=== PATIENT | female | born 1950 | race Caucasian/White ===

== ENCOUNTER 2019-10-20 09:10 | Day surgery (SDC) | payer OTHER, BC ==
[2019-10-17 10:01] LABS: Absolute Lymphocytes (CBC) 0.7 K/uL (0.7-4.9); Basophils % 0.2 % (0-1.3); Hematocrit 44.6 % (36.0-45.0); Lymphocytes % 17.3 % (15.3-44.8); RBC Red Blood Cell Count 4.91 M/uL (3.86-4.86)
[2019-10-17 10:09] LABS: Urine Appearance CLEAR; Urine Bilirubin NEGATIVE (NEG); Urine Blood NEGATIVE (NEG); Urine Color YELLOW; Urine Glucose NEGATIVE (NEG); Urine Protein 2+ (NEG); Urine Urobilinogen 0.2 mg/dL (0.2-1.0); Urine pH 6.5 (5.0-7.0)
[2019-10-17 10:10] LABS: Protime INR 0.96
[2019-10-17 10:12] LABS: Urine Microscopic Reflex ORDER UMIC
[2019-10-17 10:15] LABS: Potassium 3.6 mmol/L (3.5-5.1)
[2019-10-17 11:49] LABS: Urine Bacteria <20 /HPF (<20); Urine Culture Reflex Order NOT NEEDED; Urine RBC <5 /HPF (NONE SEEN)
[2019-10-20] MEDS ORDERED: Ringers Lactate 1,000 ML IV ONE ×2 (09:46→14:37)
[2019-10-20] MEDS ORDERED: SCOPOLAMINE HYDROBROMIDE PATCH TD ONE ×2 (09:46→09:55)
[2019-10-20] MEDS ORDERED: CEFAZOLIN SODIUM 1 GM/VIAL ONE (11:44)
[2019-10-20] MEDS ORDERED: NS 0.9% VIAL 10 ML ONE ×3 (11:44→13:23)
[2019-10-20] MEDS ORDERED: NA CHLORIDE 0.9% 1,000 ML ONE (11:45)
[2019-10-20] MEDS ORDERED: NA CHLORIDE 0.9% 100 ML IV ONE (11:45)
[2019-10-20] MEDS ORDERED: VASOPRESSIN 20 UNIT/ML VIAL ONE (11:45)
[2019-10-20] MEDS ORDERED: MIDAZOLAM HCL 2 MG/2 ML INJ ONE (12:22)
[2019-10-20] MEDS ORDERED: LIDOCAINE 1% MPF 5 ML VIAL ONE (12:56)
[2019-10-20] MEDS ORDERED: propofoL 200 MG/20 ML VIAL IV ONE (12:56)
[2019-10-20] MEDS ORDERED: FENTANYL CITR 250 MCG/5 ML ONE (12:56)
[2019-10-20] MEDS: CEFAZOLIN/SWI 2gm 2 GM/20 ML SYR ONE ×2 (13:00→13:34)
[2019-10-20] MEDS ORDERED: VECURONIUM 10 MG/VIAL IV ONE (13:19)
[2019-10-20] MEDS ORDERED: Phenylephrine HCl 10 MG/ML 1 ML VIAL ONE (13:22)
[2019-10-20] MEDS ORDERED: EPHEDRINE SULF 50 MG/ML VIAL ONE (14:02)
[2019-10-20] MEDS ORDERED: GLYCOPYRROLATE 0.2 MG/ML SYR ONE (14:31)
[2019-10-20] MEDS ORDERED: NEOSTIGMINE 1 MG/ML -10 ML VIAL ONE (16:31)
[2019-10-20] MEDS ORDERED: ROCURONIUM 50 MG/5 ML VIAL IV ONE (16:31)
[2019-10-20] MEDS ORDERED: KETOROLAC 30 MG/ML INJ ONE (16:39)
[2019-10-20] MEDS ORDERED: PROMETHAZINE INJ 25 MG/ML AMP IV PRN (16:41)
[2019-10-20] MEDS ORDERED: MORPHINE 2 MG/ML SYR IV PRN (16:41)
--- NOTE | 2019-10-20 16:52 | P.BOP ---
Preoperative diagnosis: stage 2 vault anterior and posterior prolapse, occult DIDI Postoperative diagnosis: same and posterior enterocele Primary procedure: anterior repair,MUS,post wall+enterocele repairs,cystoscopy Secondary procedure: biologic graft augmentation of the posterior and apical compartment Rug Dry Room Attendant: MANNY HENAO Estimated blood loss: minimal Specimen: none Findings: left apical defect with prominent post>ant defect, post enterocele Anesthesia: General Complications: None Drain(s): Urinary catheter Implants: dermapure graft, TVT-O Fluids & blood products: 1900 Transferred to: Recovery Room Condition: Good (popq: 0/+1/0/5-6/mod/6/-1/+2/n/a, post enterocele)
[2019-10-20] MEDS ORDERED: Ringers Lactate 1,000 ML IV SCH (17:00)
[2019-10-20 17:10] VITALS: O2SAT 97
[2019-10-20] MEDS: HYDROMORPHONE HCL 1 MG/ML INJ ONE ×2 (17:14→17:20)
[2019-10-20] MEDS ORDERED: ONDANSETRON 4 MG/2 ML VIAL ONE (17:15)
[2019-10-20 17:29] LABS: Potassium 3.8 mmol/L (3.5-5.1)
[2019-10-20 18:25] VITALS: BMI 29.1
[2019-10-20] MEDS: MORPHINE 4 MG/ML SYR IV PRN (19:43)
[2019-10-20] MEDS ORDERED: HOME MED 1 EA UNK (Bimatoprost [Lumigan Opthalmic Drops*] 1 DROP) OP SCH (21:00)
[2019-10-20] MEDS: ACETAMINOPHEN 500 MG TAB PO PRN (21:54)
[2019-10-21] MEDS: MORPHINE 4 MG/ML SYR IV PRN ×3 (00:14→08:34)
[2019-10-21] MEDS: ACETAMINOPHEN 500 MG TAB PO PRN ×2 (02:11→07:15)
--- NOTE | 2019-10-21 03:23 | OP ---
Date of Procedure: 10/20/2019 Surgeon: Azra Wood MD Molding Cutter: Yani Curtis. Preoperative Diagnoses: Stage II vault prolapse anterior and posterior prolapse, occult stress urina ry incontinence. Postoperative Diagnoses: Stage II vault prolapse anterior and posterior prolapse, occult stress urin harsh incontinence and posterior enterocele. Noted that posterior prolapse involved with left-sided ap ical defect being more significant were noted. Procedure Performed: Anterior repair, mid urethral sling, posterior wall defect repair with posterio r enterocele repair with biologic graft augmentation of the posterior and apical compartment, and cys toscopy. Estimated Blood Loss: Minimal. Specimens: No specimens. Complications: No complications. Drains: Vo catheter and vaginal packing. Findings: Left apical defect more prominent, posterior defect more prominent than the anterior defec t and posterior enterocele. Significant POP-Q 0, +1, 0, 5 to 6, moderate 6, -1, + 2 NA. Posterior e nterocele was noted. Implants: DermaPure biologic graft, human cadaveric graft (mid TVT-O). Condition: Stable. Fluids: In 1900, urine output 400. Indications: The patient is a 68-year-old lady with lupus, hypertension, had medical clearance and t hen options for treatment of her prolapse were discussed. The patient had rectocele and cystocele re pair 40 years ago. Later, she had a hysterectomy, bilateral salpingo-oophorectomy for fibroids about 10 years later. She had increasing bulge symptoms, difficulty to empty her bladder and had to stand to empty her bladder. Irritative bladder symptoms with urgency and urgency-related incontinence. S he also had problems with bowel movements. She tried a pessary in the office and failed to tolerate this since it was not working well in remaining in place and helping her symptoms. Alternatives of s urgery, observation with physical therapy were all reviewed with the patient. Patient wanted to proc eed with surgical repair. Options of reconstructive surgery and closure were discussed with the luis enrique ent. The patient felt strongly that she did not want to consider a closure procedure. Laparoscopic and vaginal repairs were reviewed. Laparoscopic repair with sacral colpopexy graft, mesh graft augme ntation, vaginal repair with primary defect repair versus graft augmented repairs in the compartment with leading prolapse. Since this was the recurrent problem, use of the biologic graft would be cons idered beneficial if no new [place] tissue was found to be optimal. No difference in the literature using human cadaveric graft. All studies indicate that it is equival ent to a primary repair. This was discussed with the patient, vaginal mesh graft unavailable, and so comparison of complications, recurrence of laparoscopic sacral colpopexy with vaginal graft augmente d repair biologic were reviewed with the patient. Patient wanted to proceed with the vaginal repair. Description Of Procedure: After being consented, 2 g of Ancef were given. She was taken back to the OR, placed in supine fashion on the operating table. General anesthesia was given, placed in the do rsal lithotomy position using Mundo stirrups. Vulva, vagina, and perineum were prepped and draped in a sterile fashion. Vo was placed to drain the bladder. POP-Q was as above. Plan was to repair the anterior compartment then the sling then approached posterior. So 2 Allis clamps were placed at the level of the UVJ and the mid vaginal vault. Tying suture was placed at the left end of the vagin al cuff. The right end of the vaginal cuff appeared to be holding significantly better than the left side. Dilute vasopressin was injected in the anterior compartment, then vertical incision with a knife. Al lis clamps placed on each side and dissection was performed to reduce the bladder underneath keeping the scar and the endopelvic fascia together. Once the bladder was reduced all the way from proximal-t o-distal end and from [id number], then plicating sutures were placed x4 with 2-0 Vicryl interrupted . Once these were brought together in the midline then vaginal epithelial closure was done after tri mming maybe 1/4 anterior on the left flap. Once this was done, 2-0 Vicryl in a running continuous lo cked closure was done. Mid urethral area picked up with the 2 Allis clamps, injected with dilute vasopressin 10 mL. A verti aicha incision in the mid urethral area, 1 cm made, then tracts were created on each side 45-degree ang le to the horizontal and vertical planes towards the obturator space hugging the inferior pubic ramus . Once the obturator membrane was perforated the tract was widened on both sides. The wing guide nimisha muller passed in the usual fashion exiting to the point marked according to package instructions and once the plastic dilators were pulled out through the sheaths and then the graft was held with K neha clamps, mid urethral area tensioned with the help of Metzenbaum scissors to be appropriate. The n, the plastic sheaths were removed, mesh was then placed, appropriately tensioned. Irrigation with antibiotic solution and closure with 3-0 Vicryl in a continuous running horizontal mattress fashion. Dermabond on the skin and mesh trimmed very flushed with the skin. Posterior vaginal wall was picked up at both ends of the hymenal ring and then in the center above th e level of the most prominent area of the posterior bulge. The defect appeared to be a large posteri or enterocele and also defect in the posterior rectovaginal septum. rectovaginal exam so the gloves were changed. Dilute vasopressin 20 mL was injected at the perineum and in the posterior midline and on both sides. A anam-shaped incision made with scalpel. Dissection carried to separate this, vaginal epitheli al carpet floor layer apprentice from the rectovaginal septum or the remnants in the scar. There was a scar starting at the level of the hymen and going all the way on the right side at least 4 cm and the posterior wall a bout 2 cm short of the right end of the vaginal cuff scar, possible right sacrospinous could have bee n performed just looking at the location of the scar. Dissection was performed to reduce the bulge from the vaginal epithelium, subepithelium. Posterior e nterocele was dissected as well. Once all this was laid out, dissection was carried in the pararecta l space from the apex on the left side. This was easier part enterocele was well reduced with 3-0 Monocryl in a pursestring fashion pararectal space. Ischial spine was palpated, sacrospinous ligament was cleaned up. Similar dissection was performed on the opposite side. There was no difficulty with the scar tissue here and once this was taken down and went to the pararectal s pace, then the dissection was easier. No stitch was palpable at the sacrospinous space. Once the sa crospinous ligament was clearly dissected and the rectum dissected medially, then 2 Prolene sutures w ere taken on the Capio device and placed in the mid ligament on each side, held with clamps and 3 PDS sutures were placed in the middle and on both sides, appear to find the uterosacral ligaments attach ed at the level of the vaginal cuff and so sutures in the middle on both sides of the midline were pl aced on these structures. All the 2-0 PDS sutures were held on clamps, then the graft was fashioned as a Y, trimmed 1.5 cm in the middle, kept all the width 7 cm, and then the length was left intact at 9 and then the Y-shaped graft was taken. The PDS sutures were all put through the graft, same thing with the sacrospinous sutures with erma stitch. Then, all these were tied down, 3 center stitches first then the left and then the right sacrospinous. Once all these were done, there was excellent support of the apex and the small pucker in the center where the apex seemed to be attached to the gr aft, but other than this excellent support vaginal epithelial trimming did not need to be done other than to freshen the edges at the very distal part. Since the anam-shaped incision was made, the i ncision was closed in a transverse fashion. The Y graft in the distal part was trimmed about 2 cm an d this was attached to the perineal body. The posterior defect was closed with a 2-0 PDS in a contin uous running fashion all the way to the level of the perineal body and once this was closed, then the graft was attached here with two 2-0 Vicryl one on each side interrupted and a center 2-0 PDS to sec ure the distal part. The vaginal epithelium closed with a continuous running 2-0 Vicryl. Then, damon sverse defect at the distal most part trimmed to close the edges evenly with a 2-0 Vicryl in a contin uous horizontal mattress fashion. Once this was tied down, there was excellent apical support. Post erior wall intact and then the perineal body appeared to be elevated and pulled up. There was no nee d for distal perineal repair. Once all the sutures were done and the incision closed, the rectovagin al exam was performed. No foreign body or sutures in the rectum at the level of sacrospinous and the distal sutures as well. Then, Vo removed. Cystoscopy was performed with 17-Khmer sheath with a 30-degree lens, normal saline. Both ureteric orifices were well visualized with strong jets of urin e. No foreign body in the bladder. No sling in the bladder as well. No tumors. The scope was glo jennifer. The bladder was drained. Vo was replaced. Vaginal packing was placed. The patient was rec overed from anesthesia. Instrument, needle, and sponge counts x3 were correct at the end of the case . The patient tolerated the procedure well. She will follow up with me in 1 week. She will have a voiding trial in the morning. We will send her home with antibiotics if she goes home with the [facility]. Her CellCept was asked to be held for 4 to 7 days depending on how she did and BMP to be checke d. DENNIS/TAE Voice ID: [id number] Report ID: [id number]
[2019-10-21 06:41] LABS: Absolute Lymphocytes (CBC) 0.7 K/uL (0.7-4.9); Basophils % 0.2 % (0-1.3); Hematocrit 35.3 % (36.0-45.0); Lymphocytes % 12.5 % (15.3-44.8); MPV 8.4 fL (7.6-11.3); RBC Red Blood Cell Count 3.91 M/uL (3.86-4.86)
[2019-10-21] MEDS ORDERED: METOPROLOL TAR 25 MG TAB PO SCH (08:00)
[2019-10-21 08:27] VITALS: TEMP 97
[2019-10-21] MEDS ORDERED: FOLIC ACID 1 MG TABLET PO SCH (09:00)
[2019-10-21] MEDS ORDERED: AMLODIPINE 5 MG TAB PO SCH (09:00)
[2019-10-21] MEDS ORDERED: CRANBERRY 500 MG PO SCH (09:00)
[2019-10-21] MEDS ORDERED: PANTOPRAZOLE 40MG TABLET PO SCH (09:00)
[2019-10-21] MEDS ORDERED: HOME MED 1 EA UNK (Magnesium Oxide [Magnesium] 250 MG) PO SCH (09:00)
[2019-10-21 09:18] VITALS: BP 135/63
== END 2019-10-21 10:30 | disposition home or self-care (01) ==
LOC: OR 09:10 → 2ND-WC 16:41 → OR 10-21 10:30
PROVIDERS: ATTEND Obstetrics & Gynecology
PROC: 0JQC0ZZ Repair Pelvic Region Subcutaneous Tissue and Fascia, Open Approach (ICD-10-PCS; 2019-10-20)
PROC: 0TSD4ZZ Reposition Urethra, Percutaneous Endoscopic Approach (ICD-10-PCS; 2019-10-20)
PROC: 0UQF0ZZ Repair Cul-de-sac, Open Approach (ICD-10-PCS; principal; 2019-10-20 10:30)
DX: N99.3 Prolapse of vaginal vault after hysterectomy (principal); N39.3 Stress incontinence (female) (male); M32.9 Systemic lupus erythematosus, unspecified; N81.12 Cystocele, lateral; I10 Essential (primary) hypertension
CPT/HCPCS: 85025 ×2; 80048 ×2; 36415 ×2; 86900; 86850; 85610; 86901; 85730; 57265; 57288; J2704; J2710; J2550; J2370; J2250; J3010; J2270; J1170; J0690 ×2; J7120 ×4; J7030; J2405; 81003; 81015

== ENCOUNTER 2020-07-12 08:27 | Inpatient (IN) | payer OTHER, BC ==
[2020-07-10 10:08] LABS: Urine Appearance CLEAR; Urine Bilirubin NEGATIVE (NEG); Urine Blood NEGATIVE (NEG); Urine Color YELLOW; Urine Glucose NEGATIVE (NEG); Urine Protein 2+ (NEG); Urine Specific Gravity 1.015 (1.005-1.030); Urine Urobilinogen 0.2 mg/dL (0.2-1.0)
[2020-07-10 10:10] LABS: Absolute Lymphocytes (CBC) 0.8 K/uL (0.7-4.9); Basophils % 0.2 % (0-1.3); Hematocrit 41.1 % (36.0-45.0); Lymphocytes % 18.1 % (15.3-44.8); MPV 9.4 fL (7.6-11.3); RBC Red Blood Cell Count 4.54 M/uL (3.86-4.86)
[2020-07-10 10:14] LABS: Protime INR 0.97
[2020-07-10 10:15] LABS: Urine Microscopic Reflex ORDER UMIC
[2020-07-10 10:22] LABS: Urine Bacteria <20 /HPF (<20); Urine Culture Reflex Order NOT NEEDED; Urine RBC NONE SEEN /HPF (NONE SEEN)
[2020-07-10 10:24] LABS: Potassium 3.8 mmol/L (3.5-5.1)
[2020-07-12] MEDS ORDERED: SCOPOLAMINE HYDROBROMIDE PATCH TD ONE ×2 (09:13→09:20)
[2020-07-12] MEDS ORDERED: Ringers Lactate 1,000 ML IV ONE ×2 (09:13→12:18)
[2020-07-12] MEDS ORDERED: CEFAZOLIN/SWI 2gm 2 GM/20 ML SYR ONE (09:13)
[2020-07-12] MEDS ORDERED: BUPIVACAINE 0.25% PF 30 ML VIAL ONE (10:06)
[2020-07-12] MEDS ORDERED: ROCURONIUM 50 MG/5 ML VIAL IV ONE (10:12)
[2020-07-12] MEDS ORDERED: FENTANYL CITR 100 MCG/2 ML ONE ×2 (10:12→12:10)
[2020-07-12] MEDS ORDERED: propofoL 200 MG/20 ML VIAL IV ONE (10:12)
[2020-07-12] MEDS ORDERED: LIDOCAINE 2% MPF 5 ML VIAL ONE (10:12)
[2020-07-12] MEDS ORDERED: ONDANSETRON 4 MG/2 ML VIAL ONE ×2 (10:12→14:39)
[2020-07-12] MEDS: CEFAZOLIN/SWI 1gm 1 GM/10 ML SYR IVP SCH ×2 (10:15→17:32)
[2020-07-12] MEDS ORDERED: EPHEDRINE SULF 50 MG/ML VIAL ONE (10:48)
[2020-07-12] MEDS ORDERED: NS 0.9% VIAL 10 ML ONE (12:07)
[2020-07-12] MEDS ORDERED: VECURONIUM 10 MG/VIAL IV ONE (12:07)
[2020-07-12] MEDS ORDERED: VASOPRESSIN 20 UNIT/ML VIAL ONE (13:25)
[2020-07-12] MEDS ORDERED: NA CHLORIDE 0.9% 50 ML ONE (13:27)
--- NOTE | 2020-07-12 13:35 | P.OP ---
Test Tech: Azra Wood Preoperative diagnosis: Extensive Pelvic Adhesions Postoperative diagnosis: Extensive Pelvic Adhesions Primary procedure: Laparoscopic Adhesiolysis Secondary procedure: See Dr. Wood note for full details Anesthesia: GETA + Local Estimated blood loss: <5 cc Specimen: None Findings: Extensive Pelvic Adhesions, sigmoid, rectum Complications: None Transferred to: Recovery Room Condition: Good
[2020-07-12] MEDS ORDERED: dexAMETHasone 10 MG/ML VIAL ONE (14:38)
[2020-07-12] MEDS ORDERED: GLYCOPYRROLATE 0.2 MG/ML SYR ONE ×2 (14:38)
[2020-07-12] MEDS ORDERED: KETOROLAC 30 MG/ML INJ ONE (14:39)
[2020-07-12] MEDS ORDERED: NEOSTIGMINE 1 MG/ML -5 ML ONE (14:43)
[2020-07-12] MEDS: HYDROMORPHONE HCL 1 MG/ML INJ ONE ×2 (15:22→15:27)
[2020-07-12] MEDS: MEPERIDINE HCL 25 MG/ML SYR ONE ×2 (15:29→15:34)
[2020-07-12 15:34] VITALS: O2SAT 99
[2020-07-12] MEDS ORDERED: MORPHINE 4 MG/ML SYR IV PRN (16:14)
[2020-07-12] MEDS ORDERED: ACETAMINOPHEN 325 MG TABLET PO PRN (16:16)
[2020-07-12] MEDS ORDERED: PROMETHAZINE INJ 25 MG/ML AMP IV PRN (16:16)
[2020-07-12 16:50] VITALS: BMI 29.7
[2020-07-12] MEDS: IBUPROFEN 600 MG TAB PO PRN (23:52)
[2020-07-13] MEDS: CEFAZOLIN/SWI 1gm 1 GM/10 ML SYR IVP SCH (00:59)
[2020-07-13] MEDS: IBUPROFEN 600 MG TAB PO PRN (06:10)
[2020-07-13 06:29] LABS: Absolute Lymphocytes (CBC) 0.7 K/uL (0.7-4.9); Basophils % 0.1 % (0-1.3); Hematocrit 34.2 % (36.0-45.0); Lymphocytes % 9.7 % (15.3-44.8); MPV 9.5 fL (7.6-11.3); RBC Red Blood Cell Count 3.77 M/uL (3.86-4.86)
[2020-07-13 06:45] LABS: Potassium 3.9 mmol/L (3.5-5.1)
[2020-07-13 09:52] VITALS: BP 107/54; TEMP 97.9
--- NOTE | 2020-07-14 00:30 | OP ---
Date of Procedure: 07/12/2020 Surgeon: Azra Wood MD Urinalysis Technician: Carolina Becker. Preoperative Diagnoses: Vaginal wall prolapse, anterior wall prolapse, overactive bladder. Postoperative Diagnoses: Vaginal wall prolapse, anterior wall prolapse, overactive bladder, divertic ulosis with significant descending colon and sigmoid adhesions, and adhesions of the bladder to the s igmoid colon as well and obliteration of the cul-de-sac. Procedures Performed: Diagnostic laparoscopy, extensive lysis of bladder and bowel adhesions, omenta l adhesions, sigmoid adhesions taken down, and diverticular adhesions by Dr. Jaiden Eugene, then vagina l anterior repair, then vaginal posterior approach, right sacrospinous ligament fixation, colpopexy, cystoscopy. Intraoperative Pipe Finishing Supervisor Surgeon: Jaiden Eugene M.D. Please refer to his operative note. Estimated Blood Loss: 100. Urine Output: 300. Specimens: None. Complications: None. Drains: Vo catheter and vaginal packing. Condition: Stable. Findings: POP-Q during the procedure, which has a findings, -1, +1, 0, 4, thick, 6, -2, -2, NA. Sig nificant vaginal wall prolapse noted, more than what was discerned prior to the procedure. The poste rior vaginal wall graft was intact, however, the suture from the graft to the sacrospinous on the rig ht side had at least a 3-4 cm bridge. Similar finding on the left side noted as the other side, ante rior wall midline as well as lateral defects. However, vaginal apical prolapse appeared to be the most significant. Significant diverticulosis, almost diverticula in each square inch about 2-3 starting from descending colon, but most significant in the sigmoid all the way to the rectum. There was obliteration of the cul-de-sac between the posterior vaginal wall and the rectum. There were adhesions of the diverticu la to the bladder as well. On cystoscopy, the bladder was completely unremarkable with no evidence o f any injury or foreign body. Normal bilateral jets of urine. Methylene blue injected. Description Of Procedure: After informed consent was verified, the patient was taken back to the OR. She had a posterior repair, bilateral sacrospinous fixation, and anterior repair. She had prior an terior-posterior repair many years ago after her hysterectomy. She became symptomatic with difficult y emptying and vaginal wall descent was found about 9 months postop. Anterior defect appeared to be significant as well, so plan was to perform a sacral colpopexy for apical anterior support. So, she was consented and brought to the OR. The patient declined pessary management and wanted surgical management at this time due to voiding dy sfunction. After informed consent was verified, she was taken back to OR. A 2 g of Ancef were given. SCDs were placed. After she was placed in supine fashion on the operating table, general anesthesia was given . Arms tucked by the side. Positioning checked. Abdomen, vulva, vagina, and perineum prepped and d raped in a sterile fashion. Vo was placed to drain the bladder and attached for retrograde fillin g, and the vaginal manipulator for cervical colpopexy was inserted. The POP-Q as noted above and vaginal length being short was noted. A 1 cm infraumbilical incision was made with a scalpel and using the open laparoscopy technique, fasc ia was incised and entered. There was hernia above the level of the umbilicus, but periumbilical on the right lateral aspect. This was left alone. There was omentum, which was then later taken down a fter the port was placed. A 10 mm lower port was placed and good abdominal distention with CO2. The site of entry was checked, unremarkable. Upper abdominal surfaces, liver, gallbladder appeared to b e unremarkable. OG tube was placed in the gastric distention and decreased. An 8 mm left lower quad rant and right lower quadrant ports were placed. A 10 mm suprapubic port was placed after the adhesi ons were taken down through the left lower quadrant port from the omentum to the anterior abdominal w all periumbilical incision area. Then, adhesions taken down from the lateral aspect of the anterior wall. The sigmoid adhesions were taken down as well. Lateral paracolic gutter was opened up from th e pelvic brim to the level of the vaginal apex. Here, there was significant diverticular adhesions t hat were very dense and directly from the diverticula, did not want to cause any diverticular perfora tion and therefore, Dr. Eugene was consulted, who was surgeon on-call, and he came by and please ref er to his dictation note. After the adhesions were taken down to open the cul-de-sac and evaluate th e posterior wall, there was no peritoneum available to re-peritonealize the graft even if it was plac ed. Anteriorly significant bladder adhesions. After the diverticular adhesions were taken down from the bladder, detrusor muscle was exposed on the left side, but there was no evidence of any injury t o the bladder itself. This was left alone and dissecting the bladder could be feasible. The bladder was retroperitonealized taking the peritoneal edge and resuturing it with the help of 2-0 Monocryl o n an SH needle to the anterior peritoneum, lifting up the retroperitoneal part of the bladder back up , so that the space in the anterior vaginal wall could be opened up. However, given the diverticular disease and difficulty to find the peritoneum to retroperitonealize posteriorly, after discussion wi th the surgeon and understanding the complications of adhesions to the diverticula, possible fistula formation, and graft infection, it was deemed that this could be a staged procedure if the patient burnett d recurrent prolapse that we could come back to do a sacral colpopexy after the diverticular disease was addressed. She could have had repetitive bouts of diverticulitis and this need to be addressed f irst. She will have a surgical consultation with Dr. Eugene after postop, so after this was decided , the abdomen was closed after taking the ports out under direct vision. Marcaine was injected at th e entry and exit. Fascia at the umbilicus closed with 0 Vicryl simple stitch and a [id number] P DS used on the top for closing the fascial incision. All the skin incisions were then closed and gau ze was placed to cover the skin incisions. Then after patient was placed in lithotomy position with the Mundo stirrups, vaginal exposure was obt ained. First was to open the anterior vaginal wall, separate the vaginal epithelium and subepitheliu m from the underlying scar. The scar was then sutured from side to side with the help of 2-0 PDS taryn nging together the scar tissue. No significant connective tissue was discerned other than scar. No possibility to stitch anterior to posterior. So, vaginal epithelium was very slightly trimmed, less than half a centimeter laterally to close the incision in an inverted T-shaped fashion using 2-0 Vicr yl in a continuous running horizontal mattress fashion. Once all this was done and the repair was co mpleted to reduce the bulge as best as possible using this technique, vaginal wall fixation was decid ed to be the next best means to create at least temporary relief for the patient. After discussing t he findings and the difficulty to place and dilemma to place the sacral colpopexy mesh with her daalberto velasquez on the telephone, daughter decided that her mother would like to have some relief and that I shou ld proceed with sacrospinous fixation. After gloves were changed, the posterior wall was opened up in the midline as the perineum was intact and the distal third was intact. The incision was starting at the distal third and going up about t o the apex. Once this was opened up and vaginal subepithelium and tissues were dissected, the graft was easily from the vaginal epithelial tissue. The graft appeared to be well tacked to the vaginal apex and to the lateral hooks. So, careful dissection was performed to go to the right late ral corner of the triangle of the graft and here the permanent suture was palpated, the Prolene from the graft to the sacrospinous ligament. This was carefully dissected. The sacrospinous ligament was exposed. The bowel was dissected away from the graft. Then, using the Capio device, Prolene suture was placed at the mid point of the ligament, then attaching into the lateral aspect of the graft and pulling it over. When this stitch was anchored also to the slightly midline portion of the graft an d pulled, the stitch did not go down pulling the graft to the sacrospinous ligament without a bridge, so the right lateral part of the graft alone was taken and with a good bite to the vaginal epitheliu m as well as to the graft, this was anchored to the right sacrospinous ligament. Once the suture was tied down snugly without tension as the graft gave the extra length to prevent tension repair and th is was satisfactory, then the vaginal epithelial closure was done without trimming any vaginal epithe lium. This was closed with the help of a 2-0 Vicryl in a continuous running fashion until the very e nd and once this was closed, rectal exam was performed. No evidence of any bowel injury. Then, cystoscopy was performed after removing the Vo. There was excellent streams of urine from b oth ureteric orifices. No evidence of any trauma to the bladder. No evidence of any diverticula or any tumors. The dome area above the trigone and the lateral aspects were well visualized. The scope was removed. Vo was replaced and attached to the bag. Vaginal packing was placed. The instrume nt, needle, and sponge counts were correct. The patient was recovered from anesthesia and taken to PACU in stable condition. DENNIS/TAE Voice ID: [id number] Report ID: [id number]
== END 2020-07-13 10:35 | disposition home or self-care (01) | DRG 748 ==
LOC: OR 08:27 → 2ND-WC 16:12
PROVIDERS: ADMIT Obstetrics & Gynecology; ATTEND Obstetrics & Gynecology
PROC: 0USG8ZZ Reposition Vagina, Via Natural or Artificial Opening Endoscopic (ICD-10-PCS; 2020-07-12)
PROC: 0DNM4ZZ Release Descending Colon, Percutaneous Endoscopic Approach (ICD-10-PCS; 2020-07-12)
PROC: 0DNN4ZZ Release Sigmoid Colon, Percutaneous Endoscopic Approach (ICD-10-PCS; 2020-07-12)
PROC: 0DNU4ZZ Release Omentum, Percutaneous Endoscopic Approach (ICD-10-PCS; 2020-07-12)
PROC: 0TNB4ZZ Release Bladder, Percutaneous Endoscopic Approach (ICD-10-PCS; 2020-07-12)
PROC: 0MQ Bursae and Ligaments, Repair (ICD-10-PCS; principal; 2020-07-12 11:00)
DX: N81.10 Cystocele, unspecified (principal); N32.81 Overactive bladder; K57.30 Diverticulosis of large intestine without perforation or abscess without bleeding; N32.89 Other specified disorders of bladder
CPT/HCPCS: 36415; 80048; 81003; 81015; 85025; 85610; 85730; 86850; 86900; 86901; 94010; J0690; J1100; J1170; J2175; J2405; J2550; J2704; J2710; J3010; J7120; U0002

== ENCOUNTER 2020-08-03 22:01 | Emergency (ER) | payer OTHER, BC ==
[2020-08-03] MEDS ORDERED: predniSONE 20 MG TAB ONE (22:56)
[2020-08-03] MEDS ORDERED: HYDROCODONE/APAP 5/325 MG TAB ONE (22:56)
--- NOTE | 2020-08-03 23:44 | EDPHYS ---
Physician Documentation [facility] Name: Mirtha Edouard Age: 69 yrs Sex: Female : 1950 Arrival Date: 08/03/2020 Time: 22:03 Bed 14 Private MD: JOSE Physician Ricardo Rosas HPI: 08/03 22:55 This 69 yrs old Female presents to ER via Ambulatory with complaints of Wrist mh7 Pain. 22:55 The patient or guardian reports pain. The complaints affect the left wrist diffusely. mh7 Context: The problem was sustained at home, resulted from a repetitive motion, sewing. Onset: The symptoms/episode began/occurred yesterday. Modifying factors: The symptoms are alleviated by nothing, the symptoms are aggravated by movement. Associated signs and symptoms: Pertinent negatives: cyanosis distally, decreased sensation distally, fever, nausea, numbness distally, tingling distally, vomiting. Compartment Syndrome negative for numbness, tingling. The patient has experienced similar episodes in the past, a few times. Historical: - Allergies: 22:15 No Known Allergies; jd3 - PMHx: 22:15 CKD stage 3; GERD; Hypertension; Lupus; jd3 - PSHx: 22:15 Pelvic Repair; Hysterectomy; jd3 - Immunization history:: Adult Immunizations up to date. - Social history:: Smoking status: Patient denies any tobacco usage or history of. ROS: 22:55 Constitutional: Negative for fever, chills, and weight loss, Eyes: Negative for injury, mh7 pain, redness, and discharge, ENT: Negative for injury, pain, and discharge, Neck: Negative for injury, pain, and swelling, Cardiovascular: Negative for chest pain, palpitations, and edema, Respiratory: Negative for shortness of breath, cough, wheezing, and pleuritic chest pain, Abdomen/GI: Negative for abdominal pain, nausea, vomiting, diarrhea, and constipation, Back: Negative for injury and pain, : Negative for injury, bleeding, discharge, and swelling, Skin: Negative for injury, rash, and discoloration, Neuro: Negative for headache, weakness, numbness, tingling, and seizure, Psych: Negative for depression, anxiety, suicide ideation, homicidal ideation, and hallucinations, Allergy/Immunology: Negative for hives, rash, and allergies, Endocrine: Negative for neck swelling, polydipsia, polyuria, polyphagia, and marked weight changes, Hematologic/Lymphatic: Negative for swollen nodes, abnormal bleeding, and unusual bruising. Exam: 22:55 Head/Face: Normocephalic, atraumatic. Eyes: Pupils equal round and reactive to light, mh7 extra-ocular motions intact. Lids and lashes normal. Conjunctiva and sclera are non-icteric and not injected. Cornea within normal limits. Periorbital areas with no swelling, redness, or edema. Neck: Trachea midline, no thyromegaly or masses palpated, and no cervical lymphadenopathy. Supple, full range of motion without nuchal rigidity, or vertebral point tenderness. No Meningismus. Chest/axilla: Normal chest wall appearance and motion. Nontender with no deformity. No lesions are appreciated. Cardiovascular: Regular rate and rhythm with a normal S1 and S2. No gallops, murmurs, or rubs. Normal PMI, no JVD. No pulse deficits. Respiratory: Lungs have equal breath sounds bilaterally, clear to auscultation and percussion. No rales, rhonchi or wheezes noted. No increased work of breathing, no retractions or nasal flaring. Abdomen/GI: Soft, non-tender, with normal bowel sounds. No distension or tympany. No guarding or rebound. No evidence of tenderness throughout. Back: No spinal tenderness. No costovertebral tenderness. Full range of motion. Skin: Warm, dry with normal turgor. Normal color with no rashes, no lesions, and no evidence of cellulitis. 22:55 Neuro: Awake and alert, GCS 15, oriented to person, place, time, and situation. Cranial nerves II-XII grossly intact. Motor strength 5/5 in all extremities. Sensory grossly intact. Cerebellar exam normal. Normal gait. Psych: Awake, alert, with orientation to person, place and time. Behavior, mood, and affect are within normal limits. 22:55 Constitutional: The patient appears in no acute distress, alert, awake, uncomfortable. 22:55 Musculoskeletal/extremity: Extremities: noted in the volar left wrist: pain, swelling, tenderness, ROM: limited active range of motion, in the left wrist, limited passive range of motion, in the left wrist, limited active range of motion due to pain, in the left wrist, limited passive range of motion due to pain, in the left wrist, Circulation is intact in all extremities. Pulses: are normal with no appreciated deficits, Perfusion: the patient is normally perfused throughout, Perfusion: the extremity is normally perfused throughout, Sensation intact. Compartment Syndrome exam of affected extremity: is normal. no numbness, no tingling, no sensation deficit, no palor, no weak pulses, Joints: the left wrist displays pain at rest, painful range of motion, swelling, tenderness, Weight bearing: able to fully bear weight, without difficulty, Tendon exam: specific tendon testing normal through active and passive range of motion Vital Signs: 22:15 BP 178 / 89; Pulse 69; Resp 18 S; Temp 98.5(O); Pulse Ox 100% on R/A; Weight 77.11 kg jd3 (R); Height 5 ft. 4 in. (162.56 cm) (R); Pain 10/10; 23:10 Pain 8/10; ca1 23:39 BP 164 / 86; Pulse 71; Resp 16 S; Pulse Ox 100% ; ca1 22:15 Body Mass Index 29.18 (77.11 kg, 162.56 cm) jd3 MDM: 22:18 Patient medically screened. [facility] 23:42 Differential diagnosis: dislocation, closed fracture, contusion, abrasion, tendonitis, 7 Carpal tunnel syndrome, nonspecific pain. Data reviewed: vital signs, nurses notes, old medical records, radiologic studies, plain films. Data interpreted: Pulse oximetry: on room air is 100 %. Interpretation: normal. Counseling: I had a detailed discussion with the patient and/or guardian regarding: the historical points, exam findings, and any diagnostic results supporting the discharge/admit diagnosis, the presence of at least one elevated blood pressure reading (>120/80) during this emergency department visit, radiology results, the need for outpatient follow up, to return to the emergency department if symptoms worsen or persist or if there are any questions or concerns that arise at home. Response to treatment: the patient's symptoms have markedly improved after treatment. 08/03 22:19 Order name: Hand Left 3 View XRAY [facility] 08/03 23:40 Order name: Wrist Splint; Complete Time: 23:40 ca1 Administered Medications: 22:35 Drug: predniSONE 20 mg Route: PO; ca1 23:23 Follow up: Response: No adverse reaction ca1 22:37 Drug: [place] 5 mg-325 mg 1 tabs {Note: rass 0.} Route: PO; ca1 23:23 Follow up: Response: No adverse reaction; Pain is decreased; RASS: Alert and Calm (0) ca1 Disposition: 08/03/20 23:44 Discharged to Home. Impression: Left Wrist Pain. - Condition is Stable. - Discharge Instructions: Wrist Pain, [id number]. - Prescriptions for Tylenol- Codeine #3 300-30 mg Oral Tablet - take 1 tablet by ORAL route every 6 hours As needed; 15 tablet. Medrol (Rao) 4 mg Oral Tablets, Dose Pack - take 1 tablet by ORAL route as directed - follow package instructions; 1 packet. - Medication Reconciliation Form, Thank You Letter, Antibiotic Education, Prescription Opioid Use form. - Follow up: Private Physician; When: 1 - 2 days; Reason: Worsening of condition, Recheck today's complaints, Continuance of care, Re-evaluation by your physician. Follow up: Justus Lutz MD; When: 1 - 2 days; Reason: Worsening of condition, Recheck today's complaints. - Problem is an acute exacerbation. - Symptoms have improved. Signatures: Dispatcher [employer] [facility] Clarence Hall RN RN jd3 Lanie Krause RN RN ca1 Ricardo Rosas MD MD mh7 Corrections: (The following items were deleted from the chart) 22:55 22:20 Wrist Left 3 View+RAD.RAD.BRZ ordered. [facility] 23:53 23:44 08/03/2020 23:44 Discharged to Home. Impression: Left Wrist Pain. Condition is ca1 Stable. Forms are Medication Reconciliation Form, Thank You Letter, Antibiotic Education, Prescription Opioid Use. Follow up: Private Physician; When: 1 - 2 days; Reason: Worsening of condition, Recheck today's complaints, Continuance of care, Re-evaluation by your physician. Follow up: Justus Lutz; When: 1 - 2 days; Reason: Worsening of condition, Recheck today's complaints. Problem is an acute exacerbation. Symptoms have improved. mh7
--- NOTE | 2020-08-03 23:44 | ER ---
Nurse's Notes [facility] Name: Mirtha Edouard Age: 69 yrs Sex: Female : 1950 Arrival Date: 08/03/2020 Time: 22:03 Bed 14 Private MD: Diagnosis: Left Wrist Pain Presentation: 08/03 22:12 Chief complaint: Patient states: "I didn't hurt it, but now all of a sudden it hurts jd3 and is swollen. this happened once before and they gave me steroids which helped.". Coronavirus screen: At this time, the client does not indicate any symptoms associated with coronavirus-19. Ebola Screen: Patient negative for fever greater than or equal to 101.5 degrees Fahrenheit, and additional compatible Ebola Virus Disease symptoms. Initial Sepsis Screen: Does the patient meet any 2 criteria? No. Patient's initial sepsis screen is negative. Does the patient have a suspected source of infection? No. Patient's initial sepsis screen is negative. Risk Assessment: Do you want to hurt yourself or someone else? Patient reports no desire to harm self or others. Onset of symptoms was August 03, 2020. 22:12 Method Of Arrival: Ambulatory jd3 22:12 Acuity: ADELAIDA 4 jd3 Historical: - Allergies: 22:15 No Known Allergies; jd3 - PMHx: 22:15 CKD stage 3; GERD; Hypertension; Lupus; jd3 - PSHx: 22:15 Pelvic Repair; Hysterectomy; jd3 - Immunization history:: Adult Immunizations up to date. - Social history:: Smoking status: Patient denies any tobacco usage or history of. Screenin:10 Abuse screen: Denies threats or abuse. Denies injuries from another. Nutritional ca1 screening: No deficits noted. Tuberculosis screening: No symptoms or risk factors identified. Fall Risk None identified. Assessment: 22:10 General: Appears in no apparent distress. comfortable, Behavior is calm, cooperative, ca1 appropriate for age. Pain: Complains of pain in dorsal aspect of left wrist and palmar aspect of left wrist Pain currently is 10 out of 10 on a pain scale. Pain began 1 day ago. Is continuous. Neuro: Level of Consciousness is awake, alert, obeys commands, Oriented to person, place, time, situation. Derm: Skin is intact, is healthy with good turgor, Skin is pink, warm \\T\\ dry. Musculoskeletal: Circulation, motion, and sensation intact. Capillary refill < 3 seconds, Range of motion: limited in left wrist Swelling present in left wrist. 23:10 Reassessment: Patient appears in no apparent distress at this time. Patient and/or ca1 family updated on plan of care and expected duration. Pain level reassessed. Patient is alert, oriented x 3, equal unlabored respirations, skin warm/dry/pink. Patient states feeling better. Vital Signs: 22:15 BP 178 / 89; Pulse 69; Resp 18 S; Temp 98.5(O); Pulse Ox 100% on R/A; Weight 77.11 kg jd3 (R); Height 5 ft. 4 in. (162.56 cm) (R); Pain 10/10; 23:10 Pain 8/10; ca1 23:39 BP 164 / 86; Pulse 71; Resp 16 S; Pulse Ox 100% ; ca1 22:15 Body Mass Index 29.18 (77.11 kg, 162.56 cm) jd3 ED Course: 22:03 Patient arrived in ED. ag3 22:10 Ricardo Rosas MD is Attending Physician. mh7 22:10 Patient has correct armband on for positive identification. Bed in low position. Call ca1 light in reach. Side rails up X 1. Pulse ox on. NIBP on. 22:14 Triage completed. jd3 22:16 Arm band placed on. jd3 22:19 Lanie Krause, RN is Primary Nurse. ca1 22:49 No provider procedures requiring assistance completed. Patient did not have IV access ca1 during this emergency room visit. 22:54 Hand Left 3 View XRAY In Process Unspecified. EDMS 23:39 Velcro wrist splint applied to left wrist. ca1 23:43 Justus Lutz MD is Referral Physician. mh7 Administered Medications: 22:35 Drug: predniSONE 20 mg Route: PO; ca1 23:23 Follow up: Response: No adverse reaction ca1 22:37 Drug: [place] 5 mg-325 mg 1 tabs {Note: rass 0.} Route: PO; ca1 23:23 Follow up: Response: No adverse reaction; Pain is decreased; RASS: Alert and Calm (0) ca1 Outcome: 23:44 Discharge ordered by . 7 23:53 Discharged to home ambulatory, with family. ca1 23:53 Condition: stable 23:53 Discharge instructions given to patient, Instructed on discharge instructions, follow up and referral plans. no drinking with medication, no driving heavy equipment, medication usage, Demonstrated understanding of instructions, follow-up care, medications, Prescriptions given X 2. 23:53 Patient left the ED. ca1 Signatures: Dispatcher [employer] EDClarence Patterson RN RN jd3 Francesca Garcia3 Lanie Krause RN RN ca1 Ricardo Rosas MD MD mh7
[2020-08-04 00:25] VITALS: TEMP 98.5; O2SAT 100
[2020-08-04 00:28] VITALS: BP 164/86
--- NOTE | 2020-08-06 10:24 | RAD REPORT ---
EXAM DESCRIPTION: RAD - Hand Left 3 View - 08/03/2020 10:54 pm CLINICAL HISTORY: PAIN TECHNIQUE: Three views of the left hand are submitted. COMPARISON: None available for comparison FINDINGS: Bones: Osseous structures are osteopenic. No acute or remote fracture deformity. No osseou s destruction or erosion. Joints: No dislocation. Mild multifocal degenerative changes. Soft tissues: Unremarkable IMPRESSION: No acute abnormality. Electronically signed by: Tova Matson MD 08/03/2020 11:08 PM CDT Due to temporary technical issues with the PACS/Fluency reporting system, reports are being signed by the in house radiologist without review as a courtesy to ensure prompt reporting. The interpreting r adiologist is fully responsible for the content of the report.
== END 2020-08-03 23:53 | disposition home or self-care (01) ==
LOC: ER 22:01
DX: M25.532 Pain in left wrist (principal); I12.9 Hypertensive chronic kidney disease with stage 1 through stage 4 chronic kidney disease, or unspecified chronic kidney disease; N18.30 Chronic kidney disease, stage 3 unspecified
CPT/HCPCS: 99284; J7512

== ENCOUNTER 2020-08-24 08:49 | Emergency (ER) | payer OTHER, BC ==
[2020-08-24 09:47] LABS: Absolute Lymphocytes (CBC) 0.7 K/uL (0.7-4.9); Basophils % 0.2 % (0-1.3); Hematocrit 38.4 % (36.0-45.0); Lymphocytes % 11.2 % (15.3-44.8); MPV 8.6 fL (7.6-11.3); RBC Red Blood Cell Count 4.27 M/uL (3.86-4.86)
[2020-08-24 09:51] LABS: Protime INR 1.1
[2020-08-24 10:01] LABS: Urine Blood NEGATIVE (NEG); Urine Glucose NEGATIVE (NEG); Urine Protein 2+ (NEG); Urine Specific Gravity 1.015 (1.005-1.030); Urine pH 5.5 (5.0-7.0)
[2020-08-24] MEDS ORDERED: FENTANYL CITR 100 MCG/2 ML ONE (10:01)
[2020-08-24 10:08] LABS: ALT/SGPT 30 U/L (12-78); AST/SGOT 23 U/L (15-37); Albumin 3.3 g/dL (3.4-5.0); Alkaline Phosphatase 94 U/L (45-117); BUN Blood Urea Nitrogen 20 mg/dL (7-18); Bicarbonate 25 mmol/L (21-32); Bilirubin Direct 0.2 mg/dL (0-0.2); Bilirubin Total 0.4 mg/dL (0.2-1.0); Creatine Phosphokinase 24 U/L (26-192); Glucose Level 104 mg/dL (74-106); Magnesium 2.1 mg/dL (1.8-2.4); Potassium 4.2 mmol/L (3.5-5.1); Protein, Total 7.3 g/dL (6.4-8.2); Sodium Level 137 mmol/L (136-145); Troponin (Emerg Dept Use Only) < 0.02 ng/mL (0.0-0.045)
[2020-08-24 10:13] LABS: Urine Bacteria 20-50 /HPF (<20); Urine RBC <5 /HPF (NONE SEEN)
[2020-08-24 10:14] LABS: Urine Culture Reflex Order NOT NEEDED; Urine Yeast FEW (NONE SEEN); Urine Yeast with Hyphae FEW
[2020-08-24] MEDS ORDERED: METHYLPREDNISOLONE 125 MG INJ ONE (11:01)
--- NOTE | 2020-08-24 11:25 | ER ---
Nurse's Notes [id number] Name: Mirtha Edouard Age: 69 yrs Sex: Female : 1950 Arrival Date: 08/24/2020 Time: 08:50 Bed 5 Private MD: Olu Cotton Diagnosis: Acute pain, not elsewhere classified Presentation: 08/24 09:09 Chief complaint: Patient states: pain all over from lupus flare up, was here a couple iw weeks ago for hand pain and was referred to [facility] to r/o carpal tunnel, states her labs show she is having a lupus flare up. Coronavirus screen: At this time, the client does not indicate any symptoms associated with coronavirus-19. Ebola Screen: Patient negative for fever greater than or equal to 101.5 degrees Fahrenheit, and additional compatible Ebola Virus Disease symptoms Patient denies exposure to infectious person. Patient denies travel to an Ebola-affected area in the 21 days before illness onset. No symptoms or risks identified at this time. Initial Sepsis Screen: Does the patient meet any 2 criteria? No. Patient's initial sepsis screen is negative. Does the patient have a suspected source of infection? No. Patient's initial sepsis screen is negative. Risk Assessment: Do you want to hurt yourself or someone else? Patient reports no desire to harm self or others. Onset of symptoms was August 09, 2020. 09:09 Method Of Arrival: Wheelchair iw 09:09 Acuity: ADELAIDA 3 iw Historical: - Allergies: 09:11 No Known Allergies; iw - Home Meds: 10:05 amlodipine 5 mg tab 1 tab once daily [Active]; metoprolol tartrate 25 mg Oral tab 1 tab jl7 2 times per day [Active]; niacinamide 500 mg Oral tab [Active]; omeprazole 20 mg Oral cpDR 1 cap once daily [Active]; spironolactone 25 mg Oral tab [Active]; Vitamin C 500 mg Oral tab twice a day [Active]; saw palmetto 500 mg Oral cap [Active]; losartan 50 mg oral tab [Active]; acyclovir 400 mg Oral tab 1 tab [Active]; CellCept 500 mg Oral tab 3 tabs [Active]; "calcium, mag, zinc, BID" [Active]; Vitamin B-12 1,000 mcg Oral tab [Active]; Vitamin D3 50 mcg Oral daily [Active]; - PMHx: 09:11 CKD stage 3; GERD; Hypertension; Lupus; iw - PSHx: 09:11 Pelvic Repair; Hysterectomy; iw - Immunization history:: Adult Immunizations up to date. - Social history:: Smoking status: Patient denies any tobacco usage or history of. Screenin:43 Abuse screen: Denies threats or abuse. Denies injuries from another. Nutritional jl7 screening: No deficits noted. Tuberculosis screening: No symptoms or risk factors identified. Fall Risk IV access (20 points). Ambulatory Aid- Crutches/Cane/Walker (15 pts). Gait- Weak (10 pts.). Total Ar[place]o Fall Scale indicates High Risk Score (45 or more points). Fall prevention measures have been instituted. Side Rails Up X 2 Placed Close to Nursing Station Frequent Obs/Assessments Occuring Family Present and informed to notify staff if the need to leave the bedside As available patient and family educated on Fall Prevention Program and Strategies. Assessment: :43 General: Appears in no apparent distress. uncomfortable, Behavior is calm, cooperative, jl7 appropriate for age. Pain: Complains of pain in all over Pain currently is 10 out of 10 on a pain scale. Neuro: Level of Consciousness is awake, alert, obeys commands. Cardiovascular: Denies chest pain, Patient's skin is warm and dry. Respiratory: Airway is patent Respiratory effort is even, unlabored, Respiratory pattern is regular, symmetrical, Denies shortness of breath. Derm: Skin is pink, warm \\T\\ dry. 10:30 Reassessment: Patient appears in no apparent distress at this time. Patient and/or jl7 family updated on plan of care and expected duration. Pain level reassessed. Patient is alert, oriented x 3, equal unlabored respirations, skin warm/dry/pink. Patient states feeling better. Patient states symptoms have improved. Vital Signs: 09:09 BP 154 / 87; Pulse 71; Resp 16; Temp 97.7; Pulse Ox 100% on R/A; Weight 53.07 kg; iw Height 5 ft. 4 in. (162.56 cm); Pain 10/10; 10:28 BP 126 / 70; Pulse 69; Resp 17; Pulse Ox 100% ; jl7 09:09 Body Mass Index 20.08 (53.07 kg, 162.56 cm) ED Course: 08:50 Patient arrived in ED. as 08:50 Olu Cotton MD is Private Physician. as 09:11 Triage completed. iw 09:15 Esther Weller RN is Primary Nurse. jl7 09:16 Martin Rosales PA is PHCP. cp 09:17 Riccardo Gill MD is Attending Physician. cp 09:43 Patient has correct armband on for positive identification. Placed in gown. Bed in low jl7 position. Call light in reach. Side rails up X 1. quality assurance monitor body on. Pulse ox on. NIBP on. Warm blanket given. 09:43 Initial lab(s) drawn, by me, sent to lab. Inserted saline lock: 20 gauge in right jl7 wrist, using aseptic technique. Blood collected. 09:45 Arm band placed on right wrist. jl7 11:40 No provider procedures requiring assistance completed. IV discontinued, intact, jl7 bleeding controlled, No redness/swelling at site. Pressure dressing applied. Administered Medications: 10:00 Drug: fentaNYL (PF) 25 mcg Route: IVP; Site: right wrist; jl7 10:25 Follow up: Response: No adverse reaction; Pain is decreased jl7 10:50 Drug: SOLU-Medrol 60 mg Route: IVP; Site: right wrist; jl7 11:01 Follow up: Response: No adverse reaction jl7 Outcome: 11:24 Discharge ordered by MD. cp 11:40 Discharged to home ambulatory. jl7 11:40 Condition: stable 11:40 Discharge instructions given to patient, family, Instructed on discharge instructions, follow up and referral plans. medication usage, Demonstrated understanding of instructions, follow-up care, medications, Prescriptions given X 2. 11:41 Patient left the ED. jl7 Signatures: Teodora Flynn Irene, RN RN iw Martin Rosales PA PA cp Esther Weller, RN RN jl7
--- NOTE | 2020-08-24 11:25 | EDPHYS ---
Physician Documentation [facility] Name: Mirtha Edouard Age: 69 yrs Sex: Female : 1950 Arrival Date: 08/24/2020 Time: 08:50 Bed 5 Private MD: Olu Cotton ED Physician Riccardo Gill HPI: 08/24 09:30 This 69 yrs old Female presents to ER via Wheelchair with complaints of lupus cp flare up. 09:30 generalized pain and exacerbation of lupus. cp 09:30 Onset: The symptoms/episode began/occurred gradually. Severity of symptoms: in the cp emergency department the symptoms are unchanged despite home interventions. Historical: - Allergies: 09:11 No Known Allergies; iw - Home Meds: 10:05 amlodipine 5 mg tab 1 tab once daily [Active]; metoprolol tartrate 25 mg Oral tab 1 tab jl7 2 times per day [Active]; niacinamide 500 mg Oral tab [Active]; omeprazole 20 mg Oral cpDR 1 cap once daily [Active]; spironolactone 25 mg Oral tab [Active]; Vitamin C 500 mg Oral tab twice a day [Active]; saw palmetto 500 mg Oral cap [Active]; losartan 50 mg oral tab [Active]; acyclovir 400 mg Oral tab 1 tab [Active]; CellCept 500 mg Oral tab 3 tabs [Active]; "calcium, mag, zinc, BID" [Active]; Vitamin B-12 1,000 mcg Oral tab [Active]; Vitamin D3 50 mcg Oral daily [Active]; - PMHx: 09:11 CKD stage 3; GERD; Hypertension; Lupus; iw - PSHx: 09:11 Pelvic Repair; Hysterectomy; iw - Immunization history:: Adult Immunizations up to date. - Social history:: Smoking status: Patient denies any tobacco usage or history of. ROS: 09:35 Constitutional: Negative for body aches, chills, fever, poor PO intake. cp 09:35 Eyes: Negative for injury, pain, redness, and discharge. cp 09:35 ENT: Negative for ear pain, sore throat, difficulty swallowing, difficulty handling cp secretions. 09:35 Cardiovascular: Negative for chest pain, edema, palpitations. 09:35 Respiratory: Negative for cough, shortness of breath, wheezing. 09:35 Abdomen/GI: Negative for abdominal pain, nausea, vomiting, and diarrhea. 09:35 : Negative for urinary symptoms. 09:35 Skin: Negative for rash. 09:35 Neuro: Negative for altered mental status, dizziness, headache, weakness. 09:35 All other systems are negative. Exam: 09:45 Constitutional: The patient appears in no acute distress, alert, awake, cp non-diaphoretic, non-toxic, well developed, well nourished. 09:45 Head/Face: Normocephalic, atraumatic. cp 09:45 Eyes: Periorbital structures: appear normal, Conjunctiva: normal, no exudate, no injection, Sclera: no appreciated abnormality, Lids and lashes: appear normal, bilaterally. 09:45 ENT: External ear(s): are unremarkable, Ear canal(s): are normal, clear, TM's: dullness, bilaterally, Nose: is normal, Mouth: Lips: moist, Oral mucosa: pink and intact, moist, Posterior pharynx: Airway: no evidence of obstruction, patent, Tonsils: are normal in appearance, erythema, is not appreciated, exudate, is not appreciated. 09:45 Neck: ROM/movement: is normal, is supple, no meningismus, no nuchal rigidity. 09:45 Chest/axilla: Inspection: normal, Palpation: is normal, no crepitus, no tenderness. 09:45 Cardiovascular: Rate: normal, Rhythm: regular, Edema: is not appreciated, JVD: is not appreciated. 09:45 Respiratory: the patient does not display signs of respiratory distress, Respirations: normal, no use of accessory muscles, no retractions, labored breathing, is not present, Breath sounds: are clear throughout, no decreased breath sounds, no stridor, no wheezing. 09:45 Abdomen/GI: Inspection: abdomen appears normal, Palpation: abdomen is soft and non-tender, in all quadrants. 09:45 Back: CVA tenderness, is absent. 09:45 Musculoskeletal/extremity: Extremities: grossly normal except: noted in the left upper leg and right upper leg: pain, Pulses: noted to be 2+ in the right radial artery, right dorsalis pedis artery, left radial artery and left dorsalis pedis artery, DVT Exam: No signs of deep vein thrombosis. 09:45 Skin: cellulitis, is not appreciated, no rash present. 09:45 Neuro: Orientation: to person, place \\T\\ time. Mentation: is normal, Motor: moves all fours, strength is normal, Sensation: is normal. 10:10 ECG was reviewed by the Attending Physician. cp Vital Signs: 09:09 BP 154 / 87; Pulse 71; Resp 16; Temp 97.7; Pulse Ox 100% on R/A; Weight 53.07 kg; iw Height 5 ft. 4 in. (162.56 cm); Pain 1010; 10:28 BP 126 / 70; Pulse 69; Resp 17; Pulse Ox 100% ; jl7 09:09 Body Mass Index 20.08 (53.07 kg, 162.56 cm) iw MDM: 09:24 Patient medically screened. cp 09:30 Differential Diagnosis UTI, sepsis, chronic pain, acute on chronic renal failure. cp 10:37 ED course: Spoke with office of patient's primary aniline press worker who reports patient's cp aniline press worker is not in office on Fridays. 11:23 Data reviewed: vital signs, nurses notes, lab test result(s), EKG. cp 11:23 Counseling: I had a detailed discussion with the patient and/or guardian regarding: the cp historical points, exam findings, and any diagnostic results supporting the discharge/admit diagnosis, lab results, the need for outpatient follow up, for definitive care, a sign painter, a aniline press worker, to return to the emergency department if symptoms worsen or persist or if there are any questions or concerns that arise at home. Response to treatment: the patient's symptoms have markedly improved after treatment, VSS. Pain improved, and as a result, I will discharge patient. 08/24 09: Order name: Basic Metabolic Panel; Complete Time: 10:30 cp 08/24 10:30 Interpretation: Normal except: BUN 20; CRE 1.34; GFR 39. cp 08/24 09: Order name: CBC with Diff; Complete Time: :30 cp 08/24 10:31 Interpretation: Normal except: AUNG% 80.3; LYM% 11.2. cp 08/24 09: Order name: LFT's; Complete Time: 10:30 cp 08/24 09: Order name: Magnesium; Complete Time: 10:30 cp 08/24 09: Order name: PT-INR; Complete Time: 10:30 cp 08/24 09:26 Order name: Troponin (emerg Dept Use Only); Complete Time: 10:30 cp 08/24 09:26 Order name: EKG; Complete Time: 09:26 cp 08/24 09:26 Order name: Cardiac monitoring; Complete Time: 10:05 cp 08/24 09:26 Order name: EKG - Nurse/Tech; Complete Time: 10:05 cp 08/24 09:26 Order name: CPK; Complete Time: 10:30 cp 08/24 09:26 Order name: Urine Microscopic Only; Complete Time: 10:30 cp 08/24 10:31 Interpretation: Normal except: UBACT 20-50; SQEPI 20-50. cp 08/24 09:54 Order name: Urine Dipstick--Ancillary (enter results); Complete Time: 10:30 em1 08/24 09:26 Order name: IV Saline Lock; Complete Time: 10:06 cp 08/24 09:26 Order name: Labs collected and sent; Complete Time: 10:06 cp 08/24 09:26 Order name: O2 Per Protocol; Complete Time: 10:06 cp 08/24 09:26 Order name: O2 Sat Monitoring; Complete Time: 10:06 cp 08/24 09:26 Order name: Urine Dipstick-Ancillary (obtain specimen); Complete Time: 09:54 cp EC:10 Rate is 68 beats/min. Rhythm is regular. IL interval is normal. QRS interval is normal. cp QT interval is normal. T waves are Inverted in lead aVR. Interpreted by me. Reviewed by me. Administered Medications: 10:00 Drug: fentaNYL (PF) 25 mcg Route: IVP; Site: right wrist; jl7 10:25 Follow up: Response: No adverse reaction; Pain is decreased jl7 10:50 Drug: SOLU-Medrol 60 mg Route: IVP; Site: right wrist; jl7 11:01 Follow up: Response: No adverse reaction jl7 Disposition: 08/24/20 11:24 Discharged to Home. Impression: Acute pain, not elsewhere classified. - Condition is Stable. - Discharge Instructions: Musculoskeletal Pain. - Prescriptions for Tylenol- Codeine #3 300-30 mg Oral Tablet - take 2 tablets by ORAL route every 8 hours As needed; 20 tablet. Prednisone 20 mg Oral Tablet - take 2 tablet by ORAL route once daily for 5 days; 10 tablet. - Medication Reconciliation Form, Thank You Letter, Antibiotic Education, Prescription Opioid Use form. - Follow up: Private Physician; When: 2 - 3 days; Reason: Recheck today's complaints. - Problem is an acute exacerbation. - Symptoms have improved. Addendum: 08/26/2020 14:36 Co-signature as Attending Physician, Riccardo Gill MD I agree with the assessment and k dr plan of care. Signatures: Dispatcher [employer] EDNJ Riccardo Gill MD MD kdr Alexa Morales RN RN iw Martin Rosales PA PA cp Esther Weller RN RN jl7 Corrections: (The following items were deleted from the chart) 08/24 11:29 11:24 08/24/2020 11:24 Discharged to Home. Impression: Other chronic pain. Condition is cp Stable. Forms are Medication Reconciliation Form, Thank You Letter, Antibiotic Education, Prescription Opioid Use. Follow up: Private Physician; When: 2 - 3 days; Reason: Recheck today's complaints. Problem is an acute exacerbation. Symptoms have improved. cp 11:41 11:29 08/24/2020 11:24 Discharged to Home. Impression: Acute pain, not elsewhere jl7 classified. Condition is Stable. Discharge Instructions: Musculoskeletal Pain. Prescriptions for Tylenol-Codeine #3 300-30 mg Oral Tablet - take 2 tablets by ORAL route every 8 hours As needed; 20 tablet, Prednisone 20 mg Oral Tablet - take 2 tablet by ORAL route once daily for 5 days; 10 tablet. and Forms are Medication Reconciliation Form, Thank You Letter, Antibiotic Education, Prescription Opioid Use. Follow up: Private Physician; When: 2 - 3 days; Reason: Recheck today's complaints. Problem is an acute exacerbation. Symptoms have improved. cp
[2020-08-24 11:47] VITALS: TEMP 97.7; O2SAT 100
[2020-08-24 11:49] VITALS: BP 126/70
--- NOTE | 2020-08-24 17:51 | EKG ---
Test Date: 2020-08-24 Test Time: 10:03:10 Residential Housekeeper: ERICA MEASUREMENT RESULTS: Intervals: Rate: 68 MA: 146 QRSD: 82 QT: 402 QTc: 427 Sargent: P: 55 MA: 146 QRS: 64 T: 46 INTERPRETIVE STATEMENTS: Normal sinus rhythm Normal ECG Compared to ECG 11/30/2019 18:31:43 ST (T wave) deviation no longer present Electronically Signed On 08-24-20 17:49:56 CDT by Reinaldo Dewey
== END 2020-08-24 11:41 | disposition home or self-care (01) ==
LOC: ER 08:49
DX: R52 Pain, unspecified (principal); I12.9 Hypertensive chronic kidney disease with stage 1 through stage 4 chronic kidney disease, or unspecified chronic kidney disease; N18.30 Chronic kidney disease, stage 3 unspecified
CPT/HCPCS: 93005; 85025; 80048; 36415; 83735; 82550; 85610; 80076; 84484; 96375; 96374; 99284; J3010; J2930; 81003; 81015

== ENCOUNTER 2020-09-11 22:02 | Inpatient (IN) | payer OTHER, BC ==
[2020-09-11 22:45] LABS: Absolute Lymphocytes (CBC) 0.9 K/uL (0.7-4.9); Basophils % 0.3 % (0-1.3); Hematocrit 38.2 % (36.0-45.0); Lymphocytes % 17.9 % (15.3-44.8); MPV 8.6 fL (7.6-11.3); Protime INR 0.93; RBC Red Blood Cell Count 4.26 M/uL (3.86-4.86)
[2020-09-11 23:09] LABS: ALT/SGPT 18 U/L (12-78); AST/SGOT 20 U/L (15-37); Albumin 3.8 g/dL (3.4-5.0); Alkaline Phosphatase 126 U/L (45-117); BUN Blood Urea Nitrogen 25 mg/dL (7-18); Bicarbonate 27 mmol/L (21-32); Bilirubin Direct < 0.1 mg/dL (0-0.2); Bilirubin Total 0.1 mg/dL (0.2-1.0); Glucose Level 98 mg/dL (74-106); Magnesium 2.3 mg/dL (1.8-2.4); NT PRO-BNP 1184 pg/mL (<125); Potassium 3.6 mmol/L (3.5-5.1); Protein, Total 7.4 g/dL (6.4-8.2); Sodium Level 144 mmol/L (136-145)
[2020-09-11 23:12] LABS: Troponin (Emerg Dept Use Only) 0.89 ng/mL (0.0-0.045)
--- NOTE | 2020-09-11 23:15 | ER ---
Nurse's Notes [facility] Name: Mirtha Edouard Age: 69 yrs Sex: Female : 1950 Arrival Date: 09/11/2020 Time: 22:04 Bed 18 Private MD: Diagnosis: Non-ST elevation (NSTEMI) myocardial infarction Presentation: 09/11 22:13 Chief complaint: Patient states: CP that radiates into back, L arm, and L neck for 3 ll1 days. + SOB. No cough or fever. Coronavirus screen: Client denies travel out of the [place] in the last 14 days. difficulty breathing, fatigue, Client presents with at least one sign or symptom that may indicate coronavirus-19. Standard/surgical mask placed on the client. Ebola Screen: Patient denies travel to an Ebola-affected area in the 21 days before illness onset. Initial Sepsis Screen: Does the patient meet any 2 criteria? No. Patient's initial sepsis screen is negative. Does the patient have a suspected source of infection? No. Patient's initial sepsis screen is negative. Risk Assessment: Do you want to hurt yourself or someone else? Patient reports no desire to harm self or others. Onset of symptoms was September 09, 2020. 22:13 Method Of Arrival: Ambulatory ll1 22:13 Acuity: ADELAIDA 3 ll1 Historical: - Allergies: 22:14 No Known Allergies; ll1 - PMHx: 22:14 CKD stage 3; Lupus; Hypertension; GERD; ll1 - PSHx: 22:14 Pelvic Repair; Hysterectomy; ll1 - Immunization history:: Flu vaccine is up to date. - Social history:: Smoking status: Patient denies any tobacco usage or history of. Screenin:25 Abuse screen: Denies threats or abuse. Denies injuries from another. Nutritional rr5 screening: No deficits noted. Tuberculosis screening: No symptoms or risk factors identified. Fall Risk IV access (20 points). Total Arroyo Fall Scale indicates No Risk (0-24 pts). Assessment: 22:25 General: Appears in no apparent distress. comfortable, Behavior is calm, cooperative, rr5 anxious. Pain: Complains of pain in chest Pain radiates to back, left arm and neck Pain Quality of pain is described as aching, Pain began 2-3 days ago. Is intermittent. Neuro: Level of Consciousness is awake, alert, obeys commands, Oriented to person, place, time, situation. Cardiovascular: Reports chest pain, Capillary refill < 3 seconds Patient's skin is warm and dry. Respiratory: Airway is patent Respiratory effort is even, unlabored, Respiratory pattern is regular, symmetrical. GI: No signs and/or symptoms were reported involving the gastrointestinal system. : No signs and/or symptoms were reported regarding the genitourinary system. EENT: No signs and/or symptoms were reported regarding the EENT system. Derm: Skin is intact, is healthy with good turgor, Skin temperature is warm. Musculoskeletal: Circulation, motion, and sensation intact. Capillary refill < 3 seconds. 22:58 Reassessment: Patient appears in no apparent distress at this time. Patient is alert, rr5 oriented x 3, equal unlabored respirations, skin warm/dry/pink. chatting with her wood finisher no complaints made. 23:12 Reassessment: daron from laboratory called troponin of 0.89 ED provider aware. rr5 23:30 Reassessment: Patient appears in no apparent distress at this time. Patient is alert, rr5 oriented x 3, equal unlabored respirations, skin warm/dry/pink. hospitalist at bedside examining the patient advised for admission. Vital Signs: 22:13 BP 168 / 88; Pulse 70; Resp 17; Temp 97.9; Pulse Ox 100% ; Pain 7/10; ll1 22:59 BP 157 / 79; Pulse 68; Resp 19; Pulse Ox 99% ; rr5 23:20 BP 179 / 85; Pulse 62; Resp 18; Pulse Ox 100% ; rr5 23:21 Weight 76.2 kg; rr5 09/12 00:20 BP 170 / 95; Pulse 63; Resp 17; Pulse Ox 98% ; rr5 ED Course: 09/11 22:04 Patient arrived in ED. cl3 22:08 Fidencio Alfredo PA is PHCP. jmm 22:08 Martin Lindsay MD is Attending Physician. jmm 22:09 Edvin Nascimento RN is Primary Nurse. rr5 22:14 Triage completed. ll1 22:15 Arm band placed on Patient placed in an exam room, on a stretcher. ll1 22:15 Patient has correct armband on for positive identification. Placed in gown. Bed in low rr5 position. Call light in reach. athletic monitor on. Pulse ox on. NIBP on. 22:25 No provider procedures requiring assistance completed. EKG done, by ED staff, reviewed rr5 by Fidencio ORDOÑEZ. Patient maintains SpO2 saturation greater than 95% on room air. 22:25 Initial lab(s) drawn, by me, sent to lab. Inserted saline lock: 20 gauge in left jb4 antecubital area, using aseptic technique. Blood collected. 22:42 XRAY Chest (1 view) In Process Unspecified. EDMS 23:14 Juan David Espinoza is Hospitalizing Provider. [facility] 09/12 00:01 covid. rr5 00:02 Patient admitted, IV remains in place. intact, No redness/swelling at site. rr5 Administered Medications: 09/11 23:43 Drug: Lovenox 1 mg/kg Route: Sub-Q; Site: right lower abdomen; rr5 09/12 00:21 Follow up: Response: No adverse reaction rr5 09/11 23:44 Drug: Aspirin Chewable Tablet 324 mg Route: PO; rr5 09/12 00:21 Follow up: Response: No adverse reaction rr5 09/11 23:44 Drug: morphine 2 mg {Note: rass 0.} Route: IVP; Site: left antecubital; rr5 09/12 00:21 Follow up: Response: No adverse reaction; Pain is decreased; RASS: Alert and Calm (0) rr5 09/11 23:45 Drug: PlaVIX 300 mg Route: PO; rr5 09/12 00:22 Follow up: Response: No adverse reaction rr5 Outcome: 09/11 23:14 Decision to Hospitalize by Provider. [facility] 09/12 00:21 Admitted to Med/surg accompanied by nurse, via stretcher, room 218, with chart, Report rr5 called to vamsi Condition: stable Instructed on the need for admit. 00:33 Patient left the ED. rr5 Signatures: Dispatcher [employer] EDOR Fidencio Alfredo PA PA Arnaldo Solis, RN RN jb4 Edvin Nascimento RN RN rr5 Helena Yip cl3 Darian Yip RN RN ll1
--- NOTE | 2020-09-11 23:15 | EDPHYS ---
Physician Documentation [facility] Name: Mirtha Edouard Age: 69 yrs Sex: Female : 1950 Arrival Date: 09/11/2020 Time: 22:04 Bed 18 Private MD: ED Physician Martin Lindsay HPI: 09/11 22:12 This 69 yrs old Female presents to ER via Ambulatory with complaints of Chest jmm Pain, Back Pain. 22:12 The patient or guardian reports chest pain that is located primarily in the substernal jmm area. Onset: gradually, 3 day(s) ago. The pain radiates to the left arm. Associated signs and symptoms: Pertinent negatives: vomiting. The chest pain is described as sharp. Modifying factors: The symptoms are alleviated by nothing. the symptoms are aggravated by nothing. This is a 69 year old female with a history of lupus, htn, GERD that presents to the ED with complaints of 3 days of chest pain worsening today with radiation to her back. Denies history of CAD. . Historical: - Allergies: 22:14 No Known Allergies; ll1 - PMHx: 22:14 CKD stage 3; Lupus; Hypertension; GERD; ll1 - PSHx: 22:14 Pelvic Repair; Hysterectomy; ll1 - Immunization history:: Flu vaccine is up to date. - Social history:: Smoking status: Patient denies any tobacco usage or history of. ROS: 22:12 Constitutional: Negative for fever, chills, and weight loss. jmm 22:12 Cardiovascular: Positive for chest pain. 22:12 Respiratory: Positive for shortness of breath. 22:12 All other systems are negative. Exam: 22:12 Constitutional: This is a well developed, well nourished patient who is awake, alert, jmm and in no acute distress. Head/Face: atraumatic. Eyes: EOMI, no conjunctival erythema appreciated ENT: Moist Mucus Membranes Neck: Trachea midline, Supple Chest/axilla: Normal chest wall appearance and motion. 22:12 Respiratory: Normal respirations, no respiratory distress appreciated Abdomen/GI: Non distended, soft Back: Normal ROM Skin: General appearance color normal MS/ Extremity: Moves all extremities, no obvious deformities appreciated, no edema noted to the lower extremities Neuro: Awake and alert, normal gait Psych: Behavior is normal, Mood is normal, Patient is cooperative and pleasant 22:12 Cardiovascular: Rate: normal, Rhythm: regular, Pulses: no pulse deficits are appreciated. Vital Signs: 22:13 BP 168 / 88; Pulse 70; Resp 17; Temp 97.9; Pulse Ox 100% ; Pain 7/10; ll1 22:59 BP 157 / 79; Pulse 68; Resp 19; Pulse Ox 99% ; rr5 23:20 BP 179 / 85; Pulse 62; Resp 18; Pulse Ox 100% ; rr5 23:21 Weight 76.2 kg; rr5 09/12 00:20 BP 170 / 95; Pulse 63; Resp 17; Pulse Ox 98% ; rr5 MDM: 09/11 22:12 Patient medically screened. jaylene 22:12 Patient medically screened. jaylene 23:11 Data reviewed: vital signs, nurses notes. Counseling: I had a detailed discussion with jenn the patient and/or guardian regarding: the historical points, exam findings, and any diagnostic results supporting the discharge/admit diagnosis, lab results, radiology results, the need for outpatient follow up, the need for further work-up and treatment in the hospital. ED course: I discussed the patient with Aydin DELONG whom accepted the patient to Dr. Espinoza's service. 09/11 22:15 Order name: Basic Metabolic Panel; Complete Time: 23:15 [facility] 09/11 22:15 Order name: CBC with Diff; Complete Time: 22:57 [facility] 09/11 22:15 Order name: LFT's; Complete Time: 23:15 [facility] 09/11 22:15 Order name: Magnesium; Complete Time: 23:15 [facility] 09/11 22:15 Order name: NT PRO-BNP; Complete Time: 23:15 [facility] 09/11 22:15 Order name: PT-INR; Complete Time: 22:57 [facility] 09/11 22:15 Order name: Troponin (emerg Dept Use Only); Complete Time: 23:15 [facility] 09/11 22:15 Order name: XRAY Chest (1 view) [facility] 09/11 23:51 Order name: COVID-19 la1 09/11 23:51 Order name: [facility] 09/11 22:15 Order name: EKG; Complete Time: 22:16 [facility] 09/11 22:15 Order name: Cardiac monitoring; Complete Time: 22:25 [facility] 09/11 22:15 Order name: EKG - Nurse/Tech; Complete Time: 22:25 [facility] 09/11 22:15 Order name: IV Saline Lock; Complete Time: :25 [facility] 09/11 22:15 Order name: Labs collected and sent; Complete Time: 22:25 [facility] 09/11 22:15 Order name: O2 Per Protocol; Complete Time: :25 [facility] 09/11 22:15 Order name: O2 Sat Monitoring; Complete Time: :25 [facility] Administered Medications: 23:43 Drug: Lovenox 1 mg/kg Route: Sub-Q; Site: right lower abdomen; rr5 09/12 00:21 Follow up: Response: No adverse reaction rr5 09/11 23:44 Drug: Aspirin Chewable Tablet 324 mg Route: PO; rr5 09/12 00:21 Follow up: Response: No adverse reaction rr5 09/11 23:44 Drug: morphine 2 mg {Note: rass 0.} Route: IVP; Site: left antecubital; rr5 09/12 00:21 Follow up: Response: No adverse reaction; Pain is decreased; RASS: Alert and Calm (0) rr5 09/11 23:45 Drug: PlaVIX 300 mg Route: PO; rr5 09/12 00:22 Follow up: Response: No adverse reaction rr5 Disposition: 08:44 Co-signature as Attending Physician, Martin Lindsay MD I agree with the assessment and jaylene plan of care. Disposition: 09/11/20 23:14 Hospitalization ordered by Juan David Espinoza for Inpatient Admission. Preliminary diagnosis is Non-ST elevation (NSTEMI) myocardial infarction. - Bed requested for Telemetry/MedSurg (Inpatient). - Status is Inpatient Admission. rr5 - Condition is Stable. - Problem is new. - Symptoms are unchanged. Signatures: Dispatcher [employer] EDMartin Burns MD MD cha Mickail, Joel, PA PA [facility] Aydin Xavier FNP-C FNP-Cla1 Jennifer Rodarte, RN RN tl1 Edvin Nascimento RN RN rr5 Darian Yip RN RN ll1 Corrections: (The following items were deleted from the chart) 09/11 23:56 23:14 Hospitalization Ordered by Juan David Espinoza for Inpatient Admission. Preliminary tl1 diagnosis is Non-ST elevation (NSTEMI) myocardial infarction. Bed requested for Telemetry/MedSurg (Inpatient). Status is Inpatient Admission. Condition is Stable. Problem is new. Symptoms are unchanged. jenn 09/12 00:33 09/11 23:56 09/11/2020 23:14 Hospitalization Ordered by Juan David Espinoza for Inpatient rr5 Admission. Preliminary diagnosis is Non-ST elevation (NSTEMI) myocardial infarction. Bed requested for Telemetry/MedSurg (Inpatient). Status is Inpatient Admission. Condition is Stable. Problem is new. Symptoms are unchanged. tl1
[2020-09-11] MEDS ORDERED: CLOPIDOGREL 75 MG TABLET ONE (23:37)
[2020-09-11] MEDS ORDERED: ASPIRIN 81 MG CHEWABLE TABLET ONE (23:37)
[2020-09-11] MEDS ORDERED: ENOXAPARIN 80 MG/0.8 ML SQ ONE (23:38)
[2020-09-11] MEDS ORDERED: NITROGLYCERIN 0.4 MG/TAB SL ONE (23:50)
[2020-09-11] MEDS ORDERED: MORPHINE 2 MG/ML SYR ONE (23:52)
--- NOTE | 2020-09-12 00:08 | P.HP ---
Certification for Inpatient Patient admitted to: Inpatient With expected LOS: >2 Midnights Patient will require the following post-hospital care: None Practitioner: I am a practitioner with admitting privileges, knowledge of patient current condition, hospital course, and medical plan of care. Services: Services provided to patient in accordance with Admission requirements found in Title 42 Section 412.3 of the Code of Federal Regulations <Aydin Xavier - Last Filed: 09/12/20 00:04> Patient History Date of Service: 09/12/20 Reason for admission: NSTEMI History of Present Illness: 69-year-old female with history of lupus, CK 83, hypertension presents emergency department for chest pain. Patient reports she has had pain for last 3 days described as pressure-like or somebody sitting on her chest that radiates to her back. Patient reports pain was worse today and she called her product lister who recommended evaluation in the emergency department. Patient presented to the emergency department for evaluation, EKG without acute findings. Initial troponin 0.89, patient still experiencing some pressure-like pain in her back. Patient does report some associated shortness of breath, this is worse with exertion. Labs also remarkable for creatinine 1.72, GFR 29, BUN 25. Patient's baseline GFR is in the low 30s. Patient reports that she had an outpatient stress test and echocardiogram less than a year ago that was reported to be normal. ED provider wishes to admit patient for further evaluation and management. When I saw the patient in the emergency department she is awake, alert, oriented x3. Patient with some chest/back discomfort, vital signs stable. Will be admitted for further evaluation and management. 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 stomach issues - Social History Smoking Status: Never smoker Alcohol use: No CD- Drugs: No Caffeine use: Yes Place of Residence: Home <TomshashankAydin - Last Filed: 09/12/20 00:04> Date of Service: 09/12/20 <marichuy ramirez - Last Filed: 09/12/20 18:29> Allergies No Known Allergies Allergy (Verified 07/10/20 10:27) Home Medications: Acyclovir 400 mg PO M,W,F 06/21/14 Amlodipine Besylate 10 mg PO DAILY 06/21/14 Metoprolol Tartrate [Lopressor*] 25 mg PO BIDWM 06/21/14 Mycophenolate Mofetil [Cellcept] 500 mg PO BEDTIME 06/21/14 Omeprazole [Prilosec] 20 mg PO DAILY 06/21/14 Cranberry 4,200 mg PO DAILY 10/17/19 Folic Acid 0.8 mg PO DAILY 10/17/19 Ascorbic Acid [Vitamin C] 500 mg PO BID 07/10/20 Losartan Potassium [Cozaar] 100 mg PO DAILY 07/10/20 Cholecalciferol (Vitamin D3) [Vitamin D3] 50 mcg PO DAILY 09/12/20 Cyanocobalamin (Vitamin B-12) [Vitamin B-12] 1,000 mcg PO DAILY 09/12/20 L.acidoph,Paracasei, B.lactis [Probiotic] 1 cap PO DAILY 09/12/20 predniSONE [Prednisone] 5 mg PO SEECOM 09/12/20 Review of Systems 10-point ROS is otherwise unremarkable Respiratory: Shortness of Breath, SOB with Excertion Cardiovascular: Chest Pain <Aydin Xavier - Last Filed: 09/12/20 00:04> Physical Examination - Physical Exam General: Alert, In no apparent distress HEENT: Atraumatic, PERRLA, Mucous membr. moist/pink Neck: Supple, 2+ carotid pulse no bruit, No LAD Respiratory: Clear to auscultation bilaterally, Normal air movement Cardiovascular: Regular rate/rhythm, Normal S1 S2 Gastrointestinal: Normal bowel sounds, No tenderness Musculoskeletal: No tenderness Integumentary: No rashes Neurological: Normal speech, Normal strength at 5/5 x4 extr, Normal tone, Normal affect - Studies Laboratory Data (last 24 hrs) 09/11/20 22:25: PT 11.0, INR 0.93 09/11/20 22:25: WBC 5.1, Hgb 12.6, Hct 38.2, Plt Count 257 09/11/20 22:25: Sodium 144, Potassium 3.6, BUN 25 H, Creatinine 1.72 H, Glucose 98, Magnesium 2.3, Total Bilirubin 0.1 L, AST 20, ALT 18, Alkaline Phosphatase 126 H <Aydin Xavier - Last Filed: 09/12/20 00:04> - Studies Laboratory Data (last 24 hrs) 09/11/20 22:25: PT 11.0, INR 0.93 09/11/20 22:25: WBC 5.1, Hgb 12.6, Hct 38.2, Plt Count 257 09/11/20 22:25: Sodium 144, Potassium 3.6, BUN 25 H, Creatinine 1.72 H, Glucose 98, Magnesium 2.3, Total Bilirubin 0.1 L, AST 20, ALT 18, Alkaline Phosphatase 126 H <marichuy ramirez - Last Filed: 09/12/20 18:29> Assessment and Plan - Plan Assessment NSTEMI CKD 3 Hypertension Lupus Plan NSTEMI-continue with aspirin, Plavix, Lovenox, telemetry, statin, beta sandy. Cardiology consult in place, anticipate heart catheterization tomorrow. P.r.n. morphine, nitroglycerin for pain. Repeat EKG as necessary. Full-dose Lovenox DVT prophylaxis. CKD 3- continue gentle hydration overnight, GFR very close to baseline. Anticipate slight worsening in renal function if patient does receive heart catheterization, may need to consult nephrology. Hypertension- continue with metoprolol, restart home medications as appropriate. Lupus- appears stable this time, restart meds as appropriate. Discharge Plan: Home Plan to discharge in: 48 Hours - Advance Directives Does patient have a Living Will: Yes Does patient have a Durable POA for Healthcare: Yes - Code Status/Comfort Care Code Status Assessed: Yes (Full code) Critical Care: No Time Spent Managing Pts Care (In Minutes): 55 <Aydin Xavier - Last Filed: 09/12/20 00:04> - Problems (Diagnosis) (1) NSTEMI (non-ST elevated myocardial infarction) Current Visit: Yes Status: Acute (2) CAD (coronary artery disease) Current Visit: Yes Status: Acute (3) Lupus Current Visit: Yes Status: Acute (4) CKD (chronic kidney disease) stage 3, GFR 30-59 ml/min Current Visit: Yes Status: Acute Physician Review: Patient Assessed, Agree with Above Assessment and Plan Physician Review Additional Text: NSTEMI Lupus CKD stage 3 Plan: Full-dose Lovenox. Cardiology consult. IV hydration. Kept NPO for possible cardiac catheterization. <marichuy ramirez - Last Filed: 09/12/20 18:29>
[2020-09-12] MEDS ORDERED: NITROGLYCERIN 0.4 MG/TAB SL PRN (00:52)
[2020-09-12] MEDS ORDERED: ONDANSETRON 4 MG/2 ML VIAL IV PRN (00:52)
[2020-09-12] MEDS: NA CHLORIDE 0.9% 1,000 ML IV SCH ×2 (01:55→14:50)
[2020-09-12 02:44] VITALS: BMI 29.3
[2020-09-12 03:30] LABS: Absolute Lymphocytes (CBC) 1.1 K/uL (0.7-4.9); Basophils % 0.3 % (0-1.3); Hematocrit 39.3 % (36.0-45.0); MPV 8.4 fL (7.6-11.3); RBC Red Blood Cell Count 4.39 M/uL (3.86-4.86)
[2020-09-12 03:46] LABS: Magnesium 2.3 mg/dL (1.8-2.4); Potassium 3.8 mmol/L (3.5-5.1); Thyroid Stimulating Hormone 3.45 uIU/mL (0.360-3.740)
[2020-09-12] MEDS: METOPROLOL TAR 25 MG TAB PO SCH ×2 (05:32→18:50)
--- NOTE | 2020-09-12 07:00 | RAD REPORT ---
EXAM DESCRIPTION: RAD - Chest Single View - 09/11/2020 10:42 pm CLINICAL HISTORY: CHEST PAIN, primarily left-sided COMPARISON: Portable November 30 ; two view chest January 2019 TECHNIQUE: AP portable chest image was obtained 09/11/2020 10:42 pm . FINDINGS: No peripheral mass or consolidation. Lung volumes are low. Interstitial pattern is similar or slightly less prominent than most recent comparison. Heart and vasculature are normal. No measura ble pleural effusion and no pneumothorax. No acute bony abnormality seen. No acute aortic findings mares spected. IMPRESSION: No acute cardiopulmonary process. No suspicious change from comparison studies.
[2020-09-12] MEDS: CLOPIDOGREL 75 MG TABLET PO SCH (08:29)
[2020-09-12] MEDS: ASPIRIN EC 81 MG TAB PO SCH (08:29)
[2020-09-12] MEDS ORDERED: ENOXAPARIN 80 MG/0.8 ML SQ SCH (09:00)
[2020-09-12] MEDS ORDERED: ACETYLCYST 20% 800 MG/4 ML VIAL PO ONE ×2 (10:07→21:00)
[2020-09-12] MEDS ORDERED: LIDOCAINE 1% 20 ML MDV ONE (10:29)
[2020-09-12] MEDS ORDERED: HEPA 1000U/500MLS 1,000 UNIT/500 ML BAG IV ONE (10:29)
[2020-09-12] MEDS ORDERED: NA CHLORIDE 0.9% 50 ML ONE (10:30)
[2020-09-12] MEDS ORDERED: ATROPINE SULF 1 MG/10 ML SYR IV ONE (10:30)
[2020-09-12] MEDS ORDERED: MIDAZOLAM HCL 2 MG/2 ML INJ ONE ×3 (10:58→11:21)
[2020-09-12] MEDS ORDERED: ACETYLCYST 20% 4 ML VIAL IH ONE (10:59)
[2020-09-12] MEDS ORDERED: FENTANYL CITR 100 MCG/2 ML ONE (10:59)
[2020-09-12] MEDS ORDERED: NITROGLYCERIN/D5W 25 MG/250 ML BTL IV ONE (11:33)
[2020-09-12] MEDS ORDERED: NITROGLYCERIN 100 MCG/ML SYR (for cath lab use only) IV ONE (11:33)
[2020-09-12] MEDS ORDERED: PRASUGREL (EFFIENT) 10 MG TAB ONE (11:47)
[2020-09-12] MEDS ORDERED: ASPIRIN 325 MG TAB ONE (11:47)
--- NOTE | 2020-09-12 12:19 | OP ---
Date of Procedure: 09/12/2020 Surgeon: Reinaldo Dewey MD Avionics Supervisor: Kateryna Mathias. Procedures: Left heart catheterization, selective coronary arteriogram, angioplasty and stent of the LAD. Indication: Non-ST elevation myocardial infarction. History Of Present Illness: Ms. Edouard is a 69-year-old [place] woman with multiple cardiac risk factors including hypertension, diabetes, dyslipidemia, chronic renal disease. Came in with ch est pain, positive troponin. Procedure In Detail: Brought to the optical laboratory technician today for investigation of her coronaries. She was pre pped and draped in the routine sterile fashion. She was given Versed and fentanyl for sedation. Usi ng the Seldinger technique, we put a 6-Gambian sheath in the right common femoral artery after 10 cc o f Xylocaine. Mari catheter left and right were used to do the diagnostic catheterization. She burnett d a normal RCA, was small. She had a very left dominant system with a large circumflex that was norm al. She had a 90% stenosis after the first diagonal in the LAD. An XB guide 3.5 with side hole was used along with a 0.014 [place] wires were used to cross the lesion successfully. A primary stent was initially placed revealing some mild residual stenosis in the ostium of the circ and in the ostium o f the stent. The stent was a Synergy 3.0 x 16. I decided to post dilate with a 3.5 x 12, especially in the ostium of the stent. There was 0% residual. The diagonal was not jeopardized. The patient was pain free and normal rhythm. She received Angiomax, aspirin, and Effient during the procedure. Total conscious sedation was 45 minutes. There were no complications. Blood loss was 5 mL. Final Diagnosis: Coronary artery disease, status post non-ST elevation myocardial infarction, status post successful angioplasty and stent of the mid LAD. The patient will remain in the hospital overnight. She will go home tomorrow on her home medications , which will include statin, beta-blockers, and Plavix as well as aspirin. MONICA/TAE Voice ID: [id number] Report ID: [id number]
--- NOTE | 2020-09-12 14:07 | P.PN ---
Date of Service: 09/12/20 Patient seen and examined. She denied any chest pain this morning. Cardiac catheterization completed. Patient noted to have 90% lad stenosis which was stented. Diagnosis: NSTEMI CAD CKD stage 3 Lupus. She has risk for contrast induced neuropathy neuropathy. Patient will be hydrated with IV normal saline over the next 24 hrs. Status post acetylcysteine. Monitor renal function for improvement. Aspirin and Plavix as per cardiology. Metoprolol and Lipitor.
[2020-09-12] MEDS: ACETAMINOPHEN 500 MG TAB PO PRN (16:11)
--- NOTE | 2020-09-12 18:02 | P.PN ---
Subjective Date of Service: 09/12/20 Chief Complaint: NSTEMI Status post cardiac catheterization. Patient noted to have 90% occlusion of the LAD. She has no chest pain. Physical Examination - Vital Signs Temperature: 97 F Blood Pressure: 147/82 Pulse: 75 Respirations: 18 Pulse Ox (%): 99 - Physical Exam General: Alert, In no apparent distress HEENT: Mucous membr. moist/pink Neck: Supple, JVD not distended Respiratory: Clear to auscultation bilaterally, Normal air movement Cardiovascular: No edema, Regular rate/rhythm, Normal S1 S2 Gastrointestinal: Normal bowel sounds, Soft and benign, No tenderness Musculoskeletal: No swelling, No tenderness Integumentary: No rashes Neurological: Other (Nonfocal) - Studies Laboratory Data (last 24 hrs) 09/11/20 22:25: PT 11.0, INR 0.93 09/11/20 22:25: WBC 5.1, Hgb 12.6, Hct 38.2, Plt Count 257 09/11/20 22:25: Sodium 144, Potassium 3.6, BUN 25 H, Creatinine 1.72 H, Glucose 98, Magnesium 2.3, Total Bilirubin 0.1 L, AST 20, ALT 18, Alkaline Phosphatase 126 H Assessment And Plan - Current Problems (Diagnosis) (1) NSTEMI (non-ST elevated myocardial infarction) Current Visit: Yes Status: Acute (2) CAD (coronary artery disease) Current Visit: Yes Status: Acute (3) Lupus Current Visit: Yes Status: Acute (4) CKD (chronic kidney disease) stage 3, GFR 30-59 ml/min Current Visit: Yes Status: Acute - Plan Discontinue Lovenox. Continue aspirin and Plavix. Status post Mucomyst given high risk for contrast induced nephropathy. Will also hydrate with normal saline for the next 24 hrs. Check renal function in a.m.. Metoprolol Lipid profile reviewed. Continue Lipitor. Resume home medications for lupus.
[2020-09-12] MEDS ORDERED: ACYCLOVIR 400 MG TABLET PO SCH (18:30)
[2020-09-12] MEDS ORDERED: ATORVASTATIN 40 MG TAB PO SCH (21:00)
[2020-09-12] MEDS ORDERED: HOME MED 1 EA UNK (Mycophenolate Mofetil [Cellcept] 500 MG) PO SCH (21:00)
[2020-09-12] MEDS: ASCORBIC ACID 500 MG TABLET PO SCH (21:04)
[2020-09-12] MEDS: MORPHINE 2 MG/ML SYR IV PRN (21:05)
[2020-09-13] MEDS: MORPHINE 2 MG/ML SYR IV PRN (02:24)
[2020-09-13] MEDS: NA CHLORIDE 0.9% 1,000 ML IV SCH (02:31)
[2020-09-13 04:59] LABS: Absolute Lymphocytes (CBC) 0.7 K/uL (0.7-4.9); Basophils % 0.2 % (0-1.3); Hematocrit 33.4 % (36.0-45.0); MPV 8.8 fL (7.6-11.3); RBC Red Blood Cell Count 3.75 M/uL (3.86-4.86)
[2020-09-13 05:15] LABS: Potassium 3.7 mmol/L (3.5-5.1)
--- NOTE | 2020-09-13 06:07 | EKG ---
Test Date: 2020-09-11 Test Time: 22:13:52 Subway Train Operator: RR MEASUREMENT RESULTS: Intervals: Rate: 63 DE: 140 QRSD: 86 QT: 432 QTc: 442 [place]: P: 51 DE: 140 QRS: 46 T: 78 INTERPRETIVE STATEMENTS: Normal sinus rhythm Nonspecific ST and T wave abnormality Abnormal ECG Compared to ECG 08/24/2020 10:03:10 ST (T wave) deviation now present Electronically Signed On 09-13-20 06:03:23 BEAD FLIPPER by Reinaldo Dewey
[2020-09-13] MEDS ORDERED: PANTOPRAZOLE 40MG TABLET PO SCH (06:30)
[2020-09-13] MEDS: METOPROLOL TAR 25 MG TAB PO SCH (06:39)
[2020-09-13] MEDS: ACETAMINOPHEN 500 MG TAB PO PRN (06:41)
--- NOTE | 2020-09-13 07:08 | CON ---
Date of Consultation: 09/12/2020 Reason For Consultation: Txn-BM-adzbofwqi myocardial infarction. History Of Present Illness: The patient is a 69-year-old woman who has a history of hypertension, vin pus, gastroesophageal reflux disease and chronic renal disease. She normally sees Dr. Cristobal and has had negative cardiac workup in the past. She recently had surgery by Dr. Wood and did well with that. She came in, however, with substernal chest pressure radiating to the arm without any nausea o r vomiting, but she had diaphoresis with shortness of breath, and her troponin was elevated consisten t with myocardial infarction. Her troponin was 1.49. Her EKG showed nonspecific changes. Her creat inine is 1.46. Her chest x-ray was normal, but at the time of exam, she was pain free. Past Medical History: As stated above she. Allergies: SHE IS ALLERGIC TO NO MEDICATION. Social History: Negative. Family History: Noncontributory. Medications: At home include Norvasc, acyclovir, losartan, metoprolol, Prilosec, prednisone, and Jaqueline lCept. Physical Examination: General: She is very pleasant, much younger looking than her age. She had no complaint at the time I saw her. Vital Signs: Stable. She was afebrile. HEENT: Negative. Neck: Supple without any bruit, lymphadenopathy, JVD, or thyromegaly. Chest: Clear to auscultation and percussion. Cardiac: Revealed a regular rhythm and rate. No murmurs, gallops, or rubs. Abdomen: Benign. EXTREMITIES: Revealed no clubbing, cyanosis, or edema. Diagnostic Data: As stated earlier. Impression And Plan: 1.Non-ST elevation myocardial infarction. 2.Hypertension. 3.Lupus. 4.Gastroesophageal reflux disease. 5.Chronic kidney disease. Ms. Edouard needs a heart catheterization to be done today. We will give her Mucomyst before and af ter the procedure. She understands the risks and the benefits of the procedure. She agreed to proce ed. She is on Lovenox at this point and metoprolol and aspirin. We will hold the Lovenox and plan a catheterization today. Further plans will depend on findings on the catheterization. Her other pro blems including hypertension, lupus, gastroesophageal reflux disease, are stable. We will follow up on her creatinine and GFR after the catheterization. JUVENAL Voice ID: [id number] Report ID: [id number]
--- NOTE | 2020-09-13 07:20 | ECHO ---
HEIGHT: 5 ft 4 in WEIGHT: 171 lb 1.6 oz DATE OF STUDY: 09/12/[address]: Reinaldo Dewey MD 2-DIMENSIONAL: YES M.MODE: YES DOPPLER: YES COLOR FLOW: YES TDS: PORTABLE: DEFINITY: BUBBLE STUDY: DIAGNOSIS: CHEST PAIN, MYOCARDIAL INFARCTION CARDIAC HISTORY: CATHERIZATION: NO SURGERY: NO PROSTHETIC VALVE: NO PACEMAKER: NO MEASUREMENTS (cm) DIASTOLIC (NORMALS) SYSTOLIC (NORMALS) IVSd 1.1 (0.6-1.2) LA Diam 2.7 (1.9-4.0) LVEF 45% LVIDd 3.5 (3.5-5.7) LVIDs 3.1 (2.0-3.5) %FS 12% LVPWd 1.3 (0.6-1.2) Ao Diam 2.5 (2.0-3.7) 2 DIMENSIONAL ASSESSMENT: RIGHT ATRIUM: NORMAL LEFT ATRIUM: NORMAL RIGHT VENTRICLE: NORMAL LEFT VENTRICLE: NORMAL TRICUSPID VALVE: NORMAL MITRAL VALVE: NORMAL PULMONIC VALVE: NORMAL AORTIC VALVE: NORMAL PERICARDIAL EFFUSION: NONE AORTIC ROOT: NORMAL LEFT VENTRICULAR WALL MOTION: SYLVIA APICAL HYPOKINESIS DOPPLER/COLOR FLOW: NORMAL COMMENTS: ANTEROAPICAL HYPOKINESIS. EJECTION FRACTION 40-45%. NO EFFUSION. TECHNOLOGIST: KEMAL SALINAS
[2020-09-13] MEDS: ASCORBIC ACID 500 MG TABLET PO SCH (08:06)
[2020-09-13] MEDS: CLOPIDOGREL 75 MG TABLET PO SCH (08:06)
[2020-09-13] MEDS: ASPIRIN EC 81 MG TAB PO SCH (08:06)
--- NOTE | 2020-09-13 08:38 | PN ---
Date of Progress Note: 09/13/2020 Subjective: Ms. Edouard is 69-year-old. She was admitted with a non-ST elevation myocardial infarc tion on 09/11/2020. On 09/12/2020, she underwent a heart catheterization with angioplasty and stent of the mid LAD with excellent result. Overnight, she had no complaints. Objective: Vital Signs: Stable. Telemetry showed sinus rhythm. Chest: Showed normal chest exam. Heart: Showed normal heart exam. : Her right groin was intact without any hematoma. EXTREMITIES: She had good distal pulses. Diagnostic Data: All within normal limits. Her creatinine was unchanged from about 1.46. Impression And Plan: This is a patient with history of hypertension, dyslipidemia, coronary artery d isease, now status post stent of the mid LAD. She can go home today on aspirin, beta-blockers, Plavi x, and a statin. The case was discussed with Dr. Espinoza. I will see her in the office in 2 weeks. MONICA/TAE Voice ID: [id number] Report ID: [id number]
[2020-09-13] MEDS ORDERED: LACTOBACILLUS/ACIDOPHILUS TAB PO SCH (09:00)
[2020-09-13] MEDS ORDERED: VITAMIN D 1000 UNIT TAB PO SCH (09:00)
[2020-09-13] MEDS ORDERED: ENOXAPARIN 80 MG/0.8 ML SQ SCH (09:00)
[2020-09-13] MEDS ORDERED: LOSARTAN POTASSIUM 50 MG TABLET PO SCH (09:00)
[2020-09-13] MEDS ORDERED: AMLODIPINE 10 MG TAB PO SCH (09:00)
[2020-09-13] MEDS ORDERED: CRANBERRY 4200 MG PO SCH (09:00)
[2020-09-13] MEDS ORDERED: CYANOCOBALAMIN 1,000 MCG TAB PO SCH (09:00)
[2020-09-13] MEDS ORDERED: POTASSIUM CL SA 10 MEQ TAB PO ONE (09:00)
[2020-09-13] MEDS ORDERED: FOLIC ACID 1 MG TABLET PO SCH (09:00)
--- NOTE | 2020-09-13 09:13 | P.DS ---
Admission Date: 09/11/20 Discharge Date: 09/13/20 Disposition: ROUTINE DISCHARGE Discharge Condition: FAIR Reason for Admission: NSTEMI Consultations: Cardiology-Dr. Dewey - Problems (1) NSTEMI (non-ST elevated myocardial infarction) Status: Acute (2) CAD (coronary artery disease) Status: Acute (3) Lupus Status: Acute (4) CKD (chronic kidney disease) stage 3, GFR 30-59 ml/min Status: Acute Brief History of Present Illness: 69-year-old woman with a history of lupus and chronic kidney disease presented to the emergency department with a complaint of chest pain of 3 days duration. Patient described a pressure-like sensation in the chest radiating to her left neck. Her initial troponin in the ED was mildly elevated to 0.89. EKG was unremarkable. Patient was hospitalized for NSTEMI. Hospital Course: Troponin trended down. The patient was treated with full-dose Lovenox, aspirin, and metoprolol. She was evaluated by cardiology-Dr. Dewey will perform cardiac catheterization. The patient was noted for a 90% occlusion of the LAD which was stented. She was hydrated with IV fluids and given Mucomyst given her high risk for contrast induced nephropathy. Her serum creatinine trended down with IV hydration after cardiac catheterization. She currently has no symptoms, vitals are stable and deemed clinically stable for discharge. Vital Signs/Physical Exam: Temp Pulse Resp BP Pulse Ox 97.8 F 65 16 155/75 H 97 09/13/20 04:00 09/13/20 06:39 09/13/20 04:00 09/13/20 06:39 09/13/20 04:00 General: Alert, In no apparent distress HEENT: Mucous membr. moist/pink Neck: Supple, JVD not distended Respiratory: Clear to auscultation bilaterally, Normal air movement Cardiovascular: No edema, Regular rate/rhythm, Normal S1 S2 Gastrointestinal: Normal bowel sounds, Soft and benign, No tenderness Musculoskeletal: No swelling Integumentary: No rashes, No erythema Neurological: Normal speech, Normal strength at 5/5 x4 extr Laboratory Data at Discharge: WBC 6.9 K/uL (4.3-10.9) D 09/13/20 04:39 Hgb 10.9 g/dL (12.0-15.0) L 09/13/20 04:39 Hct 33.4 % (36.0-45.0) L D 09/13/20 04:39 Plt Count 212 K/uL (152-406) D 09/13/20 04:39 PT 11.0 SECONDS (9.5-12.5) 09/11/20 22:25 INR 0.93 09/11/20 22:25 Sodium 139 mmol/L (136-145) 09/13/20 04:39 Potassium 3.7 mmol/L (3.5-5.1) 09/13/20 04:39 BUN 16 mg/dL (7-18) 09/13/20 04:39 Creatinine 1.06 mg/dL (0.55-1.3) 09/13/20 04:39 Glucose 107 mg/dL (74-106) H 09/13/20 04:39 Magnesium 2.3 mg/dL (1.8-2.4) 09/12/20 03:13 Total Bilirubin 0.1 mg/dL (0.2-1.0) L 09/11/20 22:25 AST 20 U/L (15-37) 09/11/20 22:25 ALT 18 U/L (12-78) 09/11/20 22:25 Alkaline Phosphatase 126 U/L (45-117) H 09/11/20 22:25 Troponin I 1.85 ng/mL (0.0-0.045) H* 09/12/20 08:58 Triglycerides 144 mg/dL (<150) 09/12/20 03:13 Cholesterol 191 mg/dL (<200) 09/12/20 03:13 HDL Cholesterol 64 mg/dL (40-60) H 09/12/20 03:13 Cholesterol/HDL Ratio 2.98 09/12/20 03:13 Home Medications: Acyclovir 400 mg PO M,W,F 06/21/14 Amlodipine Besylate 10 mg PO DAILY 06/21/14 Mycophenolate Mofetil [Cellcept] 500 mg PO BEDTIME 06/21/14 Omeprazole [Prilosec] 20 mg PO DAILY 06/21/14 Cranberry 4,200 mg PO DAILY 10/17/19 Folic Acid 0.8 mg PO DAILY 10/17/19 Ascorbic Acid [Vitamin C] 500 mg PO BID 07/10/20 Losartan Potassium [Cozaar] 100 mg PO DAILY 07/10/20 Cholecalciferol (Vitamin D3) [Vitamin D3] 50 mcg PO DAILY 09/12/20 Cyanocobalamin (Vitamin B-12) [Vitamin B-12] 1,000 mcg PO DAILY 09/12/20 LEmmanuelacidoph,Crystali, B.lactis [Probiotic] 1 cap PO DAILY 09/12/20 predniSONE [Prednisone] 5 mg PO SEECOM 09/12/20 Aspirin [Aspirin EC 81 MG] 81 mg PO DAILY #30 tablet. 09/13/20 Atorvastatin Calcium [Lipitor] 40 mg PO BEDTIME #30 tab 09/13/20 Clopidogrel Bisulfate [Plavix*] 75 mg PO DAILY #30 tablet 09/13/20 Metoprolol Tartrate [Lopressor*] 25 mg PO BID 6AM 6PM #60 tab 09/13/20 Nitroglycerin [Nitrostat*] 0.4 mg SL UD PRN #25 tab 09/13/20 New Medications: Aspirin [Aspirin EC 81 MG] 81 mg PO DAILY #30 tablet. Atorvastatin Calcium [Lipitor] 40 mg PO BEDTIME #30 tab Metoprolol Tartrate [Lopressor*] 25 mg PO BID 6AM 6PM #60 tab Nitroglycerin [Nitrostat*] 0.4 mg SL UD PRN #25 tab PRN Reason: Pain Scale 2-4 (Mild) Clopidogrel Bisulfate [Plavix*] 75 mg PO DAILY #30 tablet Diet: AHA Activity: Ad gabriel Followup: Olu Cotton MD [Primary Care Provider] - 1-2 Weeks Reinaldo Dewey MD [ACTIVE - CAN ADMIT] - 1-2 Weeks Time spent managing pt's care (in minutes): 37
[2020-09-13 09:26] VITALS: BP 117/57
[2020-09-13 10:04] VITALS: TEMP 97.7
[2020-09-13 10:44] VITALS: O2SAT 98
[2020-09-14] MEDS ORDERED: ACYCLOVIR 400 MG TABLET PO SCH (17:00)
== END 2020-09-13 10:32 | disposition home or self-care (01) | DRG 247 ==
LOC: ER 22:02 → ERHOLD 23:55 → 2ND 09-12 00:20
PROVIDERS: ADMIT Internal Medicine; ATTEND Internal Medicine
PROC: 027034Z Dilation of Coronary Artery, One Artery with Drug-eluting Intraluminal Device, Percutaneous Approach (ICD-10-PCS; principal; 2020-09-12)
PROC: 4A023N7 Measurement of Cardiac Sampling and Pressure, Left Heart, Percutaneous Approach (ICD-10-PCS; 2020-09-12)
PROC: B2111ZZ Fluoroscopy of Multiple Coronary Arteries using Low Osmolar Contrast (ICD-10-PCS; 2020-09-12)
DX: I21.4 Non-ST elevation (NSTEMI) myocardial infarction (principal); I12.9 Hypertensive chronic kidney disease with stage 1 through stage 4 chronic kidney disease, or unspecified chronic kidney disease; N18.30 Chronic kidney disease, stage 3 unspecified; I25.10 Atherosclerotic heart disease of native coronary artery without angina pectoris; K21.9 Gastro-esophageal reflux disease without esophagitis; E78.5 Hyperlipidemia, unspecified; M32.9 Systemic lupus erythematosus, unspecified; Z90.710 Acquired absence of both cervix and uterus; Z79.52 Long term (current) use of systemic steroids; Z79.02 Long term (current) use of antithrombotics/antiplatelets; Z79.82 Long term (current) use of aspirin; Z79.899 Other long term (current) drug therapy; Z20.828 Contact with and (suspected) exposure to other viral communicable diseases
CPT/HCPCS: 36415; 71045; 80048; 80061; 80076; 81003; 81015; 82040; 82043; 83735; 83880; 84100; 84156; 84439; 84443; 84484; 84550; 85025; 85347; 85610; 86160; 86225; 86430; 87077; 87086; 87088; 87186; 93005; 93306; 93454; 96372; 96374; 99285; C1725; C1760; C1877; C1893; C9600; J0583; J1644; J2250; J2270; J3010; J7030; U0002

== ENCOUNTER 2021-01-04 03:10 | Emergency (ER) | payer BC, OTHER ==
--- NOTE | 2021-01-04 03:58 | ER ---
Nurse's Notes [facility] Name: Mirtha Edouard Age: 70 yrs Sex: Female : 1950 Arrival Date: 01/04/2021 Time: 03:12 Bed 5 Private MD: Diagnosis: Lupus erythematosus-arthritis flare Presentation: 01/04 03:25 Chief complaint: Patient states: vinh. hand pain since 7 P last night, has hx of lupus, em denies fever or trauma. Coronavirus screen: Client denies travel out of the [place] in the last 14 days. Ebola Screen: Patient negative for fever greater than or equal to 101.5 degrees Fahrenheit, and additional compatible Ebola Virus Disease symptoms Patient denies exposure to infectious person. Patient denies travel to an Ebola-affected area in the 21 days before illness onset. No symptoms or risks identified at this time. Initial Sepsis Screen: Does the patient meet any 2 criteria? No. Patient's initial sepsis screen is negative. Does the patient have a suspected source of infection? No. Patient's initial sepsis screen is negative. Risk Assessment: Do you want to hurt yourself or someone else? Patient reports no desire to harm self or others. Onset of symptoms was January 03, 2021. 03:25 Method Of Arrival: Ambulatory em 03:25 Acuity: ADELAIDA 3 em Historical: - Allergies: 03:28 No Known Allergies; em - PMHx: 03:28 CKD stage 3; GERD; Hypertension; Lupus; CAD; Myocardial infarction; em - PSHx: 03:28 Hysterectomy; Heart stents; em - Immunization history:: Adult Immunizations up to date. - Social history:: Smoking status: Patient denies any tobacco usage or history of. - Family history:: not pertinent. Screenin:06 Abuse screen: Denies threats or abuse. Nutritional screening: No deficits noted. em Tuberculosis screening: No symptoms or risk factors identified. Fall Risk None identified. Assessment: 03:40 General: Appears in no apparent distress. Behavior is calm, cooperative, appropriate em for age. Neuro: Level of Consciousness is awake, alert, obeys commands, Oriented to person, place, time. Respiratory: Airway is patent Respiratory effort is even, unlabored, Respiratory pattern is regular, symmetrical. 04:07 Reassessment: Patient and/or family updated on plan of care and expected duration. Pain em level reassessed. Patient is alert, oriented x 3, equal unlabored respirations, skin warm/dry/pink. Discharge instruction given to patient verbalized the understanding of instruction. Pt left ED ambulatory tolerating well. Vital Signs: 03:25 BP 165 / 83; Pulse 69; Resp 18; Temp 97.8(O); Pulse Ox 100% on R/A; Weight 74.84 kg; em Height 5 ft. 4 in. (162.56 cm); Pain 9/10; 03:25 Body Mass Index 28.32 (74.84 kg, 162.56 cm) em ED Course: 03:12 Patient arrived in ED. ag3 03:18 Eliel Sanchez, RN is Primary Nurse. em 03:20 Patient has correct armband on for positive identification. Bed in low position. Call em light in reach. Side rails up X 1. 03:27 Triage completed. em 03:28 Arm band placed on. em 03:46 Mo Wasserman MD is Attending Physician. ma2 04:09 No provider procedures requiring assistance completed. Patient did not have IV access em during this emergency room visit. Administered Medications: 03:56 Not Given (pt reports she talks to much): morphine 4 mg IM once; RASS on ADMIN: em Combtv4, Very Agttd3, Agttd2, Rstlss1, AlertClm0, Drwsy-1, Lt Sdtn-2, Mod Sdtn-3, Dp Sdtn-4, UnArsble-5 04:01 Not Given (Patient Refused): Ondansetron (Zofran) 4 mg PO once em 04:02 Drug: TORadol 60 mg Route: IM; Site: left deltoid; em 04:09 Follow up: Response: Medication administered at discharge. em Outcome: 03:57 Discharge ordered by . ma2 04:06 Discharged to home ambulatory. em 04:06 Condition: stable 04:06 Discharge instructions given to patient, Instructed on discharge instructions, follow up and referral plans. Demonstrated understanding of instructions, follow-up care. 04:10 Patient left the ED. em Signatures: Eliel Sanchez RN RN em Mo Wasserman MD MD ks2 Francesca Garcia 3
--- NOTE | 2021-01-04 03:58 | EDPHYS ---
Physician Documentation [facility] Name: Mirtha Edouard Age: 70 yrs Sex: Female : 1950 Arrival Date: 01/04/2021 Time: 03:12 Bed 5 Private MD: ED Physician Mo Wasserman HPI: 01/04 03:55 This 70 yrs old Female presents to ER via Ambulatory with complaints of Hand ma2 Swelling, Hand Pain. 03:55 The patient or guardian reports decreased range of motion. Onset: The symptoms/episode ma2 began/occurred gradually, 1 week(s) ago. Severity of symptoms: At their worst the symptoms were mild, in the emergency department the symptoms are unchanged. The patient has experienced similar episodes in the past. Historical: - Allergies: 03:28 No Known Allergies; em - PMHx: 03:28 CKD stage 3; GERD; Hypertension; Lupus; CAD; Myocardial infarction; em - PSHx: 03:28 Hysterectomy; Heart stents; em - Immunization history:: Adult Immunizations up to date. - Social history:: Smoking status: Patient denies any tobacco usage or history of. - Family history:: not pertinent. ROS: 03:55 Constitutional: Negative for fever, chills, and weight loss. ma2 03:55 All other systems are negative. Exam: 03:55 Constitutional: This is a well developed, well nourished patient who is awake, alert, ma2 and in no acute distress. Head/Face: Normocephalic, atraumatic. Eyes: Pupils equal round and reactive to light, extra-ocular motions intact. Lids and lashes normal. Conjunctiva and sclera are non-icteric and not injected. Cornea within normal limits. Periorbital areas with no swelling, redness, or edema. ENT: Nares patent. No nasal discharge, no septal abnormalities noted. Tympanic membranes are normal and external auditory canals are clear. Oropharynx with no redness, swelling, or masses, exudates, or evidence of obstruction, uvula midline. Mucous membranes moist. Neck: Trachea midline, no thyromegaly or masses palpated, and no cervical lymphadenopathy. Supple, full range of motion without nuchal rigidity, or vertebral point tenderness. No Meningismus. Chest/axilla: Normal chest wall appearance and motion. Nontender with no deformity. No lesions are appreciated. Cardiovascular: Regular rate and rhythm with a normal S1 and S2. No gallops, murmurs, or rubs. Normal PMI, no JVD. No pulse deficits. Respiratory: Lungs have equal breath sounds bilaterally, clear to auscultation and percussion. No rales, rhonchi or wheezes noted. No increased work of breathing, no retractions or nasal flaring. Abdomen/GI: Soft, non-tender, with normal bowel sounds. No distension or tympany. No guarding or rebound. No evidence of tenderness throughout. Vital Signs: 03:25 BP 165 / 83; Pulse 69; Resp 18; Temp 97.8(O); Pulse Ox 100% on R/A; Weight 74.84 kg; em Height 5 ft. 4 in. (162.56 cm); Pain 9/10; 03:25 Body Mass Index 28.32 (74.84 kg, 162.56 cm) em MDM: 03:46 Patient medically screened. ma2 03:55 Differential diagnosis: contusion, abrasion, tendonitis, lupus flare ups. Data ma2 reviewed: vital signs, nurses notes. Counseling: I had a detailed discussion with the patient and/or guardian regarding: the historical points, exam findings, and any diagnostic results supporting the discharge/admit diagnosis, the presence of at least one elevated blood pressure reading (>120/80) during this emergency department visit, the need for outpatient follow up. Response to treatment: the patient's symptoms have markedly improved after treatment. Administered Medications: 03:56 Not Given (pt reports she talks to much): morphine 4 mg IM once; RASS on ADMIN: em Combtv4, Very Agttd3, Agttd2, Rstlss1, AlertClm0, Drwsy-1, Lt Sdtn-2, Mod Sdtn-3, Dp Sdtn-4, UnArsble-5 04:01 Not Given (Patient Refused): Ondansetron (Zofran) 4 mg PO once em 04:02 Drug: TORadol 60 mg Route: IM; Site: left deltoid; em 04:09 Follow up: Response: Medication administered at discharge. em Disposition: 01/04/21 03:57 Discharged to Home. Impression: Lupus erythematosus - arthritis flare . - Condition is Stable. - Discharge Instructions: Systemic Lupus Erythematosus, Adult. - Prescriptions for Diclofenac Sodium 75 mg Oral Tablet Sustained Release - take 1 tablet by ORAL route 2 times per day; 30 tablet. Medrol (Rao) 4 mg Oral Tablets, Dose Pack - take 1 tablet by ORAL route as directed - follow package instructions; 1 packet. - Medication Reconciliation Form, Thank You Letter, Antibiotic Education, Prescription Opioid Use form. - Follow up: Private Physician; When: Tomorrow; Reason: Continuance of care. Signatures: Eliel Sanchez RN RN em Alzahri, Mohammad, MD MD ma2 Corrections: (The following items were deleted from the chart) 04:10 03:57 01/04/2021 03:57 Discharged to Home. Impression: Lupus erythematosus - arthritis em flare . Condition is Stable. Prescriptions for Diclofenac Sodium 75 mg Oral Tablet Sustained Release - take 1 tablet by ORAL route 2 times per day; 30 tablet, Medrol (Roa) 4 mg Oral Tablets, Dose Pack - take 1 tablet by ORAL route as directed - follow package instructions; 1 packet. and Forms are Medication Reconciliation Form, Thank You Letter, Antibiotic Education, Prescription Opioid Use. Follow up: Private Physician; When: Tomorrow; Reason: Continuance of care. ma2
[2021-01-04] MEDS ORDERED: ONDANSETRON 4 MG (ODT) TAB ONE (04:09)
[2021-01-04] MEDS ORDERED: MORPHINE 4 MG/ML SYR ONE (04:09)
[2021-01-04 04:14] VITALS: BP 165/83; TEMP 97.8; O2SAT 100
[2021-01-04] MEDS ORDERED: KETOROLAC 30 MG/ML INJ ONE (04:14)
== END 2021-01-04 04:10 | disposition home or self-care (01) ==
LOC: ER 03:10
DX: M32.9 Systemic lupus erythematosus, unspecified (principal); I12.9 Hypertensive chronic kidney disease with stage 1 through stage 4 chronic kidney disease, or unspecified chronic kidney disease; N18.30 Chronic kidney disease, stage 3 unspecified; K21.9 Gastro-esophageal reflux disease without esophagitis; I25.10 Atherosclerotic heart disease of native coronary artery without angina pectoris; I25.2 Old myocardial infarction; Z95.5 Presence of coronary angioplasty implant and graft
CPT/HCPCS: 96372; 99283

== ENCOUNTER 2021-03-10 20:38 | Observation (INO) | payer OTHER ==
[2021-03-10] MEDS ORDERED: NITROGLYCERIN 1 GM PKT TD ONE (22:23)
[2021-03-10 22:26] LABS: Protime INR 1.03
[2021-03-10 22:29] LABS: ALT/SGPT 19 U/L (12-78); AST/SGOT 18 U/L (15-37); Albumin 3.6 g/dL (3.4-5.0); Alkaline Phosphatase 83 U/L (45-117); BUN Blood Urea Nitrogen 45 mg/dL (7-18); Bicarbonate 23 mmol/L (21-32); Bilirubin Direct < 0.1 mg/dL (0-0.2); Bilirubin Total 0.3 mg/dL (0.2-1.0); Glucose Level 101 mg/dL (74-106); Magnesium 2.3 mg/dL (1.8-2.4); NT PRO-BNP 557 pg/mL (<125); Potassium 3.6 mmol/L (3.5-5.1); Protein, Total 7.4 g/dL (6.4-8.2); Sodium Level 140 mmol/L (136-145); Troponin (Emerg Dept Use Only) < 0.02 ng/mL (0.0-0.045)
[2021-03-10 22:32] LABS: Absolute Lymphocytes (CBC) 0.8 K/uL (0.7-4.9); Basophils % 0.2 % (0-1.3); Hematocrit 33.6 % (36.0-45.0); MPV 8.7 fL (7.6-11.3); RBC Red Blood Cell Count 3.79 M/uL (3.86-4.86)
--- NOTE | 2021-03-10 23:09 | ER ---
Nurse's Notes [facility] Name: Mirtha Edouard Age: 70 yrs Sex: Female : 1950 Arrival Date: 03/10/2021 Time: 20:41 Bed 30 Private MD: Diagnosis: Chest pain, unspecified Presentation: 03/10 20:48 Chief complaint: Patient states: Chest pain started around 1500 today, radiating to the ca1 back, described as tight. HX of heart attack with stent placement on 09/12/2020. Took Nitro SL x 2 at 1930, 1944, with brief relief. Took Plavix 1999. Coronavirus screen: Client denies travel out of the [place] in the last 14 days. At this time, the client does not indicate any symptoms associated with coronavirus-19. Ebola Screen: Patient negative for fever greater than or equal to 101.5 degrees Fahrenheit, and additional compatible Ebola Virus Disease symptoms Patient denies exposure to infectious person. Patient denies travel to an Ebola-affected area in the 21 days before illness onset. No symptoms or risks identified at this time. Initial Sepsis Screen: Does the patient meet any 2 criteria? No. Patient's initial sepsis screen is negative. Does the patient have a suspected source of infection? No. Patient's initial sepsis screen is negative. Risk Assessment: Do you want to hurt yourself or someone else? Patient reports no desire to harm self or others. Onset of symptoms was March 10, 2021 at 15:00. 20:48 Method Of Arrival: Wheelchair ca1 20:48 Acuity: ADELAIDA 3 ca1 Historical: - Allergies: 20:51 Levaquin; ca1 20:51 Morphine; ca1 - PMHx: 20:51 CAD; CKD stage 3; GERD; Hypertension; Lupus; Myocardial infarction; ca1 - PSHx: 20:51 Hysterectomy; Heart stents; ca1 - Immunization history:: Client reports receiving the 2nd dose of the Covid vaccine, Client reports receiving the 1st dose of the Covid vaccine, Pneumococcal vaccine is up to date, Flu vaccine is up to date. - Social history:: Smoking status: Patient denies any tobacco usage or history of. Screenin:00 Abuse screen: Denies threats or abuse. Denies injuries from another. Nutritional rr5 screening: No deficits noted. Tuberculosis screening: No symptoms or risk factors identified. Fall Risk IV access (20 points). Total Arroyo Fall Scale indicates No Risk (0-24 pts). Assessment: 22:00 General: Appears in no apparent distress. uncomfortable, Behavior is calm, cooperative, rr5 appropriate for age. 22:00 Pain: Complains of pain in chest Pain radiates to back Pain currently is 8 out of 10 on rr5 a pain scale. Quality of pain is described as aching, Pain began gradually, Is intermittent. Neuro: Level of Consciousness is awake, alert, obeys commands, Oriented to person, place, time, situation. Cardiovascular: Reports chest pain, Capillary refill < 3 seconds Patient's skin is warm and dry. Respiratory: Airway is patent Respiratory effort is even, unlabored, Respiratory pattern is regular, symmetrical. GI: No signs and/or symptoms were reported involving the gastrointestinal system. : No signs and/or symptoms were reported regarding the genitourinary system. EENT: No signs and/or symptoms were reported regarding the EENT system. Derm: Skin is intact, Skin temperature is warm. Musculoskeletal: Capillary refill < 3 seconds. 22:50 Reassessment: Patient appears in no apparent distress at this time. Patient is alert, rr5 oriented x 3, equal unlabored respirations, skin warm/dry/pink. still in pain ED provider aware with order made and carried out. 23:27 Reassessment: Patient appears in no apparent distress at this time. Patient is alert, rr5 oriented x 3, equal unlabored respirations, skin warm/dry/pink. hospitalist at bedside examining the patient, advised for admission Patient states symptoms have improved. 03/11 00:30 Reassessment: Patient appears in no apparent distress at this time. Patient and/or rr5 family updated on plan of care and expected duration. Pain level reassessed. Patient is alert, oriented x 3, equal unlabored respirations, skin warm/dry/pink. 01:30 Reassessment: Patient appears in no apparent distress at this time. Patient is alert, rr5 oriented x 3, equal unlabored respirations, skin warm/dry/pink. vital signs taken and recorded. 02:30 Reassessment: Patient appears in no apparent distress at this time. Patient and/or rr5 family updated on plan of care and expected duration. Pain level reassessed. Patient is alert, oriented x 3, equal unlabored respirations, skin warm/dry/pink. 03:30 Pain: Complains of pain in chest Pain radiates to back Pain currently is 9 out of 10 on rr5 a pain scale. Quality of pain is described as aching, Pain began gradually, Is intermittent. Cardiovascular: Reports chest pain, repeat EKG done, hospitalist informed with order made and carriedout. 04:00 Reassessment: Patient appears in no apparent distress at this time. Patient is alert, rr5 oriented x 3, equal unlabored respirations, skin warm/dry/pink. Patient states feeling better. Patient states symptoms have improved. 04:00 Pain: Pain currently is 3 out of 10 on a pain scale. rr5 Vital Signs: 03/10 20:48 BP 160 / 87; Pulse 80; Resp 16 S; Temp 97.3(TE); Pulse Ox 100% on R/A; Weight 77.11 kg ca1 (R); Height 5 ft. 4 in. (162.56 cm) (R); Pain 7/10; 22:00 BP 165 / 95; Pulse 89; Resp 16; Pulse Ox 98% ; Pain 8/10; rr5 23:15 BP 177 / 95; Pulse 85; Resp 19; Pulse Ox 98% ; rr5 05 00:26 BP 140 / 80; Pulse 80; Resp 16; Pulse Ox 98% ; rr5 01:30 BP 126 / 89; Pulse 76; Resp 19; Pulse Ox 98% ; rr5 02:30 BP 135 / 75; Pulse 65; Resp 15; Pulse Ox 99% ; rr5 03:30 BP 136 / 85; Pulse 75; Resp 19; Pulse Ox 98% ; Pain 9/10; rr5 03/10 20:48 Body Mass Index 29.18 (77.11 kg, 162.56 cm) ca1 ED Course: 03/10 20:41 Patient arrived in ED. es 20:51 Triage completed. ca1 20:51 Arm band placed on right wrist. EKG completed in triage. Results shown to MD. ca1 21:39 Nehemias Vallecillo NP is PHCP. pm1 21:39 Scott Carrion MD is Attending Physician. pm1 21:55 Edvin Nascimento, DELILAH is Primary Nurse. rr5 22:00 Patient has correct armband on for positive identification. Placed in gown. Bed in low rr5 position. Call light in reach. 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 Pulse ox on. NIBP on. 22:05 XRAY Chest (1 view) In Process Unspecified. EDMS 22:08 Inserted saline lock: 20 gauge in right wrist, using aseptic technique. Blood collected.rr5 23:08 Edvin Gregory MD is Referral Physician. pm1 23:10 Edvin Gregory MD is Hospitalizing Provider. pm1 23:28 No provider procedures requiring assistance completed. Patient admitted, IV remains in rr5 place. intact, No redness/swelling at site. Patient maintains SpO2 saturation greater than 95% on room air. 03/11 09:49 Primary Nurse role handed off by Edvin Nascimento RN sv Administered Medications: 03/10 22:08 Drug: Nitroglycerin Ointment 2 % 1 inches Route: Transdermal; Site: anterior chest wall;rr5 23:20 Follow up: Response: No adverse reaction; Pain is unchanged, physician notified rr5 23:24 Drug: fentaNYL (PF) 25 mcg {Note: rass 0.} Route: IVP; Site: right wrist; rr5 03/11 00:26 Follow up: Response: No adverse reaction; Pain is decreased; RASS: Alert and Calm (0) rr5 03/10 23:25 Drug: Pepcid (famotidine) 20 mg Route: IVP; Site: right wrist; rr5 03/11 00:26 Follow up: Response: No adverse reaction rr5 01:14 Drug: Tylenol 500 mg Route: PO; rr5 02:32 Follow up: Response: No adverse reaction; Pain is decreased rr5 03:39 Drug: fentaNYL (PF) 25 mcg {Note: rass 0.} Route: IVP; Site: right wrist; rr5 04:10 Follow up: Response: No adverse reaction rr5 Outcome: 03/10 23:09 Discharge ordered by . pm1 23:10 Decision to Hospitalize by Provider. pm1 03/11 04:00 Admitted to ER Hold. Please see [facility] for further documentation. rr5 Condition: stable Instructed on the need for admit. 14:39 Patient left the ED. sv Signatures: Dispatcher [employer] Princess Santiago RN RN sv Salyer, Edna es Marinas, Patrick, POCKETBOOK MAKER POCKETBOOK MAKER pm1 Edvin Nascimento RN RN rr5 Lanie Krause, RN RN ca1
--- NOTE | 2021-03-10 23:09 | EDPHYS ---
Physician Documentation [facility] Name: Mirtha Edouard Age: 70 yrs Sex: Female : 1950 Arrival Date: 03/10/2021 Time: 20:41 Bed 30 Private MD: ED Physician Scott Carrion HPI: 03/10 22:39 This 70 yrs old Female presents to ER via Wheelchair with complaints of Chest pm1 Pain. 22:39 The patient or guardian reports chest pain that is located primarily in the mid-sternal pm1 area. Onset: today, at 15:00. The pain radiates to back. Associated signs and symptoms: Pertinent negatives: abdominal pain, cough, diaphoresis, dizziness, headache, nausea, palpitations, vomiting. The chest pain is described as aching. Duration: The patient or guardian reports a single episode, that is still ongoing. Modifying factors: The symptoms are alleviated by NTG, X2. the symptoms are aggravated by nothing. Severity of pain: in the emergency department the pain has improved mildly, from nitro. The patient has experienced a previous episode, feels like her NV 6 months ago. Patient took her Plavix today after the onset of chest pain. Her last dose of plavix was supposed to be yesterday. Historical: - Allergies: 20:51 Levaquin; ca1 20:51 Morphine; ca1 - PMHx: 20:51 CAD; CKD stage 3; GERD; Hypertension; Lupus; Myocardial infarction; ca1 - PSHx: 20:51 Hysterectomy; Heart stents; ca1 - Immunization history:: Client reports receiving the 2nd dose of the Covid vaccine, Client reports receiving the 1st dose of the Covid vaccine, Pneumococcal vaccine is up to date, Flu vaccine is up to date. - Social history:: Smoking status: Patient denies any tobacco usage or history of. ROS: 22:39 Constitutional: Negative for fever, chills, and weight loss, Eyes: Negative for injury, pm1 pain, redness, and discharge, ENT: Negative for injury, pain, and discharge, Neck: Negative for injury, pain, and swelling. 22:39 Respiratory: Negative for shortness of breath, cough, wheezing, and pleuritic chest pain, Abdomen/GI: Negative for abdominal pain, nausea, vomiting, diarrhea, and constipation, Back: Negative for injury and pain, MS/Extremity: Negative for injury and deformity, Skin: Negative for injury, rash, and discoloration, Neuro: Negative for headache, weakness, numbness, tingling, and seizure. 22:39 Cardiovascular: Positive for chest pain, Negative for edema, palpitations. Exam: 22:39 Constitutional: This is a well developed, well nourished patient who is awake, alert, pm1 and in no acute distress. Head/Face: Normocephalic, atraumatic. Eyes: Pupils equal round and reactive to light, extra-ocular motions intact. Lids and lashes normal. Conjunctiva and sclera are non-icteric and not injected. Cornea within normal limits. Periorbital areas with no swelling, redness, or edema. ENT: Nares patent. No nasal discharge, no septal abnormalities noted. Tympanic membranes are normal and external auditory canals are clear. Oropharynx with no redness, swelling, or masses, exudates, or evidence of obstruction, uvula midline. Mucous membranes moist. 22:39 Back: No spinal tenderness. No costovertebral tenderness. Full range of motion. Skin: Warm, dry with normal turgor. Normal color with no rashes, no lesions, and no evidence of cellulitis. MS/ Extremity: Pulses equal, no cyanosis. Neurovascular intact. Full, normal range of motion. 22:39 Chest/axilla: Inspection: normal, Palpation: tenderness, is not appreciated. 22:39 Cardiovascular: Rate: normal, Rhythm: regular, Pulses: no pulse deficits are appreciated, Heart sounds: normal. 22:39 Respiratory: Exam negative for acute changes, respiratory distress, shortness of breath, Breath sounds: are clear throughout. 22:39 Abdomen/GI: Inspection: abdomen appears normal, Palpation: abdomen is soft and non-tender, in all quadrants. 22:39 Neuro: Orientation: is normal, Mentation: is normal, Motor: is normal, moves all fours. Vital Signs: 20:48 BP 160 / 87; Pulse 80; Resp 16 S; Temp 97.3(TE); Pulse Ox 100% on R/A; Weight 77.11 kg ca1 (R); Height 5 ft. 4 in. (162.56 cm) (R); Pain 7/10; 22:00 BP 165 / 95; Pulse 89; Resp 16; Pulse Ox 98% ; Pain 8/10; rr5 23:15 BP 177 / 95; Pulse 85; Resp 19; Pulse Ox 98% ; rr5 03/11 00:26 BP 140 / 80; Pulse 80; Resp 16; Pulse Ox 98% ; rr5 01:30 BP 126 / 89; Pulse 76; Resp 19; Pulse Ox 98% ; rr5 02:30 BP 135 / 75; Pulse 65; Resp 15; Pulse Ox 99% ; rr5 03:30 BP 136 / 85; Pulse 75; Resp 19; Pulse Ox 98% ; Pain 9/10; rr5 03/10 20:48 Body Mass Index 29.18 (77.11 kg, 162.56 cm) ca1 MDM: 03/10 21:39 Patient medically screened. pm1 23:07 Data reviewed: vital signs. Data interpreted: Pulse oximetry: on room air is 100 %. pm1 Interpretation: normal. 23:07 Counseling: I had a detailed discussion with the patient and/or guardian regarding: the pm1 historical points, exam findings, and any diagnostic results supporting the discharge/admit diagnosis, lab results, radiology results, the need for further work-up and treatment in the hospital. 03/10 21:48 Order name: Basic Metabolic Panel pm1 03/10 21:48 Order name: CBC with Diff; Complete Time: 22:59 pm1 03/10 21:48 Order name: LFT's; Complete Time: 22:59 pm1 03/10 21:48 Order name: Magnesium; Complete Time: 22:59 pm1 03/10 21:48 Order name: NT PRO-BNP; Complete Time: 22:59 pm1 03/10 21:48 Order name: PT-INR; Complete Time: 22:59 pm1 03/10 21:48 Order name: Troponin (emerg Dept Use Only); Complete Time: 22:59 pm1 03/10 21:48 Order name: Basic Metabolic Panel; Complete Time: 22:59 EDMS 03/11 01:34 Order name: SARS-COV-2 RT PCR; Complete Time: 04:42 EDMS 03/11 04:52 Order name: Urine Dipstick-Ancillary; Complete Time: 00:22 EDMS 03/11 05:26 Order name: CBC with Automated Diff; Complete Time: 00:22 EDMS 03/11 05:43 Order name: Comprehensive Metabolic Panel; Complete Time: 00:22 EDMS 03/11 05:43 Order name: Troponin I; Complete Time: 00: EDRI 03/10 21:48 Order name: XRAY Chest (1 view); Complete Time: 00:22 pm03/11 05:43 Order name: Lipid Profile; Complete Time: 00:22 EDRI 03/11 05:43 Order name: T4 Free; Complete Time: 00:22 EDRI 03/11 05:43 Order name: Magnesium; Complete Time: 00: [facility] 03/11 05:43 Order name: Lipase; Complete Time: 00: EDRI 03/11 05:43 Order name: Thyroid Stimulating Hormone; Complete Time: 00: EDRI 03/11 05:50 Order name: Urinalysis; Complete Time: 00: [facility] 03/11 06:07 Order name: Urine Microscopic Only; Complete Time: 00: [facility] 03/11 08:56 Order name: CBC Smear Scan; Complete Time: 00: [facility] 03/11 09:40 Order name: US; Complete Time: 00: [facility] 03/11 12:27 Order name: Troponin I; Complete Time: 00:RI 03/10 20:52 Order name: EKG; Complete Time: 20:52 03/10 20:52 Order name: EKG - Nurse/Tech; Complete Time: 20:[facility] 03/10 21:48 Order name: Cardiac monitoring; Complete Time: 22:08 pm03/10 21:48 Order name: IV Saline Lock; Complete Time: 22:08 pm03/10 21:48 Order name: Labs collected and sent; Complete Time: 22:44 pm03/10 21:48 Order name: O2 Per Protocol; Complete Time: 22:44 pm03/10 21:48 Order name: O2 Sat Monitoring; Complete Time: 22:44 pm1 Administered Medications: 22:08 Drug: Nitroglycerin Ointment 2 % 1 inches Route: Transdermal; Site: anterior chest wall;rr5 23:20 Follow up: Response: No adverse reaction; Pain is unchanged, physician notified rr5 23:24 Drug: fentaNYL (PF) 25 mcg {Note: rass 0.} Route: IVP; Site: right wrist; rr5 03/11 00:26 Follow up: Response: No adverse reaction; Pain is decreased; RASS: Alert and Calm (0) rr5 03/10 23:25 Drug: Pepcid (famotidine) 20 mg Route: IVP; Site: right wrist; rr5 03/11 00:26 Follow up: Response: No adverse reaction rr5 01:14 Drug: Tylenol 500 mg Route: PO; rr5 02:32 Follow up: Response: No adverse reaction; Pain is decreased rr5 03:39 Drug: fentaNYL (PF) 25 mcg {Note: rass 0.} Route: IVP; Site: right wrist; rr5 04:10 Follow up: Response: No adverse reaction rr5 Disposition: 19:09 Co-signature as Attending Physician, Scott Carrion MD. pkl Disposition: 03/10/21 23:10 Hospitalization ordered by Edvin Gregory for Observation. Preliminary diagnosis is Chest pain, unspecified. - [facility]. - Status is Observation. sv - Condition is Stable. - Problem is new. - Symptoms have improved. Signatures: Dispatcher [employer] EDRI Princess Gan RN RN sv Lam, Pin, MD MD pkl Aydin Xavier, DIRECTOR INDEPENDENT-C DIRECTOR INDEPENDENT-Cla1 Nehemias Vallecillo, MORTGAGE FUNDER MORTGAGE FUNDER pm1 Darius Bhat mw2 Edvin Nascimento, RN RN rr5 Lanie Krause RN RN ca1 Corrections: (The following items were deleted from the chart) 03/10 23:10 23:09 03/10/2021 23:09 Discharged to Home. Impression: Chest pain, unspecified. pm1 Condition is Stable. Forms are Medication Reconciliation Form, Thank You Letter, Antibiotic Education, Prescription Opioid Use. Follow up: Edvin Gregory; When: 2 - 3 days; Reason: Recheck today's complaints, Continuance of care, Re-evaluation by your physician. Problem is new. Symptoms have improved. pm1 03/11 00:09 03/10 23:10 Hospitalization Ordered by Edvin Gregory MD for Observation. Preliminary mw2 diagnosis is Chest pain, unspecified. Bed requested for Telemetry/MedSurg (observation). Status is Observation. Condition is Stable. Problem is new. Symptoms have improved. pm1 03/11 00:30 03/10 23:07 CORONAVIRUS+MR.LAB.BRZ ordered. EDRI EDRI 03/11 14:39 00:09 03/10/2021 23:10 Hospitalization Ordered by Edvin Gregory MD for Observation. sv Preliminary diagnosis is Chest pain, unspecified. Bed [facility]. Status is Observation. Condition is Stable. Problem is new. Symptoms have improved. mw2
[2021-03-10] MEDS ORDERED: FENTANYL CITR 100 MCG/2 ML ONE (23:27)
[2021-03-10] MEDS ORDERED: FAMOTIDINE 20 MG/2 ML VIAL IV ONE (23:27)
--- NOTE | 2021-03-11 00:21 | P.HP ---
Certification for Inpatient Patient admitted to: Observation With expected LOS: <2 Midnights Patient will require the following post-hospital care: None Practitioner: I am a practitioner with admitting privileges, knowledge of patient current condition, hospital course, and medical plan of care. Services: Services provided to patient in accordance with Admission requirements found in Title 42 Section 412.3 of the Code of Federal Regulations Patient History Date of Service: 03/11/21 Reason for admission: Chest pain History of Present Illness: 70-year-old female with history of CKD 3, hypertension, CAD, GERD, lupus presents emergency department for chest pain. Patient reports that her pain started about an hr after consuminga kolton melt from [employer]. Pain is described as tightness, radiates to the back without associated shortness of breath, dizziness, diaphoresis, syncope. Pain persisted, patient took 2 sublingual nitroglycerin with questionable relief, patient evaluated in the emergency department labs significant for hemoglobin 11.1 hematocrit 33.6 creatinine 1.54 GFR 33 BUN 45 this is similar to patient's baseline renal function BNP 557. Chest x-ray unremarkable EKG without acute changes. Patient was given Pepcid in the emergency department which she reports has significantly helped with her symptoms. Patient with recent stenting of the LAD in August of 2021, due to significant risk factors and patient's description of pain ED provider wishes to admit under observation for chest pain rule out. Allergies No Known Allergies Allergy (Verified 07/10/20 10:27) Home Medications: Acyclovir 400 mg PO M,W,F 06/21/14 Amlodipine Besylate 10 mg PO DAILY 06/21/14 Mycophenolate Mofetil [Cellcept] 500 mg PO BEDTIME 06/21/14 Omeprazole [Prilosec] 20 mg PO DAILY 06/21/14 Cranberry 4,200 mg PO DAILY 10/17/19 Folic Acid 0.8 mg PO DAILY 10/17/19 Ascorbic Acid [Vitamin C] 500 mg PO BID 07/10/20 Losartan Potassium [Cozaar] 100 mg PO DAILY 07/10/20 Cholecalciferol (Vitamin D3) [Vitamin D3] 50 mcg PO DAILY 09/12/20 Cyanocobalamin (Vitamin B-12) [Vitamin B-12] 1,000 mcg PO DAILY 09/12/20 L.acidoph,Paracasei, B.lactis [Probiotic] 1 cap PO DAILY 09/12/20 predniSONE [Prednisone] 5 mg PO SEECOM 09/12/20 Aspirin [Aspirin EC 81 MG] 81 mg PO DAILY #30 tablet. 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 stomach issues - Social History Smoking Status: Never smoker Alcohol use: No CD- Drugs: No Caffeine use: Yes Place of Residence: Home Review of Systems 10-point ROS is otherwise unremarkable Cardiovascular: Chest Pain Gastrointestinal: Nausea Physical Examination - Physical Exam General: Alert, In no apparent distress, Oriented x3 HEENT: Atraumatic, PERRLA, Mucous membr. moist/pink Neck: Supple, 2+ carotid pulse no bruit, No LAD Respiratory: Clear to auscultation bilaterally, Normal air movement Cardiovascular: Regular rate/rhythm, Normal S1 S2 Gastrointestinal: Normal bowel sounds, No tenderness Musculoskeletal: No tenderness Integumentary: No rashes Neurological: Normal speech, Normal strength at 5/5 x4 extr, Normal tone, Normal affect - Studies Laboratory Data (last 24 hrs) 03/10/21 22:03: PT 11.8, INR 1.03 03/10/21 22:03: WBC 8.60, Hgb 11.1 L, Hct 33.6 L, Plt Count 257 03/10/21 22:03: Sodium 140, Potassium 3.6, BUN 45 H, Creatinine 1.54 H, Glucose 101, Magnesium 2.3, Total Bilirubin 0.3, AST 18, ALT 19, Alkaline Phosphatase 83 Assessment and Plan - Plan Assessment Chest pain rule out ACS CKD 3 Hypertension, hyperlipidemia, GERD, lupus Plan Chest pain rule out ACS: Trend troponins, monitor on telemetry, cardiology consult in place. Continue home medications, daily aspirin, beta-sandy. Patient's story sounds more like GERD given the circumstances although she is at significant risk for ACS. DVT prophylaxis Lovenox 40 mg subcutaneous once daily. Appreciate further input from cardiology. Patient was due to stopped her Plavix yesterday, her Protonix had been discontinued by cardiology due to the interaction with Protonix and Plavix. CKD 3: Stable, continue to monitor with daily labs. Hypertension, hyperlipidemia, GERD, lupus: Stable this time continue home medications. Patient is supposed to have outpatient follow up with gastroenterology later this month. Would likely benefit from EGD due to significant GERD. Discharge Plan: Home Plan to discharge in: 24 Hours - Advance Directives Does patient have a Living Will: Yes Does patient have a Durable POA for Healthcare: Yes - Code Status/Comfort Care Code Status Assessed: Yes (Full code) Critical Care: No Time Spent Managing Pts Care (In Minutes): 55
[2021-03-11] MEDS ORDERED: ACETAMINOPHEN 500 MG TAB ONE ×2 (01:31→09:34)
[2021-03-11] MEDS ORDERED: FENTANYL CITR 100 MCG/2 ML ONE (03:48)
[2021-03-11 04:18] VITALS: BMI 29.2
[2021-03-11] MEDS ORDERED: ONDANSETRON 4 MG/2 ML VIAL IV PRN (04:19)
[2021-03-11] MEDS ORDERED: ACETAMINOPHEN 500 MG TAB PO PRN (04:19)
[2021-03-11 04:52] LABS: Urine Blood Negative (Negative); Urine Glucose Negative (Negative); Urine Protein 2+ (Negative); Urine Specific Gravity 1.025 (1.005-1.030); Urine pH 5.5 (5.0-7.0)
[2021-03-11 05:16] LABS: Urine Appearance CLEAR (Clear); Urine Bilirubin NEGATIVE (Negataive); Urine Blood NEGATIVE (Negative); Urine Color YELLOW (Yellow); Urine Glucose NEGATIVE (Negative); Urine Protein 1+ (Negative); Urine Specific Gravity 1.015 (1.005-1.030); Urine Urobilinogen 0.2 mg/dL (0.2-1.0)
[2021-03-11 05:19] LABS: Absolute Lymphocytes (CBC) 0.4 K/uL (0.7-4.9); Hematocrit 29.9 % (36.0-45.0); Lymphocytes % 3.3 % (15.3-44.8); MPV 8.5 fL (7.6-11.3); RBC Red Blood Cell Count 3.36 M/uL (3.86-4.86)
[2021-03-11 05:42] LABS: ALT/SGPT 16 U/L (12-78); AST/SGOT 16 U/L (15-37); Albumin 3.2 g/dL (3.4-5.0); Alkaline Phosphatase 67 U/L (45-117); BUN Blood Urea Nitrogen 41 mg/dL (7-18); Bicarbonate 21 mmol/L (21-32); Bilirubin Total 0.4 mg/dL (0.2-1.0); Glucose Level 141 mg/dL (74-106); HDL Cholesterol 56 mg/dL (40-60); LDL Cholesterol, Calculated 42 (<130); Lipase 257 U/L (73-393); Magnesium 2.3 mg/dL (1.8-2.4); Potassium 3.7 mmol/L (3.5-5.1); Protein, Total 6.7 g/dL (6.4-8.2); Sodium Level 139 mmol/L (136-145); Troponin I < 0.02 ng/mL (0.0-0.045)
[2021-03-11 05:49] LABS: Urine Microscopic Reflex ORDER UMIC
[2021-03-11] MEDS ORDERED: METOPROLOL TAR 25 MG TAB PO SCH (06:00)
[2021-03-11 06:06] LABS: Urine Bacteria >50 /HPF (<20); Urine RBC NONE SEEN /HPF (NONE SEEN)
[2021-03-11] MEDS ORDERED: POTASSIUM CL SA 10 MEQ TAB PO ONE ×2 (06:21→06:44)
[2021-03-11] MEDS ORDERED: METOPROLOL TAR 25 MG TAB ONE (06:44)
[2021-03-11] MEDS ORDERED: CEFTRIAXONE/SWI 1gm 1 GM/10 ML SYR ONE (06:45)
--- NOTE | 2021-03-11 07:33 | RAD REPORT ---
EXAM DESCRIPTION: Ed Single View03/10/2021 10:05 pm CLINICAL HISTORY: Chest pain COMPARISON: 2019 FINDINGS: The lungs appear clear of acute infiltrate. The heart is borderline enlarged
[2021-03-11] MEDS ORDERED: SODIUM CHLORIDE 0.9% 10ML INJ IV PRN (08:08)
[2021-03-11 08:56] LABS: Blood Morphology Comment NOT SEEN (NOT SEEN); Platelet Estimate ADEQ; White Blood Cell Scan OK (OK)
[2021-03-11] MEDS ORDERED: ENOXAPARIN 40 MG/0.4 ML SQ SCH (09:00)
[2021-03-11] MEDS ORDERED: LOSARTAN POTASSIUM 50 MG TABLET PO SCH (09:00)
[2021-03-11] MEDS ORDERED: CEFTRIAXONE 1 GM/NS 50 ML 1 GM/50 ML BAG IV SCH (09:00)
[2021-03-11] MEDS ORDERED: PANTOPRAZOLE 40 MG INJ IVP SCH (09:00)
[2021-03-11] MEDS ORDERED: ENOXAPARIN 30 MG/0.3 ML SQ SCH (09:00)
[2021-03-11] MEDS ORDERED: AMLODIPINE 10 MG TAB PO SCH (09:00)
[2021-03-11] MEDS ORDERED: FAMOTIDINE 20 MG TAB PO SCH ×2 (09:00)
[2021-03-11] MEDS ORDERED: ASPIRIN EC 81 MG TAB PO SCH (09:00)
[2021-03-11] MEDS ORDERED: ASPIRIN EC 81 MG TAB PO ONE (09:34)
[2021-03-11] MEDS ORDERED: ENOXAPARIN 30 MG/0.3 ML SQ ONE (09:34)
[2021-03-11] MEDS ORDERED: AMLODIPINE 10 MG TAB ONE (09:34)
[2021-03-11] MEDS ORDERED: PANTOPRAZOLE 40 MG INJ ONE (09:34)
--- NOTE | 2021-03-11 09:40 | RAD REPORT ---
EXAM DESCRIPTION: US - Abdomen Exam Limited - 03/11/2021 9:08 am CLINICAL HISTORY: Abdominal pain. COMPARISON: None. FINDINGS: Mild to moderate gallbladder distention. The gallbladder wall is not thickened. A gallstone is not seen. The biliary tree is normal caliber. IMPRESSION: Mild to moderate gallbladder distention
[2021-03-11] MEDS: SUCRALFATE 1GM/10ML UCUP PO SCH ×2 (09:56→11:30)
[2021-03-11 10:50] VITALS: O2SAT 98
[2021-03-11] MEDS ORDERED: SUCRALFATE 1GM/10ML UCUP PO SCH (11:30)
[2021-03-11] MEDS ORDERED: SUCRALFATE 1 GM TABLET PO SCH (11:30)
[2021-03-11 12:19] VITALS: BP 123/72; TEMP 98.4
[2021-03-11] MEDS ORDERED: ATORVASTATIN 40 MG TAB PO SCH (21:00)
--- NOTE | 2021-03-11 23:41 | P.DS ---
Admission Date: 03/11/21 Discharge Date: 03/11/21 Disposition: ROUTINE DISCHARGE Discharge Condition: GOOD Reason for Admission: Chest pain Consultations: Cardiology - Dr. Dewey Procedures: CXR (03/10): : The lungs appear clear of acute infiltrate. The heart is borderline enlarged U/S Abd (03/11): Mild to moderate gallbladder distention. The gallbladder wall is not thickened. A gallstone is not seen. The biliary tree is normal caliber Problem List: Chest pain likely secondary to gastritis/esophagitis GERD CKD 3 Hypertension HLD lupus Brief History of Present Illness: 70-year-old female with history of CKD 3, hypertension, CAD, GERD, lupus presents emergency department for chest pain. Patient reports that her pain started about an hr after consuminga kolton melt from [employer]. Pain is described as tightness, radiates to the back without associated shortness of breath, dizziness, diaphoresis, syncope. Pain persisted, patient took 2 sublingual nitroglycerin with questionable relief, patient evaluated in the emergency department labs significant for hemoglobin 11.1 hematocrit 33.6 creatinine 1.54 GFR 33 BUN 45 this is similar to patient's baseline renal function BNP 557. Chest x-ray unremarkable EKG without acute changes. Patient was given Pepcid in the emergency department which she reports has significantly helped with her symptoms. Patient with recent stenting of the LAD in August of 2021, due to significant risk factors and patient's description of pain ED provider wishes to admit under observation for chest pain rule out. Hospital Course: Patient's troponins were negative. Cardiology was consulted and recommended no further inpatient evaluation. Her pain seemed to be related in time to when she would eat, especially foods that would "set off" her acid reflux. She was treated with IV protonix and carafate, and she had resolution of her symptoms. She was discharged with protonix BID and carafate. Follow up with Dr. Mendez as scheduled this month, would benefit from EGD for further evaluation. Vital Signs/Physical Exam: Physical Exam General: Alert, In no apparent distress, Oriented x3 HEENT: Atraumatic, PERRLA, Mucous membr. moist/pink Neck: Supple, 2+ carotid pulse no bruit, No LAD Respiratory: Clear to auscultation bilaterally, Normal air movement Cardiovascular: Regular rate/rhythm, Normal S1 S2 Gastrointestinal: Normal bowel sounds, No tenderness Musculoskeletal: mild TTP in L anterior chest Integumentary: No rashes Neurological: Normal speech, Normal strength at 5/5 x4 extr, Normal tone, Normal affect Temp Pulse Resp BP Pulse Ox 98.4 F 72 18 123/72 99 03/11/21 12:00 03/11/21 12:00 03/11/21 12:00 03/11/21 12:00 03/11/21 12:00 Laboratory Data at Discharge: WBC 11.20 K/uL (4.3-10.9) H D 03/11/21 04:48 Hgb 9.8 g/dL (12.0-15.0) L 03/11/21 04:48 Hct 29.9 % (36.0-45.0) L 03/11/21 04:48 Plt Count 229 K/uL (152-406) 03/11/21 04:48 PT 11.8 SECONDS (9.5-12.5) 03/10/21 22:03 INR 1.03 03/10/21 22:03 Sodium 139 mmol/L (136-145) 03/11/21 04:48 Potassium 3.7 mmol/L (3.5-5.1) 03/11/21 04:48 BUN 41 mg/dL (7-18) H 03/11/21 04:48 Creatinine 1.25 mg/dL (0.55-1.3) 03/11/21 04:48 Glucose 141 mg/dL (74-106) H 03/11/21 04:48 Magnesium 2.3 mg/dL (1.8-2.4) 03/11/21 04:48 Total Bilirubin 0.4 mg/dL (0.2-1.0) 03/11/21 04:48 AST 16 U/L (15-37) 03/11/21 04:48 ALT 16 U/L (12-78) 03/11/21 04:48 Alkaline Phosphatase 67 U/L (45-117) 03/11/21 04:48 Troponin I < 0.02 ng/mL (0.0-0.045) 03/11/21 11:57 Triglycerides 62 mg/dL (<150) 03/11/21 04:48 Cholesterol 110 mg/dL (<200) 03/11/21 04:48 HDL Cholesterol 56 mg/dL (40-60) 03/11/21 04:48 Cholesterol/HDL Ratio 1.96 03/11/21 04:48 Lipase Cancelled 03/11/21 Unknown Home Medications: Amlodipine Besylate 10 mg PO DAILY 06/21/14 Mycophenolate Mofetil [Cellcept] 500 mg PO BID 06/21/14 Cranberry 4,200 mg PO DAILY 10/17/19 Folic Acid 0.8 mg PO DAILY 10/17/19 Ascorbic Acid [Vitamin C] 500 mg PO BID 07/10/20 Losartan Potassium [Cozaar] 100 mg PO DAILY 07/10/20 Cholecalciferol (Vitamin D3) [Vitamin D3] 50 mcg PO SEECOM 09/12/20 L.acidoph,Paracasei, B.lactis [Probiotic] 1 cap PO BEDTIME 09/12/20 Atorvastatin Calcium [Lipitor] 40 mg PO BEDTIME #30 tab 09/13/20 Metoprolol Tartrate [Lopressor*] 25 mg PO BID 6AM 6PM #60 tab 09/13/20 Nitroglycerin [Nitrostat*] 0.4 mg SL UD PRN #25 tab 09/13/20 Amox/Clavulanate [Augmentin 875-125 Tab] 1 each PO BID 7 Days #14 tab 03/11/21 Aspirin [Aspirin EC 81 MG] 81 mg PO BEDTIME 03/11/21 Pantoprazole Sodium [Protonix] 40 mg PO BID 30 Days #60 tablet. 03/11/21 Sucralfate [Carafate] 1 gm PO AC 30 Days #90 tablet 03/11/21 New Medications: Amox/Clavulanate [Augmentin 875-125 Tab] 1 each PO BID 7 Days #14 tab Sucralfate [Carafate] 1 gm PO AC 30 Days #90 tablet Pantoprazole Sodium [Protonix] 40 mg PO BID 30 Days #60 tablet. Physician Discharge Instructions: PROBLEM: (GERD) GOAL: Clear understanding of disease process INSTRUCTIONS: Your chest pain is likely due to inflammation/irritation from your acid reflux, possibly causing an ulcer. You are discharged with protonix (pantoprazole) twice a day and carafate before each meal. Follow up with Dr. Mendez as scheduled. Your EKG and cardiac enzyme (troponin) were all normal, making the pain due to your heart unlikely. Continue your medications as prescribed (you have completed plavix and no longer have to take this). Follow up with Dr. Dewey as scheduled. You were also treated for a UTI and discharged with Augmentin for 7 days. Follow up with your PCP if your symptoms don't improve within 48hours. Diet: AHA Activity: Ad gabriel DME DME: Date Ordered: Name of Company: [employer] Services Needed: Name of Company: Date or Referral: IMMUNIZATION Influenza Vaccine Indicated: Influenza Vaccine Given: Date Given: Pneumonia Vaccine Indicated: No Pneumonia Vaccine Given: Date Given: Diet: AHA (bland) Activity: Ad gabriel Followup: Reinaldo Dewey MD [ACTIVE - CAN ADMIT] - 1-2 Weeks James Root MD [Primary Care Provider] - 1 Week James Mendez MD [ASSOCIATE-ACTIVE - CAN ADMIT] - 1-2 Weeks
[2021-03-12] MEDS ORDERED: CEFTRIAXONE/SWI 1gm 1 GM/10 ML SYR IVP SCH (08:00)
--- NOTE | 2021-03-14 11:00 | CON ---
Date of Consultation: 03/11/2021 Reason For Consultation: Chest pain. History Of Present Illness: Ms. Edouard is a 70-year-old woman with history of coronary artery dise ase status post stents. Has had hypertension, lupus, gastroesophageal reflux disease and chronic kid jerry disease stage 3, status post hysterectomy in the past. Came in with sternal pain that has been g oing on for few hours without any nausea, vomiting, diaphoresis, PND, orthopnea, pedal edema, palpita tions, or syncope. Tried nitroglycerine and did not work. Pain is described as aching, nonradiating and nonexertional. By the time I saw her, she was already ruled out for an SD. She was rather hype rtensive when she came in at 177/95. Past Medical History: As stated above. Allergies: SHE IS ALLERGIC TO LEVAQUIN AND MORPHINE. Review of Systems: Negative. Social History: Negative. Family History: Noncontributory. Medications: At home included Norvasc, aspirin, Lipitor, losartan, metoprolol, nitroglycerin as need ed, Carafate, and Protonix. Physical Examination: Vital Signs: Stable. She was afebrile, sinus rhythm. HEENT: Negative. Neck: Supple with no bruit, lymphadenopathy, JVD, or thyromegaly. Chest: Clear to auscultation and percussion. Cardiac: Revealed regular rhythm and rate. No murmurs, gallops, or rubs. Abdomen: Benign. Extremities: Revealed no clubbing, cyanosis, or edema. Diagnostic Data: Her creatinine is 1.25. Her hemoglobin was 9.8. Glucose level was 141. Her BNP w as 557 with a negative troponin. Abdominal ultrasound showed [id number] gallbladder tension. Her chest x-ray showed borderline cardiomegaly. Impression And Plan: Atypical chest pain, I think it is more likely related to gastroesophageal refl ux disease and certainly could be related to her gallbladder. Catheterization that was done in 2019 showed LAD stenosis that I stented . There are no EKG changes. Troponin is negat shayne and her symptoms are definitely not consistent with acute coronary syndrome. Her blood pressure is much better tolerated now definitely needs to be on Plavix for at least this month. Sh e had an echocardiogram that showed an ejection fraction of 45% in August 2020 after SD. I am comf ortable with her going home without repeating much studies as far as heart is concerned and I will se e her in the office in 2 to 3 weeks. MONICA/TAE Voice ID: [id number] Report ID: [id number]
== END 2021-03-11 15:01 | disposition home or self-care (01) ==
LOC: ER 20:38 → ERHOLD 03-11 00:21
PROVIDERS: ADMIT Hospitalist; ATTEND Hospitalist
DX: R07.9 Chest pain, unspecified (principal); K21.9 Gastro-esophageal reflux disease without esophagitis; I12.9 Hypertensive chronic kidney disease with stage 1 through stage 4 chronic kidney disease, or unspecified chronic kidney disease; N18.30 Chronic kidney disease, stage 3 unspecified; E78.5 Hyperlipidemia, unspecified; Z20.822 Contact with and (suspected) exposure to COVID-19; M32.9 Systemic lupus erythematosus, unspecified; I25.10 Atherosclerotic heart disease of native coronary artery without angina pectoris; Z95.5 Presence of coronary angioplasty implant and graft
CPT/HCPCS: 36415; 71045; 76705; 80048; 80053; 80061; 80076; 81003; 81015; 83690; 83735; 83880; 84439; 84443; 84484; 85025; 85610; 87077; 87086; 87088; 87186; 93005; 96374; 96375; 99285; C9113; G0378; J0696; J1650; J3010; U0003

== ENCOUNTER 2021-04-11 06:17 | Day surgery (SDC) | payer OTHER ==
[2021-04-10 16:13] LABS: Urine Appearance CLEAR (Clear); Urine Bilirubin NEGATIVE (Negative); Urine Blood NEGATIVE (Negative); Urine Color YELLOW (Yellow); Urine Glucose NEGATIVE (Negative); Urine Protein 1+ (Negative); Urine Urobilinogen 0.2 mg/dL (0.2-1.0); Urine pH 5.5 (5.0-7.0)
[2021-04-10 16:24] LABS: Absolute Lymphocytes (CBC) 0.8 K/uL (0.7-4.9); Basophils % 0.3 % (0-1.3); Hematocrit 31.4 % (36.0-45.0); Lymphocytes % 17.6 % (15.3-44.8); MPV 9.8 fL (7.6-11.3); RBC Red Blood Cell Count 3.53 M/uL (3.86-4.86)
[2021-04-10 16:28] LABS: Protime INR 0.97
[2021-04-10 16:36] LABS: Potassium 3.7 mmol/L (3.5-5.1)
[2021-04-10 16:40] LABS: Urine Microscopic Reflex ORDER UMIC
[2021-04-10 16:48] LABS: Urine Bacteria <20 /HPF (<20); Urine RBC <5 /HPF (NONE SEEN)
[2021-04-11] MEDS ORDERED: Ringers Lactate 1,000 ML IV ONE (06:43)
[2021-04-11] MEDS ORDERED: CEFAZOLIN/SWI 2gm 2 GM/20 ML SYR ONE (06:43)
[2021-04-11] MEDS ORDERED: ACETAMINOPHEN 500 MG TAB PO ONE (07:15)
[2021-04-11] MEDS ORDERED: NA CHLORIDE 0.9% 100 ML IV ONE (07:16)
[2021-04-11] MEDS ORDERED: VASOPRESSIN 20 UNIT/ML VIAL ONE (07:16)
[2021-04-11] MEDS ORDERED: ACETAMINOPHEN 500 MG TAB ONE (07:36)
[2021-04-11] MEDS ORDERED: propofoL 200 MG/20 ML VIAL IV ONE (07:39)
[2021-04-11] MEDS ORDERED: ONDANSETRON 4 MG/2 ML VIAL ONE (07:40)
[2021-04-11] MEDS ORDERED: FENTANYL CITR 250 MCG/5 ML ONE (07:40)
[2021-04-11] MEDS ORDERED: BUPIVACAINE 0.25% PF 30 ML VIAL ONE (07:40)
[2021-04-11] MEDS ORDERED: ROCURONIUM 50 MG/5 ML VIAL IV ONE (07:40)
[2021-04-11] MEDS ORDERED: LIDOCAINE 2% MPF 5 ML VIAL ONE (07:40)
[2021-04-11] MEDS ORDERED: dexAMETHasone 4 MG/ML VIAL ONE (07:40)
[2021-04-11] MEDS: Ringers Lactate 1,000 ML IV ONE ×3 (08:33→08:55)
[2021-04-11] MEDS ORDERED: HYDROCODONE/APAP 5/325 MG TAB PO PRN (10:02)
[2021-04-11] MEDS ORDERED: PROMETHAZINE INJ 25 MG/ML AMP IV PRN (10:02)
[2021-04-11] MEDS ORDERED: MEPERIDINE HCL 25 MG/ML SYR IM PRN (10:02)
[2021-04-11] MEDS ORDERED: GLYCOPYRROLATE 0.2 MG/ML SYR ONE (10:04)
[2021-04-11] MEDS ORDERED: NEOSTIGMINE 1 MG/ML -5 ML ONE (10:05)
--- NOTE | 2021-04-11 10:13 | P.BOP ---
Preoperative diagnosis: recurrent ant wall and apical post wall prolapse Postoperative diagnosis: same and perineal body defect Primary procedure: Colpocleisis perineal body repair and cystoscopy Forensic Structural Engineer: Carolina Becker Estimated blood loss: 50 Specimen: none Findings: -1/+1/-2/6/mod/5/0/0/na, gaping perineal body Anesthesia: General Complications: None Drain(s): Urinary catheter Implants: none Transferred to: Recovery Room Condition: Good
[2021-04-11] MEDS: HYDROMORPHONE HCL 1 MG/ML INJ ONE ×2 (10:22→10:36)
[2021-04-11] MEDS ORDERED: SUCRALFATE 1 GM TABLET PO SCH (11:30)
[2021-04-11] MEDS ORDERED: HYDROCODONE/APAP 5/325 MG TAB ONE (11:32)
[2021-04-11 12:00] VITALS: BP 110/68
[2021-04-11 12:02] VITALS: TEMP 97.6; O2SAT 96
[2021-04-11] MEDS ORDERED: METOPROLOL TAR 25 MG TAB PO SCH (18:00)
[2021-04-11] MEDS ORDERED: HOME MED 1 EA UNK (Ascorbic Acid [Vitamin C] 500 MG Capsule) PO SCH (21:00)
[2021-04-11] MEDS ORDERED: MYCOPHENOLATE MOFETIL 250 MG PO SCH (21:00)
[2021-04-11] MEDS ORDERED: PANTOPRAZOLE 40MG TABLET PO SCH (21:00)
[2021-04-11] MEDS ORDERED: ATORVASTATIN 40 MG TAB PO SCH (21:00)
[2021-04-12] MEDS ORDERED: HOME MED 1 EA UNK (Ferrous Fumarate/Vit Bcomp&C [Super B-Complex Caplet] 1 EACH Tablet) PO SCH (09:00)
[2021-04-12] MEDS ORDERED: HOME MED 1 EA UNK (Cholecalciferol (Vitamin D3) [Vitamin D3] 50 MCG Capsule) PO SCH (09:00)
[2021-04-12] MEDS ORDERED: HOME MED 1 EA UNK (Cranberry [Cranberry] 500 MG Capsule) PO SCH (09:00)
[2021-04-12] MEDS ORDERED: HOME MED 1 EA UNK (Magnesium [Magnesium Gluconate] 200 MG Tablet) PO SCH (09:00)
[2021-04-12] MEDS ORDERED: HOME MED 1 EA UNK (Turmeric [Turmeric] 400 MG Capsule) PO SCH (09:00)
[2021-04-12] MEDS ORDERED: HOME MED 1 EA UNK (Losartan Potassium [Cozaar] 100 MG Tablet) PO SCH (09:00)
[2021-04-12] MEDS ORDERED: AMOXICILLIN 500 MG PO SCH (09:00)
[2021-04-12] MEDS ORDERED: HOME MED 1 EA UNK (Folic Acid [Folic Acid] 0.8 MG Capsule) PO SCH (09:00)
[2021-04-12] MEDS ORDERED: AMLODIPINE 5 MG TAB PO SCH (09:00)
[2021-04-12] MEDS ORDERED: HOME MED 1 EA UNK (Zinc [Zinc] 50 MG Tablet) PO SCH (09:00)
--- NOTE | 2021-04-13 09:48 | EKG ---
Test Date: 2021-04-11 Test Time: 06:12:23 Water Conservation Specialist: JOHN MEASUREMENT RESULTS: Intervals: Rate: 65 MI: 158 QRSD: 84 QT: 402 QTc: 418 [place]: P: 14 MI: 158 QRS: 8 T: 3 INTERPRETIVE STATEMENTS: Normal sinus rhythm Nonspecific T wave abnormality Abnormal ECG Compared to ECG 03/11/2021 03:33:29 T-wave abnormality now present Electronically Signed On 04-13-21 09:44:10 CDT by Reinaldo Dewey
--- NOTE | 2021-04-15 07:33 | OP ---
Date of Procedure: 04/11/2021 Surgeon: Azra Wood MD Physician Asst: Carolina Gilmore. Preoperative Diagnosis: Recurrent vaginal wall prolapse and cystocele. Postoperative Diagnosis: Recurrent vaginal wall prolapse and cystocele and significant perineal body defect, distal rectocele. Procedures Performed: 1.Vaginal complete colpocleisis. 2.Perineal body defect repair. 3.Cystoscopy. 4.Posterior colporrhaphy with the perineal body defect. Anesthesia: General with LMA. Specimens: No specimens. Condition: Stable. Estimated Blood Loss: Minimal. Complications: No complications. Drains: Vo catheter. Findings: The patient's pop Q -1, +1, -2, 6, moderate 5, 0, 0, and nonapplicable. There was a large genital hiatus and there was significant perineal body descend as well as a gapping perineal body de fect. Distal posterior wall defect was noted, a significant anterior wall defect compared to the pos terior wall. The vault on the right side appeared to be slightly more retracted and superior consist ent with the most recent right sacrospinous ligament fixation; however, this seemed to have given out due to the short vaginal length most likely excessive tension from the short vaginal length has caus ed recurrent prolapse for this patient. The patient's condition stable. The patient with history of [place] in August 2020, cleared by Dr. Dhiraj mendez for the procedure. Had no EKG changes or symptoms in the perioperative period. The patient was discharged to home after the procedure with a Vo catheter. Indications: The patient is a 70-year-old female, who presented with recurrent prolapse. She has burnett d vaginal biologic graft repair initially that was followed by a recurrence of the prolapse. Then, a ttempted laparoscopic sacral colpopexy, but extensive diverticular disease and adhesions and presence of diverticula all the way down to the rectum prevented the placement of mesh and ablation. About 8 months ago, she had vaginal sacrospinous fixation on the right and . This, however, did n ot hold and she has recurrent prolapse, managed with pessary which was extremely difficult to hold in place due to the large genital hiatus as well as to the prolapse both anterior and posterior. So, w indy discussed about the different options and the patient was ready to proceed with the surgical repair which was colpocleisis, which was in the past not acceptable to have the option of vaginal closure, but at this time given all renal problems and also the fact that she has been having recurrent urinar y tract infections which damaged to all the dysfunctional kidneys from lupus and stage 3 renal, we de cided to proceed with this procedure electively in urgent fashion. Her cardiac clearance was given b mary jo Dewey. She has been off her blood thinners. A stent was placed in August 2020. All the p reoperative cardiac testing was negative. Description Of Procedure: The patient was consented and taken to the OR. Ancef was given. SCDs wer e started. The patient was put under general anesthesia with a laryngeal mask and placed in a dorsal lithotomy position, optimally in position. SCDs started. Time-out done. Lower abdomen, vulva, vag marcelo, and perineum were prepped and draped in a sterile fashion. Vo was placed to drain the bladde r and pop Q as above. The anterior wall had to be taken down much further and then the posterior wall; however, there was a good amount of prolapse in the posterior compartment in order for me to match it and do a good colpo cleisis and at the distal part of the distal vaginal wall still was able to have good support and so was the case with the anterior vaginal wall on the distal anterior vaginal wall. There was a still c onnective tissue that could be sutured to the posterior wall connective tissue and then the genital h iatus had to be decreased, so a more aggressive perineal body repair was to be undertaken. After going out the area to be denuded and the squamous epithelium at the vaginal lining, a trapezoid was drawn for me to guide it. Vaginal apex was identified and a very small strip of vaginal epithel ium was left in place in this area. No evidence of any squamous cell change seen grossly. In the po sterior compartment as well, there was a small trapezoid area marked out in order for me to match it and vaginal epithelium was then injected with dilute vasopressin 20 units in 40 mL of normal saline. Carefully injected about 20 units of vasopressin in the whole procedure being aware about her cardia c risk and this was being monitored along with the C-arm. The 15 blade was used to make the incision, denuded the vaginal epithelium using Allis clamps on the scalpel. Similar dissection performed with a knife and scalpel in the posterior compartment to denud e the area. Then, the closure was done starting at the apex, bringing together the connective tissue or scar in the posterior compartment. In a transverse fashion, the area was closed with 2-0 Vicryl and then the lateral canal aspect on the right side was closed in a continuous running fashion invagi nating the tissue until bringing it all the way to the distal end and from the vaginal apex on the le ft side all the way to the distal aspect of the left lateral wall closure was performed attaching the anterior and posterior connective tissues together. Once this was complete, the anterior and direct marketing specialist ior hooks were closed together with the help of interrupted 2-0 Vicryl sutures x3 to bring together a ll the connective tissues and to reduce the anterior compartment and posterior compartment vaginal epithelium and connective tissues both together were closed in a transverse fashion __ both anteriorly and posteriorly and [id number] closure was done. About 5 sutures were used t o close. There was excellent closure and support at the distal aspect both anteriorly and posteriorl y without any excessive tension, and the posterior wall and the posterior compartment have to be rele ased in order for me to take the tension off the perineal body so vasopressin was injected on the per itoneum. Rectal exam was performed to know the thickness here and then the scar from 2 prior repairs was present, so this was also carefully taken down after a anam-shaped incision was made with the scalpel on the skin and the skin was taken out. Subcutaneous tissues were incised with scalpel as w ell as the scar was thick and going into the perineal body area to get the scar or the deep transvers e perinie and then the distal posterior wall, dissection was performed to the levators abl e to open up that area and 2-0 Vicryl to go from [id number]. Two sutures were placed to bring the levators together. Then, the perineal body reconstruction was done after gloves were vaca ged as well as sutures for the perineal body . Her external sphincter also had to be sligh tly repaired, so 2-0 Vicryl suture was placed on the external sphincter to bring it to the end-to-end closure. Then, perineal body was reconstructed with three 2-0 Vicryl sutures from [id number] in a horizontal mattress fashion and then all the sutures were tied . There was excellent supp ort and the genital hiatus was only 4 cm at the end and has an excellent lift. No trauma to the rect um or foreign body. Vaginal epithelial closure in the distal part was connected with 0 Vicryl in sub cutaneous and subcuticular fashion. Cystoscopy was performed after removing the Vo. No evidence of any trauma to the bladder. Both ureteric orifices were well visualized , but on the lef t it was slightly sluggish. I was not able to visualize the pain. There were empty fires; however, on placing a Glidewire . Once this was taken down, there was a small amount of urine that from her renal dysfunction, I did not suspect any obstruction of the ureter given the diss ection. No bladder epithelial trauma or any foreign body. Bladder was drained. Ov was replaced. Instrument, needle, and sponge counts were correct at the end of the case. The patient was recover ed from anesthesia without any complications and taken to PACU in stable condition. I explained to her daughter the operative findings and her operative procedure and she has all the in structions to Vo care and a voiding trial and the patient was discharged home. DENNIS/TAE Voice ID: [id number] Report ID: [id number]
== END 2021-04-11 11:55 | disposition home health service (06) ==
LOC: OR 06:17
PROVIDERS: ATTEND Obstetrics & Gynecology
PROC: 0JQC0ZZ Repair Pelvic Region Subcutaneous Tissue and Fascia, Open Approach (ICD-10-PCS; 2021-04-11)
PROC: 0JQC0ZZ Repair Pelvic Region Subcutaneous Tissue and Fascia, Open Approach (ICD-10-PCS; 2021-04-11)
PROC: 0HQ9XZZ Repair Perineum Skin, External Approach (ICD-10-PCS; 2021-04-11)
PROC: 0ULG7ZZ Occlusion of Vagina, Via Natural or Artificial Opening (ICD-10-PCS; principal; 2021-04-11 07:30)
DX: N99.3 Prolapse of vaginal vault after hysterectomy (principal); N81.12 Cystocele, lateral; N95.2 Postmenopausal atrophic vaginitis; I25.2 Old myocardial infarction; M32.10 Systemic lupus erythematosus, organ or system involvement unspecified; N18.30 Chronic kidney disease, stage 3 unspecified; Z87.440 Personal history of urinary (tract) infections
CPT/HCPCS: 93005; 85025; 80048; 36415; 86900; 86850; 85610; 86901; 85730; 57120; 57260; J2704; J1100; J3010; J1170; J2710; J0690; J7120 ×2; J2405; 81003; 81015

== ENCOUNTER → 2021-08-20 | Day surgery (SDC) | payer OTHER ==
[~2021-08-20] MED LIST: FENTANYL CITR 100 MCG/2 ML ONE; MIDAZOLAM HCL 2 MG/2 ML INJ ONE; NA CHLORIDE 0.9% 1,000 ML ONE
[2021-08-20 10:20] VITALS: BMI 29.2
--- NOTE | 2021-08-20 13:03 | RAD REPORT ---
EXAM DESCRIPTION: CT - Renal Biopsy CT - 08/20/2021 11:27 am CLINICAL HISTORY: Renal disease. Lupus nephritis TECHNIQUE: The risks, benefits alternatives to the procedure were explained to the patient and infor med consent obtained Conscious sedation was performed for approximately 45 minutes. A nurse monitored vital signs througho ut the examination 2.5 milligrams Versed and 75 micrograms fentanyl administered intravenously All CT scans are performed using dose optimization technique as appropriate and may include automated exposure control or mA/KV adjustment according to patient size. The skin, subcutaneous tissue and musculature were anesthetized Lidocaine. Under CT guidance a 17 gauge needle was placed into the posterior aspect of the lower pole of the lef t kidney. An 18 gauge needle was then placed through this and 3 two centimeter core specimens obtaine d and given to pathology The post biopsy images do not demonstrate a significant hematoma. Patient experienced no immediate complication IMPRESSION: Core biopsies of the left kidney
[2021-08-20 18:06] VITALS: TEMP 97.1
[2021-08-20 18:11] VITALS: BP 127/87; O2SAT 98
== END ==
LOC: DS 08:30
PROVIDERS: ATTEND Internal Medicine
PROC: 0TB13ZX Excision of Left Kidney, Percutaneous Approach, Diagnostic (ICD-10-PCS; principal; 2021-08-20)
PROC: BT22ZZZ Computerized Tomography (CT Scan) of Left Kidney (ICD-10-PCS; 2021-08-20)
DX: M32.14 Glomerular disease in systemic lupus erythematosus (principal); N17.9 Acute kidney failure, unspecified
CPT/HCPCS: 77012; 88300; 50200; J2250; J3010; J7030

== ENCOUNTER 2022-09-14 15:52 | Inpatient (IN) | payer MEDICARE ==
--- OUTSIDE RECORDS SUMMARY | 2022-09-14 15:55 | XMS REPORT | Continuity of Care Document ---
:1950 Author Organization [facility] t Address [address] [place] [address] Dr. Schroeder [address] [place] [id number] Care Team Providers Name Role Phone Charanjit_eleanor Attending Clinician Unavailable Charanjit_eleanor Admitting Clinician Unavailable Payers Payer Name Policy Type Policy Number Effective Date Expiration Date radha [facility] [id number] 2021 (MEDICARE 00:00:00 REPLACEMENT HMO) Problems This patient has no known problems. Allergies, Adverse Reactions, Alerts This patient has no known allergies or adverse reactions. Medications This patient has no known medications. Procedures This patient has no known procedures. Encounters Start End Encounter Admission Attending Care Care Encounter Source Date/Time Date/Time Type Type Clinicians Facility Department ID 2022-08-13 2022-08-13 [id number] 2022-05-09 2022-05-09 Outpatient [facility] [id number] [facility] 03:56:00 03:56:00 [facility] 2021-08-19 2021-08-19 [facility] [id number] [facility] 08[facility]01:00 08:01:00 [facility] Results This patient has no known results.
[2022-09-14] MEDS ORDERED: NA CHLORIDE 0.9% 100 ML IV ONE (17:25)
[2022-09-14] MEDS ORDERED: Meropenem 1000 MG/VIAL IV ONE (17:25)
[2022-09-14 17:59] LABS: Urine Blood Trace-intact (Negative); Urine Glucose Negative (Negative); Urine Protein Negative (Negative); Urine Specific Gravity <=1.005 (1.005-1.030); Urine pH 5.5 (5.0-7.0)
[2022-09-14 18:22] LABS: Absolute Lymphocytes (CBC) 0.5 K/uL (0.7-4.9); Hematocrit 26.7 % (36.0-45.0); Lymphocytes % 11.7 % (15.3-44.8); MCV 94.7 fL (80-100); MPV 8.4 fL (7.6-11.3); RBC Red Blood Cell Count 2.82 M/uL (3.86-4.86)
[2022-09-14 18:31] LABS: SARS-CoV-2 Antigen Rapid Res Negative (Negative)
[2022-09-14 18:34] LABS: Albumin 3.9 g/dL (3.4-5.0); Bilirubin Total 0.2 mg/dL (0.2-1.0); Protein, Total 6.9 g/dL (6.4-8.2)
--- NOTE | 2022-09-14 19:27 | EDPHYS ---
Physician Documentation [facility] Name: Mirtha Edouard Age: 71 yrs Sex: Female : 1950 Arrival Date: 09/14/2022 Time: 15:54 Bed 13 Private MD: James Root E ED Physician Martin Lindsay HPI: 09/14 16:46 This 71 yrs old Female presents to ER via Ambulatory with complaints of Urinary Problem.[facility] 16:46 This is a 71 year old female with a history of CAD, CKD, HTN, lupus, that presents to [facility] the ED with complaints of dysuria. Denies vomiting but states having some nausea. Symptoms initially began at the beginning of this month. Culture showed ESBL, prescribed Macrobid which initially helped symptoms have returned over the past 2 days. . Historical: - Allergies: 16:43 Levaquin; ph 16:43 Morphine; ph - PMHx: 16:43 CAD; CKD stage 3; GERD; Hypertension; Lupus; Myocardial infarction; ph - Immunization history:: Adult Immunizations unknown. - Social history:: Smoking status: Patient denies any tobacco usage or history of. ROS: 16:46 Constitutional: Negative for fever, chills, and weight loss, Cardiovascular: Negative [facility] for chest pain, palpitations, and edema, Respiratory: Negative for shortness of breath, cough, wheezing, and pleuritic chest pain. 16:46 Back: Positive for radiated pain. 16:46 : Positive for urinary symptoms. 16:46 All other systems are negative. Exam: 16:46 Constitutional: This is a well developed, well nourished patient who is awake, alert, jmm and in no acute distress. Head/Face: atraumatic. Eyes: EOMI, no conjunctival erythema appreciated ENT: Moist Mucus Membranes Neck: Trachea midline, Supple Chest/axilla: Normal chest wall appearance and motion. Cardiovascular: Regular rate and rhythm. No edema appreciated Respiratory: Normal respirations, no respiratory distress appreciated Abdomen/GI: Non distended Back: Normal ROM Skin: General appearance color normal MS/ Extremity: Moves all extremities, no obvious deformities appreciated, no edema noted to the lower extremities Neuro: Awake and alert Psych: Behavior is normal, Mood is normal, Patient is cooperative and pleasant Vital Signs: 16:46 BP 149 / 79; Pulse 77; Resp 18; Temp 98.0; Pulse Ox 100% on R/A; Weight 73.48 kg; ph Height 5 ft. 4 in. (162.56 cm); 18:00 BP 137 / 67; Pulse 71; Resp 19; Pulse Ox 100% on R/A; em6 19:00 BP 148 / 76; Pulse 69; Resp 18; Pulse Ox 100% ; em6 20:00 BP 150 / 78; Pulse 66; Resp 18; Pulse Ox 100% on R/A; em6 21:00 BP 148 / 76; Pulse 68; Resp 18; Pulse Ox 100% on R/A; em6 16:46 Body Mass Index 27.81 (73.48 kg, 162.56 cm) ph [facility]: 17:16 Patient medically screened. [facility] 17:17 Patient medically screened. [facility] 19:24 Data reviewed: vital signs, nurses notes. Counseling: I had a detailed discussion with jenn the patient and/or guardian regarding: the historical points, exam findings, and any diagnostic results supporting the discharge/admit diagnosis, lab results, the need for further work-up and treatment in the hospital. ED course: I discussed the patient with Aydin Xavier NP whom accepted the patient to Dr. Meehan's service. . 09/14 16:46 Order name: CBC with Diff; Complete Time: 18:45 [facility] 09/14 16:46 Order name: CMP; Complete Time: 18:45 [facility] 09/14 16:46 Order name: Blood Culture Adult (2) [facility] 09/14 16:46 Order name: Urine Culture [facility] 09/14 16:46 Order name: Lactate w/ 2H reflex if indic.; Complete Time: 18:45 [facility] 09/14 16:55 Order name: SARS RAPID; Complete Time: 18:45 [facility] 09/14 16:46 Order name: Saline Lock; Complete Time: 18:00 [facility] 09/14 18:00 Order name: Urine Dipstick-Ancillary; Complete Time: 18:14 [facility] 09/15 02:46 Order name: CBC with Automated Diff; Complete Time: 12:32 EDMS 09/15 03:03 Order name: Basic Metabolic Panel; Complete Time: 12:32 EDMS Administered Medications: 17:50 Drug: Meropenem 1 grams Route: IV; Rate: calculated rate; Site: right wrist; em6 18:40 Follow up: Response: No adverse reaction; IV Status: Completed infusion; IV Intake: em6 100ml Disposition Summary: 09/14/22 19:27 Hospitalization Ordered Hospitalization Status: Inpatient Admission marquita Provider: Luis Meehan Condition: Stable jmm Problem: new jmm Symptoms: have worsened jmm Bed/Room Type: Standard [facility] Location: Telemetry/MedSurg (Inpatient)(09/15/22 06:19) mw Room Assignment: 224(09/15/22 06:19) mw Diagnosis - Failed Outpatient Therapy jmm - ESBL jmm Forms: - Medication Reconciliation Form jmm - SBAR form jmm Signatures: Dispatcher [employer] EDMS Gill Miles RN RN Fidencio Alfredo PA PA jmm Hall, Patricia RN RN Pattie Flynn RN RN em6 Corrections: (The following items were deleted from the chart) 19:40 19:27 Telemetry/MedSurg (Inpatient) [facility] mw 19:40 19:27 jmm mw 09/15 06:19 09/14 19:40 [facility] ER HOLD mw mw 09/15 06:19 09/14 19:40 ERHOLD- mw mw
--- NOTE | 2022-09-14 19:27 | ER ---
Nurse's Notes [facility] Name: Mirtha Edouard Age: 71 yrs Sex: Female : 1950 Arrival Date: 09/14/2022 Time: 15:54 Bed 13 Private MD: James Root E Diagnosis: Failed Outpatient Therapy;ESBL Presentation: 09/14 16:46 Chief complaint: Patient states: Dx w/ UTI on 08/26, urine culture showed sensitivity ph to Nitrofurantoin which she did take, then Dr said she needed meropenem, she got medicine from pharmacy but it came in powder form w/ no way to reconstitute. States that symptoms had initially improved but have returned, burning w/ urination, frequency, lower back, denies fever. Coronavirus screen: Vaccine status: Patient reports receiving the 2nd dose of the covid vaccine. Ebola Screen: No symptoms or risks identified at this time. Initial Sepsis Screen: Does the patient meet any 2 criteria? No. Patient's initial sepsis screen is negative. Does the patient have a suspected source of infection? Yes: Dysuria/Frequency/Urgency/UTI. Risk Assessment: Do you want to hurt yourself or someone else? Patient reports no desire to harm self or others. Onset of symptoms was September 14, 2022. 16:46 Method Of Arrival: Ambulatory ph 16:46 Acuity: ADELAIDA 3 ph Triage Assessment: 16:54 General: Appears in no apparent distress. Behavior is calm, cooperative, appropriate ph for age. Pain: Complains of pain in low back area. Historical: - Allergies: 16:43 Levaquin; ph 16:43 Morphine; ph - PMHx: 16:43 CAD; CKD stage 3; GERD; Hypertension; Lupus; Myocardial infarction; ph - Immunization history:: Adult Immunizations unknown. - Social history:: Smoking status: Patient denies any tobacco usage or history of. Screenin:15 Abuse screen: Denies threats or abuse. Nutritional screening: No deficits noted. em6 Tuberculosis screening: No symptoms or risk factors identified. Fall Risk IV access (20 points). Total Arroyo Fall Scale indicates No Risk (0-24 pts). Assessment: 17:15 General: Appears in no apparent distress. comfortable, Behavior is cooperative. Pain: em6 Denies pain. Neuro: Sherwood Agitation-Sedation Scale (RASS): 0 - Alert and Calm. Cardiovascular: Patient's skin is warm and dry. Rhythm is sinus rhythm. Respiratory: Airway is patent Respiratory effort is even, unlabored, Respiratory pattern is regular, symmetrical, Breath sounds are clear bilaterally. GI: Abdomen is non-distended, Bowel sounds present X 4 quads. Abd is soft and non tender X 4 quads. : Reports burning with urination, urgency. EENT: No signs and/or symptoms were reported regarding the EENT system. Derm: No signs and/or symptoms reported regarding the dermatologic system. Musculoskeletal: Circulation, motion, and sensation intact. Range of motion: intact in all extremities. 18:15 Reassessment: No changes from previously documented assessment. Patient and/or family em6 updated on plan of care and expected duration. Pain level reassessed. Patient is alert, oriented x 3, equal unlabored respirations, skin warm/dry/pink. 18:15 Reassessment: Patient appears in no apparent distress at this time. No changes from em6 previously documented assessment. Patient and/or family updated on plan of care and expected duration. Pain level reassessed. Patient is alert, oriented x 3, equal unlabored respirations, skin warm/dry/pink. 19:15 Reassessment: No changes from previously documented assessment. Patient and/or family em6 updated on plan of care and expected duration. Pain level reassessed. Patient is alert, oriented x 3, equal unlabored respirations, skin warm/dry/pink. 20:15 Reassessment: Patient appears in no apparent distress at this time. No changes from em6 previously documented assessment. Patient and/or family updated on plan of care and expected duration. Pain level reassessed. Patient is alert, oriented x 3, equal unlabored respirations, skin warm/dry/pink. 21:15 Reassessment: Patient appears in no apparent distress at this time. No changes from em6 previously documented assessment. Patient and/or family updated on plan of care and expected duration. Pain level reassessed. Patient is alert, oriented x 3, equal unlabored respirations, skin warm/dry/pink. 21:56 Reassessment: gave report to kenji teague moved to ED room 13. em6 Vital Signs: 16:46 BP 149 / 79; Pulse 77; Resp 18; Temp 98.0; Pulse Ox 100% on R/A; Weight 73.48 kg; ph Height 5 ft. 4 in. (162.56 cm); 18:00 BP 137 / 67; Pulse 71; Resp 19; Pulse Ox 100% on R/A; em6 19:00 BP 148 / 76; Pulse 69; Resp 18; Pulse Ox 100% ; em6 20:00 BP 150 / 78; Pulse 66; Resp 18; Pulse Ox 100% on R/A; em6 21:00 BP 148 / 76; Pulse 68; Resp 18; Pulse Ox 100% on R/A; em6 16:46 Body Mass Index 27.81 (73.48 kg, 162.56 cm) ph ED Course: 15:54 Patient arrived in ED. as 15:54 James Root MD is Private Physician. as 16:27 Fidencio Alfredo PA is PHCP. [facility] 16:27 Martin Lindsay MD is Attending Physician. m 16:45 Arm band placed on. ph 16:54 Triage completed. ph 17:15 Call light in reach. Side rails up X2. classroom monitor on. Pulse ox on. NIBP on. Warm em6 blanket given. 17:18 Pattie Flynn, RN is Primary Nurse. em6 17:30 Inserted saline lock: 20 gauge in right wrist, using aseptic technique. Blood collected.em6 18:00 SARS RAPID Sent. em6 18:00 Lactate w/ 2H reflex if indic. Sent. em6 18:00 Urine Culture Sent. em6 18:00 Blood Culture Adult (2) Sent. em6 18:00 CMP Sent. em6 18:00 CBC with Diff Sent. em6 19:26 Luis Meehan MD is Hospitalizing Provider. [facility] Administered Medications: 17:50 Drug: Meropenem 1 grams Route: IV; Rate: calculated rate; Site: right wrist; em6 18:40 Follow up: Response: No adverse reaction; IV Status: Completed infusion; IV Intake: em6 100ml Intake: 18:40 IV: 100ml; Total: 100ml. em6 Outcome: 19:27 Decision to Hospitalize by Provider. marquita 09/15 08:09 Patient left the ED. tw2 Signatures: Fidencio Alfredo PA PA jmm Martinez, Amelia as Yuli Menezes RN RN ph Nathaly Hirsch RN RN tw2 Pattie Flynn, RN RN em6
--- NOTE | 2022-09-14 21:20 | P.HP ---
Certification for Inpatient Patient admitted to: Inpatient With expected LOS: >2 Midnights Patient will require the following post-hospital care: None Practitioner: I am a practitioner with admitting privileges, knowledge of patient current condition, hospital course, and medical plan of care. Services: Services provided to patient in accordance with Admission requirements found in Title 42 Section 412.3 of the Code of Federal Regulations <Aydin Xavier - Last Filed: 09/14/22 21:16> Patient History Date of Service: 09/14/22 Reason for admission: MDR UTI History of Present Illness: 71-year-old female with history of CAD, CKD 4, lupus, GERD and hypertension presents to the emergency department for UTIfailed outpatient management. She was sent in by her freezer laboratory technician who had been attempting to arrange for outpatient treatment with meropenem although patient was unable to successfully obtain supplies necessary. She reports that she was previously on nitrofurantoin for UTI but was told by her kidney doctor that the only antibiotic that would work for her infection would be meropenem, she was referred to the emergency department for admission for inpatient antibiotics. She does report urinary frequency, low back pain. She was evaluated in the emergency department her labs were significant for demonstration of her CKD 4, normocytic anemia with a hemoglobin of 8.5, hematocrit of 26.7 urine with 2+ leuk esterase, urine and blood cultures were obtained and patient was given a dose of meropenem in the emergency department. ED read wishes to admit for further valuation management of UTIfailed outpatient therapy. 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 stomach issues - Social History Alcohol use: No CD- Drugs: No Caffeine use: Yes Place of Residence: Home <Aydin Xavier - Last Filed: 09/14/22 21:16> Date of Service: 09/15/22 <Luis Meehan - Last Filed: 09/15/22 13:28> Allergies levofloxacin [From Levaquin] Allergy (Verified 04/10/21 15:12) hands swell morphine Adverse Reaction (Verified 04/10/21 15:12) emotional Home Medications: Amlodipine Besylate 10 mg PO DAILY 06/21/14 Mycophenolate Mofetil [Cellcept] 500 mg PO BID 06/21/14 Losartan Potassium [Cozaar] 50 mg PO DAILY 07/10/20 Atorvastatin Calcium [Lipitor] 40 mg PO BEDTIME #30 tab 09/13/20 Aspirin [Aspirin EC 81 MG] 81 mg PO BEDTIME 03/11/21 Pantoprazole Sodium [Protonix] 40 mg PO DAILY 08/20/21 Ascorbic Acid [Vitamin C] 500 mg PO BID 09/15/22 Cholecalciferol (Vitamin D3) [Vitamin D3] 25 mcg PO DAILY 09/15/22 Docusate [Colace Cap] 100 mg PO DAILY 09/15/22 Finerenone [Kerendia] 10 mg PO DAILY 09/15/22 Metoprolol Tartrate [Lopressor*] 50 mg PO DAILY 09/15/22 Sucralfate [Carafate] 1 gm PO QID 09/15/22 Review of Systems 10-point ROS is otherwise unremarkable Genitourinary: Frequency <Aydin Xavier - Last Filed: 09/14/22 21:16> Physical Examination - Physical Exam General: Alert, In no apparent distress, Oriented x3 HEENT: Atraumatic, PERRLA, Mucous membr. moist/pink, EOMI, Sclerae nonicteric Neck: Supple, 2+ carotid pulse no bruit, No LAD, Without JVD or thyroid abnormality Respiratory: Clear to auscultation bilaterally, Normal air movement Cardiovascular: Regular rate/rhythm, Normal S1 S2 Gastrointestinal: Normal bowel sounds, No tenderness Musculoskeletal: No tenderness Integumentary: No rashes Neurological: Normal speech, Normal strength at 5/5 x4 extr, Normal tone, Normal affect - Studies Laboratory Data (last 24 hrs) 09/14/22 17:35: Sodium 139, Potassium 4.0, BUN 27 H, Creatinine 1.88 H, Glucose 110 H, Total Bilirubin 0.2, AST 14 L, ALT 17, Alkaline Phosphatase 85 09/14/22 17:35: WBC 4.20 L, Hgb 8.5 L, Hct 26.7 L, Plt Count 227 <Aydin Xavier - Last Filed: 09/14/22 21:16> - Studies Laboratory Data (last 24 hrs) 09/14/22 17:35: Sodium 139, Potassium 4.0, BUN 27 H, Creatinine 1.88 H, Glucose 110 H, Total Bilirubin 0.2, AST 14 L, ALT 17, Alkaline Phosphatase 85 09/14/22 17:35: WBC 4.20 L, Hgb 8.5 L, Hct 26.7 L, Plt Count 227 <Luis Meehan - Last Filed: 09/15/22 13:28> Assessment and Plan - Plan Assessment: MDR UTI-failed outpatient management CKD 4 Lupus Hypertension GERD CAD Plan: MDR UTI-failed outpatient management: Continue antibioticsMerrem blood and urine culture obtained in ED. We will arrange for PICC placement, drug abuse social worker consult in place to assist with outpatient antibiotics. CKD 4: Stable, monitor renal function daily. Renally dose medications. Lupus: Continue home meds Hypertension: Continue home meds GERD: Continue home meds CAD: Continue home meds DVT PPX: Heparin Code status: Full Discharge Plan: Home Plan to discharge in: 48 Hours - Advance Directives Does patient have a Living Will: Yes Does patient have a Durable POA for Healthcare: No - Code Status/Comfort Care Code Status Assessed: Yes (Full code) Critical Care: No Time Spent Managing Pts Care (In Minutes): 55 <Aydin Xavier - Last Filed: 09/14/22 21:16> Physician Review: Patient Assessed, Agree with Above Assessment and Plan <Luis Meehan - Last Filed: 09/15/22 13:28>
[2022-09-14] MEDS ORDERED: ONDANSETRON 4 MG/2 ML VIAL IV PRN (22:41)
[2022-09-14] MEDS ORDERED: ACETAMINOPHEN 500 MG TAB PO PRN (22:41)
[2022-09-14] MEDS: HEPARIN 5000 UNIT/ML 1 ML VIAL SQ SCH (22:41)
[2022-09-14] MEDS ORDERED: HEPARIN 5000 UNIT/ML 1 ML VIAL ONE (22:47)
[2022-09-15 02:44] LABS: Absolute Lymphocytes (CBC) 0.6 K/uL (0.7-4.9); Hematocrit 24.9 % (36.0-45.0); MCV 94.2 fL (80-100); MPV 7.7 fL (7.6-11.3); RBC Red Blood Cell Count 2.64 M/uL (3.86-4.86)
[2022-09-15 03:03] LABS: Potassium 3.5 mmol/L (3.5-5.1)
[2022-09-15 08:47] VITALS: BMI 27.6
[2022-09-15] MEDS ORDERED: Meropenem 1,000 MG in NA CHLORIDE 0.9% 100 ML IV SCH (09:00)
[2022-09-15] MEDS ORDERED: ERTAPENEM SODIUM 1 GM VIAL IVPB SCH (10:00)
[2022-09-15] MEDS: HEPARIN 5000 UNIT/ML 1 ML VIAL SQ SCH ×2 (11:28→20:09)
[2022-09-15] MEDS: ERTAPENEM NA 1 GM in NA CHLORIDE 0.9% 100 ML IVPB SCH (12:02)
--- NOTE | 2022-09-15 17:15 | P.PN ---
Subjective Date of Service: 09/15/22 Chief Complaint: MDR UTI No acute events overnight. She denies any particular concerns this morning. She states that she would like assistance with arranging Home Health. She will need to have a PICC line placed, but we do not have staff available until this evening. Review of Systems 10-point ROS is otherwise unremarkable Physical Examination - Vital Signs Temperature: 96.8 F Blood Pressure: 129/69 Pulse: 69 Respirations: 16 Pulse Ox (%): 98 - Physical Exam General: Alert, In no apparent distress, Oriented x3 HEENT: Atraumatic, PERRLA, Mucous membr. moist/pink, EOMI, Sclerae nonicteric Neck: JVD not distended Respiratory: Clear to auscultation bilaterally, Normal air movement Cardiovascular: No edema, Regular rate/rhythm, Normal S1 S2, No gallops, No rubs, No murmurs Gastrointestinal: Normal bowel sounds, Soft and benign, Non-distended, No tenderness, No rebound, No guarding Musculoskeletal: No clubbing Integumentary: No rashes Neurological: Normal speech, Cranial nerves 3-12 intact, Normal affect - Studies Laboratory Data (last 24 hrs) 09/14/22 17:35: Sodium 139, Potassium 4.0, BUN 27 H, Creatinine 1.88 H, Glucose 110 H, Total Bilirubin 0.2, AST 14 L, ALT 17, Alkaline Phosphatase 85 09/14/22 17:35: WBC 4.20 L, Hgb 8.5 L, Hct 26.7 L, Plt Count 227 Assessment And Plan - Plan # ESBL Urinary Tract Infection She states that she was diagnosed with an ESBL urinary tract infection by her feeder switchboard operator, Dr. Tuttle. He tried to prescribe her outpatient ertapenem to inject intramuscularly; however, she was unable to obtain the reconstitution solution to mix the medication, so she presented to the hospital for assistance. - Spoke with Dr. Tuttle - he verified her baseline creatinine is ~1.9 - Recommends 14 days of Ertapenem 1 g IV q24h - Urinalysis = trace blood, 1+ leukocyte esterase - PICC line staff unavailable until the evening - Case management consulted for assistance with Home Health # Systemic Lupus Erythematosus # Coronary Artery Disease # Hypertension # Gastroesophageal Reflux Disease - Resume home medications once verified Luis Meehan M.D.
--- NOTE | 2022-09-15 20:34 | RAD REPORT ---
EXAM DESCRIPTION: RAD - Chest Single View - 09/15/2022 7:50 pm CLINICAL HISTORY: PICC line placement COMPARISON: Chest Single View dated 03/10/2021; Chest Single View dated 09/11/2020; Chest Single View dated 11/30/2019; Chest Pa And Lat (2 Views) dated 02/22/2019 FINDINGS: Portable chest was obtained following placement of a right upper extremity PICC line. The catheter tip projects over the SVC.
[2022-09-16 01:19] VITALS: O2SAT 97
[2022-09-16 04:47] LABS: Absolute Lymphocytes (CBC) 0.5 K/uL (0.7-4.9); Hematocrit 24.3 % (36.0-45.0); MCV 94.6 fL (80-100); MPV 8.4 fL (7.6-11.3); RBC Red Blood Cell Count 2.57 M/uL (3.86-4.86)
[2022-09-16 05:01] LABS: Potassium 3.6 mmol/L (3.5-5.1)
[2022-09-16 08:01] VITALS: BP 139/72; TEMP 97
--- NOTE | 2022-09-16 08:40 | P.DS ---
Admission Date: 09/14/22 Discharge Date: 09/16/22 Disposition: ID HOME/HOME HEALTH CARE Discharge Condition: GOOD Reason for Admission: MDR UTI Hospital Course: DIAGNOSES: # Klebsiella Pneumoniae Urinary Tract Infection with recently diagnosed ESBL Urinary Tract Infection # Systemic Lupus Erythematosus # Coronary Artery Disease # Hypertension # Gastroesophageal Reflux Disease # Microscopic Hematuria HOSPITAL COURSE: Ms. Mirtha Edouard is a pleasant 71 year old female with a past medical history significant for recurrent multidrug-resistant urinary tract infections, systemic lupus erythematosus, coronary artery disease, hypertension, gastroesophageal reflux disease who was admitted to the [facility] on 09/14/2022 for management of an ESBL urinary tract infection. She was admitted to the Medicine service. She states that she was diagnosed with an ESBL urinary tract infection by her physical fitness teacher, Dr. Tuttle. He tried to prescribe her outpatient ertapenem to inject intramuscularly; however, she was unable to obtain the reconstitution solution to mix the medication, so she presented to the hospital for assistance. An attempt was made to utilize intramuscular ertapenem since this was her preference; however, we were unable to. She agreed to proceed with intravenous ertapenem for the antibiotic course. A PICC line was placed on 09/15/2022 in the evening, without any apparent complications. Case management was consulted and home IV antibiotics were arranged to complete the 14-day course of ertapenem. She was advised to follow- up with her Manuscripts Archivist for the microscopic hematuria on her urinalysis. Interestingly, her urine culture here grew Klebsiella Pneumoniae, which was sensitive to several antibiotics. However, given her known recent diagnosis of ESBL, we have elected to proceed with treatment as previously planned. On 09/16/2022, she was seen on morning rounds and deemed medically stable for discharge. She was discharged with instructions to schedule follow-up appointments with her PCP (Dr. Root) and with her Manuscripts Archivist (Dr. Tuttle). She was advised to schedule weekly BMPs with Dr. Tuttle while on ertapenem and agreed to make this appointment. I spoke with Dr. Tuttle who will also assist in arranging outpatient lab checks. She and her family members were given the opportunity to ask questions and reported no further questions. Furthermore, all questions were answered to the best of my ability. A copy of this discharge summary will be sent to the above providers to facilitate continuity of care. Today, I personally spent 20 minutes on her case, of which greater than 50% of the time was spent in patient education, counseling, and coordination of care as described above. - Physical Exam General: Alert, In no apparent distress, Oriented x3 HEENT: Atraumatic, PERRLA, Mucous membr. moist/pink, EOMI, Sclerae nonicteric Neck: JVD not distended Respiratory: Clear to auscultation bilaterally, Normal air movement Cardiovascular: No edema, Regular rate/rhythm, Normal S1 S2, No gallops, No rubs, No murmurs Gastrointestinal: Normal bowel sounds, Soft and benign, Non-distended, No tenderness, No rebound, No guarding Musculoskeletal: No clubbing Integumentary: No rashes Neurological: Normal speech, Cranial nerves 3-12 intact, Normal affect Vital Signs/Physical Exam: Temp Pulse Resp BP Pulse Ox 97 F 67 14 139/72 98 09/16/22 08:00 09/16/22 08:00 09/16/22 08:00 09/16/22 08:00 09/16/22 08:00 Laboratory Data at Discharge: WBC 3.70 K/uL (4.3-10.9) L 09/16/22 04:11 Hgb 7.8 g/dL (12.0-15.0) L 09/16/22 04:11 Hct 24.3 % (36.0-45.0) L 09/16/22 04:11 Plt Count 210 K/uL (152-406) 09/16/22 04:11 Sodium 143 mmol/L (136-145) 09/16/22 04:11 Potassium 3.6 mmol/L (3.5-5.1) 09/16/22 04:11 BUN 24 mg/dL (7-18) H 09/16/22 04:11 Creatinine 1.69 mg/dL (0.55-1.3) H 09/16/22 04:11 Glucose 101 mg/dL (74-106) 09/16/22 04:11 Total Bilirubin 0.2 mg/dL (0.2-1.0) 09/14/22 17:35 AST 14 U/L (15-37) L 09/14/22 17:35 ALT 17 U/L (12-78) 09/14/22 17:35 Alkaline Phosphatase 85 U/L (45-117) 09/14/22 17:35 Home Medications: Amlodipine Besylate 10 mg PO DAILY 06/21/14 Mycophenolate Mofetil [Cellcept] 500 mg PO BID 06/21/14 Losartan Potassium [Cozaar] 50 mg PO DAILY 07/10/20 Atorvastatin Calcium [Lipitor] 40 mg PO BEDTIME #30 tab 09/13/20 Aspirin [Aspirin EC 81 MG] 81 mg PO BEDTIME 03/11/21 Pantoprazole Sodium [Protonix] 40 mg PO DAILY 08/20/21 Ascorbic Acid [Vitamin C] 500 mg PO BID 09/15/22 Cholecalciferol (Vitamin D3) [Vitamin D3] 25 mcg PO DAILY 09/15/22 Docusate [Colace Cap*] 100 mg PO DAILY 09/15/22 Finerenone [Kerendia] 10 mg PO DAILY 09/15/22 Metoprolol Tartrate [Lopressor*] 50 mg PO DAILY 09/15/22 Sucralfate [Carafate] 1 gm PO QID 09/15/22 Ertapenem Na [Invanz] 1 gm IV Q24H 12 Days #1 09/16/22 New Medications: Ertapenem Na [Invanz] 1 gm IV Q24H 12 Days #1 Physician Discharge Instructions: 1. Please call and schedule a follow-up appointment with your PCP (Dr. Root) in 3-5 days 2. Please call and schedule a follow-up appointment with your Manuscripts Archivist (Dr. Tuttle) in 2 weeks - Please have your lab tests done every 1 week while you are on the IV antibiotics - You have a small amount of blood in your urine, possibly from the urine infection - Please repeat your urine test with Dr. Tuttle after you complete your antibiotics Diet: Renal Activity: Ad gabriel Followup: Dorita Tuttle MD [ACTIVE - CAN ADMIT] - 1-2 Weeks James Root MD [Primary Care Provider] - 1 Week Time spent managing pt's care (in minutes): 20
[2022-09-16] MEDS: ERTAPENEM NA 1 GM in NA CHLORIDE 0.9% 100 ML IVPB SCH (09:03)
[2022-09-16] MEDS: HEPARIN 5000 UNIT/ML 1 ML VIAL SQ SCH (09:11)
== END 2022-09-16 10:09 | disposition home health service (06) | DRG 690 ==
LOC: ER 15:52 → ERHOLD 20:38 → 2ND 09-15 07:17
PROVIDERS: ADMIT Internal Medicine; ATTEND Internal Medicine
PROC: 02HV33Z Insertion of Infusion Device into Superior Vena Cava, Percutaneous Approach (ICD-10-PCS; principal; 2022-09-14)
DX: N39.0 Urinary tract infection, site not specified (principal); Z16.12 Extended spectrum beta lactamase (ESBL) resistance; N18.4 Chronic kidney disease, stage 4 (severe); I12.9 Hypertensive chronic kidney disease with stage 1 through stage 4 chronic kidney disease, or unspecified chronic kidney disease; K21.9 Gastro-esophageal reflux disease without esophagitis; M54.50 Low back pain, unspecified; D64.9 Anemia, unspecified; M32.9 Systemic lupus erythematosus, unspecified; I25.10 Atherosclerotic heart disease of native coronary artery without angina pectoris; I25.2 Old myocardial infarction; B96.1 Klebsiella pneumoniae [K. pneumoniae] as the cause of diseases classified elsewhere; R31.29 Other microscopic hematuria; Z88.1 Allergy status to other antibiotic agents; Z88.5 Allergy status to narcotic agent; Z79.82 Long term (current) use of aspirin; Z90.710 Acquired absence of both cervix and uterus; Z79.899 Other long term (current) drug therapy; Z20.822 Contact with and (suspected) exposure to COVID-19
CPT/HCPCS: 36415; 36569; 71045; 80048; 80053; 81003; 83605; 85025; 87040; 87077; 87086; 87088; 87186; 87811; 96365; 99284; J1335; J1644; J2185

== ENCOUNTER 2022-10-23 09:20 | Emergency (ER) | payer MEDICARE ==
--- OUTSIDE RECORDS SUMMARY | 2022-10-23 09:23 | XMS REPORT | Continuity of Care Document ---
:1950 Author Organization [facility] t Address [address] [place] [address] Dr. Schro[address] [place] [address] Care Team Providers Name Role Phone Charanjit -Pauline Yoder Attending Clinician Rojas Attending Clinician Unavailable Brunilda Rucker Attending Clinician Rojas Admitting Clinician Unavailable Payers Payer Name Policy Type Policy Number Effective Date Expiration Date [id number] 2021 (MEDICARE 00:00:[address] [facility] HMO) Problems This patient has no known problems. Allergies, Adverse Reactions, Alerts This patient has no known allergies or adverse reactions. Medications This patient has no known medications. Procedures This patient has no known procedures. Encounters Start End Encounter Admission Attending Care Care Encounter Source Date/Time Date/Time Type Type Clinicians Facility Department ID 2022-08-21 2022-08-21 MARCY Carpenter [id number] CLA [id number] [facility] 14:30:00 15:30:00 Charanjit [id number] [place] [id number] 2022-08-13 2022-08-13 Outpatient Danimurray_b DMG DMG [id number] [facility] 00:00:00 00:00:00 [facility] 2022-05-09 2022-05-09 Outpatient DMG DMG [id number] [facility] 03:56:00 03:56:00 0715 [facility] 2022-03-21 2022-03-21 MARCY Worley [id number]. [id number]. CLAC XRHECG [facility] 20:00:00 21:00:00 Alka [id number]. [id number] [facility] [id number] 2021-08-19 2021-08-19 Outpatient DM[facility] [id number] [facility] 08:01:00 08:01:00 [facility]5 Med[facility] l [facility] Results This patient has no known results.
[2022-10-23 09:58] LABS: Urine Blood 2+ (Negative); Urine Glucose Negative (Negative); Urine Protein 3+ (Negative); Urine pH 5.5 (5.0-7.0)
--- NOTE | 2022-10-23 09:59 | EDPHYS ---
Physician Documentation [facility] Name: Mirtha Edouard Age: 71 yrs Sex: Female : 1950 Arrival Date: 10/23/2022 Time: 09:22 Bed DIS1 Private MD: James Root E ED Physician Princess Phillips HPI: 10/23 10:14 This 71 yrs old Female presents to ER via Ambulatory with complaints of UTI. kb 10:14 The patient presents with urinary symptoms, dysuria, frequency, urgency. Onset: The kb symptoms/episode began/occurred last night. Modifying factors: The symptoms are alleviated by nothing, the symptoms are aggravated by urinating. Associated signs and symptoms: Pertinent positives: dysuria, urinary frequency. Severity of symptoms: At their worst the symptoms were mild, in the emergency department the symptoms are unchanged. The patient is not sexually active. The patient has experienced similar episodes in the past. The patient has been recently seen by a physician:. Pt reports she completed Augmentin for a UTI 3 days ago. Reports dysuria, frequency, urgency started again last night. Reports history of frequent UTIs and has appt with Dr Wood on 11/05. Called her dr to get another antibiotic called in, but she wouldn't do it.. Historical: - Allergies: 09:57 Levaquin; ss 09:57 Morphine; ss - PMHx: 09:57 CAD; CKD stage 3; GERD; Hypertension; Lupus; Myocardial infarction; ss - Immunization history:: Client reports receiving the 2nd dose of the Covid vaccine. - Social history:: Smoking status: Patient denies any tobacco usage or history of. ROS: 10:14 Constitutional: Negative for fever, chills, and weight loss. kb 10:14 : Positive for urinary symptoms, urinary frequency, small amounts, burning with urination. 10:14 All other systems are negative. Exam: 10:14 Constitutional: This is a well developed, well nourished patient who is awake, alert, kb and in no acute distress. Head/Face: Normocephalic, atraumatic. ENT: Moist Mucous membranes Cardiovascular: Regular rate and rhythm with a normal S1 and S2. No gallops, murmurs, or rubs. No pulse deficits. Respiratory: Respirations even and unlabored. No increased work of breathing. Talking in full sentences Abdomen/GI: Soft, non-tender. No distention Skin: Warm, dry with normal turgor. Normal color. MS/ Extremity: Pulses equal, no cyanosis. Neurovascular intact. Full, normal range of motion. Neuro: Awake and alert, GCS 15, oriented to person, place, time, and situation. Moves all extremities. Normal gait. Vital Signs: 09:55 Weight 73.48 kg; Height 5 ft. 4 in. (162.56 cm); ss 09:55 Body Mass Index 27.81 (73.48 kg, 162.56 cm) ss MDM: 09:53 Patient medically screened. kb 10:13 Data reviewed: vital signs, nurses notes. Data interpreted: Pulse oximetry: on room air kb is 100 %. Interpretation: normal. Counseling: I had a detailed discussion with the patient and/or guardian regarding: the historical points, exam findings, and any diagnostic results supporting the discharge/admit diagnosis, lab results, the need for outpatient follow up, a family practitioner, to return to the emergency department if symptoms worsen or persist or if there are any questions or concerns that arise at home. ED course: Pt has appt with Dr Wood for frequent UTI evaluation on 11/05/22. 10/23 09:58 Order name: Urine Culture 10/23 09:58 Order name: Urine Microscopic Only 10/23 09:58 Order name: Urine Dipstick-Ancillary (obtain specimen); Complete Time: 10:09 10/23 09:58 Order name: Urine Dipstick-Ancillary; Complete Time: 10:00 EDMS Administered Medications: No medications were administered Disposition Summary: 10/23/22 09:58 Discharge Ordered Location: Home kb Condition: Stable kb Diagnosis - UTI/ Urinary tract infection, site not specified kb Followup: kb - With: Emergency Department - When: As needed - Reason: Worsening of condition Followup: kb - With: Private Physician - When: 2 - 3 days - Reason: Recheck today's complaints, Continuance of care, Re-evaluation by your physician Discharge Instructions: - Discharge Summary Sheet kb - Urinary Tract Infection, Adult, [id number] kb Forms: - Medication Reconciliation Form kb - Thank You Letter kb - Antibiotic Education kb - Prescription Opioid Use kb Prescriptions: - cefpodoxime 100 mg Oral Tablet - take 1 tablet by ORAL route every 12 hours for 10 days take with food; 20 kb tablet; Refills: 0, Product Selection Permitted Addendum: 10/27/2022 12:37 STAFF ATTESTATION STATEMENT: I was immediately available onsite in the emergency s d2 department for consultation in the care of this patient. I did not see or examine this patient. Princess Phillips MD. Signatures: Dispatcher [employer] Tammie Asher FNP-C FNP-Ckb Smirch, Shelby, DELILAH RN Princess Thomas MD MD sd2
--- NOTE | 2022-10-23 09:59 | ER ---
Nurse's Notes [facility] Name: Mirtha Edouard Age: 71 yrs Sex: Female : 1950 Arrival Date: 10/23/2022 Time: 09:22 Bed DIS1 Private MD: James Root E Diagnosis: UTI/ Urinary tract infection, site not specified Presentation: 10/23 09:55 Chief complaint: Patient states: Pt finished course of Augmentin for UTI 3 days ago. Pt ss began experiencing frequency and dysuria again last night. Coronavirus screen: Client denies travel out of the [place] in the last 14 days. Ebola Screen: Patient denies exposure to infectious person. Patient denies travel to an Ebola-affected area in the 21 days before illness onset. Initial Sepsis Screen: Does the patient meet any 2 criteria? No. Patient's initial sepsis screen is negative. Does the patient have a suspected source of infection? No. Patient's initial sepsis screen is negative. Risk Assessment: Do you want to hurt yourself or someone else? Patient reports no desire to harm self or others. Onset of symptoms was October 23, 2022. 09:55 Method Of Arrival: Ambulatory ss 09:55 Acuity: ADELAIDA 4 ss Historical: - Allergies: 09:57 Levaquin; ss 09:57 Morphine; ss - PMHx: 09:57 CAD; CKD stage 3; GERD; Hypertension; Lupus; Myocardial infarction; ss - Immunization history:: Client reports receiving the 2nd dose of the Covid vaccine. - Social history:: Smoking status: Patient denies any tobacco usage or history of. Screenin:10 [facility] ED Fall Risk Assessment (Adult) History of falling in the last 3 months, ss including since admission No falls in past 3 months (0 pts). Abuse screen: Denies threats or abuse. Denies injuries from another. Nutritional screening: No deficits noted. Tuberculosis screening: Never had TB. Assessment: 10:10 General: Appears in no apparent distress. comfortable, Behavior is calm, cooperative. ss Neuro: Level of Consciousness is awake, alert, obeys commands. Cardiovascular: Capillary refill < 3 seconds is brisk in bilateral fingers. Respiratory: Airway is patent Respiratory effort is even, unlabored, Respiratory pattern is regular, symmetrical. Derm: Skin is pink, warm \T\ dry. normal. Vital Signs: 09:55 Weight 73.48 kg; Height 5 ft. 4 in. (162.56 cm); ss 09:55 Body Mass Index 27.81 (73.48 kg, 162.56 cm) ED Course: 09:22 Patient arrived in ED. am2 09:22 James Root MD is Private Physician. am2 09:46 Tammie Crespo FNP-C is [facility]. kb 09:46 Princess Phillips MD is Attending Physician. kb 09:57 Triage completed. ss 09:57 Arm band placed on right wrist. ss 10:09 Ameena Hodge, DELILAH is Primary Nurse. ss 10:10 Patient has correct armband on for positive identification. ss 10:10 No provider procedures requiring assistance completed. Patient did not have IV access ss during this emergency room visit. Administered Medications: No medications were administered Medication: 10:10 VIS not applicable for this client. ss Outcome: 09:58 Discharge ordered by . kb 10:10 Discharged to home ambulatory. ss 10:10 Condition: good 10:10 Discharge instructions given to patient, Instructed on discharge instructions, follow up and referral plans. medication usage, Demonstrated understanding of instructions, follow-up care, medications, Prescriptions given X 1. 10:11 Patient left the ED. ss Addendum: 10/26/2022 14:00 Addendum: Culture Results: Positive urine culture. Bacteria is resistant to, has s s intermediate sensitivity, or is not tested against prescribed antibiotics. Report given to BEAR for further evaluation and then to event planning intern for follow up with patient. Phone call Attempt #1 Called in Augmentin as prescribed by ERIN Pablo to patient's pharmacy of choice, [facility] in [place]. PT reports she is still having symptoms of UTI and has a follow up appointment with Dr. Wood on 11/05. Signatures: Tammie Crespo FNP-C FNP-Jordanb Ameena Hodge, DELILAH RN Elizabeth Salas am2
[2022-10-23 10:20] LABS: Urine Bacteria <20 /HPF (<20); Urine RBC 21-50 /HPF (None Seen); Urine WBC Clump Few /HPF (None Seen)
== END 2022-10-23 10:11 | disposition home or self-care (01) ==
LOC: ER 09:20
DX: N39.0 Urinary tract infection, site not specified (principal); I12.9 Hypertensive chronic kidney disease with stage 1 through stage 4 chronic kidney disease, or unspecified chronic kidney disease; N18.30 Chronic kidney disease, stage 3 unspecified; Z88.1 Allergy status to other antibiotic agents; Z88.5 Allergy status to narcotic agent
CPT/HCPCS: 81003; 81015; 87077; 87086; 87088; 87186; 99281

== ENCOUNTER 2023-04-08 14:16 | Emergency (ER) | payer MEDICARE ==
--- OUTSIDE RECORDS SUMMARY | 2023-04-08 14:42 | XMS REPORT | Continuity of Care Document ---
:1950 Author Organization [facility] t Address [address] [place] [address] [place] [address] Care Team Providers Name Role Phone Charanjit -Pauline Yoder Attending Clinician Charanjit_eleanor Attending Clinician Unavailable Brunilda Rucker Attending Clinician Rojas Admitting Clinician Unavailable Payers Payer Name Policy Type Policy Number Effective Date Expiration Date S radha [facility] [id number] 2021 (MEDICARE 00:00:00 [facility] Problems This patient has no known problems. Allergies, Adverse Reactions, Alerts This patient has no known allergies or adverse reactions. Medications This patient has no known medications. Procedures This patient has no known procedures. Encounters Start End Encounter Admission Attending Care Care Encounter Source Date/Time Date/Time Type Type Clinicians Facility Department ID 2023-02-12 2023-02-12 MARCY Carpenter [id number]. 2.16.840.1. LYNNE [id number] [facility] 16:00:00 17:00:00 Charanjit [id number] [facility] [id number] 2023-01-22 2023-01-22 Outpatient Daniels_b [facility] [id number] [facility] 00:00:00 00:00:00 0330 Med[facility] l Group 2023-01-22 2023-01-22 Outpatient Daniels_b [facility] [id number] [facility] 00:00:00 00:00:00 0506 Medica l Group 2022-08-21 2022-08-21 MARCY Carpenter 2.16.840. 2.16.840.1. LYNNE [id number] [facility] 14:30:00 15:30:00 Charanjit [id number] Medical [id number] 2022-08-13 2022-08-13 Outpatient Charanjit_b [facility] [id number] -2021 [facility] 00:00:00 00:00:00 1019 Medica l Group 2022-05-09 2022-05-09 Outpatient [facility] [id number] [facility] 03:56:00 03:56:00 0715 Medica l Group 2022-03-21 2022-03-21 CAV Brunilda 2.16.840. 2.16.840.1. CLAC XRHECG [facility] 20:00:00 21:00:00 Rucker [id number] Medical [id number] 2021-08-19 2021-08-19 Outpatient [facility] [id number] [id number] [facility] 08:01:00 08:01:00 1025 Medica l Group Results This patient has no known results.
[2023-04-08] MEDS ORDERED: NA CHLORIDE 0.9% 500 ML ONE (15:13)
[2023-04-08 15:14] LABS: Absolute Lymphocytes (CBC) 0.3 K/uL (0.7-4.9); Hematocrit 22.9 % (36.0-45.0); Lymphocytes % 5.4 % (15.3-44.8); MCV 93.6 fL (80-100); MPV 8.7 fL (7.6-11.3); RBC Red Blood Cell Count 2.45 M/uL (3.86-4.86)
[2023-04-08 15:29] LABS: Albumin 3.9 g/dL (3.4-5.0); Bilirubin Total 0.2 mg/dL (0.2-1.0); Potassium 4.2 mEq/L (3.5-5.1); Protein, Total 7.1 g/dL (6.4-8.2)
[2023-04-08 15:54] LABS: Specific Gravity 1.005 (1.005-1.030); Urine Bacteria 20-50 /HPF (<20); Urine Bilirubin NEGATIVE (Negative); Urine Blood 2+ (Negative); Urine Clarity Extremely Turbid (Clear); Urine Color Light-Yellow (Yellow); Urine Glucose NEGATIVE (Negative); Urine Mucus Slight /HPF (None Seen); Urine Protein 1+ (Negative); Urine RBC <5 /HPF (None Seen); Urine Urobilinogen Normal (Normal); Urine WBC Clump Many /HPF (None Seen); Urine pH 5.5 (5.0-7.0)
[2023-04-08] MEDS ORDERED: CEFTRIAXONE 1000 MG/VIAL ONE (16:59)
[2023-04-08] MEDS ORDERED: NA CHLORIDE 0.9% 250 ML ONE (17:12)
--- NOTE | 2023-04-08 20:47 | EDPHYS ---
Physician Documentation [facility] Name: Mirtha Edouard Age: 72 yrs Sex: Female : 1950 Arrival Date: 04/08/2023 Time: 14:16 Bed 7 Private MD: ED Physician Brett Montejo HPI: 04/08 14:37 This 72 yrs old Female presents to ER via Unassigned with complaints of bs3 UTI/DIARRHEA/ LOW HEMOGLOBIN. 14:37 pt has a hx of lupus, ckd stage 3/4 hx of anemia on iron presenting with a variety of bs3 complaints. She notes a uti for several days with burning with urination, she has new lesions which she states are shingles on her right leg, it started on Thursday. She also notes anemia which she is referred to hematology for pending a workup, and she has chronic diarrhea for which GI just started her on cholesytramine recently. No chest pain, sob, but does feel fatigue. Historical: - Allergies: 14:40 Levaquin; mb9 14:40 Morphine; mb9 - Home Meds: 14:40 atorvastatin 40 mg oral tablet [Active]; amlodipine 10 mg tablet [Active]; losartan 50 mb9 mg oral tablet 2 times per day [Active]; Protonix 40 mg Oral tablet, delayed release (enteric coated) [Active]; metoprolol tartrate 100 mg Oral tablet [Active]; - PMHx: 14:40 CAD; CKD stage 3; GERD; Hypertension; Lupus; Myocardial infarction; mb9 - PSHx: 14:40 Pelvic floor x3; Total abdominal hysterectomy; mb9 - Immunization history:: Adult Immunizations up to date. - Social history:: Smoking status: Patient denies any tobacco usage or history of. ROS: 14:37 Constitutional: Negative for fever, chills bs3 14:37 All other systems are negative. Exam: 14:37 Constitutional: This is a well developed, well nourished patient who is awake, alert, bs3 and in no acute distress. Head/Face: Normocephalic, atraumatic. Eyes: Pupils equal round and reactive to light, extra-ocular motions intact. Lids and lashes normal. ENT: mmm, no posterior phyarngeal erythema Neck: Trachea midline, no thyromegaly, no neck stiffness Chest/axilla: Normal chest wall appearance and motion. Nontender with no deformity. No lesions are appreciated. Cardiovascular: Regular rate and rhythm with a normal S1 and S2. symmetric pulses in upper extremities Skin: right lower extremity with vesicle rash in a single dermatome. MS/ Extremity: Pulses equal, no cyanosis. Neurovascular intact. Full, normal range of motion. Neuro: Awake and alert, GCS 15, oriented to person, place, time, and situation. Cranial nerves II-XII grossly intact. Motor strength 5/5 in all extremities. Sensory grossly intact. Psych: Awake, alert, with orientation to person, place and time. Behavior, mood, and affect are within normal limits. Vital Signs: 14:36 BP 122 / 75; Pulse 88; Resp 18; Temp 97.8; Pulse Ox 100% ; Weight 71.67 kg; Height 5 mb9 ft. 4 in. ; 15:13 BP 124 / 79; Pulse 75; Resp 12; Temp 97.5; Pulse Ox 98% on R/A; Pain 0/10; sc3 17:45 BP 132 / 81; Pulse 94; Resp 12; Temp 97.1; Pulse Ox 99% on R/A; Pain 0/10; sc3 18:07 BP 140 / 75; Pulse 99; Resp 19; Temp 96.8; Pulse Ox 100% on R/A; Pain 0/10; sc3 18:30 BP 140 / 79; Pulse 98; Resp 20; Temp 96.9; Pulse Ox 100% on R/A; Pain 0/10; sc3 19:55 BP 133 / 72; Pulse 101; Resp 19; Temp 98.3(O); Pulse Ox 100% on R/A; aa9 20:54 BP 142 / 70; Pulse 97; Resp 16; Temp 98.2; Pulse Ox 99% on R/A; Pain 0/10; aa9 14:36 Body Mass Index 27.12 (71.67 kg, 162.56 cm) mb9 15:13 Pain Scale: Adult sc3 17:45 Pain Scale: Adult sc3 18:07 Pain Scale: Adult sc3 18:30 Pain Scale: Adult sc3 20:54 Pain Scale: Adult aa9 MDM: 14:26 Patient medically screened. bs3 15:00 Differential diagnosis: UTI, sepsis, GI bleed, chronic anemia, iron deficiency anemia, cp ESRD. 15:54 ED course: pt with downtredning hgb, previously 8.6, she was seen by pcp, who rec bs3 repeat GI workup which she refused, she has heme f/u being scheduled, she would benefit from repeat endoscopy/colonoscopy, but does not currently want this, she denies brbpr or melena, will transfuse for symptomatic anemia. advised repeat f/u. . 20:45 Data reviewed: vital signs, nurses notes, lab test result(s). cp 20:45 Consideration of Admission/Observation Escalation of care including cp admission/observation considered. I considered the following discharge prescriptions or medication management in the emergency department Medications were administered in the Emergency Department. See MAR. Care significantly affected by the following chronic conditions: Hypertension, Chronic Kidney Disease. 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 Response to treatment: the patient's symptoms have mildly improved after treatment, and as a result, I will discharge patient. 04/08 14:33 Order name: CBC with Diff; Complete Time: 15:36 [facility] 04/08 17:44 Interpretation: Normal except: RBC 2.45; HGB 7.2; HCT 22.9; MCHC 31.7; PLT 139; RDW cp 15.3; AUNG% 87.2; LYM% 5.4; LYMA 0.3. 04/08 14:33 Order name: Comprehensive Metabolic Panel; Complete Time: 15:36 3 04/08 14:33 Order name: Urinalysis w/ reflexes; Complete Time: 16:33 [facility] 04/08 14:33 Order name: Type And Screen [facility] 04/08 15:59 Order name: Urine Culture [facility] 04/08 16:41 Order name: Packed RBC Leukored [facility] 04/08 15:11 Order name: Labs - recollect needed: recollect green top; Complete Time: 15:53 04/08 15:54 Order name: Consent for Blood Transfusion; Complete Time: 16:31 [facility] 04/08 15:54 Order name: IV Saline Lock; Complete Time: 15:58 bs3 Administered Medications: 15:10 Drug: NS 0.9% IV 500 ml Route: IV; Rate: bolus; Site: right wrist; sc3 16:43 Follow up: IV Status: Completed infusion; IV Intake: 1000ml sc3 16:52 Drug: Rocephin IV 1 grams Route: IV; Rate: 1 bolus; Site: right wrist; sc3 Disposition Summary: 04/08/23 20:46 Discharge Ordered Location: Home cp Problem: an acute exacerbation cp Symptoms: have improved cp Condition: Stable cp Diagnosis - Anemia, unspecified cp - Zoster without complications cp - UTI/ Urinary tract infection, site not specified cp Followup: bs3 - With: Private Physician - When: 5 - 6 days - Reason: Re-evaluation by your physician Followup: bs3 - With: - When: 2 - 3 days - Reason: Recheck today's complaints Discharge Instructions: - Discharge Summary Sheet bs3 - Urinary Tract Infection, Adult bs3 - Shingles, [id number] bs3 Forms: - Medication Reconciliation Form cp - Thank You Letter cp - Antibiotic Education cp - Prescription Opioid Use cp Prescriptions: - cefdinir 300 mg Oral capsule - take 1 capsule by ORAL route 2 times per day for 7 days; 14 capsule; Refills: bs3 0, Product Selection Permitted - valacyclovir 1 gram Oral tablet - take 1 tablet by ORAL route daily for 7 days; 7 tablet; Refills: 0, Product bs3 Selection Permitted Signatures: Dispatcher [employer] Lula Martin Corey, PA PA cp Brett Montejo MD MD bs3 Rosetta Red, RN RN mb9 Edd Stallings RN RN al3
--- NOTE | 2023-04-08 20:47 | ER ---
Nurse's Notes [facility] Name: Mirtha Edouard Age: 72 yrs Sex: Female : 1950 Arrival Date: 04/08/2023 Time: 14:16 Bed 7 Private MD: Diagnosis: Anemia, unspecified;Zoster without complications;UTI/ Urinary tract infection, site not specified Presentation: 04/08 14:36 Chief complaint: Patient states: "I'm just real weak for a while now. It's just getting mb9 worse and worse. I tested myself for a UTI and it showed positive. I've been having diarrhea since and now my shingles are flaring up. My results from Dr. Root on shows that my hemoglobin is 8.1". Coronavirus screen: Vaccine status: Patient reports receiving the 2nd dose of the covid vaccine. Ebola Screen: No symptoms or risks identified at this time. Initial Sepsis Screen: Does the patient meet any 2 criteria? No. Patient's initial sepsis screen is negative. Does the patient have a suspected source of infection? No. Patient's initial sepsis screen is negative. Risk Assessment: Do you want to hurt yourself or someone else? Patient reports no desire to harm self or others. Onset of symptoms. 14:36 Method Of Arrival: Ambulatory 9 14:36 Acuity: ADELAIDA 3 mb9 Triage Assessment: 14:42 General: Appears uncomfortable, Behavior is cooperative, appropriate for age. Neuro: mb9 Sherwood Agitation-Sedation Scale (RASS): 0 - Alert and Calm Level of Consciousness is awake, alert, obeys commands, Oriented to person, place, time, situation, Appropriate for age. Cardiovascular: Patient's skin is warm and dry. Respiratory: Airway is patent Respiratory effort is even, unlabored, Respiratory pattern is regular, symmetrical. GI: Reports diarrhea. : Reports burning with urination. Derm: Skin is pale. Historical: - Allergies: 14:40 Levaquin; mb9 14:40 Morphine; mb9 - Home Meds: 14:40 atorvastatin 40 mg oral tablet [Active]; amlodipine 10 mg tablet [Active]; losartan 50 mb9 mg oral tablet 2 times per day [Active]; Protonix 40 mg Oral tablet, delayed release (enteric coated) [Active]; metoprolol tartrate 100 mg Oral tablet [Active]; - PMHx: 14:40 CAD; CKD stage 3; GERD; Hypertension; Lupus; Myocardial infarction; mb9 - PSHx: 14:40 Pelvic floor x3; Total abdominal hysterectomy; mb9 - Immunization history:: Adult Immunizations up to date. - Social history:: Smoking status: Patient denies any tobacco usage or history of. Screenin:14 [facility] ED Fall Risk Assessment (Adult) History of falling in the last 3 months, sc3 including since admission No falls in past 3 months (0 pts) Confusion or Disorientation No (0 pts) Intoxicated or Sedated No (0 pts) Impaired Gait No (0 pts) Mobility Assist Device Used No (0 pt) Altered Elimination No (0 pt) Score/Fall Risk Level 0 - 2 = Low Risk Maintained a safe environment, Educated pt \\T\\ family on fall prevention, incl call for assistance when getting out of bed, Assessed \\T\\ reinforced patient's understanding of fall precautions, Hourly rounding (assess needs \\T\\ fall precautionary measures) done, Used ambulatory aids as needed (educated on \\T\\ assisted with). Abuse screen: Denies injuries from another. Nutritional screening: No deficits noted. Tuberculosis screening: No symptoms or risk factors identified. Assessment: 15:12 General: Appears in no apparent distress. Behavior is calm, cooperative, Denies fever, sc3 fatigue, chills. Pain: Denies pain. Neuro: No deficits noted. Cardiovascular: No deficits noted. Respiratory: No deficits noted. GI: Reports diarrhea. : No deficits noted. EENT: Oral mucosa is moist. Throat is clear. Derm: Skin is pink, warm \\T\\ dry. Musculoskeletal: Range of motion: intact in all extremities. 19:17 General: Appears in no apparent distress. comfortable, Behavior is calm, cooperative. aa9 Pain: Denies pain. Neuro: No deficits noted. Respiratory: Airway is patent Respiratory effort is even, unlabored. 19:55 Reassessment: Patient appears in no apparent distress at this time. Patient and/or aa9 family updated on plan of care and expected duration. Pain level reassessed. Patient is alert, oriented x 3, equal unlabored respirations, skin warm/dry/pink. blood transfusion complete, see paper charting. 20:55 Reassessment: Patient appears in no apparent distress at this time. Patient and/or aa9 family updated on plan of care and expected duration. Pain level reassessed. Patient is alert, oriented x 3, equal unlabored respirations, skin warm/dry/pink. Patient states feeling better. Vital Signs: 14:36 BP 122 / 75; Pulse 88; Resp 18; Temp 97.8; Pulse Ox 100% ; Weight 71.67 kg; Height 5 mb9 ft. 4 in. ; 15:13 BP 124 / 79; Pulse 75; Resp 12; Temp 97.5; Pulse Ox 98% on R/A; Pain 0/10; sc3 17:45 BP 132 / 81; Pulse 94; Resp 12; Temp 97.1; Pulse Ox 99% on R/A; Pain 0/10; sc3 18:07 BP 140 / 75; Pulse 99; Resp 19; Temp 96.8; Pulse Ox 100% on R/A; Pain 0/10; sc3 18:30 BP 140 / 79; Pulse 98; Resp 20; Temp 96.9; Pulse Ox 100% on R/A; Pain 0/10; sc3 19:55 BP 133 / 72; Pulse 101; Resp 19; Temp 98.3(O); Pulse Ox 100% on R/A; aa9 20:54 BP 142 / 70; Pulse 97; Resp 16; Temp 98.2; Pulse Ox 99% on R/A; Pain 0/10; aa9 14:36 Body Mass Index 27.12 (71.67 kg, 162.56 cm) mb9 15:13 Pain Scale: Adult sc3 17:45 Pain Scale: Adult sc3 18:07 Pain Scale: Adult sc3 18:30 Pain Scale: Adult sc3 20:54 Pain Scale: Adult aa9 ED Course: 14:21 Patient arrived in ED. kj1 14:26 Brett Montejo MD is Attending Physician. bs3 14:36 Arm band placed on. mb9 14:40 Triage completed. mb9 14:43 Olu Haro, DELILAH is Primary Nurse. bp 15:11 Inserted saline lock: 22 gauge in right wrist, using aseptic technique. sc3 17:09 Martin Rosales PA is PHCP. cp 19:47 Door closed. Lights dimmed. Warm blanket given. aa9 20:00 Patient has correct armband on for positive identification. Bed in low position. Call aa9 light in reach. Side rails up X2. 20:00 Client placed on continuous cardiac and pulse oximetry monitoring. NIBP monitoring aa9 applied. 20:46 James Mendez MD is Referral Physician. cp 20:54 No provider procedures requiring assistance completed. IV discontinued, intact, aa9 bleeding controlled, No redness/swelling at site. Pressure dressing applied. Administered Medications: 15:10 Drug: NS 0.9% IV 500 ml Route: IV; Rate: bolus; Site: right wrist; sc3 16:43 Follow up: IV Status: Completed infusion; IV Intake: 1000ml sc3 16:52 Drug: Rocephin IV 1 grams Route: IV; Rate: 1 bolus; Site: right wrist; sc3 Medication: 14:44 VIS not applicable for this client. mb9 Intake: 16:43 IV: 1000ml; Total: 1000ml. sc3 Outcome: 20:46 Discharge ordered by MD. cp 20:54 Discharged to home ambulatory, with family. aa9 20:54 Condition: stable 20:54 Discharge instructions given to patient, Instructed on discharge instructions, follow up and referral plans. medication usage, Demonstrated understanding of instructions, follow-up care, medications, Prescriptions given X 2. 20:55 Patient left the ED. aa9 Signatures: Martin Rosales PA PA cp Olu Haro, DELILAH RN Rhoda Ramon kj1 Deepika Martinez RN RN aa9 Brett Montejo MD MD bs3 Rosetta Red RN RN mb9 Edd Stallings, DELILAH RN sc3 Corrections: (The following items were deleted from the chart) 14:44 14:36 Chief complaint: Patient states: "I'm just real weak for a while now. It's just mb9 getting worse and worse. I tested myself for a UTI and it showed positive. I've been having diarrhea since . My results from Dr. Root on shows that my hemoglobin is 8.1" mb9 15:56 15:12 Derm: No deficits noted. sc3 mb9 :56 15:12 EENT: No deficits noted. sc3 mb9 15:56 15:12 Musculoskeletal: No deficits noted. wy3 mb9
[2023-04-08 21:27] VITALS: BP 142/70; TEMP 98.2; O2SAT 99
== END 2023-04-08 20:55 | disposition home or self-care (01) ==
LOC: SUPCPDRO 14:16 → ER 14:16
DX: D64.9 Anemia, unspecified (principal); B02.9 Zoster without complications; N39.0 Urinary tract infection, site not specified; I12.9 Hypertensive chronic kidney disease with stage 1 through stage 4 chronic kidney disease, or unspecified chronic kidney disease; N18.30 Chronic kidney disease, stage 3 unspecified; Z88.1 Allergy status to other antibiotic agents; Z88.5 Allergy status to narcotic agent
CPT/HCPCS: 87088; 85025; 81001; 87086; 36415; 86900; 86850; 86901; 86920; 80053; P9016; J7050 ×2; J0696; 96361; 96374; 99284

== ENCOUNTER 2023-05-12 18:46 | Emergency (ER) | payer MEDICARE ==
--- OUTSIDE RECORDS SUMMARY | 2023-05-12 18:48 | XMS REPORT | Continuity of Care Document ---
:1950 Author Organization [facility] t Address [address] [facility] [address] [place] [address] Care Team Providers Name Role Phone [email or web address]_S Attending Clinician Unavailable Charanjit -Pauline Yoder Attending Clinician Rojas Attending Clinician Unavailable Brunilda Rucker Attending Clinician [email or web address]_S Admitting Clinician Unavailable Charanjit_eleanor Admitting Clinician Unavailable Payers Payer Name Policy Type Policy Number Effective Date Expiration Date S [facility] [id number] 2022 (MEDICARE 00:00:00 REPLACEMENT HMO) Problems This patient has no known problems. Allergies, Adverse Reactions, Alerts This patient has no known allergies or adverse reactions. Medications This patient has no known medications. Procedures This patient has no known procedures. Encounters Start End Encounter Admission Attending Care Care Encounter Source Date/Time Date/Time Type Type Clinicians Facility Department ID 2023-05-04 2023-05-04 Outpatient GC_GCBZW_Ka PRIV PRIV [id number] [facility] 00:00:00 00:00:00 diyala_S [id number] Medic al 2023-02-12 2023-02-12 CAV Pauline 2.16.840. 2.16.840.1. CLA [id number] [facility] 16:00:00 17:00:00 Charanjit [id number] [facility] Medical [id number] 2023-01-22 2023-01-22 Outpatient Rojas [facility]DOÑEZ [facility] [id number] -2022 [facility] 00:00:00 00:00:00 0330 Med[facility] l Group 2023-01-22 2023-01-22 Outpatient Daniels_b [facility] [id number] -2022 [facility] 00:00:00 00:00:00 0506 Medica l Group 2022-08-21 2022-08-21 CAV Pauline 2.16.840. 2.16.840.1. CLA [id number] [facility] 14:30:00 15:30:00 Charanjit [id number] Medical [id number] 2022-08-13 2022-08-13 Outpatient Daniels_b [facility] [id number] -2021 [facility] 00:00:00 00:00:00 1019 Medica l Group 2022-05-09 2022-05-09 Outpatient [facility] [id number] [facility] 03:56:00 03:56:00 0715 Medica l Group 2022-03-21 2022-03-21 CAV Brunilda 2.16.840. 2.16.840.1. CLAC XRHECG [facility] 20:00:00 21:00:00 Rucker [id number]. [id number] Medical [id number] 2021-08-19 2021-08-19 [facility] [id number] [facility] 08:01:00 08:01:00 1025 Medica l Group Results This patient has no known results.
[2023-05-12] MEDS ORDERED: HYDROCODONE/APAP 5/325 MG TAB ONE (20:33)
--- NOTE | 2023-05-12 20:53 | RAD REPORT ---
EXAM DESCRIPTION: US - Extremity Venous Uni Ltd - 05/12/2023 8:45 pm CLINICAL HISTORY: PAIN Leg swelling and edema. COMPARISON: <Comparisons> FINDINGS: Right lower extremity venous system was interrogated with Doppler technique. Normal flow, compressibility and augmentation was noted. There is no DVT present. IMPRESSION: No evidence of right lower extremity deep venous thrombosis.
--- NOTE | 2023-05-12 20:54 | RAD REPORT ---
EXAM DESCRIPTION: US - Lower Extremity Artery Uni Ltd - 05/12/2023 8:45 pm CLINICAL HISTORY: PAIN COMPARISON: <Comparisons> FINDINGS: Doppler interrogation of the right lower extremity arterial system was performed. Triphasi c and biphasic waveforms are seen throughout the right lower extremity arterial system. Normal veloci ty measurements noted. No high-grade stenosis or occlusion. IMPRESSION: No significant flow abnormality.
[2023-05-12] MEDS ORDERED: HYDROMORPHONE HCL 0.5 MG/0.5 ML INJ ONE (22:10)
--- NOTE | 2023-05-12 22:10 | EDPHYS ---
Physician Documentation [facility] Name: Mirtha Edouard Age: 72 yrs Sex: Female : 1950 Arrival Date: 05/12/2023 Time: 18:46 Bed 10 Private MD: Jaems Root E ED Physician Raimundo Gregory HPI: 05/12 20:30 This 72 yrs old Female presents to ER via Ambulatory with complaints of Leg Pain. cp 20:30 The patient presents with pain. The complaints affect the medial aspect of right thigh, cp medial aspect of right knee and medial aspect of right calf. Context: resulted from an unknown cause. Onset: The symptoms/episode began/occurred gradually, and became worse 5 day(s) ago. Associated signs and symptoms: Pertinent positives: calf tenderness, Pertinent negatives fever, numbness, swelling, warmth, weakness. Treatment prior to arrival includes: no previous treatment. Patient concerned about possible blood clot to right leg as cause of pain. Reports having shingles to right leg and currently taking Neurontin 100 mg twice daily for pain. Increased pain to right leg since yesterday. Historical: - Allergies: 19:07 Levaquin; as6 19:07 Morphine; as6 - PMHx: 19:07 CAD; CKD stage 3; GERD; Hypertension; Lupus; Myocardial infarction; as6 - PSHx: 19:07 Pelvic floor x3; Total abdominal hysterectomy; as6 - Immunization history:: Client reports receiving the 2nd dose of the Covid vaccine, moderna. - Social history:: Smoking status: Patient denies any tobacco usage or history of. ROS: 20:35 MS/extremity: Positive for pain, tenderness, Negative for injury or acute deformity, cp decreased range of motion. 20:35 Constitutional: Negative for body aches, chills, fever, poor PO intake. cp 20:35 Cardiovascular: Negative for chest pain, edema, palpitations. 20:35 Respiratory: Negative for cough, shortness of breath, wheezing. 20:35 All other systems are negative. Exam: 20:40 Constitutional: The patient appears in no acute distress, alert, awake, cp non-diaphoretic, non-toxic, well developed, well nourished. 20:40 Head/Face: Normocephalic, atraumatic. cp 20:40 Chest/axilla: Inspection: normal. 20:40 Cardiovascular: Rate: normal, Rhythm: regular. 20:40 Respiratory: the patient does not display signs of respiratory distress, Respirations: normal, no use of accessory muscles, no retractions, labored breathing, is not present, Breath sounds: are clear throughout, no decreased breath sounds. 20:40 Abdomen/GI: Inspection: abdomen appears normal. 20:40 Back: pain, is absent, ROM is normal. 20:40 Musculoskeletal/extremity: Extremities: noted in the right leg: well healed scar noted medial aspect right upper leg, tenderness to palpation noted medial side right knee and lower leg, no swelling and no erythema noted. Vital Signs: 19:03 BP 142 / 76; Pulse 68; Resp 18 S; Temp 97.1(TE); Pulse Ox 100% on R/A; Weight 73.48 kg as6 (R); Height 5 ft. 4 in. (R); Pain 10/10; 19:58 BP 129 / 79; Pulse 69; Resp 18; Pulse Ox 99% on R/A; eh3 21:00 BP 134 / 81; Pulse 66; Resp 15 S; Pulse Ox 100% on R/A; ha1 21:56 BP 133 / 80; Pulse 65; Resp 15 S; Pulse Ox 100% on R/A; ha1 19:03 Body Mass Index 27.81 (73.48 kg, 162.56 cm) as6 19:03 Pain Scale: Adult as6 MDM: 19:12 Patient medically screened. cp 21:00 Differential diagnosis: cellulitis, abscess, DVT. 22:10 Data reviewed: vital signs, nurses notes, radiologic studies, plain films, ultrasound. 22:10 I considered the following discharge prescriptions or medication management in the emergency department Medications were administered in the Emergency Department. See MAR. Counseling: I had a detailed discussion with the patient and/or guardian regarding: the historical points, exam findings, and any diagnostic results supporting the discharge/admit diagnosis, radiology results, to return to the emergency department if symptoms worsen or persist or if there are any questions or concerns that arise at home. Response to treatment: the patient's symptoms have markedly improved after treatment, and as a result, I will discharge patient. 05/12 20:20 Order name: Extremity Venous Unilateral Ltd; Complete Time: 21:25 05/12 21:25 Interpretation: Report reviewed. cp 05/12 20:20 Order name: Lower Extremity Artery Uni Ltd US; Complete Time: 21:25 cp 05/12 21:26 Interpretation: Report reviewed. cp Administered Medications: 20:26 Drug: HYDROcodone-acetaminophen PO 5 mg-325 mg 1 tabs Route: PO; eh3 21:00 Follow up: Response: No adverse reaction; Pain is unchanged, physician notified; RASS: ha1 Alert and Calm (0) 22:07 Drug: HYDROmorphone IM 0.5 mg Route: IM; Site: right deltoid; ha1 22:18 Follow up: Response: No adverse reaction; Pain is decreased; RASS: Alert and Calm (0) ha1 Disposition Summary: 05/12/23 22:10 Discharge Ordered Location: Home cp Problem: an ongoing problem cp Symptoms: have improved cp Condition: Stable cp Diagnosis - Pain in right leg cp Followup: cp - With: Private Physician - When: 1 - 2 days - Reason: Recheck today's complaints Discharge Instructions: - Discharge Summary Sheet cp - Neuropathic Pain cp Forms: - Medication Reconciliation Form cp - Thank You Letter cp - Antibiotic Education cp - Prescription Opioid Use cp - Patient Portal Instructions cp Signatures: Dispatcher [employer] EDMS Martin Rosales PA PA cp Justin Vegas RN RN as6 Juliana Menezes RN RN 3 Paula Baptiste, RN RN 1 Corrections: (The following items were deleted from the chart) 05/13 22:00 05/12 20:30 Onset: The symptoms/episode began/occurred gradually, and became worse cp yesterday, cp
--- NOTE | 2023-05-12 22:10 | ER ---
Nurse's Notes [facility] Name: Mirtha Edouard Age: 72 yrs Sex: Female : 1950 Arrival Date: 05/12/2023 Time: 18:46 Bed 10 Private MD: James Root E Diagnosis: Pain in right leg Presentation: 05/12 19:03 Chief complaint: Patient states: "I think I have a blood clot in my right leg". as6 Coronavirus screen: At this time, the client does not indicate any symptoms associated with coronavirus-19. Ebola Screen: No symptoms or risks identified at this time. Initial Sepsis Screen: Does the patient meet any 2 criteria? No. Patient's initial sepsis screen is negative. Does the patient have a suspected source of infection? No. Patient's initial sepsis screen is negative. Risk Assessment: Do you want to hurt yourself or someone else? Patient reports no desire to harm self or others. Onset of symptoms was May 07, 2023. 19:03 Method Of Arrival: Ambulatory as6 19:03 Acuity: ADELAIDA 4 as6 Triage Assessment: 19:07 General: Appears in no apparent distress. Behavior is calm, cooperative. Pain: as6 Complains of pain in right leg. Historical: - Allergies: 19:07 Levaquin; as6 19:07 Morphine; as6 - PMHx: 19:07 CAD; CKD stage 3; GERD; Hypertension; Lupus; Myocardial infarction; as6 - PSHx: 19:07 Pelvic floor x3; Total abdominal hysterectomy; as6 - Immunization history:: Client reports receiving the 2nd dose of the Covid vaccine, moderna. - Social history:: Smoking status: Patient denies any tobacco usage or history of. Screenin:59 [facility] ED Fall Risk Assessment (Adult) Score/Fall Risk Level 0 - 2 = Low Risk. Abuse eh3 screen: Denies threats or abuse. Denies injuries from another. Nutritional screening: No deficits noted. Tuberculosis screening: No symptoms or risk factors identified. Assessment: 19:59 General: Appears in no apparent distress. uncomfortable, Behavior is calm, cooperative, eh3 appropriate for age. Pain: Complains of pain in right calf Pain currently is 8 out of 10 on a pain scale. Neuro: Level of Consciousness is awake, alert, obeys commands, Oriented to person, place, time, situation. Cardiovascular: Capillary refill < 3 seconds Patient's skin is warm and dry. Cardiovascular: Edema is 1+ to left foot is 2+ to right foot. Respiratory: Airway is patent Respiratory effort is even, unlabored, Respiratory pattern is regular, symmetrical. GI: Abdomen is round non-distended. Derm: Skin is healthy with good turgor, Wound noted generalized Wound is scabbed areas, pt states she recently had shingles. Musculoskeletal: Circulation, motion, and sensation intact. 21:00 Reassessment: Patient and/or family updated on plan of care and expected duration. Pain ha1 level reassessed. Patient is alert, oriented x 3, equal unlabored respirations, skin warm/dry/pink. awaiting on results. 21:56 Reassessment: Patient and/or family updated on plan of care and expected duration. Pain ha1 level reassessed. Patient is alert, oriented x 3, equal unlabored respirations, skin warm/dry/pink. Vital Signs: 19:03 BP 142 / 76; Pulse 68; Resp 18 S; Temp 97.1(TE); Pulse Ox 100% on R/A; Weight 73.48 kg as6 (R); Height 5 ft. 4 in. (R); Pain 10/10; 19:58 BP 129 / 79; Pulse 69; Resp 18; Pulse Ox 99% on R/A; eh3 21:00 BP 134 / 81; Pulse 66; Resp 15 S; Pulse Ox 100% on R/A; ha1 21:56 BP 133 / 80; Pulse 65; Resp 15 S; Pulse Ox 100% on R/A; ha1 19:03 Body Mass Index 27.81 (73.48 kg, 162.56 cm) as6 19:03 Pain Scale: Adult as6 ED Course: 18:48 Patient arrived in ED. mr 18:48 James Root MD is Private Physician. mr 19:07 Triage completed. as6 19:07 Arm band placed on. as6 19:08 Martin Rosales PA is PHCP. cp 19:08 Raimundo Gregory MD is Attending Physician. cp 19:59 Patient has correct armband on for positive identification. Bed in low position. Call eh3 light in reach. Side rails up X2. Adult w/ patient. Pulse ox on. NIBP on. Door closed. Noise minimized. Warm blanket given. 20:47 US Extremity Venous Unilateral Ltd In Process Unspecified. EDMS 20:47 Lower Extremity Artery Uni Ltd US In Process Unspecified. EDMS 21:57 Paula Baptiste, RN is Primary Nurse. ha1 22:19 No provider procedures requiring assistance completed. Patient did not have IV access ha1 during this emergency room visit. 22:20 Provided Education on: follow ups . ha1 Administered Medications: 20:26 Drug: HYDROcodone-acetaminophen PO 5 mg-325 mg 1 tabs Route: PO; eh3 21:00 Follow up: Response: No adverse reaction; Pain is unchanged, physician notified; RASS: ha1 Alert and Calm (0) 22:07 Drug: HYDROmorphone IM 0.5 mg Route: IM; Site: right deltoid; ha1 22:18 Follow up: Response: No adverse reaction; Pain is decreased; RASS: Alert and Calm (0) ha1 Medication: 22:19 VIS not applicable for this client. ha1 Outcome: 22:10 Discharge ordered by . cp 22:19 Discharged to home ambulatory, with family. ha1 22:19 Condition: stable 22:19 Discharge instructions given to patient, family, Instructed on discharge instructions, follow up and referral plans. Demonstrated understanding of instructions, follow-up care. 22:20 Patient left the ED. ha1 Signatures: Dispatcher [employer] [facility] Rosetta PageMartin PA PA cp Bryson, James RN RN Justin Jones RN RN as6 Juliana Menezes RN RN 3 Paula Baptiste, RN RN ha1 Corrections: (The following items were deleted from the chart) 19:59 19:58 BP 129 / 79; Pulse 69bpm; Resp 18bpm; Pulse Ox 99% RA; lynette eh3
[2023-05-12 23:07] VITALS: TEMP 97.1
[2023-05-12 23:10] VITALS: O2SAT 100
[2023-05-12 23:11] VITALS: BP 133/80
== END 2023-05-12 22:20 | disposition home or self-care (01) ==
LOC: ER 18:46
DX: M79.604 Pain in right leg (principal); Z88.1 Allergy status to other antibiotic agents; Z88.5 Allergy status to narcotic agent
CPT/HCPCS: 93926; 93971; J1170

== ENCOUNTER 2024-02-18 12:19 | Day surgery (SDC) | payer MEDICARE ==
[2024-02-16 11:37] LABS: Absolute Eosinophils 0.1 K/uL (0-0.5); Absolute Lymphocytes (CBC) 0.4 K/uL (0.7-4.9); Absolute Monocytes 0.4 K/uL (0.1-1.3); Absolute Neutrophil 2.8 K/uL (1.8-8.0); Basophils % 0.3 % (0-1.3); Eosinophils % 3.8 % (0-4.4); Hematocrit 31.7 % (36.0-45.0); Lymphocytes % 10.2 % (15.3-44.8); MCH 30.8 pg (27.0-35.0); MCHC 31.5 g/dL (32.0-36.0); MCV 97.7 fL (80-100); MPV 8.9 fL (7.6-11.3); Monocytes % 10.1 % (3.3-12.3); Neutrophils % 75.6 % (41.7-73.7); Platelets 240 thou/uL (152-406); RBC Red Blood Cell Count 3.25 M/uL (3.86-4.86); Red Cell Distribution Width 15.7 % (12.1-15.2)
[2024-02-16 11:41] LABS: Anion Gap 11.2 mEq/L (5.0-15.0); Potassium 4.2 mEq/L (3.5-5.1)
[2024-02-18] MEDS: Ringers Lactate 1,000 ML IV ONE (12:50)
[2024-02-18] MEDS: SCOPOLAMINE HYDROBROMIDE PATCH TD ONE (12:55)
[2024-02-18] MEDS ORDERED: ROCURONIUM 50 MG/5 ML VIAL IV ONE (13:36)
[2024-02-18] MEDS ORDERED: LIDOCAINE 1% MPF 5 ML VIAL ONE (13:36)
[2024-02-18] MEDS ORDERED: ONDANSETRON 4 MG/2 ML VIAL ONE (13:36)
[2024-02-18] MEDS ORDERED: propofoL 200 MG/20 ML VIAL IV ONE (13:37)
[2024-02-18] MEDS ORDERED: MIDAZOLAM HCL 2 MG/2 ML INJ ONE (13:37)
[2024-02-18] MEDS: CEFAZOLIN SODIUM 2 GM/VIAL ONE (13:37)
[2024-02-18] MEDS ORDERED: FENTANYL CITR 100 MCG/2 ML ONE (13:37)
[2024-02-18] MEDS ORDERED: HYDROCODONE/APAP 5/325 MG TAB PO PRN (14:41)
[2024-02-18] MEDS ORDERED: PROMETHAZINE INJ 25 MG/ML AMP IV PRN (14:41)
--- NOTE | 2024-02-18 14:43 | P.BOP ---
Preoperative diagnosis: refractory UUI, freq, FI Postoperative diagnosis: same Primary procedure: Stage 1 and 2 interstim Estimated blood loss: min Specimen: none Findings: same side buttock and lead Anesthesia: General Complications: None Implants: Interstim neuromodulator Transferred to: Recovery Room Condition: Good
[2024-02-18] MEDS ORDERED: EPHEDRINE SULF 50 MG/ML VIAL ONE (14:51)
[2024-02-18] MEDS: LIDOCAINE HCL/EPINEPHRINE 20 ML MDV ONE (14:57)
[2024-02-18] MEDS ORDERED: EPOETIN ALFA 4,000 UNIT/ML VIAL IV SCH (15:00)
[2024-02-18] MEDS ORDERED: LIDOCAINE HCL/EPINEPHRINE 20 ML MDV ONE (15:12)
--- NOTE | 2024-02-18 16:46 | RAD REPORT ---
EXAM DESCRIPTION: RAD - Fluoroscopy <1 Hour - 02/18/2024 4:21 pm CLINICAL HISTORY: SACRAL NEURO MODULATION COMPARISON: None available. FINDINGS: 7 images were sent to PACS, documenting fluoroscopy use during sacral neuro modulator plac ement procedure. No radiologist was available for the procedure, nor will any image interpretation he provided. Please refer to the procedural report for additional details. Fluoroscopy time: 0.7 Minutes. IMPRESSION: Documentation of fluoroscopy utilization as above.
--- NOTE | 2024-02-18 16:50 | EKG ---
Test Date: 2024-02-16 Test Time: 11:15:57 Marketing Research Coordinator: EDISON MEASUREMENT RESULTS: Intervals: Rate: 64 MO: 156 QRSD: 82 QT: 410 QTc: 422 Graham: P: 42 MO: 156 QRS: 38 T: 60 INTERPRETIVE STATEMENTS: Normal sinus rhythm Normal ECG Compared to ECG 04/11/2021 06:12:23 T-wave abnormality no longer present Electronically Signed On 02-18-24 16:43:59 CDT by Rafa Hunt
[2024-02-18 18:07] VITALS: BP 148/62; TEMP 96.6; O2SAT 100
[2024-02-18] MEDS ORDERED: HOME MED 1 EA UNK (Ascorbic Acid [Vitamin C] 500 MG Capsule) PO SCH (21:00)
[2024-02-18] MEDS ORDERED: GABAPENTIN 100 MG CAP PO SCH (21:00)
[2024-02-18] MEDS ORDERED: ATORVASTATIN 40 MG TAB PO SCH (21:00)
[2024-02-19] MEDS ORDERED: METOPROLOL XL 100 MG TAB PO SCH (09:00)
[2024-02-19] MEDS ORDERED: FERROUS SULFATE 325 MG TAB PO SCH (09:00)
[2024-02-19] MEDS ORDERED: DOCUSATE NA 100 MG CAP PO SCH (09:00)
[2024-02-19] MEDS ORDERED: HOME MED 1 EA UNK (Losartan Potassium [Cozaar] 100 MG Tablet) PO SCH (09:00)
[2024-02-19] MEDS ORDERED: AMLODIPINE 10 MG TAB PO SCH (09:00)
[2024-02-19] MEDS ORDERED: PANTOPRAZOLE 40MG TABLET PO SCH (09:00)
[2024-02-19] MEDS ORDERED: CHOLESTYRAMINE 5 GM PO SCH (09:00)
[2024-02-19] MEDS ORDERED: HOME MED 1 EA UNK (Cholecalciferol (Vitamin D3) [Vitamin D3] 25 MCG Capsule) PO SCH (09:00)
[2024-02-19] MEDS ORDERED: HOME MED 1 EA UNK (Estradiol [Estradiol] 42.5 GM Cream.Appl) VAG SCH (17:00)
[2024-02-20] MEDS ORDERED: ASPIRIN EC 81 MG TAB PO SCH (21:00)
== END 2024-02-18 17:20 | disposition home or self-care (01) ==
LOC: OR 12:19
PROVIDERS: ADMIT Obstetrics & Gynecology; ATTEND Obstetrics & Gynecology
PROC: 0JH73BZ Insertion of Single Array Stimulator Generator into Back Subcutaneous Tissue and Fascia, Percutaneous Approach (ICD-10-PCS; 2024-02-18)
PROC: 01HY3MZ Insertion of Neurostimulator Lead into Peripheral Nerve, Percutaneous Approach (ICD-10-PCS; principal; 2024-02-18 14:30)
DX: R15.9 Full incontinence of feces (principal); N39.41 Urge incontinence; R39.14 Feeling of incomplete bladder emptying; N18.30 Chronic kidney disease, stage 3 unspecified; I10 Essential (primary) hypertension; E78.00 Pure hypercholesterolemia, unspecified; K21.9 Gastro-esophageal reflux disease without esophagitis; K57.90 Diverticulosis of intestine, part unspecified, without perforation or abscess without bleeding
CPT/HCPCS: 36415; 76000; 80048; 85025; 93005; C1767; C1778; J2001; J2250; J2405; J2704; J3010; J7120

== ENCOUNTER 2024-07-15 08:07 | Day surgery (SDC) | payer MEDICARE ==
[2024-07-15] MEDS ORDERED: NA CHLORIDE 0.9% 500 ML ONE (08:45)
[2024-07-15 09:20] LABS: PT Prothrombin Time 11.5 SECONDS (9.4-12.5); PTT, Activated Partial Thromb 36.5 SECONDS (24.3-36.9); Protime INR 1.03
[2024-07-15] MEDS ORDERED: FENTANYL CITR 100 MCG/2 ML ONE (09:37)
[2024-07-15] MEDS ORDERED: MIDAZOLAM HCL 2 MG/2 ML INJ ONE (09:38)
[2024-07-15] MEDS ORDERED: NALOXONE HCL 2 MG/2 ML VIAL ONE (09:54)
[2024-07-15] MEDS: HYDROCODONE/APAP 7.5/325 MG TAB PO ONE (11:38)
--- NOTE | 2024-07-15 12:47 | RAD REPORT ---
EXAMINATION: ONE VIEW CHEST XR CLINICAL INDICATION: Female, 73 years old. post lung bx. [facility] post lung bx SDS RM 8 TECHNIQUE: Frontal chest projection is submitted. Examination is limited by patient positioning and t echnique. COMPARISON: 09/15/2022 FINDINGS: The lungs appear grossly clear. No postprocedural pneumothorax. The heart is upper limit of normal in size. IMPRESSION: No measurable postprocedure pneumothorax.
--- NOTE | 2024-07-15 12:56 | RAD REPORT ---
PROCEDURE: CT-GUIDED BIOPSY Pre-procedure diagnosis: Indeterminant left upper lobe nodule Post-procedure diagnosis: Same as above. COMPLICATIONS: No immediate complications. IMPRESSION: CT-guided biopsy of indeterminate left upper lobe nodule in the lingula PROCEDURE DETAILS: Consent: Informed consent for the procedure including risks, benefits and alternatives was obtained a nd time-out was performed prior to the procedure. Sedation: Moderate sedation (conscious sedation) Administered by: Nurse, or other independent traine d observer, with level of consciousness and vital signs continuously monitored. Total sedation administered: 2 mL Versed and 50 mcg Fentanyl. Total intra-service sedation time: 30 minutes. Biopsy: Local anesthesia was administered. Under CT guidance, the biopsy needle was advanced to the t arget and biopsy was performed. [id number]. Number of specimens: 3 Additional sampling description: None. Preliminary assessment of sample adequacy: Not applicable. The biopsy needle was removed and a sterile dressing was applied. Post-biopsy imaging findings: No immediate complications seen. Additional Details: Additional description of procedure: Surgifoam administered to the biopsy tract. Equipment details: 18-gauge core biopsy needle Estimated blood loss: Less than 10 mL.
--- NOTE | 2024-07-15 13:43 | RAD REPORT ---
EXAMINATION: ONE VIEW CHEST XR CLINICAL INDICATION: Female, 73 years old. post lung bx. [facility] post lung bx SDS Rm 8 TECHNIQUE: Frontal chest projection is submitted. Examination is limited by patient positioning and t echnique. COMPARISON: Multiple prior studies reviewed FINDINGS: No evidence of measurable pneumothorax. The lungs demonstrate vascular crowding related to expiratory view. The heart is upper limit of normal. IMPRESSION: No measurable postprocedure pneumothorax seen.
[2024-07-15 14:46] VITALS: O2SAT 99; BMI 28.3
[2024-07-15 16:58] VITALS: BP 130/80; TEMP 97
== END 2024-07-15 14:00 | disposition home or self-care (01) ==
LOC: DS 08:07
PROVIDERS: ATTEND Internal Medicine Sleep Medicine
PROC: 0BBG3ZX Excision of Left Upper Lung Lobe, Percutaneous Approach, Diagnostic (ICD-10-PCS; principal; 2024-07-15)
DX: J98.4 Other disorders of lung (principal)
CPT/HCPCS: 36415; 71045; 77012; 85610; 85730; 88304; 88305; J2250; J2310; J3010; J7040

== ENCOUNTER 2024-12-02 15:54 | Emergency (ER) | payer OTHER ==
--- OUTSIDE RECORDS SUMMARY | 2024-12-02 15:58 | XMS REPORT | Continuity of Care Document ---
Author Name Unknown Address [address] [place] [address] [facility] thconnect Address [address] [place] [address] Care Team Providers Care Embroidery Cutter Name Role Phone Dk Jacobo MD, [facility], [place] [facility] Stephanie Guardado Attending Clinician Malcolm NIETO, Lavern Attending Clinician [phone] LAVERN FOWLER Attending Clinician Unavailable GC_GCBZW_Kadiyala_S Attending Clinician UnavailJanna Mata Attending Clinician [phone] Pauline Morrison Attending Clinician Charanjit_eleanor Attending Clinician Unavailable Brunilda Rucker Attending Clinician [phone] GC_GCBZW_Kadiyala_S Admitting Clinician Unavailshashank Xie Admitting Clinician Unavailable Payers Payer Name Policy Type Policy Number Effective Date Expirati on Date Source [employer] Medicare [id number] 2023 00:00:00 mLED (MEDICARE REPLACEMENT HMO) [id number] 2022 00:00:00 Problems Condition Name Condition Details Condition Category Status Onset Date Resolution Date Last Treatment Date Treating Clinician Comments Source Systemic lupus erythemato shelly (CMS/HCC) Systemic lupus erythemato shelly (CMS/HCC) Disease Active 07-18 00:00: 00 Selwyn Hearn 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 07-18 00:00: 00 Selwyn Hearn High risk medication use High risk medication use Disease Active 9-23 00:00: 00 Selwyn Henao Epic Herpes zoster Herpes Zoster Problem Active 8-27 00:00: 00 [facility] Blood in urine Blood in Urine Problem Active 6-03 00:00: 00 [facility] Recurrent urinary tract infection Recurrent Urinary Tract Infection Problem Active 4-01 00:00: 00 [facility] Acute urinary tract infection Acute Urinary Tract Infection Problem Active 2-26 00:00: 00 [facility] Urge incontinen ce of urine Urge Incontinen ce of Urine Problem Active 2-06 00:00: 00 [facility] Dysuria Dysuria Problem Active 1-22 00:00: 00 [facility] Incomplete emptying of urinary bladder Incomplete Emptying of Urinary Bladder Problem Active 1-22 00:00: 00 [facility] Iron deficiency anemia Iron Deficiency Anemia Problem Active 1-15 00:00: 00 [facility] Inconclusi ve mammograph y finding Inconclusi ve Mammograph y Finding Problem Active 2021-10 0-13 00:00: 00 [facility] Abnormal findings on diagnostic imaging of breast Abnormal Findings on Diagnostic Imaging of Breast Problem Active 2021-10 0-13 00:00: 00 [facility] Screening mammograph y Screening Mammograph y Problem Active 3-14 00:00: 00 [facility] Screening for malignant neoplasm of colon Screening for Malignant Neoplasm of Colon Problem Active 3-14 00:00: 00 [facility] Herpesviru s infection Herpesviru s Infection Problem Active 2020-10 2-15 00:00: 00 [facility] Incontinen ce of feces Incontinen ce of Feces Problem Active 2020-10 2-15 00:00: 00 [facility] Chronic kidney disease stage 3 Chronic Kidney Disease Stage 3 Problem Active 2020-10 00:00: 00 [facility] Increased frequency of urination Increased Frequency of Urination Problem Active 2020-1030 00:00: 00 [facility] Muscle atrophy Muscle Atrophy Problem Active 9-13 00:00: 00 [facility] Menopause present Menopause Present Problem Active 9-13 00:00: 00 [facility] Systemic lupus erythemato shelly Systemic Lupus Erythemato shelly Problem Active 6-11 00:00: 00 [facility] Old myocardial infarction Old Myocardial Infarction Problem Active 6 00:00: 00 [facility] Acute cystitis Acute Cystitis Problem Active 6 00:00: 00 [facility] Urinary tract infectious disease Urinary Tract Infectious Disease Problem Active 6 00:00: 00 [facility] Lateral cystocele Lateral Cystocele Problem Active 04-03 00:00: 00 [facility] 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 my Problem Active 04-03 00:00: 00 [facility] History of urinary tract infection History of Urinary Tract Infection Problem Active 04-03 00:00: 00 [facility] Constipati on Constipati on Problem Active 2019-10 2-16 00:00: 00 [facility] Diverticul osis of large intestine Diverticul osis of Large Intestine Problem Active 9 00:00: 00 [facility] Gynecologi aicha examinatio n abnormal Gynecologi aicha Examinatio n Abnormal Problem Active 06 00:00: 00 [facility] Sensation as if urinary bladder still full Sensation as If Urinary Bladder Still Full Problem Active 6 00:00: 00 [facility] Overactive urinary bladder Overactive Urinary Bladder Problem Active 6 00:00: 00 [facility] Genuine stress incontinen ce Genuine Stress Incontinen ce Problem Active 2018-10 2-26 00:00: 00 [facility] Essential hypertensi on Essential Hypertensi on Problem Active 2018-10 2-18 00:00: 00 [facility] Atrophic vaginitis Atrophic Vaginitis Problem Active 717 00:00: 00 [facility] 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 Problem Active 715 00:00: 00 [facility] Hypertroph y of uterus Hypertroph y of Uterus Problem Active 05-09 00:00: 00 [facility] Allergies, Adverse Reactions, Alerts Allergy Name Allergy Type Status Severity Reaction(s) Onset Date Inactive Date Treating Clinician Comments Source Hydroxyc hloroqui ne Allergy to substanc e Active 9 00:00: 00 Other Reaction( s): worsening eyes Memoria l [place] [facility] Levoflox acin Allergy to substanc e Active 07-15 00:00: 00 Other Reaction( s): Unknown Selwyn Hearn Morphine Propensi ty to adverse reaction s Active 07-15 00:00: 00 Other Reaction( s): Unknown Selwyn Henao [facility] Morphine Drug Allergy Active [facility] Social History Social Habit Start Date Stop Date Quantity Comments Source Gender identity 2024-01-17 13:45:56 Identifies as female gender (finding) [facility] Sexual orientation [facility] ASSERTION Possible [facility] Alcoholic beverage intake 2024-07-15 00:00:00 2024-07-15 00:00:00 Lifetime non-drinker (finding) [facility] History of Social function 2024-07-15 00:00:00 2024-07-15 00:00:00 [facility] Smoking Status Start Date Stop Date Source [facility] Medications Ordered Medication Name Filled Medication Name Start Date Stop Date Current Medication? Ordering Clinician Indication Dosage Frequency Signature (SIG) Comments Components Source losartan (Cozaar) 100 MG tablet losartan (Cozaar) 100 MG tablet 07-18 10:41: 30 Yes 100mg QD Take 100 mg by mouth 1 time each day. Selwyn Henao [facility] spironolact one (Aldactone) 25 MG tablet spironolact one (Aldactone) 25 MG tablet 06-15 00:00: 00 Yes 1{tbl} QD Take 1 tablet by mouth 1 time each day. Selwyn Henao [facility] gentamicin 80 mg/100 mL in sodium chloride(is o) intravenous piggyback Inject 80 mg by intravenous route. gentamicin 80 mg/100 mL in sodium chloride(is o) intravenous piggyback Inject 80 mg by intravenous route. 03-28 12:04: 56 No 80mg gentamicin 80 mg/100 mL in sodium chloride(i so) intravenou s piggyback Inject 80 mg by intravenou s route. [facility] aspirin EC 81 MG EC tablet aspirin EC 81 MG EC tablet 02-22 00:00: 00 Yes 1{tbl} Take 1 tablet by mouth 1 time each day at the same time. Selwyn Henao Epic gentamicin 40 mg/mL injection solution Take 80 mg by injection route. gentamicin 40 mg/mL injection solution Take 80 mg by injection route. 01-26 08:52: 40 No 80mg gentamicin 40 mg/mL injection solution Take 80 mg by injection route. [facility] metoprolol succinate XL (Toprol-XL) 50 MG 24 hr tablet metoprolol succinate XL (Toprol-XL) 50 MG 24 hr tablet 2022-10 0 00:00: 00 Yes 1{tbl} QD Take 1 tablet by mouth 1 time each day. Selwyn Henao [facility] atorvastati n (Lipitor) 40 MG tablet atorvastati n (Lipitor) 40 MG tablet 2019-10 00:00: 00 Yes 40mg QD Take 40 mg by mouth 1 time each day. Selwyn Henao [facility] mycophenola te (Cellcept) 250 MG capsule mycophenola te (Cellcept) 250 MG capsule 06-21 00:00: 00 Yes 1000mg Q.5D Take 1,000 mg by mouth in the morning and 1,000 mg in the evening. Selwyn Henao [facility] sucralfate 1 gm tablet sucralfate 1 gm tablet Yes [facility] mycophenola te mofetil 500 mg tablet mycophenola te mofetil 500 mg tablet Yes [facility] estradiol 0.1 mg/gm cream estradiol 0.1 mg/gm cream Yes [facility] pantoprazol e sodium [address] pantoprazol e sodium [address] Yes [facility] amlodipine besylate 10 mg tablet amlodipine besylate 10 mg tablet Yes [facility] atorvastati n calcium 20 mg tablet atorvastati n calcium 20 mg tablet Yes [facility] citalopram hydrobromid e 10 mg tablet citalopram hydrobromid e 10 mg tablet Yes [facility] losartan potassium 25 mg tablet losartan potassium 25 mg tablet Yes [facility] LUMIGAN 0.01 % SOLUTION LUMIGAN 0.01 % SOLUTION Yes [facility] gabapentin 300 mg capsule gabapentin 300 mg capsule Yes [facility] cholestyram ine 4 gm packet cholestyram ine 4 gm packet Yes [facility] amlodipine 10 mg tablet Take 1 tablet every day by oral route. amlodipine 10 mg tablet Take 1 tablet every day by oral route. No 1 Q1D amlodipine 10 mg tablet Take 1 tablet every day by oral route. [facility] aspirin 81 mg capsule Take 1 capsule every day by oral route. aspirin 81 mg capsule Take 1 capsule every day by oral route. No 1capsul e(s) Q1D aspirin 81 mg capsule Take 1 capsule every day by oral route. [facility] atorvastati n 40 mg tablet Take 1 tablet every day by oral route. atorvastati n 40 mg tablet Take 1 tablet every day by oral route. No 1 Q1D atorvastat in 40 mg tablet Take 1 tablet every day by oral route. [facility] cholestyram ine (bulk) cholestyram ine (bulk) No cholestyra mine (bulk) [facility] Colace Colace No Colace [facility] cranberry cranberry No cranberry [facility] estradiol 0.01% (0.1 mg/gram) vaginal cream USE VAGINALLY 3 TIMES A WEEK AT BEDTIME DIRECTED estradiol 0.01% (0.1 mg/gram) vaginal cream USE VAGINALLY 3 TIMES A WEEK AT BEDTIME DIRECTED No estradiol 0.01% (0.1 mg/gram) vaginal cream USE VAGINALLY 3 TIMES A WEEK AT BEDTIME DIRECTED [facility] gabapentin gabapentin No gabapentin [facility] iron iron No iron [facility] losartan losartan No losartan [facility] metoprolol succinate metoprolol succinate No metoprolol succinate [facility] pantoprazol e pantoprazol e No pantoprazo le [facility] Vitamin C Vitamin C No Vitamin C [facility] Vitamin D2 Vitamin D2 No Vitamin D2 [facility] Vitamin D3 Vitamin D3 No Vitamin D3 [facility] Procrit Procrit No Procrit P [facility] fosfomycin tromethamin e 3 gram oral packet as directed; one dose now; 1 day fosfomycin tromethamin e 3 gram oral packet as directed; one dose now; 1 day No fosfomycin tromethami ne 3 gram oral packet as directed; one dose now; 1 day [facility] ciprofloxac in 500 mg tablet Take 1 tablet every day by oral route for 14 days. ciprofloxac in 500 mg tablet Take 1 tablet every day by oral route for 14 days. No 1 Q1D ciprofloxa rowdy 500 mg tablet Take 1 tablet every day by oral route for 14 days. [facility] CellCept CellCept No CellCept [facility] metoprolol succinate er 100 mg tablet er 24 hr metoprolol succinate er 100 mg tablet er 24 hr Yes [facility] Vital Signs Vital Name Observation Time Observation Value Comments S ource BP Diastolic 2024-06-21 00:00:00 76 mm[Hg] [facility] Height 2024-06-21 00:00:00 65 [in_i] [facility] Body Weight 2024-06-21 00:00:00 170.2 [lb_av] [facility] BMI (Body Mass Index) 2024-06-21 00:00:00 28.3 kg/m2 [facility] BP Systolic 2024-06-21 00:00:00 140 mm[Hg] [facility] BMI (Body Mass Index) 2024-02-10 00:00:00 28.4 kg/m2 [facility] Body Weight 2024-02-10 00:00:00 170.4 [lb_av] [facility] Height 2024-02-10 00:00:00 65 [in_i] [facility] BP Systolic 2024-02-10 00:00:00 136 mm[Hg] [facility] BP Diastolic 2024-02-10 00:00:00 72 mm[Hg] [facility] Body Weight 2024-01-25 00:00:00 170.4 [lb_av] [facility] BP Diastolic 2024-01-25 00:00:00 83 mm[Hg] [facility] BP Systolic 2024-01-25 00:00:00 139 mm[Hg] [facility] BMI (Body Mass Index) 2024-01-25 00:00:00 28[facility]4 [facility] 2024-01-25 00:00:00 65 [in_i] [facility] BP Systolic 2024-01-08 00:00:00 130 mm[Hg] [facility] BP Diastolic 2024-01-08 00:00:00 67 mm[Hg] [facility] Height 2024-01-08 00:00:00 65 [in_i] [facility] Procedures Procedure Date / Time Performed Performing Clinicia n Source MAMMO, screening, digital, bilateral 2024-06-21 00:00:00 [facility] Implantation of Sacral Nerve Stimulator 2024-02-18 00:00:00 [facility] Percutaneous Sacral Nerve Evaluation 2024-01-08 00:00:00 [facility] Medical Colpocleisis 2021-04-11 00:00:00 [facility] Procedure on Heart 2020-09-12 00:00:00 [facility] Fixation of Vagina 2020-07-12 00:00:00 [facility] Perineorrhaphy 2019-09-25 00:00:00 [facility] Hysterectomy 1996-10-26 00:00:00 Des[facility] edical Repair of Rectocele 1973-10-26 00:00:00 [facility] Encounters Start Date/Time End Date/Time Encounter Type Admission Type Attending Clinicians Care Facility Care Department Encounter ID Source 2024-08-26 17:00:00 2024-08-26 17:40:00 CMR Stephanie Collie DEV DEV [id number] [address] [place] [address] 2024-07-18 10:30:00 2024-07-18 10:45:48 Office Visit Lavern Fowler Rheumatol [facility] [id number] [facility] 2024-07-18 10:10:32 2024-07-18 10:45:48 Outpatient Elective LAVERN FOWLER MHEOUT MHEOUT [id number] MHEOUT 2024-06-21 00:00:00 2024-06-21 00:00:00 Azra Wood MD: [address], [place] [id number] , Ph. [facility]ly [facility] GC_GCBZW_[facility]* [id number] [facility] 2024-04-06 00:00:00 2024-04-06 00:00:00 Azra Wood MD: [address], [place] [address] , Ph. [facility] - GC_GCBZW_[facility]* [id number] [facility] 2024-04-05 00:00:00 2024-04-05 00:00:00 Azra Wood MD: [address], [place] [id number] , Ph. [facility] - GC_GCBZW_[facility]* [id number] [facility] 2024-04-04 00:00:00 2024-04-04 00:00:00 Azra Wood MD: [address], [place] [id number] , Ph. [facility] - GC_GCBZW_[facility]* [id number] [facility] 2024-04-02 00:00:00 2024-04-02 00:00:00 Azra Wood MD: [address], [place] [id number] , Ph. [facility] - GC_GCBZW_[facility]* [id number] [facility] 2024-04-01 00:00:00 2024-04-01 00:00:00 Azra Wood MD: [address], [place] [id number] , Ph. [facility] - GC_GCBZW_Or fili Osakis* [id number] [facility] 2024-03-31 00:00:00 2024-03-31 00:00:00 Azra Wood MD: [address], [place] [id number] , Ph. [facility] - GC_GCBZW_Or fili Osakis* [id number] [facility] 2024-03-30 00:00:00 2024-03-30 00:00:00 Azra Wood MD: [address], [place] [address] , Ph. [facility] - GC_GCBZW_Or fili Zak* [id number] [facility] 2024-03-29 00:00:00 2024-03-29 00:00:00 Azra Wood MD: [address], [place] [address] , Ph. [facility] - GC_GCBZW_[facility]* [id number] [facility] 2024-03-28 00:00:00 2024-03-28 00:00:00 Azra Wood MD: [address], [place] [id number] , Ph. [facility] - GC_GCBZ[facility]* [id number] [facility] 2024-03-26 00:00:00 2024-03-26 00:00:00 Azra Wood MD: [address], [place] [address] , Ph. [facility] - GC[facility]GCBZ[facility]* [id number] [facility] 2024-03-25 00:00:00 2024-03-25 00:00:00 Azra oWod MD: [address], [place] [id number] , Ph. [facility] - GC_GCBZW_[facility]* [id number] [facility] 2024-03-24 00:00:00 2024-03-24 00:00:00 Azra Wood MD: [address], [place] [id number] , Ph. [facility] - GC_GCBZW_[facility]* [id number] [facility] 2024-03-23 00:00:00 2024-03-23 00:00:00 Azra Wood MD: [address], [place] [id number] , Ph. [facility] - GC_GCBZW_Ermelinda fili Zak* [id number] [facility] 2024-03-22 00:00:00 2024-03-22 00:00:00 Azra Wood MD: [address], [place] [id number] , Ph. [facility] - GC_GCBZW_Or fili Zak* [id number] [facility] 2024-03-18 00:00:00 2024-03-18 00:00:00 Azra Wood MD: [address], [place] [id number] , Ph. [facility] - GC_GCBZW_Ermelinda fili Zak* [id number] [facility] 2024-03-14 00:00:00 2024-03-14 00:00:00 SINDI Benoit: [address], [place] [id number] , Ph. [facility] - GC_GCBZW_Or fili Zak* [id number] [facility] 2024-03-11 00:00:00 2024-03-11 00:00:00 SMITA Rodríguez: [address], [place] [id number] , Ph. [facility] - GC_GCBZW_Ermelinda fili Zak* [id number] [facility] 2024-02-10 00:00:00 2024-02-10 00:00:00 SMITA Rodríguez: [address], [place] [address] , Ph. [facility] - GC_GCBZW_Ermelinda fili Zak* [id number] [facility] 2024-01-29 00:00:00 2024-01-29 00:00:00 Azra Wood MD: [address], [place] [address] , Ph. GC_GCBZW_Sera guerra_M[place] [facility] - GC_GCBZW_[facility]* [id number] [facility] 2024-01-28 00:00:00 2024-01-28 00:00:00 Azra Wood MD: [address], [place] [id number] , Ph. [facility] - GC_GCBZW_[facility]* [id number] [facility] 2024-01-27 00:00:00 2024-01-27 00:00:00 Azra Wood MD: [address], [place] [id number] , Ph. [facility] - GC[facility]GCBZW_[facility]* [id number] [facility] 2024-01-26 00:00:00 2024-01-26 00:00:00 Azra Wood MD: [address], [place] [id number] , Ph. [facility] - GC_GCBZW_[facility]* [id number] [facility] 2024-01-25 00:00:00 2024-01-25 00:00:00 SINDI Bose: [address], [place] [address] , Ph. [facility] - GC_GCBZW_[facility]* [id number] [facility] 2024-01-23 00:00:00 2024-01-23 00:00:00 Elina Eubanks PA: [address], [place] [id number] , Ph. [facility] - GC_GCBZW_Ermelinda Crespo* [id number] [facility] 2024-01-22 00:00:00 2024-01-22 00:00:00 SMITA Rodríguez: [address], [address] , Ph. GC_GCBZW_Ka diyala_S [facility] - GC_GCBZW_Ermelinda Crespo* [id number] [facility] 2024-01-21 00:00:00 2024-01-21 00:00:00 SMITA Rodríguez: [address], [place] [id number] , Ph. GC_GCBZW_Sera diyala_S [facility] - GC_GCBZW_Ermelinda Crespo* [id number] [facility] 2024-01-20 00:00:00 2024-01-20 00:00:00 SMITA Rodríguez: [address], [place] [address] , Ph. [facility] - GC_GCBZW_Ermelinda Crespo* [id number] [facility] 2024-01-19 00:00:00 2024-01-19 00:00:00 SMITA Rodríguez: [address], [place] [id number] , Ph. [facility] - GC_GCBZW_Ermelinda Crespo* [id number] [facility] 2024-01-18 00:00:00 2024-01-18 00:00:00 SMITA Rodríguez: [address], [place] [address] , Ph. [facility] - GC_GCBZW_Ermelinda Crespo* [id number] [facility] 2024-01-17 00:00:00 2024-01-17 00:00:00 Outpatient GC_GCBZW_Ka diyala_S [facility] PRIV [id number] [facility] 2024-01-15 00:00:00 2024-01-15 00:00:00 SMITA Rodríguez: [address], [place] [id number] , Ph. GC_GCBZW_Ka diyala_S [facility] - GC_GCBZW_Ermelinda Crespo* [id number] [facility] 2024-01-08 00:00:00 2024-01-08 00:00:00 Azra Wood MD: [address], [place] [address] , Ph. GC_GCBZW_Ka diyala_S [facility] - GC_GCBZW_Ermelinda Crespo* [id number] [facility] 2024-01-08 00:00:00 2024-01-08 00:00:00 Azra Wood MD: [address], [place] [phone] , Ph. [facility] - GC_GCBZW_Ermelinda Crespo* [id number] [facility] 2023-12-24 00:00:00 2023-12-24 00:00:00 Outpatient GC_GCBZW_Ka diyala_S [facility] PRIV [id number] [facility] 2023-12-14 00:00:00 2023-12-14 00:00:00 Outpatient GC_GCBZW_Ka diyala_S [facility] PRIV [id number] [facility] 2023-12-14 00:00:00 2023-12-14 00:00:00 SINDI Benoit: [address], [place] [id number] , Ph. [facility] - GC_GCBZW_Ermelinda fili Crespo* [id number] [facility] 2023-12-09 00:00:00 2023-12-09 00:00:00 Outpatient GC_GCBZW_Ka diyala_S PRIV PRIV [id number] [facility] 2023-12-02 15:30:00 2023-12-02 16:30:00 Annual Pat Morales [id number] CJE [facility] 2023-12-01 00:00:00 2023-12-01 00:00:00 Outpatient GC_GCBZW_Ka diyala_S PRIV PRIV [id number] [facility] 2023-12-01 00:00:00 2023-12-01 00:00:00 Azra Wood MD: [address], [place] [address] , Ph. [facility] - GC_GCBZW_Ermelinda penn Osakis* [id number] [facility] 2023-11-30 00:00:00 2023-11-30 00:00:00 Outpatient GC_GCBZW_Ka diyala_S PRIV PRIV [id number] [facility] 2023-11-16 00:00:00 2023-11-16 00:00:00 Outpatient GC_GCBZW_Ka diyala_S PRIV PRIV [id number] [facility] 2023-11-16 00:00:00 2023-11-16 00:00:00 SINDI Benoit: [address], [place] [address] , Ph. [facility] - GC_GCBZW_Ermelinda penn Osakis* [id number] [facility] 2023-05-04 00:00:00 2023-05-04 00:00:00 Outpatient GC_GCBZW_Ka diyala_S PRIV PRIV [id number] [facility] 2023-02-12 16:00:00 2023-02-12 17:00:00 CAV Pauline Donohue [id number] [facility] 2023-01-22 00:00:00 2023-01-22 00:00:00 Outpatient Daniels_b [facility] [id number] [facility] 2023-01-22 00:00:00 2023-01-22 00:00:00 Outpatient Daniels_b [facility] [id number] [facility] 2022-08-21 14:30:00 2022-08-21 15:30:00 CAV Pauline Donohue [id number] [facility] [facility] 2022-08-13 00:00:00 2022-08-13 00:00:00 Outpatient Daniels_b [facility] [id number] [facility] 2022-05-09 03:56:00 2022-05-09 03:56:00 Outpatient [facility] [id number] [facility] 2022-03-21 20:00:00 2022-03-21 21:00:00 CAV Brunilda Rucker [id number] CLACXRHECG JE2 [facility] 2021-08-19 08:01:00 2021-08-19 08:01:00 Outpatient [facility] [id number] [facility] Results Test Description Test Time Test Comments Results Resul t Comments Source infectious disease panel 2024-03-28 10:03:00 Abnormal Status [facility] Medical[facility]inal[facility] macro (dipstick) panel - [id number] 14:34:00* Test Item Value Reference Range Interpretation Comme nts Leukocytes (test code = Leukocytes) 3+ Nitrite (test code = Nitrite) negative Urobilinogen (test code = Urobilinogen) Normal Protein (test code = Protein) 2+ pH (test code = pH) 6.0 Blood (test code = Blood) 2+ Specific [place] (test code = Specific [place]) 1.020 Ketone (test code = Ketone) Negative Bilirubin (test code = Bilirubin) Negative Glucose (test code = Glucose) Negative Appearance (test code = Appearance) Turbid Color (test code = Color) Yellow [facility]/or bladder capacity (PROC)2024-03-11 11:36:00* Test Item Value Reference Range Interpretation Comme nts (PVR) (test code = (PVR)) 32 [facility] macro (dipstick) panel - [id number] 08:38:00* Test Item Value Reference Range Interpretation Comme nts Leukocytes (test code = Leukocytes) Negative Nitrite (test code = Nitrite) negative Urobilinogen (test code = Urobilinogen) 0.2 Protein (test code = Protein) 2+ pH (test code = pH) 6.0 Blood (test code = Blood) Negative Specific [place] (test code = Specific [place]) 1.015 Ketone (test code = Ketone) Negative Bilirubin (test code = Bilirubin) Negative Glucose (test code = Glucose) Negative Appearance (test code = Appearance) Clear Color (test code = Color) Pale Yellow [facility] (dipstick) panel - [id number] 11:43:00* Test Item Value Reference Range Interpretation Comme nts Leukocytes (test code = Leukocytes) Negative Nitrite (test code = Nitrite) negative Urobilinogen (test code = Urobilinogen) Normal Protein (test code = Protein) 2+ pH (test code = pH) 6.0 Blood (test code = Blood) Negative Specific [place] (test code = Specific [place]) 1.015 Ketone (test code = Ketone) Negative Bilirubin (test code = Bilirubin) Negative Glucose (test code = Glucose) Negative Appearance (test code = Appearance) Clear Color (test code = Color) Yellow [facility]acteria identified in Urine by [id number] 00:00:00* Test Item Value Reference Range Interpretation Comme nts culture, urine (test code = culture, urine) see below no growth A [facility] complete [facility] Culture panel - [id number] 00:00:00* Test Item Value Reference Range Interpretation Comme nts bacteria, urine (test code = bacteria, urine) many none-few A blood, urine (test code = bl ood, urine) small negative A bilirubin, urine (test code = bilirubin, urine) negative negative cast, granular, ur (test cod e = cast, granular, ur) not present not present cast, hyaline, urine (test c ode = cast, hyaline, urine) not present not present cast, RBC, urine (test code = cast, RBC, urine) not present not present character (test code = character) turbid clear A color (test code = color) yellow yellow crystals urine (test code = crystals urine) none none epithelial cells, ur (test c ode = epithelial cells, ur) few none-few glucose, urine (test code = glucose, urine) negative negative ketone, urine (test code = ketone, urine) negative negative leukocyte esterase (test cod e = leukocyte esterase) large negative A nitrites urine (test code = nitrites urine) negative negative pH urine (test code = pH urine) 6.0 5.0-8.0 protein, urine (test code = protein, urine) 2+,100 mg/dL negative A RBC, urine (test code = RBC, urine) 0-2 0-2 specific gravity ur (test co de = specific gravity ur) 1.007 1.003-1.030 urobilinogen urine (test cod e = urobilinogen urine) 0.2 mg/dL 0.2-1.0 WBC, urine (test code = WBC, urine) >100 0-5 H [facility] MedicalUrinalysis macro (dipstick) panel - [id number] 14:35:13* Test Item Value Reference Range Interpretation Comme nts Leukocytes (test code = Leukocytes) 3+ Nitrite (test code = Nitrite) negative Urobilinogen (test code = Urobilinogen) Normal Protein (test code = Protein) 2+ pH (test code = pH) 6.0 Blood (test code = Blood) Non-Hemolyzed: Moderate Specific [place] (test code = Specific [place]) 1.005 Ketone (test code = Ketone) Negative Bilirubin (test code = Bilirubin) Negative Glucose (test code = Glucose) Negative Appearance (test code = Appearance) Cloudy Color (test code = Color) Yellow [facility] (dipstick) panel - [id number] 11:56:56* Test Item Value Reference Range Interpretation Comme nts Leukocytes (test code = Leukocytes) Negative Nitrite (test code = Nitrite) negative Urobilinogen (test code = Urobilinogen) Normal Protein (test code = Protein) 3+ pH (test code = pH) 6.0 Blood (test code = Blood) Negative Specific [place] (test code = Specific [place]) 1.020 Ketone (test code = Ketone) Negative Bilirubin (test code = Bilirubin) Negative Glucose (test code = Glucose) Negative Appearance (test code = Appearance) Clear Color (test code = Color) Yellow [facility] identified in Urine by [id number] 00:00:00* Test Item Value Reference Range Interpretation Comme nts culture, urine (test code = culture, urine) see below no growth A [facility] complete W Reflex Culture panel - [id number] 00:00:00* Test Item Value Reference Range Interpretation Comme nts bacteria, urine (test code = bacteria, urine) many none-few A blood, urine (test code = bl ood, urine) trace negative A bilirubin, urine (test code = bilirubin, urine) negative negative cast, granular, ur (test cod e = cast, granular, ur) not present not present cast, hyaline, urine (test c ode = cast, hyaline, urine) not present not present cast, RBC, urine (test code = cast, RBC, urine) not present not present character (test code = character) turbid clear A color (test code = color) yellow yellow crystals urine (test code = crystals urine) none none epithelial cells, ur (test c ode = epithelial cells, ur) none none-few glucose, urine (test code = glucose, urine) negative negative ketone, urine (test code = ketone, urine) negative negative leukocyte esterase (test cod e = leukocyte esterase) moderate negative A nitrites urine (test code = nitrites urine) negative negative pH urine (test code = pH urine) 5.5 5.0-8.0 protein, urine (test code = protein, urine) 3+,300 mg/dL negative A RBC, urine (test code = RBC, urine) 0-2 0-2 specific gravity ur (test co de = specific gravity ur) 1.016 1.003-1.030 urobilinogen urine (test cod e = urobilinogen urine) 0.2 mg/dL 0.2-1.0 WBC, urine (test code = WBC, urine) >100 0-5 [facility] - [id number] 14:58:26* Test Item Value Reference Range Interpretation Comme nts Leukocytes (test code = Leukocytes) 1+ Nitrite (test code = Nitrite) negative Urobilinogen (test code = Urobilinogen) Normal Protein (test code = Protein) 3+ pH (test code = pH) 6.0 Blood (test code = Blood) Non-Hemolyzed: Trace Specific [place] (test code = Specific [place]) 1.025 Ketone (test code = Ketone) Negative Bilirubin (test code = Bilirubin) Negative Glucose (test code = Glucose) Negative Appearance (test code = Appearance) Cloudy Color (test code = Color) Yellow [facility]
[2024-12-02 17:09] LABS: Absolute Eosinophils 0.1 K/uL (0-0.5); Absolute Lymphocytes (CBC) 0.4 K/uL (0.7-4.9); Absolute Monocytes 0.7 K/uL (0.1-1.3); Absolute Neutrophil 3.9 K/uL (1.8-8.0); Basophils % 0.2 % (0-1.3); Eosinophils % 2.3 % (0-4.4); Hematocrit 30.6 % (36.0-45.0); Hemoglobin 10.2 g/dL (12.0-15.0); Lymphocytes % 7.7 % (15.3-44.8); MCH 31.8 pg (27.0-35.0); MCHC 33.5 g/dL (32.0-36.0); MCV 95.1 fL (80-100); Monocytes % 13.7 % (3.3-12.3); Neutrophils % 76.1 % (41.7-73.7); Nucleated Red Blood Cells % 0.1 % (0-0); Platelets 215 thou/uL (152-406); RBC Red Blood Cell Count 3.21 M/uL (3.86-4.86); Red Cell Distribution Width 15.3 % (12.1-15.2)
[2024-12-02 17:15] LABS: PT Prothrombin Time 12.1 SECONDS (9.4-12.5); Protime INR 1.15
[2024-12-02 17:27] LABS: Anion Gap 9.2 mEq/L (5.0-15.0); Potassium 5.2 mEq/L (3.5-5.1); Troponin High Sensitivity 8.1 pg/mL (<58.9)
--- NOTE | 2024-12-02 17:31 | ER ---
Nurse's Notes [facility] Name: Mirtha Edouard Age: 74 yrs Sex: Female : 1950 Arrival Date: 12/02/2024 Time: 15:54 Bed 17 Private MD: Diagnosis: Pain in left shoulder Presentation: 12/02 16:10 Chief complaint: Patient states: Left shoulder pain that radiates to neck onset cm10 yesterday. Pt states that the pain is worse with movement. Coronavirus screen: Client denies travel out of the [place] in the last 14 days. Ebola Screen: Patient denies travel to an Ebola-affected area in the 21 days before illness onset. Initial Sepsis Screen: Does the patient meet any 2 criteria? No. Patient's initial sepsis screen is negative. Does the patient have a suspected source of infection? No. Patient's initial sepsis screen is negative. Risk Assessment: Do you want to hurt yourself or someone else? Patient reports no desire to harm self or others. Onset of symptoms was December 01, 2024. 16:10 Method Of Arrival: Ambulatory cm10 16:10 Acuity: ADELAIDA 3 cm10 Triage Assessment: 16:13 General: Appears in no apparent distress. comfortable, Behavior is calm, cooperative. cm10 Neuro: No deficits noted. Level of Consciousness is awake, alert, obeys commands, Oriented to person, place, time, situation, Appropriate for age. Respiratory: No deficits noted. Airway is patent Respiratory effort is even, unlabored, Respiratory pattern is regular, symmetrical. Historical: - Allergies: 16:11 No Known Allergies; cm10 - Home Meds: 16:11 amlodipine 10 mg tablet [Active]; atorvastatin 20 mg oral tablet [Active]; Protonix 40 cm10 mg Oral tablet [Active]; metoprolol succinate 50 mg oral Tablet, Extended Release 24 hr 1 tab daily [Active]; losartan 25 mg oral tablet [Active]; Kerendia 10 mg oral tablet [Active]; aspirin 81 mg Oral capsule [Active]; - PMHx: 16:11 CAD; CKD stage 3; GERD; Hypertension; Lupus; Myocardial infarction; cm10 - PSHx: 16:11 Pelvic floor x3; Total abdominal hysterectomy; cm10 - Immunization history:: Adult Immunizations up to date. - Infectious Disease History:: Denies. - Social history:: Smoking status: Patient denies any tobacco usage or history of. Screenin:15 [facility] ED Fall Risk Assessment (Adult) History of falling in the last 3 months, me1 including since admission No falls in past 3 months (0 pts) Confusion or Disorientation No (0 pts) Intoxicated or Sedated No (0 pts) Impaired Gait No (0 pts) Mobility Assist Device Used No (0 pt) Altered Elimination No (0 pt) Score/Fall Risk Level 0 - 2 = Low Risk Maintained a safe environment, Provided non-skid footwear, Hourly rounding (assess needs \T\ fall precautionary measures) done. Abuse screen: Denies threats or abuse. Nutritional screening: No deficits noted. Tuberculosis screening: No symptoms or risk factors identified. Assessment: 16:15 General: Appears uncomfortable, well groomed, well developed, well nourished, Behavior me1 is calm, cooperative, appropriate for age, Reports Left shoulder pain that radiates to neck onset yesterday. Pt states that the pain is worse with movement. Pain: Complains of pain in anterior aspect of left shoulder Pain radiates to left sternocleidomastoid Pain currently is 3 out of 10 on a pain scale. Quality of pain is described as tender, Pain began 1 day ago. Is continuous. Neuro: Level of Consciousness is awake, alert, obeys commands, Oriented to person, place, time, situation, Appropriate for age. Cardiovascular: Patient's skin is warm and dry. Cardiovascular: Reports chest pain. Respiratory: Airway is patent Respiratory effort is even, unlabored, Respiratory pattern is regular, symmetrical. GI: No signs and/or symptoms were reported involving the gastrointestinal system. : No signs and/or symptoms were reported regarding the genitourinary system. EENT: No signs and/or symptoms were reported regarding the EENT system. Derm: Skin is intact, is healthy with good turgor, Skin is pink, warm \T\ dry. Musculoskeletal: No signs and/or symptoms reported regarding the musculoskeletal system. Vital Signs: 16:10 BP 154 / 85; Pulse 73; Resp 15; Temp 97.9(O); Pulse Ox 100% on R/A; Weight 75.75 kg; cm10 Height 5 ft. 4 in. ; Pain 3/10; 17:00 BP 125 / 71; Pulse 68; Resp 20; Pulse Ox 96% ; me1 17:30 BP 143 / 72; Pulse 66; Resp 19; Temp 98.2; Pulse Ox 98% ; me1 16:10 Body Mass Index 28.67 (75.75 kg, 162.56 cm) cm10 16:10 Pain Scale: Adult cm10 ED Course: 15:56 Patient arrived in ED. mr 16:01 Lasha Vazquez MD is Attending Physician. ec2 16:11 Triage completed. cm10 16:13 Arm band placed on right wrist. Patient placed in an exam room, on a stretcher. cm10 16:15 Patient has correct armband on for positive identification. Bed in low position. Call me1 light in reach. Side rails up X2. Provided Education on: POC. Verbalized understanding.. Client placed on continuous cardiac and pulse oximetry monitoring. NIBP monitoring applied. photographer model on. Pulse ox on. NIBP on. 16:15 No provider procedures requiring assistance completed. me1 16:27 Renetta Balderas, RN is Primary Nurse. me1 16:54 EKG done, by ED staff, reviewed by Lasha Vazquez MD. me1 17:03 Basic Metabolic Panel Sent. me1 17:03 CBC with Diff Sent. me1 17:03 NT PRO-BNP Sent. me1 17:03 PT-INR Sent. me1 17:03 Troponin HS Sent. me1 17:03 Initial lab(s) drawn, by md, sent to lab. Inserted saline lock: 22 gauge in right me1 antecubital area, using aseptic technique. 17:21 XRAY Chest (1 view) In Process Unspecified. EDMS 18:04 IV discontinued, intact, bleeding controlled, No redness/swelling at site. Pressure kc6 dressing applied. Administered Medications: No medications were administered Medication: 16:15 VIS not applicable for this client. me1 Outcome: 17:31 Discharge ordered by . ec2 18:04 Discharged to home ambulatory, kc6 18:04 Condition: good 18:04 Discharge instructions given to patient, Instructed on discharge instructions, follow up and referral plans. no drinking with medication, no driving heavy equipment, medication usage, Demonstrated understanding of instructions, follow-up care, medications, Prescriptions given X 1, 18:05 Patient left the ED. kc6 Signatures: Dispatcher [employer] EDRosetta Mckenzie, Reg Reg mr Harg[place] DELILAH Keyes RN kc6 Alice Flynn RN RN cm10 Renetta Balderas RN RN me1 Lasha Vazquez MD MD ec2 Corrections: (The following items were deleted from the chart) 16:13 16:11 Allergies: Levaquin; cm10 cm10 16:13 16:11 Allergies: Morphine; cm10 cm10 16: 16:11 Home Meds: metoprolol tartrate 100 mg Oral tablet; cm10 cm10 17:19 16:10 Chief complaint: Patient states: Left shoulder pain that radiates to neck onset me1 yesterday. Pt states that the pain is worse with movement. cm10
--- NOTE | 2024-12-02 17:32 | EDPHYS ---
Physician Documentation [facility] Name: Mirtha Edouard Age: 74 yrs Sex: Female : 1950 Arrival Date: 12/02/2024 Time: 15:54 Bed 17 Private MD: ED Physician Lasha Vazquez HPI: 12/02 17:08 This 74 yrs old Female presents to ER via Ambulatory with complaints of left ec2 shoulder, neck pain. 17:08 Patient arrives today for left neck and shoulder pain. Patient reports that she is ec2 having pain is reproducible with movement. Patient denies any falls or trauma or injury. Patient reports history of cardiac disease and was concerned about a cardiac event.. Historical: - Allergies: 16:11 No Known Allergies; cm10 - Home Meds: 16:11 amlodipine 10 mg tablet [Active]; atorvastatin 20 mg oral tablet [Active]; Protonix 40 cm10 mg Oral tablet [Active]; metoprolol succinate 50 mg oral Tablet, Extended Release 24 hr 1 tab daily [Active]; losartan 25 mg oral tablet [Active]; Kerendia 10 mg oral tablet [Active]; aspirin 81 mg Oral capsule [Active]; - PMHx: 16:11 CAD; CKD stage 3; GERD; Hypertension; Lupus; Myocardial infarction; cm10 - PSHx: 16:11 Pelvic floor x3; Total abdominal hysterectomy; cm10 - Immunization history:: Adult Immunizations up to date. - Infectious Disease History:: Denies. - Social history:: Smoking status: Patient denies any tobacco usage or history of. ROS: 17:09 Constitutional: as per hpi ec2 Exam: 17:09 Constitutional: GEN: NAD Head: atraumatic Eyes: EOMI Ears: External ears are ec2 normal. CV: regular rate LUNGS: no respiratory distress ABD: non-distended SKIN: no evidence of rashes MSK: no evidence of trauma. Left trapezius with TTP, good range of motion of the LUE Vital Signs: 16:10 BP 154 / 85; Pulse 73; Resp 15; Temp 97.9(O); Pulse Ox 100% on R/A; Weight 75.75 kg; cm10 Height 5 ft. 4 in. ; Pain 3/10; 17:00 BP 125 / 71; Pulse 68; Resp 20; Pulse Ox 96% ; me1 17:30 BP 143 / 72; Pulse 66; Resp 19; Temp 98.2; Pulse Ox 98% ; me1 16:10 Body Mass Index 28.67 (75.75 kg, 162.56 cm) cm10 16:10 Pain Scale: Adult cm10 MDM: 16:17 Medical Screening Exam initiated ec2 17:11 Data reviewed: vital signs, nurses notes. ED course: Patient with left neck and ec2 shoulder pain. Examination is revealing for reproducible MSK pain. Will obtain cardiac workup, suspect MSK pain additionally considered ACS, doubt PE or dissection. EKG obtained, independently reviewed and interpreted by me, shows normal sinus rhythm, rate of 66, no acute ST segment elevations, intervals are nonactionable.. 17:31 ED course: Chest x-ray independently reviewed and interpreted by me, shows cardiomegaly ec2 as well as some vascular congestion, no pleural effusion noted. Will discharge home have patient follow-up PCP. Suspect MSK pain causing her initial presenting complaint. Return precautions given.. 12/02 16:11 Order name: Basic Metabolic Panel; Complete Time: 17:30 ec2 12/02 16:11 Order name: CBC with Diff; Complete Time: 17:30 ec2 12/02 16:11 Order name: NT PRO-BNP; Complete Time: 17:30 ec2 12/02 16:11 Order name: PT-INR; Complete Time: 17:30 ec2 12/02 16:11 Order name: Troponin HS; Complete Time: 17:30 ec2 12/02 16:11 Order name: XRAY Chest (1 view) ec2 12/02 16:11 Order name: EKG; Complete Time: 16:12 ec2 12/02 16:11 Order name: Cardiac monitoring; Complete Time: 16:54 ec2 12/02 16:11 Order name: EKG - Nurse/Tech; Complete Time: 16:54 ec2 12/02 16:11 Order name: IV Saline Lock; Complete Time: 17:03 ec2 12/02 16:11 Order name: Labs collected and sent; Complete Time: 17:03 ec2 12/02 16:11 Order name: O2 Per Protocol; Complete Time: 16:54 ec2 12/02 16:11 Order name: O2 Sat Monitoring; Complete Time: 16:54 ec2 Administered Medications: No medications were administered Disposition Summary: 12/02/24 17:31 Discharge Ordered Notes: Location: Home ec2 Condition: Stable ec2 Diagnosis - Pain in left shoulder ec2 Followup: ec2 - With: Private Physician - When: - Reason: Re-evaluation by your physician Discharge Instructions: - Discharge Summary Sheet ec2 - Shoulder Pain ec2 Forms: - Medication Reconciliation Form ec2 - Antibiotic Education ec2 - Prescription Opioid Use ec2 - Patient Portal Instructions ec2 - Leadership Thank You Letter ec2 Prescriptions: - methocarbamol 500 mg Oral tablet - take 1 tablet ORAL route 4 times per day; 15 tablet; Refills: 0, Product ec2 Selection Permitted Signatures: Dispatcher [employer] Alice Brooks RN RN 10 Lasha Vazquez MD MD ec2 Corrections: (The following items were deleted from the chart) 16:13 16:11 Allergies: Levaquin; cm10 cm10 16:13 16:11 Allergies: Morphine; cm10 cm10 16:13 16:11 Home Meds: metoprolol tartrate 100 mg Oral tablet; cm10 cm10 17:32 17:31 Viral infection, unspecified ec2 ec2
--- NOTE | 2024-12-02 17:50 | RAD REPORT ---
Procedure: Chest Single View HISTORY: Chest pain COMPARISON: 2023 FINDINGS: The lungs appear clear of acute infiltrate. No significant pleural effusion noted. The heart is mildly enlarged. IMPRESSION: No acute abnormality is displayed.
[2024-12-02 18:26] VITALS: BP 154/85; TEMP 97.9; O2SAT 100
== END 2024-12-02 18:05 | disposition home or self-care (01) ==
LOC: ER 15:54
DX: M25.512 Pain in left shoulder (principal); M54.2 Cervicalgia
CPT/HCPCS: 36415; 71045; 80048; 83880; 84484; 85025; 85610; 93005; 99284

== ENCOUNTER 2025-03-07 02:34 | Inpatient (IN) | payer OTHER ==
--- OUTSIDE RECORDS SUMMARY | 2025-03-07 02:37 | XMS REPORT | Continuity of Care Document ---
Author Name Unknown Address [address] [facility] [address] [place] [address] [facility] Address [address] [facility] [place] [address] Care Team Providers Care Echo Technologist Name Role Phone Rossi NIETO, Eugene Hooper Primary Care Physician Stephanie Guardado Attending Clinician [phone] Lavern Fowler MD Attending Clinician [phone] LAVERN FOWLER Attending Clinician Unavailable GC_GCBZW_Kadiyala_S Attending Clinician UnavailJanna Mata Attending Clinician [phone] Pauline Morrison Attending Clinician Rojas Attending Clinician Unavailable Brunilda Rucker Attending Clinician GC_GCBZW_Kadiyala_S Admitting Clinician Unavailshashank Xie Admitting Clinician Unavailable Payers Payer Name Policy Type Policy Number Effective Date Expirati on Date Source [employer] Medicare [id number] 2023 00:00:00 [facility] (MEDICARE REPLACEMENT HMO) [id number] 2022 00:00:00 Problems Condition Name Condition Details Condition Category Status Onset Date Resolution Date Last Treatment Date Treating Clinician Comments Source Systemic lupus erythemato shelly (CMS/HCC) Systemic lupus erythemato shelly (CMS/HCC) Disease Active 07-18 00:00: 00 Selwyn Hearn 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 07-18 00:00: 00 Selwyn Hearn High risk medication use High risk medication use Disease Active 2024-0 9-23 00:00: 00 Selwyn Henao [facility] Herpes zoster Herpes Zoster Problem Active 8-27 [...] Chronic Kidney Disease Stage 3 Problem Active 2020-10- 00:00: 00 [facility] Increased frequency of urination Increased Frequency of Urination Problem Active 2020-10 00:00: 00 [facility] Muscle atrophy Muscle Atrophy Problem Active 9-13 00:00: 00 [facility] Menopause present Menopause Present Problem Active 9-13 00:00: 00 [facility] Systemic lupus erythemato shelly Systemic Lupus Erythemato shelly Problem Active 2021-0 6-11 00:00: 00 [facility] Old myocardial infarction Old Myocardial Infarction Problem Active 6-09 00:00: 00 [facility] Acute cystitis Acute Cystitis Problem Active 6 00:00: 00 [facility] Urinary tract infectious disease Urinary Tract Infectious Disease Problem Active 6 00:00: 00 [facility] Lateral cystocele Lateral Cystocele Problem Active 6 00:00: 00 [facility] 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 my Problem Active 04-03 00:00: 00 [facility] History of urinary tract infection History of Urinary Tract Infection Problem Active 6 00:00: 00 [facility] Constipati on Constipati [...] Herniation of Rectum into Vagina Problem Active 15 00:00: 00 [facility] Hypertroph y of uterus Hypertroph y of Uterus Problem Active 05-09 00:00: 00 [facility] Allergies, Adverse Reactions, Alerts Allergy Name Allergy Type Status Severity Reaction(s) Onset Date Inactive Date Treating Clinician Comments Source Hydroxyc hloroqui ne Allergy to substanc e Active 9 00:00: 00 Other Reaction( s): worsening eyes Memoria l [facility] Levoflox acin Allergy to substanc e Active 07-15 00:00: 00 Other Reaction( s): Unknown [facility] Morphine Propensi ty to adverse reaction s Active 07-15 00:00: 00 Other Reaction( s): Unknown [facility] Morphine Drug Allergy Active [facility] Social History Social Habit Start Date Stop Date Quantity Comments Source Gender identity 2024-01-17 13:45:56 Identifies as female gender (finding) [facility] Sexual orientation [facility] ASSERTION Possible [facility] Alcoholic beverage intake 2024-07-15 00:00:00 2024-07-15 00:00:00 Lifetime non-drinker (finding) [facility] History of Social function 2024-07-15 00:00:00 2024-07-15 00:00:00 [facility] Smoking Status Start Date Stop Date Source Never smoked tobacco [facility] Medications Ordered Medication Name Filled Medication Name Start Date Stop Date Current Medication? Ordering Clinician Indication Dosage Frequency Signature (SIG) Comments Components Source losartan losartan 01-24 00:00: 00 No losartan [facility] losartan 25 mg tablet 3- 00:00: 00 Yes 5mg Gus May pantoprazol e 40 mg tablet,jennifer yed release - 00:00: 00 Yes 1mg Gus May hydralazine 25 mg tablet 2-11 00:00: 00 Yes mg Gus May amlodipine 10 mg tablet 1- 00:00: 00 Yes mg Gus May losartan 25 mg tablet 1-18 00:00: 00 Yes mg Gus May atorvastati n 20 mg tablet 2023-10- 00:00: 00 Yes mg Gus May losartan (Cozaar) 100 MG tablet losartan (Cozaar) 100 MG tablet 07-18 10:41: 30 Yes 100mg QD Take 100 mg by mouth 1 time each day. Selwyn [facility] ergocalcife rol (vitamin D2) 1,250 mcg (50,000 unit) capsule 07-18 00:00: 00 Yes (50,000 unit) Gus May mycophenola te mofetil 500 mg tablet 9-14 00:00: 00 Yes mg Gus May spironolact one (Aldactone) 25 MG tablet spironolact one (Aldactone) 25 MG tablet 8-21 00:00: 00 Yes 1{tbl} QD Take 1 tablet by mouth 1 time each day. Selwyn Hearn metoprolol succinate ER 100 mg tablet,exte nded release 24 hr 7- 00:00: 00 Yes mg Gus May gentamicin 40 mg/mL injection solutionTak e 80 mg by injection route. gentamicin 40 mg/mL injection solutionTak e 80 mg by injection route. 6 08:58: 31 No gentamicin 40 mg/mL injection solutionTa ke 80 mg by injection route. [facility] aspirin EC 81 MG EC tablet aspirin EC 81 MG EC tablet 430 00:00: 00 Yes 1{tbl} Take 1 tablet by mouth 1 time each day at the same time. Selwyn Hearn metoprolol succinate XL (Toprol-XL) 50 MG 24 hr tablet metoprolol succinate XL (Toprol-XL) 50 MG 24 hr tablet 2022-10 017 00:00: 00 Yes 1{tbl} QD Take 1 tablet by mouth 1 time each day. Selwyn Hearn atorvastati n (Lipitor) 40 MG tablet atorvastati n (Lipitor) 40 MG tablet 2019-10 1- 00:00: 00 Yes 40mg QD Take 40 mg by mouth 1 time each day. Selwyn Hearn mycophenola te (Cellcept) 250 MG capsule mycophenola te (Cellcept) 250 MG capsule 06-21 00:00: 00 Yes 1000mg Q.5D Take 1,000 mg by mouth in the morning and 1,000 mg in the evening. Selwyn Hearn amlodipine 10 mg tablet Take 1 tablet every day by oral route. amlodipine 10 mg tablet Take 1 tablet every day by oral route. No 1 Q1D amlodipine 10 mg tablet Take 1 tablet every day by oral route. [facility] aspirin 81 mg capsule Take 1 capsule every day by oral route. aspirin 81 mg capsule Take 1 capsule every day by oral route. No 1capsul e(s) Q1D aspirin 81 mg capsule Take 1 capsule every day by oral route. [facility] Colace Colace No Colace [facility] cranberry cranberry No cranberry [facility] estradiol 0.01% (0.1 mg/gram) vaginal cream USE VAGINALLY 3 TIMES A WEEK AT BEDTIME DIRECTED estradiol 0.01% (0.1 mg/gram) vaginal cream USE VAGINALLY 3 TIMES A WEEK AT BEDTIME DIRECTED No estradiol 0.01% (0.1 mg/gram) vaginal cream USE VAGINALLY 3 TIMES A WEEK AT BEDTIME DIRECTED [facility] gabapentin gabapentin No gabapentin [facility] metoprolol succinate metoprolol succinate No metoprolol succinate [facility] pantoprazol e pantoprazol e No pantoprazo le [facility] Vitamin C Vitamin C No Vitamin C [facility] Vitamin D2 Vitamin D2 No Vitamin D2 [facility] Vitamin D3 Vitamin D3 No Vitamin D3 [facility] Procrit Procrit No Procrit P [facility] CellCept CellCept No CellCept [facility] acyclovir 5 % topical ointment 1 application every 3 hours; 5 days acyclovir 5 % topical ointment 1 application every 3 hours; 5 days No acyclovir 5 % topical ointment 1 applicatio n every 3 hours; 5 days [facility] atorvastati n 20 mg tablet Take 1 tablet every day by oral route. atorvastati n 20 mg tablet Take 1 tablet every day by oral route. No 1 Q1D atorvastat in 20 mg tablet Take 1 tablet every day by oral route. [facility] hydrochloro thiazide 25 mg tablet Take 1 tablet every day by oral route. hydrochloro thiazide 25 mg tablet Take 1 tablet every day by oral route. No 1 Q1D hydrochlor othiazide 25 mg tablet Take 1 tablet every day by oral route. [facility] metoprolol succinate er 100 mg tablet er 24 hr metoprolol succinate er 100 mg tablet er 24 hr Yes [facility] sucralfate 1 gm tablet sucralfate 1 gm tablet Yes [facility] mycophenola te mofetil 500 mg tablet mycophenola te mofetil 500 mg tablet Yes [facility] estradiol 0.1 mg/gm cream estradiol 0.1 mg/gm cream Yes [facility] pantoprazol e sodium 40 mg tablet pantoprazol e sodium [address] [...] ine 4 gm packet Yes [facility] Vital Signs Vital Name Observation Time Observation Value Comments S ource Body Weight 2025-01-24 00:00:00 170.4 [lb_av] [facility] BP Systolic 2025-01-24 00:00:00 153 mm[Hg] [facility] Height 2025-01-24 00:00:00 65 [in_i] [facility] BP Diastolic 2025-01-24 00:00:00 70 mm[Hg] [facility] BMI (Body Mass Index) 2025-01-24 00:00:00 28.4 kg/m2 [facility] BP Diastolic 2024-06-21 00:00:00 76 mm[Hg] [facility] [...] (Body Mass Index) 2024-01-25 00:00:00 28.4 kg/m2 [facility] Height 2024-01-25 00:00:00 65 [in_i] [facility] BP Systolic 2024-01-08 00:00:00 130 mm[Hg] [facility] BP Diastolic 2024-01-08 00:00:00 67 mm[Hg] [facility] Height 2024-01-08 00:00:00 65 [in_i] [facility] BP Systolic 2025-01-18 08:56:00 130 mm[Hg] Step hen F [facility]alo BP Diastolic 2025-01-18 08:56:00 62 mm[Hg] Chris phen F Lalo Weight Measured 2025-01-18 08:56:00 171.00 pounds Gus F Lalo Height Measured 2025-01-18 08:56:00 63.78 inches Gus F Lalo Body Temperature 2025-01-18 08:56:00 97.80 degrees Gus F Lalo Heart Rate 2025-01-18 08:56:00 Catherine en F Lalo Respiratory Rate 2025-01-18 08:56:00 Gus F Lalo Respiratory Rate 2024-12-06 09:47:00 Gus F Lalo BP Systolic 2024-12-06 09:47:00 139 mm[Hg] Step hen F [facility]alo BP Diastolic 2024-12-06 09:47:00 78 mm[Hg] Chris phen F Lalo Weight Measured 2024-12-06 09:47:00 169.40 pounds Gus F Lalo Height Measured 2024-12-06 09:47:00 63.78 inches Gus F Lalo Body Temperature 2024-12-06 09:47:00 98.40 degrees Gus F Lalo Heart Rate 2024-12-06 09:47:00 67.00 /min Catherine en F Lalo BP Systolic 2024-12-06 09:28:00 139 mm[Hg] Step hen F Lalo BP Diastolic 2024-12-06 09:28:00 78 mm[Hg] Chris phen F Lalo Weight Measured 2024-12-06 09:28:00 169.40 pounds Gus May Height Measured 2024-12-06 09:28:00 63.78 inches Gus May Body Temperature 2024-12-06 09:28:00 98.40 degrees Gus May Heart Rate 2024-12-06 09:28:00 67.00 /min Catherine May Respiratory Rate 2024-12-06 09:28:00 Gus May Procedures Procedure Date / Time Performed Performing Clinicia n Source MAMMO, screening, digital, bilateral 2024-06-21 00:00:00 [facility] Implantation of Sacral Nerve Stimulator 2024-02-18 00:00:00 [facility] Percutaneous Sacral Nerve Evaluation 2024-01-08 00:00:00 [facility] Colpocleisis 2021-04-11 00:00:00 [facility] Procedure on Heart 2020-09-12 00:00:00 [facility] Fixation of Vagina 2020-07-12 00:00:00 [facility] Perineorrhaphy 2019-09-25 00:00:00 [facility] Hysterectomy 1996-10-26 00:00:00 [facility] Repair of Rectocele 1973-10-26 00:00:00 [facility] Encounters Start Date/Time End Date/Time Encounter Type Admission Type Attending Clinicians Care Facility Care Department Encounter ID Source 2025-01-24 00:00:00 2025-01-24 00:00:00 SMITA Rodríguez: [address], [place] [address] , Ph. Formerly [facility] - [facility]GC[facility]* [id number] [facility] 2025-01-18 08:48:41 2025-01-18 08:48:41 Outpatient SFA SFA [id number] Gus May 2025-01-18 00:00:00 2025-01-18 00:00:00 Outpatient Visit SFA SFA [id number] Gus May 2024-12-06 09:19:53 2024-12-06 09:19:53 Outpatient SFA SFA [id number] Gus May 2024-12-06 00:00:00 2024-12-06 00:00:00 Outpatient Visit [facility] [id number] [id number] Gus May 2024-08-26 17:00:00 2024-08-26 17:40:00 CMR Stephanie Gottliebyandel DEV DEV [id number] [facility] 2024-07-18 10:30:00 2024-07-18 10:45:48 Office Visit Lavern Fowler Rheumatol [facility] [id number] [facility] 2024-07-18 10:10:32 2024-07-18 10:45:48 Outpatient Elective LAVERN FOWLER EOUT EOUT [id number] [facility] 2024-06-21 00:00:00 2024-06-21 00:00:00 Azra Wood MD: [address], [facility] [address], [place] [id number] , Ph. Formerly [facility] - GC_GCBZW_Ermelinda Crespo* [id number] [facility] 2024-04-06 00:00:00 2024-04-06 00:00:00 Azra Wood MD: [address], [place] [id number] , Ph. Formerly [facility] - GC_GCBZW_Ermelinda Cresop* [id number] [facility] 2024-04-05 00:00:00 2024-04-05 00:00:00 Azra Wood MD: [address], [place] [id number] , Ph. Formerly [facility] - GC_GCBZW_Ermelinda Crespo* [id number] [facility] 2024-04-04 00:00:00 2024-04-04 00:00:00 Azra Wood MD: [address], [place] [address] , Ph. Formerly [facility] - GC[facility]GCBZ[facility]* [id number] [facility] 2024-04-02 00:00:00 2024-04-02 00:00:00 Azra Wood MD: [address], [place] [address] , Ph. Formerly [facility] - GC_GCBZ[facility]* [id number] [facility] 2024-04-01 00:00:00 2024-04-01 00:00:00 Azra Wood MD: [address], [place] [address] , Ph. Formerly [facility] - GC[facility]* [id number] [facility] 2024-03-31 00:00:00 2024-03-31 00:00:00 Azra Wood MD: [address], [place] [id number] , Ph. Formerly [facility] - GC[facility]* [id number] [facility] 2024-03-30 00:00:00 2024-03-30 00:00:00 Azra Wood MD: [address], [place] [id number] , Ph. Formerly [facility] - GC[facility]* [id number] [facility] 2024-03-29 00:00:00 2024-03-29 00:00:00 Azra Wood MD: [address], [place] [id number] , Ph. Formerly [facility] - GC_GCBZW_Ermelinda penn Zak* [id number] [facility] 2024-03-28 00:00:00 2024-03-28 00:00:00 Azra Wood MD: [address], [place] [id number] , Ph. Formerly [facility] - GC_GCBZW_Ermelinda penn Zak* [id number] [facility] 2024-03-26 00:00:00 2024-03-26 00:00:00 Azra Wood MD: [address], [place] [address] , Ph. Formerly [facility] - GC_GCBZW_Ermelinda penn Zak* [id number] [facility] 2024-03-25 00:00:00 2024-03-25 00:00:00 Azra Wood MD: [address], [place] [id number] , Ph. Formerly [facility] - GC_GCBZW_Sc fili Zak* [id number] [facility] 2024-03-24 00:00:00 2024-03-24 00:00:00 Azra Wood MD: [address], [place] [id number] , Ph. Formerly [facility] - GC_GCBZW_Sc fili Zak* [id number] [facility] 2024-03-23 00:00:00 2024-03-23 00:00:00 Azra Wood MD: [address], [place] [id number] , Ph. Formerly [facility] - GC_GCBZW_Sc fili Zak* [id number] [facility] 2024-03-22 00:00:00 2024-03-22 00:00:00 Azra Wood MD: [address], [place] [id number] , Ph. Formerly [facility] - GC_GCBZW_Sc fili Reedy* [id number] [facility] 2024-03-18 00:00:00 2024-03-18 00:00:00 Azra Wood MD: [address], [place] [id number] , Ph. Formerly [facility] - GC[facility]* [id number] [facility] 2024-03-14 00:00:00 2024-03-14 00:00:00 SINDI Benoit: [address], [place] [address] , Ph. Formerly [facility] - GC[facility]* [id number] [facility] 2024-03-11 00:00:00 2024-03-11 00:00:00 SMITA Rodríguez: [address], [place] [address] , Ph. Formerly [facility] - GC[facility]* [id number] [facility] 2024-02-10 00:00:00 2024-02-10 00:00:00 SMITA Rodríguez: [address], [place] [id number] , Ph. Formerly [facility] - [facility]* [id number] [facility] 2024-01-29 00:00:00 2024-01-29 00:00:00 Azra Wood MD: [address], [place] [id number] , Ph. GC_GCBZW_Sera guerra_Milton Formerly [facility] - GC_GCBZW_Sc fili Zak* [id number] [facility] 2024-01-28 00:00:00 2024-01-28 00:00:00 Azra Wood MD: [address], [place] [id number] , Ph. Formerly [facility] - GC_GCBZW_Sc fili Zak* [id number] [facility] 2024-01-27 00:00:00 2024-01-27 00:00:00 Azra Wood MD: [address], [place] [id number] , Ph. Formerly [facility] - GC_GCBZW_Sc fili Reedy* [id number] [facility] 2024-01-26 00:00:00 2024-01-26 00:00:00 Azra Wood MD: [address], [place] [id number] , Ph. Formerly [facility] - GC_GCBZW_Sc fili Zak* [id number] [facility] 2024-01-25 00:00:00 2024-01-25 00:00:00 MILADYS BoseP: [address], [place] [id number] , Ph. Formerly [facility] - GC_GCBZW_Sc fili Reedy* [id number] [facility] 2024-01-23 00:00:00 2024-01-23 00:00:00 SMITA Rodríguez: [address], [place] [id number] , Ph. Formerly [facility] - GC_GCBZW_Sc fili Zak* [id number] [facility] 2024-01-22 00:00:00 2024-01-22 00:00:00 SMITA Rodríguez: [address], [place] [id number] , Ph. GC_GCBZW_Ka diyala_S Formerly [facility] - GC_GCBZW_La fili Crespo* [id number] [facility] 2024-01-21 00:00:00 2024-01-21 00:00:00 SMITA Rodríguez: [address], [place] [id number] , Ph. GC_GCBZW_Ka diyala_S Formerly [facility] - GC_GCBZW_La fili Zak* [id number] [facility] 2024-01-20 00:00:00 2024-01-20 00:00:00 SMITA Rodríguez: [address], [place] [address] , Ph. Formerly [facility] - GC_GCBZW_Ermelinda penn Zak* [id number] [facility] 2024-01-19 00:00:00 2024-01-19 00:00:00 SMITA Rodríguez: [address], [place] [id number] , Ph. Formerly [facility] - GC_GCBZW_Ermelinda penn Zak* [id number] [facility] 2024-01-18 00:00:00 2024-01-18 00:00:00 SMITA Rodríguez: [address], [place] [address] , Ph. Formerly [facility] - GC_GCBZW_La fili Zak* [id number] [facility] 2024-01-17 00:00:00 2024-01-17 00:00:00 Outpatient GC_GCBZW_Ka diyala_S PRIV [facility] [id number] [facility] 2024-01-15 00:00:00 2024-01-15 00:00:00 SMITA Rodríguez: [address], [place] [id number] , Ph. GC_GCBZW_Ka diyala_S Formerly [facility] - GC_GCBZW_Ermelinda penn Zak* [id number] [facility] 2024-01-08 00:00:00 2024-01-08 00:00:00 Azra Wood MD: [address], [place] [address] , Ph. GC_GCBZW_Ka diyala_S Formerly [facility] - GC_GCBZW_Ermelinda penn Zak* [id number] [facility] 2024-01-08 00:00:00 2024-01-08 00:00:00 Azra Wood MD: [address], [place] [id number] , Ph. Formerly [facility] - GC_GCBZW_Ermelinda penn Zak* [id number] [facility] 2023-12-24 00:00:00 2023-12-24 00:00:00 Outpatient GC_GCBZW_Ka diyala_S [facility] PRIV [id number] [facility] 2023-12-14 00:00:00 2023-12-14 00:00:00 Outpatient GC_GCBZW_Ka diyala_S PRIV PRIV [id number] [facility] 2023-12-14 00:00:00 2023-12-14 00:00:00 SINDI Benoit: [address], [place] [id number] , Ph. Formerly [facility] - GC_GCBZW_Ermelinda penn Zak* [id number] [facility] 2023-12-09 00:00:00 2023-12-09 00:00:00 Outpatient GC_GCBZW_Ka diyala_S PRIV PRIV [id number] [facility] 2023-12-02 15:30:00 2023-12-02 16:30:00 Annual D2Ar Janna Andrew [id number] [id number] [facility] 2023-12-01 00:00:00 2023-12-01 00:00:00 Outpatient GC_GCBZW_Ka diyala_S PRIV PRIV [id number] [facility] 2023-12-01 00:00:00 2023-12-01 00:00:00 Azra Wood MD: [address], [place] [address] , Ph. Formerly [facility] - GC_GCBZW_[facility]* [id number] [facility] 2023-11-30 00:00:00 2023-11-30 00:00:00 Outpatient GC_GCBZW_Ka diyala_S [facility] PRIV [id number] [facility] 2023-11-16 00:00:00 2023-11-16 00:00:00 Outpatient GC_GCBZW_Ka diyala_S [facility] PRIV [id number] [facility] 2023-11-16 00:00:00 2023-11-16 00:00:00 SINDI Benoit: [address], [place] [address] , Ph. Formerly [facility] - GC[facility]GCBZ[facility]* [id number] [facility] 2023-05-04 00:00:00 2023-05-04 00:00:00 Outpatient GC_GCBZW_Ka diyala_S [facility] PRIV [id number] [facility] 2023-02-12 16:00:00 2023-02-12 17:00:00 MARCY Donohue [id number] [facility] 2023-01-22 00:00:00 2023-01-22 00:00:00 Outpatient Daniels_b [facility] [id number] [facility] 2023-01-22 00:00:00 2023-01-22 00:00:00 Outpatient Daniels_b [facility] [id number] [facility] 2022-08-21 14:30:00 2022-08-21 15:30:00 CAV Pauline Donohue [id number] [facility] 2022-08-13 00:00:00 2022-08-13 00:00:00 Outpatient Charanjit_b [facility] [id number] [facility] 2022-05-09 03:56:00 2022-05-09 03:56:00 Outpatient [facility] [id number] [facility] 2022-03-21 20:00:00 2022-03-21 21:00:00 CAV Brunilda Rucker [id number] JE2 [facility] 2021-08-19 08:01:00 2021-08-19 08:01:00 Outpatient [facility] [id number] [facility] [facility] Results Test Description Test Time Test Comments Results Result Co mments Source [facility] Medicalinfectious disease [id number] 10:03:00Abnormal StatusPrivia MedicalUrinalysis macro (dipstick) panel - [id number] 09:01:00* Test Item Value Reference Range Interpretation Comme nts Leukocytes (test code = Leukocytes) 3+ Nitrite (test code = Nitrite) negative Urobilinogen (test code = Urobilinogen) Normal Protein (test code = Protein) Trace pH (test code = pH) 5.0 Blood (test code = Blood) Hemolyzed: Trace Specific [place] (test code = Specific [place]) 1.020 Ketone (test code = Ketone) Trace Bilirubin (test code = Bilirubin) Negative Glucose (test code = Glucose) Negative Appearance (test code = Appearance) Cloudy Color (test code = Color) Yellow [facility] Medicalurinalysis, [id number] 09:01:00* Test Item Value Reference Range Interpretation Comme nts Leukocytes (test code = Leukocytes) 3+ Nitrite (test code = Nitrite) negative Urobilinogen (test code = Urobilinogen) Normal Protein (test code = Protein) Trace pH (test code = pH) 5.0 Blood (test code = Blood) Hemolyzed: Trace Specific [place] (test code = Specific [place]) 1.020 Ketone (test code = Ketone) Trace Bilirubin (test code = Bilirubin) Negative Glucose (test code = Glucose) Negative Appearance (test code = Appearance) Cloudy Color (test code = Color) Yellow [facility] MedicalUrinalysis macro (dipstick) panel - [id number] 14:34:00* Test Item Value Reference Range Interpretation Comme nts Leukocytes (test code = Leukocytes) 3+ Nitrite (test code = Nitrite) negative Urobilinogen (test code = Urobilinogen) Normal Protein (test code = Protein) 2+ pH (test code = pH) 6.0 Blood (test code = Blood) 2+ Specific [place] (test code = Specific [place]) 1.020 Ketone (test code = Ketone) Negative Bilirubin (test code = Bilirubin) Negative Glucose (test code = Glucose) Negative Appearance (test code = Appearance) Turbid Color (test code = Color) Yellow [facility] Medicalurinalysis, [id number] 14:34:00* Test Item Value Reference Range Interpretation Comme nts Leukocytes (test code = Leukocytes) 3+ Nitrite (test code = Nitrite) negative Urobilinogen (test code = Urobilinogen) Normal Protein (test code = Protein) 2+ pH (test code = pH) 6.0 Blood (test code = Blood) 2+ Specific [place] (test code = Specific [place]) 1.020 Ketone (test code = Ketone) Negative Bilirubin (test code = Bilirubin) Negative Glucose (test code = Glucose) Negative Appearance (test code = Appearance) Turbid Color (test code = Color) Yellow [facility] Medicalmeasurement of post-voiding residual urine and/or bladder capacity (PROC)2024-03-11 11:36:00* Test Item Value Reference Range Interpretation Comme nts (PVR) (test code = (PVR)) 32 [facility] MedicalUrinalysis macro (dipstick) panel - [id number] 08:38:00* Test Item Value Reference Range Interpretation Comme nts Leukocytes (test code = Leukocytes) Negative Nitrite (test code = Nitrite) negative Urobilinogen (test code = Urobilinogen) 0.2 Protein (test code = Protein) 2+ pH (test code = pH) 6.0 Blood (test code = Blood) Negative Specific [place] (test code = Specific [place]) 1.015 Ketone (test code = Ketone) Negative Bilirubin (test code = Bilirubin) Negative Glucose (test code = Glucose) Negative Appearance (test code = Appearance) Clear Color (test code = Color) Pale Yellow [facility] MedicalUrinalysis macro (dipstick) panel - [id number] 11:43:00* Test Item Value Reference Range Interpretation Comme nts Leukocytes (test code = Leukocytes) Negative Nitrite (test code = Nitrite) negative Urobilinogen (test code = Urobilinogen) Normal Protein (test code = Protein) 2+ pH (test code = pH) 6.0 Blood (test code = Blood) Negative Specific [place] (test code = Specific [place]) 1.015 Ketone (test code = Ketone) Negative Bilirubin (test code = Bilirubin) Negative Glucose (test code = Glucose) Negative Appearance (test code = Appearance) Clear Color (test code = Color) Yellow [facility] MedicalBacteria identified in Urine by [id number] 00:00:00* Test Item Value Reference Range Interpretation Comme nts culture, urine (test code = culture, urine) see below no growth A [facility] MedicalUrinalysis complete W Reflex Culture panel - [id number] 00:00:00* Test Item Value Reference Range Interpretation [...] code = WBC, urine) >100 0-5 H [facility] MedicalUrinalysis macro (dipstick) panel - [id number] 14:35:13* Test Item Value Reference Range Interpretation Comme nts Leukocytes (test code = Leukocytes) 3+ Nitrite (test code = Nitrite) negative Urobilinogen (test code = Urobilinogen) Normal Protein (test code = Protein) 2+ pH (test code = pH) 6.0 Blood (test code = Blood) Non-Hemolyzed: Moderate Specific [place] (test code = Specific [place]) 1.005 Ketone (test code = Ketone) Negative Bilirubin (test code = Bilirubin) Negative Glucose (test code = Glucose) Negative Appearance (test code = Appearance) Cloudy Color (test code = Color) Yellow [facility] MedicalUrinalysis macro (dipstick) panel - [id number] 11:56:56* Test Item Value Reference Range Interpretation Comme nts Leukocytes (test code = Leukocytes) Negative Nitrite (test code = Nitrite) negative Urobilinogen (test code = Urobilinogen) Normal Protein (test code = Protein) 3+ pH (test code = pH) 6.0 Blood (test code = Blood) Negative Specific [place] (test code = Specific [place]) 1.020 Ketone (test code = Ketone) Negative Bilirubin (test code = Bilirubin) Negative Glucose (test code = Glucose) Negative Appearance (test code = Appearance) Clear Color (test code = Color) Yellow [facility] MedicalBacteria identified in Urine by [id number] 00:00:00* Test Item Value Reference Range Interpretation Comme nts culture, urine (test code = culture, urine) see below no growth A [facility] MedicalUrinalysis complete W Reflex Culture panel - [id number] 00:00:00* Test Item Value Reference Range Interpretation [...] code = WBC, urine) >100 0-5 H [facility] MedicalUrinalysis macro (dipstick) panel - [id number] 14:58:26* Test Item Value Reference Range Interpretation Comme nts Leukocytes (test code = Leukocytes) 1+ Nitrite (test code = Nitrite) negative Urobilinogen (test code = Urobilinogen) Normal Protein (test code = Protein) 3+ pH (test code = pH) 6.0 Blood (test code = Blood) Non-Hemolyzed: Trace Specific [place] (test code = Specific [place]) 1.025 Ketone (test code = Ketone) Negative Bilirubin (test code = Bilirubin) Negative Glucose (test code = Glucose) Negative Appearance (test code = Appearance) Cloudy Color (test code = Color) Yellow [facility] Notes Date/Time Note Provider Source [facility]2025-02-11 00:00:00 [facility]2024-11-01 17:00:00 Members Preferred Language Frisian Encounter Date: 2024-08-26 VITALS ### HISTORY OF PRESENT ILLNESS Patient is a 73 y/o female who is being followed up with by [facility]'s Clinical Pharmacy team. ASSESSMENT PLAN Utilize Assessment/Plan Macros Stephanie CollieDevoted [id number] 15:59:04* Consultation (Routine) - Authorized Specialty Diagnoses / Procedures Referred By Contac t Referred To Contact Diagnoses Systemic lupus erythematosus, unspecified Procedures [place] OFFICE/OUTPATIENT ESTABLISHED MOD MDM 30-39 MIN James Root Jr., MD [address] [facility] [address] [place] [address] Phone: tel: fax: [place] [phone] [facility] [address] [place] [address] Phone: tel: fax: Referral ID Status Reason Start Date Expiration Date V isits Requested Visits Authorized [id number] Authorized 05/10/2024 05/10/2025 99 99 [id number] 15:59:04* Lavern Fowler MD - 07/18/2024 10:30 AM CDT Subjective Patient ID: Mirtha Caceres is a 73 y.o. female who presents for televisit follow up for SLE and lupus nephritis. HPI The patient was seen for the above Pt presents for TV follow up for SLE and lupus nephritis. SLE dx 2000, previously following rheum Dr Bisi Gonsalez, h/o lupus nephritis following nephron Dr Tuttle. no other organ involvement. Kidney biopsy 07/2021 showed no activity but significant increase in chronicity. Prior tx: HCQ dc by ophthal. remain on cellcept 1g bid. she has discussed with Dr Tuttle. following [employer]. S/p neurostimulator implantation for bladder emptying 12/2023 and reports has been helping, UTI less frequent now. Labs with nephro: 04/2024 Lab showed low C3/C4, Cr 2.35(EGFR 21), UPCR 3.85mg/mg, neg ESR; +OPAL 1:320 Nuclear, dense fine speckled. dsDNA 6. UA:2+protein. Hgb 10.3 lab 09/2023 labs showed Cr 1.89 (EGFR 28), neg LFT; hgb 11.5/hct 35%, wbc 3.5, neg plt;UA 3+protein, neg WBC/RBC; UPCR 2.95 MG/MG; Neg OPAL; dsDNA 6; low C3/C4. 12/2023 lab showed neg WBC, hgb/hct 10.4/31%, neg plt; Cr 2.0(EGFR 25), Neg uric acid; neg CPK; Neg phos; UA 3+protein, 1+blood. UPCR 3.3; neg OPAL, Low C3, neg C4; UCx: +klebsiella. anemia, thought to be from CKD, getting procrit injection PRN from hematology. s/p EGD for esophageal dilatation. pending another EGD in 6M.. Current Outpatient Medications on File Prior to Visit Medication Sig Dispense Refill aspirin EC 81 MG EC tablet Take 1 tablet by mouth 1 time each day at the same time. atorvastatin (Lipitor) 40 MG tablet Take 40 mg by mouth 1 time each day. metoprolol succinate XL (Toprol-XL) 50 MG 24 hr tablet Take 1 tablet by mouth 1 time each day. mycophenolate (Cellcept) 250 MG capsule Take 1,000 mg by mouth in the morning and 1,000 mg in the evening. spironolactone (Aldactone) 25 MG tablet Take 1 tablet by mouth 1 time each day. losartan (Cozaar) 100 MG tablet Take 100 mg by mouth 1 time each day. pantoprazole (ProtoNix) 40 MG EC tablet Take 40 mg by mouth 1 time each day. No current facility-administered medications on file prior to visit. No past medical history on file. Past Surgical History: Procedure Laterality Date HYSTERECTOMY OTHER SURGICAL HISTORY 2019 PELVIC FLOOR REPAIR X3 OTHER SURGICAL HISTORY 2019 PR OTHER SURGICAL HISTORY 2019 STENT PLACEMENT RENAL BIOPSY 2020 Family History: Problem Relation Name Age of Onset Hypertension Mother Rheum arthritis Mother Hypertension Father Social History Socioeconomic History Marital status: Unknown Spouse name: Not on file Number of children: Not on file Years of education: Not on file Highest education level: Not on file Occupational History Not on file Tobacco Use Smoking status: Never Smokeless tobacco: Not on file Substance and Sexual Activity Alcohol use: Never Drug use: Never Sexual activity: Not on file Other Topics Concern Not on file Social History Narrative Not on file Social Drivers of Health Financial Resource Strain: Not on file Food Insecurity: Not on file Transportation Needs: Not on file Physical Activity: Not on file Stress: Not on file Social Connections: Not on file Intimate Partner Violence: Not on file Housing Stability: Not on file Allergies Allergen Reactions Hydroxychloroquine Other Reaction(s): worsening eyes Levofloxacin Other Reaction(s): Unknown Morphine Other Reaction(s): Unknown Review of Systems Constitutional: Negative. HENT: Negative. Eyes: Negative. Respiratory: Negative. Cardiovascular: Negative. Gastrointestinal: Negative. Endocrine: Negative. Genitourinary: Negative. Musculoskeletal: Negative. Skin: Negative. Allergic/Immunologic: Negative. Neurological: Negative. Hematological: Negative. Psychiatric/Behavioral: Negative. Objective Physical Exam: Constitutional: Normal Level of distress: Normal Overall appearance: Normal Orientation: Oriented to time, place, person, situation. Appropriate mood and affect. Good insight. Good judgment. Eyes: Vision grossly intact Hearing: Grossly intact Psychiatric: Normal. Assessment & Plan Patient ID: Mirtha Caceres is a 73 y.o. female who presents for follow up for SLE and lupus nephritis. She has significant proteinuria but stable EGFR. She has close follow up with nephro. On cellcept 1g bid managed with nephro. Assessment & Plan Systemic lupus erythematosus, unspecified SLE type, unspecified organ involvement status ([facility] ([facility]) Neg dsDNA, stable EGFR. Low disease activity. Continue to follow with nephro for lupus nephritis management. 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 Lupus nephritis (CMS/[facility]) ([facility])Continue to monitor. Advanced CKD, will defer further management to nephro. Avoid NSAIDs. High risk medication use Continue to monitor with nephro. Follow up: 1 year, lupus nephritis follows nephro Management options were discussed. Answered all questions. Side effects of medications were discussed. Reviewed labs and diagnostics with patient. Pt to continue to follow up with PCP for routine health evaluation [facility] CenterEqguqix1117-23-13 15:59:04Upcoming Encounters Health Maintenance Due Date Last Done Comments CT Colonography 1948 Colonoscopy 1948 FIT 1948 FOBT 1948 Lipid Panel 1948 Medicare Annual Wellness (AWV) 1948 Sigmoidoscopy 1948 Pneumococcal Vaccine: 65+ Ye ars (1 of 2 - PCV) 1954 DTaP/Tdap/Td Vaccines (1 - Tdap) 1967 Zoster Vaccines (1 of 2) 1967 Respiratory Syncytial Virus (RSV) or >=60 (1 - 1-dose 60+ series) 2008 Colorectal Cancer Screening 03/23/2022 FIT-DNA 03/23/2022 03/23/2019 Influenza Vaccine (#1) 2024 HIB Vaccines Aged Out No longer eligi ble based on patient's age to complete this topic HPV Vaccines Aged Out No longer eligi ble based on patient's age to complete this topic Hepatitis A Vaccines Aged Out No long er eligible based on patient's age to complete this topic Hepatitis B Vaccines Aged Out No long er eligible based on patient's age to complete this topic IPV Vaccines Aged Out No longer eligi ble based on patient's age to complete this topic Meningococcal Vaccine Aged Out No shireen charly eligible based on patient's age to complete this topic Rotavirus Vaccines Aged Out No longer eligible based on patient's age to complete this topic [facility] [id number] 15:59:04 Diagnosis Systemic lupus erythematosus , unspecified SLE type, unspecified organ involvement status (CMS/HCC) (HCC) - Primary Lupus nephritis (CMS/HCC) (HCC) Systemic lupus erythematosus High risk medication use [facility] [id number] 15:59:04 [facility] [id number] 15:59:04* Consultation (Routine) - Authorized Specialty Diagnoses / Procedures Referred By Contac t Referred To Contact Diagnoses Systemic lupus erythematosus, unspecified Procedures [place] OFFICE/OUTPATIENT ESTABLISHED MOD MDM 30-39 MIN James Root Jr., MD [address] [place] [address] [place] [address] Phone: tel: fax: [place] [phone] [facility] [address] [place] [address] Phone: tel: fax: Referral ID Status Reason Start Date Expiration Date V isits Requested Visits Authorized [id number] Authorized 05/10/2024 05/10/2025 99 99 [facility] [id number] 15:59:04* Lavern Fowler MD - 07/18/2024 10:30 AM CDT Subjective Patient ID: Mirtha Caceres is a 73 y.o. female who presents for televisit follow up for SLE and lupus nephritis. HPI The patient was seen for the above Pt presents for TV follow up for SLE and lupus nephritis. SLE dx 2000, previously following rheum Dr Bisi Gonsalez, h/o lupus nephritis following nephron Dr Tuttle. no other organ involvement. Kidney biopsy 07/2021 showed no activity but significant increase in chronicity. Prior tx: HCQ dc by ophthal. remain on cellcept 1g bid. she has discussed with Dr Tuttle. following [employer]. S/p neurostimulator implantation for bladder emptying 12/2023 and reports has been helping, UTI less frequent now. Labs with nephro: 04/2024 Lab showed low C3/C4, Cr 2.35(EGFR 21), UPCR 3.85mg/mg, neg ESR; +OPAL 1:320 Nuclear, dense fine speckled. dsDNA 6. UA:2+protein. Hgb 10.3 lab 09/2023 labs showed Cr 1.89 (EGFR 28), neg LFT; hgb 11.5/hct 35%, wbc 3.5, neg plt;UA 3+protein, neg WBC/RBC; UPCR 2.95 MG/MG; Neg OPAL; dsDNA 6; low C3/C4. 12/2023 lab showed neg WBC, hgb/hct 10.4/31%, neg plt; Cr 2.0(EGFR 25), Neg uric acid; neg CPK; Neg phos; UA 3+protein, 1+blood. UPCR 3.3; neg OPAL, Low C3, neg C4; UCx: +klebsiella. anemia, thought to be from CKD, getting procrit injection PRN from hematology. s/p EGD for esophageal dilatation. pending another EGD in 6M.. Current Outpatient Medications on File Prior to Visit Medication Sig Dispense Refill aspirin EC 81 MG EC tablet Take 1 tablet by mouth 1 time each day at the same time. atorvastatin (Lipitor) 40 MG tablet Take 40 mg by mouth 1 time each day. metoprolol succinate XL (Toprol-XL) 50 MG 24 hr tablet Take 1 tablet by mouth 1 time each day. mycophenolate (Cellcept) 250 MG capsule Take 1,000 mg by mouth in the morning and 1,000 mg in the evening. spironolactone (Aldactone) 25 MG tablet Take 1 tablet by mouth 1 time each day. losartan (Cozaar) 100 MG tablet Take 100 mg by mouth 1 time each day. pantoprazole (ProtoNix) 40 MG EC tablet Take 40 mg by mouth 1 time each day. No current facility-administered medications on file prior to visit. No past medical history on file. Past Surgical History: Procedure Laterality Date HYSTERECTOMY OTHER SURGICAL HISTORY 2019 PELVIC FLOOR REPAIR X3 OTHER SURGICAL HISTORY 2019 PR OTHER SURGICAL HISTORY 2019 STENT PLACEMENT RENAL BIOPSY 2020 Family History: Problem Relation Name Age of Onset Hypertension Mother Rheum arthritis Mother Hypertension Father Social History Socioeconomic History Marital status: Unknown Spouse name: Not on file Number of children: Not on file Years of education: Not on file Highest education level: Not on file Occupational History Not on file Tobacco Use Smoking status: Never Smokeless tobacco: Not on file Substance and Sexual Activity Alcohol use: Never Drug use: Never Sexual activity: Not on file Other Topics Concern Not on file Social History Narrative Not on file Social Drivers of Health Financial Resource Strain: Not on file Food Insecurity: Not on file Transportation Needs: Not on file Physical Activity: Not on file Stress: Not on file Social Connections: Not on file Intimate Partner Violence: Not on file Housing Stability: Not on file Allergies Allergen Reactions Hydroxychloroquine Other Reaction(s): worsening eyes Levofloxacin Other Reaction(s): Unknown Morphine Other Reaction(s): Unknown Review of Systems Constitutional: Negative. HENT: Negative. Eyes: Negative. Respiratory: Negative. Cardiovascular: Negative. Gastrointestinal: Negative. Endocrine: Negative. Genitourinary: Negative. Musculoskeletal: Negative. Skin: Negative. Allergic/Immunologic: Negative. Neurological: Negative. Hematological: Negative. Psychiatric/Behavioral: Negative. Objective Physical Exam: Constitutional: Normal Level of distress: Normal Overall appearance: Normal Orientation: Oriented to time, place, person, situation. Appropriate mood and affect. Good insight. Good judgment. Eyes: Vision grossly intact Hearing: Grossly intact Psychiatric: Normal. Assessment & Plan Patient ID: Mirtha Caceres is a 73 y.o. female who presents for follow up for SLE and lupus nephritis. She has significant proteinuria but stable EGFR. She has close follow up with nephro. On cellcept 1g bid managed with nephro. Assessment & Plan Systemic lupus erythematosus, unspecified SLE type, unspecified organ involvement status ([facility]) ([facility]) Neg dsDNA, stable EGFR. Low disease activity. Continue to follow with nephro for lupus nephritis management. 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 Lupus nephritis (CMS/[facility]) ([facility])Continue to monitor. Advanced CKD, will defer further management to nephro. Avoid NSAIDs. High risk medication use Continue to monitor with nephro. Follow up: 1 year, lupus nephritis follows nephro Management options were discussed. Answered all questions. Side effects of medications were discussed. Reviewed labs and diagnostics with patient. Pt to continue to follow up with PCP for routine health evaluation [facility] CenterMhisqwn7183-49-03 15:59:04Upcoming Encounters Health Maintenance Due Date Last Done Comments CT Colonography 1948 Colonoscopy 1948 FIT 1948 FOBT 1948 Lipid Panel 1948 Medicare Annual Wellness (AWV) 1948 Sigmoidoscopy 1948 Pneumococcal Vaccine: 65+ Ye ars (1 of 2 - PCV) 1954 DTaP/Tdap/Td Vaccines (1 - Tdap) 1967 Zoster Vaccines (1 of 2) 1967 Respiratory Syncytial Virus (RSV) or >=60 (1 - 1-dose 60+ series) 2008 Colorectal Cancer Screening 03/23/2022 FIT-DNA 03/23/2022 03/23/2019 Influenza Vaccine (#1) 2024 HIB Vaccines Aged Out No longer eligi ble based on patient's age to complete this topic HPV Vaccines Aged Out No longer eligi ble based on patient's age to complete this topic Hepatitis A Vaccines Aged Out No long er eligible based on patient's age to complete this topic Hepatitis B Vaccines Aged Out No long er eligible based on patient's age to complete this topic IPV Vaccines Aged Out No longer eligi ble based on patient's age to complete this topic Meningococcal Vaccine Aged Out No shireen charly eligible based on patient's age to complete this topic Rotavirus Vaccines Aged Out No longer eligible based on patient's age to complete this topic [facility] [id number] 15:59:04 Diagnosis Systemic lupus erythematosus , unspecified SLE type, unspecified organ involvement status (CMS/HCC) (HCC) - Primary Lupus nephritis (CMS/HCC) (HCC) Systemic lupus erythematosus High risk medication use [facility] [id number] 15:59:04 [facility]
[2025-03-07] MEDS ORDERED: BENZONATATE 100 MG CAP PO ONE (03:55)
[2025-03-07] MEDS ORDERED: GUAIFENESIN/DM 5 ML UCUP ONE (03:56)
[2025-03-07 04:05] LABS: Absolute Eosinophils 0.2 K/uL (0-0.5); Absolute Lymphocytes (CBC) 0.4 K/uL (0.7-4.9); Absolute Monocytes 0.5 K/uL (0.1-1.3); Absolute Neutrophil 4.1 K/uL (1.8-8.0); Basophils % 0.3 % (0-1.3); Eosinophils % 3.1 % (0-4.4); Hematocrit 20.8 % (36.0-45.0); Hemoglobin 6.8 g/dL (12.0-15.0); MCH 29.7 pg (27.0-35.0); MCHC 32.7 g/dL (32.0-36.0); MCV 90.7 fL (80-100); MPV 8.3 fL (7.6-11.3); Monocytes % 9.3 % (3.3-12.3); Neutrophils % 79.3 % (41.7-73.7); Platelets 207 thou/uL (152-406); Red Cell Distribution Width 16.2 % (12.1-15.2)
[2025-03-07 04:06] LABS: PT Prothrombin Time 11.6 SECONDS (10-13.0); Protime INR 1.02
[2025-03-07 04:19] LABS: ALT/SGPT 17 U/L (13-56); AST/SGOT < 10 U/L (15-37); Albumin 3.3 g/dL (3.4-5.0); Alkaline Phosphatase 77 U/L (45-117); BUN Blood Urea Nitrogen 38 mg/dL (7-18); Bicarbonate 17 mEq/L (21-32); Bilirubin Direct < 0.2 mg/dL (0-0.2); Bilirubin Total 0.2 mg/dL (0.2-1.0); Globulin 3.3 g/dL (2.3-3.5); Glomerular Filtration Rate 14 ml/min (=/>90); Glucose Level 94 mg/dL (74-106); Magnesium 1.7 mg/dL (1.6-2.4); NT PRO-BNP 4578 pg/mL (<450); Protein, Total 6.6 g/dL (6.4-8.2); Sodium Level 140 mEq/L (136-145); Troponin High Sensitivity 18.2 pg/mL (<58.9)
--- NOTE | 2025-03-07 05:45 | RAD REPORT ---
EXAM: CT Chest, Abdomen and Pelvis Without Intravenous Contrast CLINICAL HISTORY: The patient is 74 years old and is Female; Left flank pain. TECHNIQUE: Axial computed tomography images of the chest, abdomen and pelvis without intravenous co ntrast. Sagittal and coronal reformatted images were created and reviewed. This CT exam was performed using one or more of the following dose reduction techniques: automated exposure control, adjustment of the mA and/or kV according to patient size, and/or use of iterative reconstruction technique. COMPARISON: XR Chest 03/07/2025, 3:37:10 AM, CT Chest 01/02/[address] Abdomen Pelvis 05/07/2024. FINDINGS: CHEST: Lungs: Airspace opacities in the lateral left upper lobe raising suspicion for pneumonia. Linear atelectasis left lower lobe. Right lung is clear. Pleural space: No significant pleural fluid. No pneumothorax. Heart: Cardiomegaly without significant pericardial fluid. ABDOMEN: Liver: Unremarkable. Gallbladder and bile ducts: Unremarkable. No calcified stones. No ductal dilation. Pancreas: Unremarkable. No ductal dilation. Spleen: Unremarkable. No splenomegaly. Adrenals: Unremarkable. No mass. Kidneys and ureters: No nephrolithiasis, hydronephrosis or ureter stone. Stomach and bowel: Colonic diverticulosis. No bowel dilatation or obstruction. No bowel wall thickening. Stomach is empty. PELVIS: Appendix: The visualized appendix is normal. No pericecal inflammation to suggest acute appendici tis. Bladder: Unremarkable. No stones. Reproductive: Hysterectomy. No adnexal mass. CHEST, ABDOMEN and PELVIS: Intraperitoneal space: Unremarkable. No significant fluid collection. No free air. Bones/joints: Scoliosis. Multilevel degenerative changes in the lumbar spine. No acute fracture v isualized. No dislocation. Soft tissues: Unremarkable. Vasculature: Unremarkable. No aortic aneurysm. Lymph nodes: Unremarkable. No enlarged lymph nodes. Tubes, lines and devices: Sacral stimulator with left gluteal generator. IMPRESSION: 1. Airspace opacities in the lateral left upper lobe raising suspicion for pneumonia. 2. Linear atelectasis left lower lobe. 3. No nephrolithiasis, hydronephrosis or ureter stone. 4. Colonic diverticulosis. 5. Scoliosis. Multilevel degenerative changes in the lumbar spine. 6. Sacral stimulator with left gluteal generator. 7. Additional non-emergent findings as above. Electronically signed by: Princess Elizalde MD 03/07/2025 05:39 AM CDT RP V2 Due to temporary technical issues with the PACS/[employer] reporting system, reports are being melvin d by the in-house radiologist without review as a courtesy to ensure prompt reporting the interpreting radiologist is fully responsible for the content of the report. Transcribed Date/Time: 03/07/2025 5:44 AM
--- NOTE | 2025-03-07 06:08 | ER ---
Nurse's Notes [facility] Name: Mirtha Edouard Age: 74 yrs Sex: Female : 1950 Arrival Date: 03/07/2025 Time: 02:34 Bed 24 Private MD: Diagnosis: Anemia of renal disease, acute on chronic anemia , left lung pneumonia, Acute bacterial pneumonia;Symptomatic anemia Presentation: 03/07 02:59 Chief complaint: Patient states: difficulty breathing and left lung pain times 3 days. vc1 Coronavirus screen: Client denies travel out of the [place] in the last 14 days. cough unrelated to allergies, muscle pain, shortness of breath, Client presents with at least one sign or symptom that may indicate coronavirus-19. Ebola Screen: Patient negative for fever greater than or equal to 101.5 degrees Fahrenheit, and additional compatible Ebola Virus Disease symptoms Patient denies exposure to infectious person. Patient denies travel to an Ebola-affected area in the 21 days before illness onset. No symptoms or risks identified at this time. Initial Sepsis Screen: Does the patient meet any 2 criteria? No. Patient's initial sepsis screen is negative. Does the patient have a suspected source of infection? No. Patient's initial sepsis screen is negative. Risk Assessment: Do you want to hurt yourself or someone else? Patient reports no desire to harm self or others. Onset of symptoms was March 04, 2025. Care prior to arrival: None. 02:59 Method Of Arrival: Ambulatory vc1 02:59 Acuity: ADELAIDA 3 vc1 Triage Assessment: 02:58 General: Appears in no apparent distress. comfortable, Behavior is calm, cooperative, bm8 appropriate for age. 02:58 Pain: Complains of pain in left lateral posterior chest Pain does not radiate. Pain bm8 currently is 6 out of 10 on a pain scale. EENT: No deficits noted. No signs and/or symptoms were reported regarding the EENT system. Neuro: No deficits noted. Level of Consciousness is awake, alert, obeys commands. Cardiovascular: No deficits noted. Reports chest pain, shortness of breath, Heart tones S1 S2 present Capillary refill < 3 seconds in bilateral fingers Patient's skin is warm and dry. Respiratory: Reports shortness of breath Airway is patent Respiratory effort is even, unlabored, Respiratory pattern is regular, symmetrical, Breath sounds are clear bilaterally. Onset: The symptoms/episode began/occurred 3 days, the patient has mild shortness of breath. GI: No deficits noted. No signs and/or symptoms were reported involving the gastrointestinal system. : No deficits noted. No signs and/or symptoms were reported regarding the genitourinary system. Derm: No deficits noted. No signs and/or symptoms reported regarding the dermatologic system. Musculoskeletal: No deficits noted. No signs and/or symptoms reported regarding the musculoskeletal system. Historical: - Allergies: 03:01 No Known Allergies; vc1 - PMHx: 03:01 CKD stage 3; GERD; Hypertension; Lupus; Myocardial infarction; CAD; vc1 - PSHx: 03:01 cardiac stent (CAD); Total abdominal hysterectomy; Pelvic floor x3; vc1 - Immunization history:: Client reports receiving the 2nd dose of the Covid vaccine. - Infectious Disease History:: Denies. - Social history:: Smoking status: Patient denies any tobacco usage or history of. - Family history:: not pertinent. Screenin:02 Abuse screen: Denies threats or abuse. Nutritional screening: No deficits noted. vc1 Tuberculosis screening: No symptoms or risk factors identified. 04:01 [facility] ED Fall Risk Assessment (Adult) History of falling in the last 3 months, bm8 including since admission No falls in past 3 months (0 pts) Confusion or Disorientation No (0 pts) Intoxicated or Sedated No (0 pts) Impaired Gait No (0 pts) Mobility Assist Device Used No (0 pt) Altered Elimination No (0 pt) Score/Fall Risk Level 0 - 2 = Low Risk Oriented to surroundings, Maintained a safe environment, Educated pt \T\ family on fall prevention, incl call for assistance when getting out of bed, Assessed \T\ reinforced patient's understanding of fall precautions, Hourly rounding (assess needs \T\ fall precautionary measures) done, Used ambulatory aids as needed (educated on \T\ assisted with), Used gait belt as appropriate. Assessment: 04:01 Reassessment: see triage assessment. Cardiovascular: No deficits noted. Rhythm is sinus bm8 rhythm. 05:13 General: Appears in no apparent distress. Behavior is calm, cooperative. Neuro: Level kd3 of Consciousness is awake, alert, obeys commands, Oriented to person, place, time, situation. Respiratory: Airway is patent Trachea midline Respiratory effort is even, unlabored, Respiratory pattern is regular, symmetrical. 06:54 Reassessment: Patient appears in no apparent distress at this time. No changes from bm8 previously documented assessment. Patient and/or family updated on plan of care and expected duration. Pain level reassessed. Patient is alert, oriented x 3, equal unlabored respirations, skin warm/dry/pink. Vital Signs: 02:59 BP 141 / 73; Pulse 81; Resp 17; Temp 98.2; Pulse Ox 98% ; Weight 74.84 kg; Height 5 ft. vc1 4 in. ; Pain 6/10; 05:12 BP 148 / 74; Pulse 72; Resp 20; Pulse Ox 100% on R/A; kd3 06:54 BP 158 / 87; Pulse 71; Resp 18; Temp 98.2; Pulse Ox 96% ; Pain 3/10; bm8 07:41 BP 163 / 78; Pulse 70; Resp 18; Pulse Ox 99% on R/A; ld1 02:59 Body Mass Index 28.32 (74.84 kg, 162.56 cm) vc1 02:59 Pain Scale: Adult vc1 06:54 Pain Scale: Adult bm8 Guillermo Coma Score: 04:01 Eye Response: spontaneous(4). Motor Response: obeys commands(6). Verbal Response: bm8 oriented(5). Total: 15. 06:51 Eye Response: spontaneous(4). Motor Response: obeys commands(6). Verbal Response: sp4 oriented(5). Total: 15. 06:54 Eye Response: spontaneous(4). Motor Response: obeys commands(6). Verbal Response: bm8 oriented(5). Total: 15. ED Course: 02:36 Patient arrived in ED. mr 02:58 Frederic Preciado MD is Attending Physician. sp4 03:01 Triage completed. vc1 03:02 Arm band placed on right wrist. vc1 03:32 Peggy Dawson, DELILAH is Primary Nurse. kd3 03:55 XRAY Chest (1 view) In Process Unspecified. EDMS 04:01 Patient has correct armband on for positive identification. Placed in gown. Bed in low bm8 position. Call light in reach. Side rails up X2. Client placed on continuous cardiac and pulse oximetry monitoring. NIBP monitoring applied. satellite dish repairer on. Pulse ox on. NIBP on. Door closed. Noise minimized. 04:01 No provider procedures requiring assistance completed. Initial lab(s) drawn, by , cheli sent to lab. EKG done, by ED staff, reviewed by Frederic Preciado MD. Inserted saline lock: 20 gauge in left antecubital area, using aseptic technique. Blood collected. Flushed with 10 mL NS. 04:08 CT Chest Abdomen Pelvis W/O Contrast In Process Unspecified. EDFL 06:07 Juan David Espinoza is Hospitalizing Provider. sp4 07:31 Consent for blood and/or blood product transfusion explained by staff, explained by mb9 physician, signed by patient. 07:41 Inserted saline lock: 22 gauge in right wrist, using aseptic technique. ld1 07:42 Provided Education on: Blood Transfusion. ld1 Administered Medications: 04:13 Drug: Dextromethorphan-Guaifenesin PO Liquid 10 mg-100 mg/5 mL 10 ml PO once Route: PO; bm8 05:33 Follow up: Response: No adverse reaction bm8 04:13 Drug: Tessalon Perle PO 200 mg PO once Route: PO; bm8 05:33 Follow up: Response: No adverse reaction bm8 06:54 Drug: Cefepime IVPB 2 grams IVPB at 200 ml/hr once over 30 mins; (mix in NS 100 mL) bm8 Route: IVPB; Rate: 200 ml/hr; Infused Over: 30 mins; Site: left antecubital; 08:24 Follow up: Response: No adverse reaction; IV Status: Completed infusion mb9 08:24 Drug: vancoMYCIN IVPB 1.5 grams IVPB at calculated rate once Route: IVPB; Rate: mb9 calculated rate; Site: right forearm; Medication: 04:01 VIS not applicable for this client. bm8 Outcome: 06:08 Decision to Hospitalize by Provider. sp4 03/08 15:06 Patient left the ED. ld1 Signatures: Dispatcher [employer] EDFL Rosetta Page, Richy Lockhart mr ShabazzRadha, RN RN ld1 Peggy Dawson RN RN [email or web address] Seema Douglas RN RN vc1 Rosetta Gill, RN RN Frederic Garcia MD MD sp4 Fuentes, Deni, RN RN bm8
--- NOTE | 2025-03-07 06:09 | EDPHYS ---
Physician Documentation [facility] Name: Mirtha Edouard Age: 74 yrs Sex: Female : 1950 Arrival Date: 03/07/2025 Time: 02:34 Bed 24 Private MD: ED Physician Frederic Preciado HPI: 03/07 02:58 This 74 yrs old Other Race Female presents to ER via Unassigned with complaints of sp4 Shortness Of Breath. 06:51 74-year-old female with history of chronic kidney disease, lupus, anemia, hypertension. sp4 Patient presents for moderate to severe cough associated with left flank pain. Historical: - Allergies: 03:01 No Known Allergies; vc1 - PMHx: 03:01 CKD stage 3; GERD; Hypertension; Lupus; Myocardial infarction; CAD; vc1 - PSHx: 03:01 cardiac stent (CAD); Total abdominal hysterectomy; Pelvic floor x3; vc1 - Immunization history:: Client reports receiving the 2nd dose of the Covid vaccine. - Infectious Disease History:: Denies. - Social history:: Smoking status: Patient denies any tobacco usage or history of. - Family history:: not pertinent. ROS: 06:51 Constitutional: Negative for fever, chills, and weight loss, positive cough, positive sp4 left flank pain 06:51 All other systems are negative, Exam: 06:51 Constitutional: This is a well developed, well nourished patient who is awake, alert, sp4 and in no acute distress. Head/Face: Normocephalic, atraumatic. Eyes: Pupils equal round and reactive to light, extra-ocular motions intact. Lids and lashes normal. Conjunctiva and sclera are not injected. Cornea within normal limits. Periorbital areas with no swelling, redness, or edema. ENT: Nares patent. No nasal discharge, no septal abnormalities noted. Tympanic membranes are normal and external auditory canals are clear. Oropharynx with no redness, swelling, or masses, exudates, or evidence of obstruction, uvula midline. Mucous membranes moist. Neck: Trachea midline, no thyromegaly or masses palpated, and no cervical lymphadenopathy. Supple, full range of motion without nuchal rigidity, or vertebral point tenderness. Chest/axilla: Normal chest wall appearance and motion. Nontender with no deformity. No lesions are appreciated. Cardiovascular: Regular rate and rhythm with a normal S1 and S2. No gallops, murmurs, or rubs. Normal PMI, no JVD. No pulse deficits. Respiratory: Lungs have equal breath sounds bilaterally, clear to auscultation and percussion. No rales, rhonchi or wheezes noted. No increased work of breathing, no retractions or nasal flaring. Abdomen/GI: Soft, with normal bowel sounds. No distension or tympany. No guarding or rebound. No evidence of tenderness throughout. Back: No spinal tenderness. No costovertebral tenderness. Skin: Warm, dry with normal turgor. Normal color with no rashes, no lesions, and no evidence of cellulitis. MS/ Extremity: Pulses equal, no cyanosis. Neurovascular intact. Full, normal range of motion. Neuro: Awake and alert, GCS 15, oriented to person, place, time, and situation. Cranial nerves II-XII grossly intact. Motor strength 5/5 in all extremities. Sensory grossly intact. Psych: Awake, alert, with orientation to person, place and time. Behavior, mood, and affect are within normal limits 06:51 ECG was reviewed by the Attending Physician. EKG at 0 340 normal sinus rhythm rate 74, normal EKG Vital Signs: 02:59 BP 141 / 73; Pulse 81; Resp 17; Temp 98.2; Pulse Ox 98% ; Weight 74.84 kg; Height 5 ft. vc1 4 in. ; Pain 6/10; 05:12 BP 148 / 74; Pulse 72; Resp 20; Pulse Ox 100% on R/A; kd3 06:54 BP 158 / 87; Pulse 71; Resp 18; Temp 98.2; Pulse Ox 96% ; Pain 3/10; bm8 07:41 BP 163 / 78; Pulse 70; Resp 18; Pulse Ox 99% on R/A; ld1 02:59 Body Mass Index 28.32 (74.84 kg, 162.56 cm) vc1 02:59 Pain Scale: Adult vc1 06:54 Pain Scale: Adult bm8 Wilmer Coma Score: 04:01 Eye Response: spontaneous(4). Motor Response: obeys commands(6). Verbal Response: bm8 oriented(5). Total: 15. 06:51 Eye Response: spontaneous(4). Motor Response: obeys commands(6). Verbal Response: sp4 oriented(5). Total: 15. 06:54 Eye Response: spontaneous(4). Motor Response: obeys commands(6). Verbal Response: bm8 oriented(5). Total: 15. MDM: 03:00 Medical Screening Exam initiated sp4 05:46 ED course: COMPARISON: XR Chest 03/07/2025, 3:37:10 AM, CT Chest 01/02/2025 and sp4 CTAbdomen Pelvis 05/07/2024. FINDINGS: CHEST: Lungs: Airspace opacities in the lateral left upper lobe raising suspicion for pneumonia. Linear atelectasis left lower lobe. Right lung is clear. Pleural space: No significant pleural fluid. No pneumothorax. Heart: Cardiomegaly without significant pericardial fluid. ABDOMEN: Liver: Unremarkable. Gallbladder and bile ducts: Unremarkable. No calcified stones. No ductal dilation. Pancreas: Unremarkable. No ductal dilation. Spleen: Unremarkable. No splenomegaly. Adrenals: Unremarkable. No mass. Kidneys and ureters: No nephrolithiasis, hydronephrosis or ureter stone. Stomach and bowel: Colonic diverticulosis. No bowel dilatation or obstruction. No bowel wall thickening. Stomach is empty. PELVIS: Appendix: The visualized appendix is normal. No pericecal inflammation to suggest acute appendicitis. Bladder: Unremarkable. No stones. Reproductive: Hysterectomy. No adnexal mass. CHEST, ABDOMEN and PELVIS: Intraperitoneal space: Unremarkable. No significant fluid collection. No free air. Bones/joints: Scoliosis. Multilevel degenerative changes in the lumbar spine. No acute fracture visualized. No dislocation. Soft tissues: Unremarkable. Vasculature: Unremarkable. No aortic aneurysm. Lymph nodes: Unremarkable. No enlarged lymph nodes. Tubes, lines and devices: Sacral stimulator with left gluteal generator. IMPRESSION: 1. Airspace opacities in the lateral left upper lobe raising suspicion for pneumonia. 2. Linear atelectasis left lower lobe. 3. No nephrolithiasis, hydronephrosis or ureter stone. 4. Colonic diverticulosis. 5. Scoliosis. Multilevel degenerative changes in the lumbar spine. 6. Sacral stimulator with left gluteal generator. 7. Additional non-emergent findings as above. Electronically signed by: Princess Elizalde MD 03/07/2025 05:39 AM. 05:47 ED course: EXAM: XR Chest, 1 View CLINICAL HISTORY: The patient is 74 years old and is sp4 Female; Chest pain. TECHNIQUE: Single view of the chest. COMPARISON: CT Chest 01/02/2025. FINDINGS: Lungs: Airspace opacities in the mid left lung. No pulmonary vascular congestion. Right lung is clear. Pleural space: No significant pleural fluid. No pneumothorax. Heart: Unremarkable. No cardiomegaly. Mediastinum: See below. Bones/joints: No acute fracture visualized. Vasculature: Ectatic brachiocephalic vessels in the right paratracheal region. Upper abdomen: No free air in the visualized upper abdomen. IMPRESSION: Airspace opacities in the mid left lung. Correlate clinically for pneumonia. . 06:56 Differential diagnosis: Anemia Anxiety Reaction asthma, Bronchitis CHF exacerbation, sp4 Chronic Obstructive Pulmonary Disease Myocardial Infarction pneumonia. Data reviewed: vital signs, nurses notes, old medical records, lab test result(s), EKG, radiologic studies, CT scan, plain films. Consideration of Admission/Observation Patient was admitted/placed on observation. Escalation of care including admission/observation considered. Management of patient was discussed with the following: Hospitalist: Aydin Admit team . ED course: 2 unit blood transfusion ordered. Patient admitted for management of pneumonia and symptomatic anemia. 03/07 02:59 Order name: Basic Metabolic Panel; Complete Time: 05:34 [facility] 03/07 02:59 Order name: CBC with Diff; Complete Time: 05:34 [facility] 03/07 02:59 Order name: LFT's; Complete Time: 05:34 [facility] 03/07 02:59 Order name: Magnesium; Complete Time: 05:34 [facility] 03/07 02:59 Order name: NT PRO-BNP; Complete Time: 05:34 [facility] 03/07 02:59 Order name: PT-INR; Complete Time: 05:34 [facility] 03/07 02:59 Order name: Troponin HS; Complete Time: 05:34 [facility] 03/07 05:48 Order name: Blood Culture Adult (2) [facility] 03/07 05:48 Order name: Lactate w/ 2H reflex if indic. [facility] 03/07 05:48 Order name: Type And Screen [facility] 03/07 05:48 Order name: PRBC [facility] 03/07 05:52 Order name: ABO/RH typing [facility] 03/07 05:52 Order name: Antibody Screen [facility] 03/07 07:10 Order name: Basic Metabolic Panel EDMS 03/07 07:10 Order name: Basic Metabolic Panel EDMS 03/07 07:10 Order name: Basic Metabolic Panel EDMS 03/07 07:10 Order name: Basic Metabolic Panel EDMS 03/07 07:10 Order name: CBC with Automated Diff EDMS 03/07 07:10 Order name: CBC with Automated Diff EDMS 03/07 07:10 Order name: CBC with Automated Diff EDMS 03/07 07:10 Order name: CBC with Automated Diff EDMS 03/07 15:16 Order name: Hemoglobin EDMS 03/08 05:31 Order name: Renal Panel EDMS 03/08 05:31 Order name: Uric Acid EDMS 03/08 05:31 Order name: Thyroid Stimulating Hormone EDMS 03/08 05:31 Order name: Transferrin Sat/Iron Binding EDMS 03/08 05:31 Order name: Ferritin EDMS 03/08 05:48 Order name: T4 Free EDMS 03/08 06:00 Order name: PTH Intact EDMS 03/08 07:15 Order name: Procalcitonin EDMS 03/07 02:59 Order name: XRAY Chest (1 view) sp4 03/07 03:31 Order name: CT Chest Abdomen Pelvis W/O Contrast sp4 03/07 02:59 Order name: Cardiac monitoring; Complete Time: 04: sp4 03/07 02:59 Order name: EKG - Nurse/Tech; Complete Time: 04: sp4 03/07 02:59 Order name: IV Saline Lock; Complete Time: 04: sp4 03/07 02:59 Order name: Labs collected and sent; Complete Time: 04: sp4 03/07 02:59 Order name: O2 Per Protocol; Complete Time: 04: sp4 03/07 02:59 Order name: O2 Sat Monitoring; Complete Time: 04: sp EC:40 Rate is 74 beats/min. Rhythm is regular, Normal Sinus Rhythm. QRS [place] is Normal. [place] sp4 interval is normal. QRS interval is normal. QT interval is normal. No Q waves. T waves are Normal. No ST changes noted. Clinical impression: Normal ECG. Interpreted by me. Reviewed by me. Administered Medications: 04:13 Drug: Dextromethorphan-Guaifenesin PO Liquid 10 mg-100 mg/5 mL 10 ml PO once Route: PO; bm8 05:33 Follow up: Response: No adverse reaction bm8 04:13 Drug: Tessalon Perle PO 200 mg PO once Route: PO; bm8 05:33 Follow up: Response: No adverse reaction bm8 06:54 Drug: Cefepime IVPB 2 grams IVPB at 200 ml/hr once over 30 mins; (mix in NS 100 mL) bm8 Route: IVPB; Rate: 200 ml/hr; Infused Over: 30 mins; Site: left antecubital; 08:24 Follow up: Response: No adverse reaction; IV Status: Completed infusion mb9 08:24 Drug: vancoMYCIN IVPB 1.5 grams IVPB at calculated rate once Route: IVPB; Rate: mb9 calculated rate; Site: right forearm; Disposition Summary: 03/07/25 06:08 Hospitalization Ordered Notes: Hospitalization Status: Inpatient Admission sp4 Provider: Juan David Espinoza spAngle Condition: Fair sp4 Problem: new sp4 Symptoms: have improved sp4 Bed/Room Type: Standard sp4 Location: [facility] ER HOLD(03/07/25 06:18) vk Room Assignment: ERHOLD-(03/07/25 06:18) vk Diagnosis - Anemia of renal disease, acute on chronic anemia , left lung pneumonia, Acute sp4 bacterial pneumonia - Symptomatic anemia sp4 Forms: - Medication Reconciliation Form sp4 - SBAR form sp4 - Leadership Thank You Letter sp4 Signatures: Dispatcher [employer] EDMS Aydin Xavier FNP-C DEAN OF ADMISSIONS-Cla1 Seema Douglas RN RN vc1 Rosetta Gill, RN RN mb9 Frederic Preciado MD MD sp4 Shamika Horvath Brad RN RN bm8 Corrections: (The following items were deleted from the chart) 03:00 03:00 BASIC METABOLIC PANEL+C.LAB.BRZ ordered. EDMS EDMS 03:00 03:00 CBC+H.LAB.BRZ ordered. EDMS EDMS 03:00 03:00 HEPATIC FUNCTION+C.LAB.BRZ ordered. EDMS EDMS 03:00 03:00 MAGNESIUM+C.LAB.BRZ ordered. EDMS EDMS 03:00 03:00 PROBNP+C.LAB.BRZ ordered. EDMS EDMS 03:00 03:00 PROTIME (+INR)+COAG.LAB.BRZ ordered. EDMS EDMS 03:00 03:00 Troponin High Sensitivity+C.LAB.BRZ ordered. EDMS EDMS 03:00 03:00 Chest Single View+RAD.RAD.BRZ ordered. EDMS EDMS 03:32 03:32 Chest Abdomen Pelvis Wo Con+CT.RAD.BRZ ordered. EDMS EDMS 06:18 06:08 Telemetry/MedSurg (Inpatient) sp4 vk 06:18 06:08 sp4 vk
--- NOTE | 2025-03-07 06:13 | RAD REPORT ---
EXAM: XR Chest, 1 View CLINICAL HISTORY: The patient is 74 years old and is Female; Chest pain. TECHNIQUE: Single view of the chest. COMPARISON: CT Chest 01/02/2025. FINDINGS: Lungs: Airspace opacities in the mid left lung. No pulmonary vascular congestion. Right lung is clear. Pleural space: No significant pleural fluid. No pneumothorax. Heart: Unremarkable. No cardiomegaly. Mediastinum: See below. Bones/joints: No acute fracture visualized. Vasculature: Ectatic brachiocephalic vessels in the right paratracheal region. Upper abdomen: No free air in the visualized upper abdomen. IMPRESSION: Airspace opacities in the mid left lung. Correlate clinically for pneumonia. Electronically signed by: Princess Elizalde MD 03/07/2025 05:35 AM CDT V2 Due to temporary technical issues with the PACS/[employer] reporting system, reports are being signed by the in-house radiologist without review as a courtesy to ensure prompt reporting the [facility] radiologist is fully responsible for the content of the report. Transcribed Date/Time: 03/07/2025 6:12 AM
[2025-03-07] MEDS ORDERED: VANCOMYCIN 1 GM/VIAL ONE (06:46)
[2025-03-07] MEDS ORDERED: NA CHLORIDE 0.9% 250 ML ONE (06:47)
[2025-03-07] MEDS ORDERED: CEFEPIME 2 GM VIAL ONE (06:47)
[2025-03-07] MEDS ORDERED: VANCOMYCIN 500 MG/VIAL ONE (06:47)
[2025-03-07] MEDS ORDERED: NA CHLORIDE 0.9% 100 ML ONE (06:47)
[2025-03-07] MEDS ORDERED: ALBUTEROL 2.5 MG/3 ML NEB SOL NEB PRN (07:05)
[2025-03-07] MEDS ORDERED: ACETAMINOPHEN 325 MG TABLET PO PRN (07:05)
[2025-03-07] MEDS ORDERED: BENZONATATE 100 MG CAP PO PRN (07:05)
--- NOTE | 2025-03-07 07:18 | P.HP ---
Certification for Inpatient Patient admitted to: Inpatient With expected LOS: >2 Midnights Patient will require the following post-hospital care: None Practitioner: I am a practitioner with admitting privileges, knowledge of patient current condition, hospital course, and medical plan of care. Services: Services provided to patient in accordance with Admission requirements found in Title 42 Section 412.3 of the Code of Federal Regulations Patient History Date of Service: 03/07/25 Reason for admission: Pneumonia History of Present Illness: 74-year-old female with history of CKD, anemia, lupus, hypertension and hyperlipidemia presents the emergency department chief complaint of left-sided chest wall pain with associated cough and chills. She reports that she has had a cough for around 1 week now but the pain to the left chest wall became relatively severe in nature and for that reason prompted her ER visit. Patient was evaluated in the emergency department her labs were significant for a white blood cell count of 5.2 hemoglobin 6.8 bicarb 17 creatinine 3.37 GFR 14, baseline creatinine appears to be around 3.3. CT of the chest abdomen pelvis was obtained without contrast which revealed airspace opacities in the lateral left upper lobe raising suspicion for pneumonia. Patient was started on broad-spectrum antibiotics, she was also ordered blood given her anemia. She will be admitted for further management. Allergies levofloxacin [From Levaquin] Adverse Reaction (Verified 02/16/24 11:01) hands swell morphine Adverse Reaction (Verified 02/16/24 11:01) emotional Home Medications: Atorvastatin Calcium [Lipitor] 40 mg PO BEDTIME #30 tab 09/13/20 Aspirin [Aspirin EC 81 MG] 81 mg PO BEDTIME 03/11/21 Ascorbic Acid [Vitamin C] 500 mg PO BID 09/15/22 Amlodipine Besylate [Norvasc] 10 mg PO DAILY 02/16/24 Epoetin [Procrit] 4,000 unit IV SEECOM 02/16/24 Metoprolol Succinate [Toprol Xl] 100 mg PO DAILY 02/16/24 estradioL [Estradiol] 1 jean claude VAG M,W,F 02/16/24 - Past Medical/Surgical History Diabetic: No -: TB at age 18, one year treatment -: ckd stage 4 -: Hypertension -: Lupus -: CAD -: Anemia -: Hyperlipidemia -: surgery for prolapse Oct 2019 -: hysterectomy -: heel spur right foot 2003 -: Stent LAD August 2020 Psychosocial/ Personal History: 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 stomach issues - Social History Alcohol use: No CD- Drugs: No Caffeine use: Yes Place of Residence: Home Review of Systems 10-point ROS is otherwise unremarkable General: Chills Respiratory: Cough, Shortness of Breath, Pleuritic Pain Physical Examination - Physical Exam General: Alert, In no apparent distress, Oriented x3 HEENT: Atraumatic, PERRLA, EOMI, Sclerae nonicteric Neck: Supple, 2+ carotid pulse no bruit, No LAD, Without JVD or thyroid abnormality Respiratory: Normal air movement, Diminished Cardiovascular: Regular rate/rhythm, Normal S1 S2 Gastrointestinal: Normal bowel sounds, No tenderness Musculoskeletal: No tenderness Integumentary: No rashes Neurological: Normal speech, Normal strength at 5/5 x4 extr Lymphatics: No axilla or inguinal lymphadenopathy - Studies Laboratory Data (last 24 hrs) 03/07/25 03/07/25 03/07/25 03:52 03:52 03:52 WBC 5.20 Hgb 6.8 L Hct 20.8 L Plt Count 207 PT 11.6 INR 1.02 Sodium 140 Potassium 4.0 BUN 38 H Creatinine 3.37 H Glucose 94 Magnesium 1.7 Total Bilirubin 0.2 AST < 10 L ALT 17 Alkaline Phosphatase 77 Assessment and Plan - Plan Assessment: Left sided community-acquired pneumonia Severe anemia of chronic disease CKD 4 History of lupus History of CAD Hypertension Hyperlipidemia Plan: Left sided community-acquired pneumonia Continue antibiotics Rocephin/Zithromax On room air at this time, continue to monitor oxygen requirements As needed medications for pain/cough Severe anemia of chronic disease Transfuse 1 unit PRBC now Recheck H&H 2 hours after transfusion Gets Procrit outpatient CKD 4 Nephrology consultation Avoid NSAIDs or IV contrast History of lupus History of CAD Hypertension Hyperlipidemia Continue home medications when verified DVT PPX: Heparin subcu Code status: Full Discharge Plan: Home Plan to discharge in: 48 Hours - Advance Directives Does patient have a Living Will: No Does patient have a Durable POA for Healthcare: No - Code Status/Comfort Care Code Status Assessed: Yes (Full code) Critical Care: No Time Spent Managing Pts Care (In Minutes): 68
[2025-03-07 08:11] VITALS: BMI 28.3
[2025-03-07] MEDS: AZITHROMYCIN IV 500 MG in NA CHLORIDE 0.9% 250 ML IVPB SCH (09:00)
[2025-03-07] MEDS: HEPARIN 5000 UNIT/ML 1 ML VIAL SQ SCH (09:00)
[2025-03-07] MEDS ORDERED: HEPARIN 5000 UNIT/ML 1 ML VIAL ONE ×2 (09:11→20:20)
[2025-03-07] MEDS ORDERED: AZITHROMYCIN 500 MG INJ IVPB ONE (09:11)
[2025-03-07] MEDS ORDERED: CEFTRIAXONE 1000 MG/VIAL ONE (09:11)
[2025-03-07] MEDS ORDERED: NA CHLORIDE 0.9% 500 ML ONE (09:11)
[2025-03-07] MEDS ORDERED: EPOETIN ALFA 4,000 UNIT/ML VIAL IV SCH (16:00)
--- NOTE | 2025-03-07 19:13 | CON ---
Date of Consultation: 03/07/2025 Additional Consulting Physician: Dr. Espinoza. Reason For Consultation: Elevated BUN and creatinine, fluid management, chronic kidney disease. 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 Baseline creatinine as of January 2025, creatinine 3.3 with GFR of 14. The patient came to the [facility] complaining from cough for the last few days, with chest tightness and left-sided chest pain. The patient deny any fever, any chills. Upon arrival to the hospital, the patient was found to have acidosis, elevated creatinine 3.3 with GFR of 14 and hemoglobin down to 6.8. For that reason, the [facility] was admitted. Past Medical History: 1. SLE complicated with nephritis. 2. Vitamin D deficiency. 3. CAD, complicated with cardiorenal ejection fraction of 40, status post non-ST elevation [place], status post PTCA, ejection fraction of 45%. 4. Hypertension. 5. 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 Last creatinine back in January is 3.3 with GFR of 14. Allergies: TO LEVAQUIN AND MORPHINE. Home Medications: Include atorvastatin, aspirin, vitamin C, Epogen, metoprolol, estradiol. Past Surgical History: Include hysterectomy, prolapse surgery, PTCA. Family History: Positive for hypertension. Social History: Denied smoking. Denied drinking. Denied drugs abuse. Review of Systems: Head and Neck: No red eye. No ear pain. GI: No nausea. No vomiting. No black stool. : No polyuria. No dysuria. No hematuria. 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 Respiratory: Has cough. Has shortness of breath. Cardiovascular: No chest pain. Endocrine: No polydipsia. Skin: No rash. Physical Examination: Vital Signs: When I saw the patient, the patient is sitting in the bed, not in any distress. Vital Signs: Blood pressure 129/76, pulse of 74. Chest: Faint rales bilateral. Heart: S1, S2. Systolic murmur. Abdomen: Soft, nontender. Extremities: Trace edema. Neurologic: Alert. No focality. Laboratory Data: WBC 5.2, hemoglobin 6.8. Sodium 140, potassium 4, bicarb 17, BUN 38, creatinine 3. 3, GFR of 14, calcium 7.8, magnesium 1.7. Assessment And Plan: 1. Chronic kidney disease stage IV/V, slightly on the wet side with symptomatic anemia and pneumonia, stable on her baseline. I am going to go ahead and give the patient Lasix, especially after transfu alicia and we will follow up the patient. Continue to monitor the patient. No uremic symptoms. No hy perkalemia. No significant acidosis. I do not see the need to initiate any renal replacement therap y. 2. Hypertension, controlled, optimal. We will utilize blood pressure for more diuresis. 3. Acidosis, non-anion gap metabolic acidosis secondary to renal failure. Resume oral bicarb. 4. Congestive heart failure. We will diurese the patient. 5. Anemia of chronic kidney disease. We will send for anemia workup. We will transfuse the patient. We will give Lasix after transfusion. 6. SLE. No exacerbation. Lab was done as outpatient. Double strength on the acceptable range. No depletion on C3, C4. Doubt to be any activity of the lupus. Thank you Dr. Espinoza for allowing us to participate in the care of your patient. ANNA Voice ID: [id number] Report ID: [id number]
[2025-03-07] MEDS ORDERED: ONDANSETRON 4 MG/2 ML VIAL ONE (20:19)
[2025-03-07] MEDS ORDERED: ASCORBIC ACID 500 MG TABLET ONE (20:20)
[2025-03-07] MEDS ORDERED: HYDROCODONE/APAP 5/325 MG TAB ONE (20:20)
[2025-03-07] MEDS ORDERED: ASPIRIN EC 81 MG TAB PO ONE (20:20)
[2025-03-07] MEDS ORDERED: ATORVASTATIN 40 MG TAB ONE (20:20)
[2025-03-07] MEDS: HYDROCODONE/APAP 5/325 MG TAB PO PRN (20:37)
[2025-03-07] MEDS: ASPIRIN EC 81 MG TAB PO SCH (20:37)
[2025-03-07] MEDS: ASCORBIC ACID 500 MG TABLET PO SCH (20:37)
[2025-03-07] MEDS: ATORVASTATIN 40 MG TAB PO SCH (20:37)
[2025-03-07] MEDS: ONDANSETRON 4 MG/2 ML VIAL IV PRN (20:38)
[2025-03-08 05:05] LABS: Absolute Eosinophils 0.2 K/uL (0-0.5); Absolute Lymphocytes (CBC) 0.3 K/uL (0.7-4.9); Absolute Monocytes 0.3 K/uL (0.1-1.3); Absolute Neutrophil 3.6 K/uL (1.8-8.0); Basophils % 0.3 % (0-1.3); Eosinophils % 3.6 % (0-4.4); Hematocrit 24.9 % (36.0-45.0); Hemoglobin 8.4 g/dL (12.0-15.0); Lymphocytes % 7.7 % (15.3-44.8); MCH 30.5 pg (27.0-35.0); MCHC 33.7 g/dL (32.0-36.0); MCV 90.5 fL (80-100); MPV 8.1 fL (7.6-11.3); Neutrophils % 81.4 % (41.7-73.7); Platelets 196 thou/uL (152-406); RBC Red Blood Cell Count 2.75 M/uL (3.86-4.86); Red Cell Distribution Width 15.8 % (12.1-15.2)
[2025-03-08 05:30] LABS: Albumin 2.9 g/dL (3.4-5.0); Anion Gap 11.2 mEq/L (5.0-15.0); Ferritin 363.1 ng/mL (8-252); Potassium 4.2 mEq/L (3.5-5.1); Uric Acid 5.5 mg/dL (2.6-6.0)
[2025-03-08 05:31] LABS: Thyroid Stimulating Hormone 4.07 uIU/mL (0.358-3.740)
[2025-03-08] MEDS ORDERED: HEPARIN 5000 UNIT/ML 1 ML VIAL ONE (08:24)
[2025-03-08] MEDS ORDERED: AZITHROMYCIN 500 MG INJ IVPB ONE (08:25)
[2025-03-08] MEDS ORDERED: CEFTRIAXONE 1000 MG/VIAL ONE (08:25)
[2025-03-08] MEDS ORDERED: NA CHLORIDE 0.9% 0 ML ONE ×2 (08:26)
[2025-03-08] MEDS: CEFTRIAXONE 1,000 MG in NA CHLORIDE 0.9% 50 ML IVPB SCH (08:28)
[2025-03-08] MEDS ORDERED: NA CHLORIDE 0.9% 50 ML ONE (08:29)
[2025-03-08] MEDS ORDERED: NA CHLORIDE 0.9% 250 ML ONE (08:31)
[2025-03-08] MEDS: AMLODIPINE 10 MG TAB PO SCH (08:32)
[2025-03-08] MEDS: FUROSEMIDE 40 MG/4 ML VIAL IV SCH (08:32)
[2025-03-08] MEDS: METOPROLOL XL 100 MG TAB PO SCH (08:32)
[2025-03-08] MEDS ORDERED: HYDROCODONE/APAP 5/325 MG TAB ONE (10:20)
[2025-03-08] MEDS ORDERED: FUROSEMIDE 40 MG/4 ML VIAL ONE (12:15)
--- NOTE | 2025-03-08 12:20 | P.DS ---
Admission Date: 03/07/25 Discharge Date: 03/08/25 Disposition: ROUTINE DISCHARGE Discharge Condition: GOOD Reason for Admission: Pneumonia Brief History of Present Illness: 74-year-old female with history of CKD, anemia, lupus, hypertension and hyperlipidemia presents the emergency department chief complaint of left-sided chest wall pain with associated cough and chills. She reports that she has had a cough for around 1 week now but the pain to the left chest wall became relatively severe in nature and for that reason prompted her ER visit. Patient was evaluated in the emergency department her labs were significant for a white blood cell count of 5.2 hemoglobin 6.8 bicarb 17 creatinine 3.37 GFR 14, baseline creatinine appears to be around 3.3. CT of the chest abdomen pelvis was obtained without contrast which revealed airspace opacities in the lateral left upper lobe raising suspicion for pneumonia. Patient was started on broad-spectrum antibiotics, she was also ordered blood given her anemia. She will be admitted for further management. Hospital Course: Assessment: Left sided community-acquired pneumonia Severe anemia of chronic disease CKD 4 History of lupus History of CAD Hypertension Hyperlipidemia Patient was admitted to the hospital for community-acquired pneumonia and symptomatic anemia. She received 1 unit of packed red blood cells as her initial hemoglobin was 6.8. Repeat hemoglobin is stable at 8.4. She denies any GI bleeding, anemia secondary to chronic disease. She had a CT of her chest abdomen pelvis performed which did demonstrate a left- sided pneumonia that was also causing her some pleuritic pain. Her white blood cell count remained within normal limits, she has been afebrile and breathing well on room air. She stable for discharge and outpatient follow-up with her primary care doctor. Prescription for antibiotics will be sent to her pharmacy. Recommend repeat chest x-ray in 3 to 4 weeks to evaluate for resolution and rule out underlying causes. Please follow-up with your primary care doctor 1 to 2 weeks Please follow-up with nephrologyDr. Tuttle in 1 to 2 weeks Vital Signs/Physical Exam: Temp Pulse Resp BP Pulse Ox 98 F 71 15 142/69 H 95 03/08/25 08:00 03/08/25 08:00 03/08/25 08:00 03/08/25 08:00 03/08/25 08:00 General: Alert, In no apparent distress, Oriented x3 HEENT: Atraumatic, PERRLA Neck: Supple, JVD not distended Respiratory: Clear to auscultation bilaterally, Normal air movement Cardiovascular: Regular rate/rhythm, Normal S1 S2 Gastrointestinal: Normal bowel sounds, No tenderness Musculoskeletal: No tenderness Integumentary: No rashes Neurological: Normal speech, Normal affect Laboratory Data at Discharge: WBC 4.40 thou/uL (4.3-10.9) 03/08/25 04:58 Hgb 8.4 g/dL (12.0-15.0) L 03/08/25 04:58 Hct 24.9 % (36.0-45.0) L 03/08/25 04:58 Plt Count 196 thou/uL (152-406) 03/08/25 04:58 PT 11.6 SECONDS (10-13.0) 03/07/25 03:52 INR 1.02 03/07/25 03:52 Sodium 142 mEq/L (136-145) 03/08/25 04:58 Potassium 4.2 mEq/L (3.5-5.1) 03/08/25 04:58 BUN 41 mg/dL (7-18) H 03/08/25 04:58 Creatinine 3.06 mg/dL (0.55-1.02) H 03/08/25 04:58 Glucose 84 mg/dL (74-106) 03/08/25 04:58 Uric Acid 5.5 mg/dL (2.6-6.0) 03/08/25 04:58 Phosphorus 5.0 mg/dL (2.5-4.9) H 03/08/25 04:58 Magnesium 1.7 mg/dL (1.6-2.4) 03/07/25 03:52 Total Bilirubin 0.2 mg/dL (0.2-1.0) 03/07/25 03:52 AST < 10 U/L (15-37) L 03/07/25 03:52 ALT 17 U/L (13-56) 03/07/25 03:52 Alkaline Phosphatase 77 U/L (45-117) 03/07/25 03:52 Home Medications: Atorvastatin Calcium [Lipitor] 40 mg PO BEDTIME #30 tab 09/13/20 Aspirin [Aspirin EC 81 MG] 81 mg PO BEDTIME 03/11/21 Amlodipine Besylate [Norvasc] 10 mg PO DAILY 02/16/24 Epoetin [Procrit*] 4,000 unit IV SEECOM 02/16/24 Metoprolol Succinate [Toprol Xl*] 100 mg PO DAILY 02/16/24 estradioL [Estradiol] 1 jean claude VAG M,W,F 02/16/24 Amox/Clavulanate [Augmentin 500-125 mg Tab] 500 mg PO BID 7 Days #14 tab 03/08/25 Doxycycline Hyclate 100 mg PO BID 7 Days #14 cap 03/08/25 New Medications: Amox/Clavulanate [Augmentin 500-125 mg Tab] 500 mg PO BID 7 Days #14 tab Doxycycline Hyclate 100 mg PO BID 7 Days #14 cap Physician Discharge Instructions: Patient was admitted to the hospital for community-acquired pneumonia and symptomatic anemia. She received 1 unit of packed red blood cells as her initial hemoglobin was 6.8. Repeat hemoglobin is stable at 8.4. She denies any GI bleeding, anemia secondary to chronic disease. She had a CT of her chest abdomen pelvis performed which did demonstrate a left- sided pneumonia that was also causing her some pleuritic pain. Her white blood cell count remained within normal limits, she has been afebrile and breathing well on room air. She stable for discharge and outpatient follow-up with her primary care doctor. Prescription for antibiotics will be sent to her pharmacy. Recommend repeat chest x-ray in 3 to 4 weeks to evaluate for resolution and rule out underlying causes. Please follow-up with your primary care doctor 1 to 2 weeks Please follow-up with nephrologyDr. Marry in 1 to 2 weeks Diet: Renal Activity: Ad gabriel Followup: Dorita Tuttle MD [ACTIVE - CAN ADMIT] - 1-2 Weeks Sinai Goncalves MD [Primary Care Provider] - 1-2 Weeks Time spent managing pt's care (in minutes): 47
[2025-03-08] MEDS: FUROSEMIDE 40 MG/4 ML VIAL IV ONE (12:21)
--- NOTE | 2025-03-08 12:22 | EKG ---
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
[2025-03-08 15:20] VITALS: TEMP 98.2
[2025-03-08 15:25] VITALS: BP 163/78; O2SAT 99
--- NOTE | 2025-03-08 19:53 | PN ---
Date of Progress Note: 03/08/2025 Subjective: The patient was admitted to the hospital with CHF exacerbation with shortness of breath. The patient was diuresed over the night, responded very well. Physical Examination: Vital Signs: When I saw the patient, blood pressure 163/78, pulse of 70. Chest: Clear to auscultation. The patient on room air. Heart: S1, S2. Regular. Abdomen: Soft, nontender. Extremities: No edema. Neurologic: Alert. No focality. Laboratory Data: WBC 4.4, hemoglobin 8.4, sodium 142, potassium 4.2, bicarb 19, BUN 41, creatinine 3 , GFR of 15, calcium 8.1, phosphorus 5. Iron saturation 55. Albumin 2.9. TSH 4, PTH 148. Current Medications: The patient on, include: 1. Lasix. 2. Calcitriol. 3. Vitamin D. Assessment And Plan: 1. Chronic kidney disease, stage 4-5, secondary to lupus nephritis, stable, on baseline, on the s manisha. We will continue diuresis. 2. Anemia of chronic kidney disease, status post transfusion. Continue ISIDRO. 3. Hypertension, controlled, optimal. Continue current treatment. 4. Congestive heart failure with exacerbation. We will continue optimizing fluid status. LATRICIA/TAE Voice ID: [id number] Report ID: [id number]
[2025-03-13 00:25] LABS: 1,25 Dihydroxy Vitamin D3 20 pg/mL; Vitamin D 1,25-Dihydroxy Total 20 pg/mL (18-72); Vitamin D,1,25-OH2, D2 <8 pg/mL
== END 2025-03-08 13:26 | disposition home or self-care (01) | DRG 291 ==
LOC: ER 02:34 → ERHOLD 07:04
PROVIDERS: ADMIT Internal Medicine; ATTEND Internal Medicine
PROC: 30233H1 Transfusion of Nonautologous Whole Blood into Peripheral Vein, Percutaneous Approach (ICD-10-PCS; principal; 2025-03-08)
DX: I13.0 Hypertensive heart and chronic kidney disease with heart failure and stage 1 through stage 4 chronic kidney disease, or unspecified chronic kidney disease (principal); J18.9 Pneumonia, unspecified organism; E87.20 Acidosis, unspecified; N18.4 Chronic kidney disease, stage 4 (severe); D63.1 Anemia in chronic kidney disease; I25.10 Atherosclerotic heart disease of native coronary artery without angina pectoris; I25.2 Old myocardial infarction; Z98.61 Coronary angioplasty status; K21.9 Gastro-esophageal reflux disease without esophagitis; E78.5 Hyperlipidemia, unspecified; M32.14 Glomerular disease in systemic lupus erythematosus; Z90.710 Acquired absence of both cervix and uterus; Z88.3 Allergy status to other anti-infective agents; Z88.5 Allergy status to narcotic agent; E55.9 Vitamin D deficiency, unspecified
CPT/HCPCS: 36415; 71045; 71250; 74176; 80048; 80069; 80076; 82652; 82728; 83540; 83605; 83735; 83880; 83970; 84145; 84439; 84443; 84466; 84484; 84550; 85018; 85025; 85610; 86850; 86900; 86901; 86920; 87040; 93005; 96365; 96375; 99285; J0692; J0696; J1644; J1938; J2405; J3370; J7050; P9016

== ENCOUNTER 2025-06-05 17:54 | Observation (INO) | payer OTHER ==
--- OUTSIDE RECORDS SUMMARY | 2025-06-05 18:00 | XMS REPORT | Continuity of Care Document ---
Author Name Unknown Address [address] [facility] [address] [place] [address] [facility] [place] Address [address] [facility] [place] [address] Care Team Providers Care Curing Room Worker Name Role Phone Rossi NIETO, Eugene Hooper Primary Care Physician Ana Lilia Lund MD Attending Clinician [phone] ANA LILIA LUND Attending Clinician Unava ilable STAN ERNST Attending Clinician Unavailab le Worker, Transplant Social Attending Clinician Un available Stan Ernst MD Attending Clinician [phone] Coordinator, Transplant Attending Clinician Unav ailable Renal, Transplant Class Attending Clinician Unav ailable Stephanie Guardado Attending Clinician [phone] Lavern Fowler MD Attending Clinician [phone] LAVERN FOWLER Attending Clinician Unavailable GC_GCBZW_Kadiyala_S Attending Clinician Unavaila Janna Cruz Attending Clinician Pauline Morrison Attending Clinician Rojas Attending Clinician Unavailable Brunilda Rucker Attending Clinician GC_GCBZW_Kadiyala_S Admitting Clinician Unavailshashank Xie Admitting Clinician Unavailable Payers Payer Name Policy Type Policy Number Effective Date Expirati on Date Source [employer] MEDICARE ADVANTAGE HMO/POS [id number] 2024 00:00:00 [employer] Medicare [id number] 2023 00:00:00 [employer] (MEDICARE REPLACEMENT HMO) [id number] 2022 00:00:00 Problems Condition Name Condition Details Condition Category Status Onset Date Resolution Date Last Treatment Date Treating Clinician Comments Source Systemic lupus erythemato shelly (CMS/HCC) Systemic lupus erythemato shelly (CMS/HCC) Disease Active 07-18 00:00: 00 Selwyn Hearn 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 07-18 00:00: 00 Selwyn Hearn High risk medication use High risk medication use Disease Active 07-18 00:00: 00 Selwyn Henao Epic Herpes zoster Herpes Zoster Problem Active 8-27 00:00: 00 [facility] Blood in urine Blood in Urine Problem Active 6-03 00:00: 00 [facility] Recurrent urinary tract infection Recurrent Urinary Tract Infection Problem Active 4-01 00:00: 00 [facility] Acute urinary tract infection Acute Urinary Tract Infection Problem Active 0 2-26 00:00: 00 [facility] Urge incontinen ce of urine Urge Incontinen ce of Urine Problem Active 2-06 00:00: 00 [facility] Dysuria Dysuria Problem Active 0 1-22 00:00: 00 [facility] Incomplete emptying [...] Incontinen ce of Feces Problem Active 2020-10 215 00:00: 00 [facility] Chronic kidney disease stage 3 Chronic Kidney Disease Stage 3 Problem Active 2020-10 00:00: 00 [facility] Increased frequency of urination Increased Frequency of Urination Problem Active 2020-10 00:00: 00 [facility] Muscle atrophy Muscle Atrophy Problem Active 07-08 00:00: 00 [facility] Menopause present Menopause Present Problem Active 07-08 00:00: 00 [facility] Systemic lupus erythemato shelly Systemic Lupus Erythemato shelyl Problem Active 04-05 00:00: 00 [facility] Old myocardial infarction Old Myocardial Infarction Problem Active 04-03 00:00: 00 [facility] Acute cystitis Acute Cystitis Problem Active 04-03 00:00: 00 [facility] Urinary tract infectious disease Urinary Tract Infectious Disease Problem Active 04-03 00:00: 00 [facility] Lateral cystocele Lateral Cystocele Problem Active 04-03 00:00: 00 [facility] 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 my Problem Active 04-03 00:00: 00 [facility] History of urinary tract infection History of Urinary Tract Infection Problem Active 04-03 00:00: 00 [facility] Constipati on Constipati on Problem Active 2019-10 2-16 00:00: 00 [facility] Diverticul osis of large intestine Diverticul osis of Large Intestine Problem Active 928 00:00: 00 [facility] Gynecologi aicha examinatio n abnormal Gynecologi aicha Examinatio n Abnormal Problem Active 7-06 00:00: 00 [facility] Sensation as if urinary bladder still full Sensation as If Urinary Bladder Still Full Problem Active 6 00:00: 00 [facility] Overactive urinary bladder Overactive Urinary Bladder Problem Active 6 00:00: 00 [facility] Genuine stress incontinen ce Genuine Stress Incontinen ce Problem Active 2019-1 2-26 00:00: 00 [facility] Essential hypertensi on Essential Hypertensi on Problem Active 2018-1 2-18 00:00: 00 [facility] Atrophic vaginitis Atrophic Vaginitis Problem Active 0 7-17 00:00: 00 [facility] 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 Problem Active 7-15 00:00: 00 [facility] Hypertroph y of uterus Hypertroph y of Uterus Problem Active 715 00:00: 00 [facility] Allergies, Adverse Reactions, Alerts Allergy Name Allergy Type Status Severity Reaction(s) Onset Date Inactive Date Treating Clinician Comments Source HYDROXYC HLOROQUI NE DRUG INGREDI Active Other-Cmnt 07-15 00:00: 00 [facility] LEVOFLOX ACIN DRUG INGREDI Active Unknown-Cmnt 07-15 00:00: 00 [facility] MORPHINE DRUG INGREDI Active Unknown-Cmnt 07-15 00:00: 00 [facility] Hydroxyc hloroqui ne Drug Allergy Active Other - See comments 07-15 00:00: 00 Other Reaction( s): worsening eyes [facility] Hydroxyc hloroqui ne Propensi ty to adverse reaction s to drug Active Other - See comments 07-15 00:00: 00 Glaucoma of left eye [facility] Levoflox acin Drug Allergy Active Unknown - See comments 07-15 00:00: 00 Other Reaction( s): Unknown [facility] Morphine Drug Allergy Active Unknown - See comments 07-15 00:00: 00 Other Reaction( s): Unknown [facility] Hydroxyc hloroqui ne Allergy to substanc e Active 07-15 00:00: 00 Other Reaction( s): worsening eyes Memoria l [facility] Levoflox acin Allergy to substanc e Active 07-15 00:00: 00 Other Reaction( s): Unknown [facility] Morphine Propensi ty to adverse reaction s Active 07-15 00:00: 00 Other Reaction( s): Unknown Mem[facility] l [facility] NO KNOWN ALLERGIE S Drug Class Active [facility] Morphine Drug Allergy Active [facility] Social History Social Habit Start Date Stop Date Quantity Comments Source Gender identity 2024-01-17 13:45:56 Identifies as female gender (finding) [facility] Alcoholic beverage intake 2024-07-15 00:00:00 2024-07-15 00:00:00 Lifetime non-drinker (finding) [facility] History of Social function 2024-07-15 00:00:00 2024-07-15 00:00:00 [facility] Sex assigned at 1950 00:00:00 1950 00:00:00 [facility] Smoking Status Start Date Stop Date Source Tobacco smoking consumption unknown [facility] Never smoked tobacco Selwyn morales Juliano [facility] Medications Ordered Medication Name Filled Medication Name Start Date Stop Date Current Medication? Ordering Clinician Indication Dosage Frequency Signature (SIG) Comments Components Source Cholecalcif britney, Vitamin D3, (VITAMIN D3) 125 mcg (5,000 unit) tablet 05-17 11:35: 49 Yes 5000U Take 1 tablet by mouth in the morning. [facility] ascorbic acid, vitamin C, (VITAMIN C) 500 mg tablet 05-17 11:35: 49 Yes 500mg Take 1 tablet by mouth in the morning and 1 tablet in the evening. [facility] ferrous fumarate/vi t Bcomp,C (SUPER B COMPLEX ORAL) 05-17 11:35: 49 Yes 1{tbl} Take 1 tablet by mouth every morning. [facility] sucralfate (CARAFATE) 1 gram tablet 05-17 11:14: 56 Yes 1g Take 1 tablet by mouth every morning. [facility] losartan 25 mg tablet 05-17 11:12: 29 Yes 12.5mg Take 0.5 tablets by mouth in the morning. [facility] gabapentin 300 mg capsule 05-17 11:12: 29 Yes 300mg Take 1 capsule by mouth in the morning. [facility] amLODIPine 10 mg tablet 05-17 11:12: 29 Yes 10mg Take 1 tablet by mouth every morning. [facility] metoprolol succinate XL 100 mg 24 hr tablet 05-17 11:12: 29 Yes 50mg Take 0.5 tablets by mouth in the morning. [facility] CELLCEPT 500 mg tablet 05-17 11:12: 29 Yes 1000mg Take 2 tablets by mouth in the morning and 2 tablets in the evening. [facility] atorvastati n 20 mg tablet 05-17 11:12: 29 Yes 20mg Take 1 tablet by mouth at bedtime. [facility] aspirin 81 mg Cap 05-17 11:12: 29 Yes 81mg Take 81 mg by mouth at bedtime. [facility] LUMIGAN 0.01 % ophthalmic drops 05-17 11:12: 29 Yes 1[drp] Place 1 Drop in left eye at bedtime. [facility] citalopram 10 mg tablet 05-17 11:12: 29 Yes 10mg Take 1 tablet by mouth every morning. [facility] hydrALAZINE 25 mg tablet 05-17 11:12: 29 Yes 25mg Take 1 tablet by mouth in the morning and 1 tablet at noon and 1 tablet in the evening. [facility] benzonatate 100 mg capsule 14 00:00: 00 Yes 100mg Take 1 capsule by mouth every 8 hours as needed for Cough. [facility] valACYclovi r (VALTREX) 500 mg tablet 02-15 00:00: 00 Yes 500mg Take 1 tablet by mouth in the morning. [facility] estradioL 0.01 % (0.1 mg/gram) vaginal cream 01-24 00:00: 00 Yes 1g Insert 1 g into vagina every Thursday, Thursday and Thursday. [facility] losartan losartan 01-24 00:00: 00 No losartan [facility] losartan 25 mg tablet 3-26 00:00: 00 Yes 5mg Gus Buddy May pantoprazol e 40 mg tablet,jennifer yed release 2-11 00:00: 00 Yes 1mg Gus May hydralazine 25 mg tablet 2-11 00:00: 00 Yes mg [facility] amlodipine 10 mg tablet 1-25 00:00: 00 Yes mg Gus May losartan 25 mg tablet 1-18 00:00: 00 Yes mg Gus May atorvastati n 20 mg tablet 2023-10 2- 00:00: 00 Yes mg Gus May losartan (Cozaar) 100 MG tablet losartan (Cozaar) 100 MG tablet 07-18 10:41: 30 Yes 100mg QD Take 100 mg by mouth 1 time each day. [facility] Hearn ergocalcife rol (vitamin D2) 1,250 mcg (50,000 unit) capsule 07-18 00:00: 00 Yes (50,000 unit) Gus May mycophenola te mofetil 500 mg tablet 9 00:00: 00 Yes mg Gus May spironolact one (Aldactone) 25 MG tablet spironolact one (Aldactone) 25 MG tablet 06-15 00:00: 00 Yes 1{tbl} QD Take 1 tablet by mouth 1 time each day. Selwyn Hearn metoprolol succinate ER 100 mg tablet,exte nded release 24 hr 05-19 00:00: 00 Yes mg Gus May gentamicin 40 mg/mL injection solutionTak e 80 mg by injection route. gentamicin 40 mg/mL injection solutionTak e 80 mg by injection route. 612 08:58: 31 No gentamicin 40 mg/mL injection solutionTa ke 80 mg by injection route. [facility] aspirin EC 81 MG EC tablet aspirin EC 81 MG EC tablet 4-30 00:00: 00 Yes 1{tbl} Take 1 tablet by mouth 1 time each day at the same time. Selwyn Hearn metoprolol succinate XL (Toprol-XL) 50 MG 24 hr tablet metoprolol succinate XL (Toprol-XL) 50 MG 24 hr tablet 2022-10 0-17 00:00: 00 Yes 1{tbl} QD Take 1 tablet by mouth 1 time each day. Selwyn Hearn atorvastati n (Lipitor) 40 MG tablet atorvastati n (Lipitor) 40 MG tablet 2019-10 00:00: 00 Yes 40mg QD Take 40 mg by mouth 1 time each day. Selwyn Henao [facility] mycophenola te (Cellcept) 250 MG capsule mycophenola te (Cellcept) 250 MG capsule 06-21 00:00: 00 Yes 1000mg Q.5D Take 1,000 mg by mouth in the morning and 1,000 mg in the evening. Selwyn Henao [facility] amlodipine 10 mg tablet Take 1 tablet every day by oral route. amlodipine 10 mg tablet Take 1 tablet every day by oral route. No 1 Q1D amlodipine 10 mg tablet Take 1 tablet every day by oral route. [facility] aspirin 81 mg capsule Take 1 capsule every day by oral route. aspirin 81 mg capsule Take 1 capsule every day by oral route. No 1capsul e(s) Q1D aspirin 81 mg capsule Take 1 capsule every day by oral route. [facility] Colace Colace No Colace [facility] cranberry cranberry No cranberry [facility] gabapentin gabapentin No gabapentin [facility] metoprolol succinate metoprolol succinate No metoprolol succinate [facility] pantoprazol e pantoprazol e No pantoprazo le [facility] Vitamin C Vitamin C No Vitamin C [facility] Vitamin D2 Vitamin D2 No Vitamin D2 [facility] Vitamin D3 Vitamin D3 No Vitamin D3 [facility] Procrit Procrit No Procrit P [facility] CellCept CellCept No CellCept [facility] acyclovir 5 % topical ointment 1 application every 3 hours; 5 days acyclovir 5 % topical ointment 1 application every 3 hours; 5 days No acyclovir 5 % topical ointment 1 applicatio n every 3 hours; 5 days [facility] atorvast[facility] n 20 mg tablet Take 1 tablet every day by oral route. atorvastati n 20 mg tablet Take 1 tablet every day by oral route. No 1 Q1D atorvastat in 20 mg tablet Take 1 tablet every day by oral route. [facility] hydrochloro thiazide 25 mg tablet Take 1 tablet every day by oral route. hydrochloro thiazide 25 mg tablet Take 1 tablet every day by oral route. No 1 Q1D hydrochlor othiazide 25 mg tablet Take 1 tablet every day by oral route. [facility] mycophenola te mofetil 500 mg tablet mycophenola te mofetil 500 mg tablet Yes [facility] pantoprazol e sodium 40 mg tablet pantoprazol e sodium 40 mg tablet Yes [facility] cholestyram ine 4 gm packet cholestyram ine 4 gm packet Yes [facility] Immunizations Ordered Immunization Name Filled Immunization Name Date Status Comments Source SARS-COV-2 COVID-19 MODERNA 12+ YRS VACCINE 2020-12-29 00:00:00 Completed [facility] SARS-COV-2 COVID-19 MODERNA 12+ YRS VACCINE 2020-12-01 00:00:00 Completed [facility] Vital Signs Vital Name Observation Time Observation Value Comments S ource Systolic blood pressure 2025-05-17 14:15:00 152 mm[Hg] [facility] Diastolic blood pressure 2025-05-17 14:15:00 69 mm[Hg] [facility] Heart rate 2025-05-17 14:15:00 78 /min [facility] Body temperature 2025-05-17 14:14:00 36.33 Jaqueline [facility] Body height 2025-05-17 14:14:00 162.6 cm without shoes [facility] Body weight 2025-05-17 14:14:00 77.066 kg without shoes [facility] BMI 2025-05-17 14:14:00 29.16 kg/m2 [facility] Oxygen saturation in Arterial blood by Pulse oximetry 2025-05-17 14:14:00 100 /min [facility] Systolic blood pressure 2025-03-28 19:33:00 133 mm[Hg] [facility] Diastolic blood pressure 2025-03-28 19:33:00 81 mm[Hg] [facility] Heart rate 2025-03-28 19:33:00 71 /min [facility] Body temperature 2025-03-28 19:32:00 36.17 Jaqueline [facility] Body height 2025-03-28 19:32:00 162.6 cm [facility] Body weight 2025-03-28 19:32:00 77.656 kg [facility] BMI 2025-03-28 19:32:00 29.39 kg/m2 [facility] Oxygen saturation in Arterial blood by Pulse oximetry 2025-03-28 19:32:00 98 /min [facility] Body Weight 2025-01-24 00:00:00 170.4 [lb_av] [facility] BP Systolic 2025-01-24 00:00:00 153 mm[Hg] [facility] Height 2025-01-24 00:00:00 65 [in_i] [facility] BP Diastolic 2025-01-24 00:00:00 70 mm[Hg] [facility] BMI (Body Mass Index) 2025-01-24 00:00:00 28.4 kg/m2 [facility] BP Diastolic 2024-06-21 00:00:00 76 mm[Hg] [facility] Height 2024-06-21 00:00:00 65 [in_i] [facility] Body Weight 2024-06-21 00:00:00 170.2 [lb_av] [facility] BMI (Body Mass Index) 2024-06-21 00:00:00 28.3 kg/m2 [facility] BP Systolic 2024-06-21 00:00:00 140 mm[Hg] [facility] BMI (Body Mass Index) 2024-02-10 00:00:00 28.4 kg/m2 [facility] Body Weight 2024-02-10 00:00:00 170.4 [lb_av] [facility] Height 2024-02-10 00:00:00 65 [in_i] [facility] BP Systolic 2024-02-10 00:00:00 136 mm[Hg] [facility] BP Diastolic 2024-02-10 00:00:00 72 mm[Hg] [facility] Body Weight 2024-01-25 00:00:00 170.4 [lb_av] [facility] BP Diastolic 2024-01-25 00:00:00 83 mm[Hg] [facility] BP Systolic 2024-01-25 00:00:00 139 mm[Hg] [facility] BMI (Body Mass Index) 2024-01-25 00:00:00 28.4 kg/m2 [facility] Height 2024-01-25 00:00:00 65 [in_i] [facility] BP Systolic 2024-01-08 00:00:00 130 mm[Hg] [facility] BP Diastolic 2024-01-08 00:00:00 67 mm[Hg] [facility] Height 2024-01-08 00:00:00 65 [in_i] [facility] BP Systolic 2025-01-18 08:56:00 130 mm[Hg] [facility] F [facility] BP Diastolic 2025-01-18 08:56:00 62 mm[Hg] [facility] F [facility] Weight Measured 2025-01-18 08:56:00 171.00 pounds Gus F Lalo Height Measured 2025-01-18 08:56:00 63.78 inches Gus F Lalo Body Temperature 2025-01-18 08:56:00 97.80 degrees Gus F Lalo Heart Rate 2025-01-18 08:56:00 Gus F Lalo Respiratory Rate 2025-01-18 08:56:00 Gus F Lalo Respiratory Rate 2024-12-06 09:47:00 Gsu F Lalo BP Systolic 2024-12-06 09:47:00 139 mm[Hg] Gus F Lalo BP Diastolic 2024-12-06 09:47:00 78 mm[Hg] Gus F Lalo Weight Measured 2024-12-06 09:47:00 169.40 pounds Gus F Lalo Height Measured 2024-12-06 09:47:00 63.78 inches Gus F Lalo Body Temperature 2024-12-06 09:47:00 98.40 degrees Gus May Heart Rate 2024-12-06 09:47:00 67.00 /min Gus F Lalo BP Systolic 2024-12-06 09:28:00 139 mm[Hg] Gus F Lalo BP Diastolic 2024-12-06 09:28:00 78 mm[Hg] Gus F Lalo Weight Measured 2024-12-06 09:28:00 169.40 pounds Gus F Lalo Height Measured 2024-12-06 09:28:00 63.78 inches Gus F Lalo Body Temperature 2024-12-06 09:28:00 98.40 degrees Gus F Lalo Heart Rate 2024-12-06 09:28:00 67.00 /min Gus F Lalo Respiratory Rate 2024-12-06 09:28:00 Gus Goodwin Lalo Procedures Procedure Date / Time Performed Performing Clinician Source TRANSTHORACIC ECHO (TTE) COMPLETE 2025-05-17 18:56:02 Ana Lilia Lund [facility] MAMMO, screening, digital, bilateral 2024-06-21 00:00:00 [facility] Implantation of Sacral Nerve Stimulator 2024-02-18 00:00:00 [facility] Percutaneous Sacral Nerve Evaluation 2024-01-08 00:00:00 [facility] Colpocleisis 2021-04-11 00:00:00 Desirae Chau edical Procedure on Heart 2020-09-12 00:00:00 [facility] Fixation of Vagina 2020-07-12 00:00:00 [facility] Perineorrhaphy 2019-09-25 00:00:00 [facility] Hysterectomy 1996-10-26 00:00:00 [facility] Repair of Rectocele 1973-10-26 00:00:00 [facility] Encounters Start Date/Time End Date/Time Encounter Type Admission Type Attending Clinicians Care Facility Care Department Encounter ID Source 2025-05-17 12:58:34 2025-05-17 23:59:00 Hospital Encounter Ana Lilia Maddox do [facility] 1.840.114 350.1.13.10 [id number] [id number] [facility] 2025-05-17 12:58:31 2025-05-17 23:59:00 Hospital Encounter Ana Lilia Maddox do [facility] [id number] 350.1.13.10 4.2.7.2.686 [id number] [facility] 2025-05-17 13:00:00 2025-05-17 13:00:00 Medical Scientist Visit ANA LILIA MADDOX DO [facility] [id number] 350.1.13.10 4.2.7.2.686 [id number] [facility] 2025-05-17 10:30:00 2025-05-17 10:30:00 [id number] 2025-05-17 10:00:00 2025-05-17 10:00:00 Title Closer [facility] 1..114 350.1.13.10 4.2.7.2.686 [id number] [facility] 2025-05-17 09:00:00 2025-05-17 09:30:00 Case Management R Worker, Transplant Social Kishore, [facility] Worker, Transplant Social [facility] IAY [facility] 1..114 350.1.13.10 4.2.7.2.686 [id number] [facility] 2025-05-17 08:30:00 2025-05-17 09:00:00 Nurse Visit R Coordinator , Transplant Kishore [facility] 1..114 350.1.13.10 4.2.7.2.686 [id number] [facility] 2025-05-17 08:00:00 2025-05-17 08:30:00 Nurse Visit R Renal, Transplant Class Kishore, [facility] 1..114 350.1.13.10 4.2.7.2.686 [id number] [facility] 2025-05-08 00:00:00 2025-05-08 15:58:41 Case Management Ana Lilia Urbano do [facility] IALTY [facility] 1..114 350.1.13.10 4.2.7.2.686 [id number] [facility] 2025-03-28 14:30:00 2025-03-28 14:30:00 Office Visit R KISHORE [facility] [id number] 350.1.13.10 4.2.7.2.686 [id number] [facility] 2025-01-24 00:00:00 2025-01-24 00:00:00 SMITA Rodríguez: [address], [place] [address] , Ph. Formerly [facility] - GC[facility]GCBZW_[facility]* [id number] [facility] 2025-01-18 08:48:41 2025-01-18 08:48:41 Outpatient SFA SFA [id number] Gus May 2025-01-18 00:00:00 2025-01-18 00:00:00 Outpatient Visit SFA SFA [id number] Gus May 2024-12-06 09:19:53 2024-12-06 09:19:53 Outpatient SFA SFA [id number] Gus Goodwin Lalo 2024-12-06 00:00:00 2024-12-06 00:00:00 Outpatient Visit SFA SFA [id number] Gus May 2024-08-26 17:00:00 2024-08-26 17:40:00 [facility] Stephanie Collie DEV DEV [id number] [address] [place] [address] 2024-07-18 10:30:00 2024-07-18 10:45:48 Office Visit Lavern Fowler [facility] [id number] [id number] [id number] Selwyn Henao [facility] 2024-07-18 10:10:32 2024-07-18 10:45:48 Outpatient Elective LAVERN FOWLER EOUT EOUT [id number] [id number] 2024-06-21 00:00:00 2024-06-21 00:00:00 Azra Wood MD: [address], [place] [phone] , Ph. [facility] - GC_GCBZW_[facility]* [id number] [facility] 2024-04-06 00:00:00 2024-04-06 00:00:00 Azra Wood MD: [address], [place] [phone] , Ph. [facility] - GC_GCBZW_[facility]* [id number] [facility] 2024-04-05 00:00:00 2024-04-05 00:00:00 Azra Wood MD: [address], [place] [phone] , Ph. [facility] - GC_GCBZW_[facility]* [id number] [facility] 2024-04-04 00:00:00 2024-04-04 00:00:00 Azra Wood MD: [address], [place] [phone] , Ph. [facility] - GC_GCBZW_[facility]* [id number] [facility] 2024-04-02 00:00:00 2024-04-02 00:00:00 Azra Wood MD: [address], [place] [phone] , Ph. [facility] - GC[facility]* [id number] [facility] 2024-04-01 00:00:00 2024-04-01 00:00:00 Azra Wood MD: [address], [place] [phone] , Ph. [facility] - GC_GCBZW_[facility]* [id number] [facility] 2024-03-31 00:00:00 2024-03-31 00:00:00 Azra Wood MD: [address], [place] [phone] , Ph. [facility] - GC[facility]BZ[facility]* [id number] [facility] 2024-03-30 00:00:00 2024-03-30 00:00:00 Azra Wood MD: [address], [place] [phone] , Ph. [facility] - GC_GCBZW_[facility]* [id number] [facility] 2024-03-29 00:00:00 2024-03-29 00:00:00 Azra Wood MD: [address], [place] [phone] , Ph. [facility] - GC_GCBZW_Oh fili Zak* [id number] [facility] [facility] 2024-03-28 00:00:00 2024-03-28 00:00:00 Azra Wood MD: [address], [address], [place] [id number] , Ph. Formerly [facility] - GC_GCBZW_[facility]* [id number] [facility] 2024-03-26 00:00:00 2024-03-26 00:00:00 Azra Wood MD: [address], [place] [address] , Ph. Formerly [facility] - GC_GCBZW_Oh fili Zak* [id number] [facility] 2024-03-25 00:00:00 2024-03-25 00:00:00 Azra Wood MD: [address], [address], [place] [address] , Ph. Formerly [facility] - GC_GCBZW_Oh fili Zak* [id number] [facility] 2024-03-24 00:00:00 2024-03-24 00:00:00 Azra Wood MD: [address], [place] [address] , Ph. Formerly [facility] - GC_GCBZW_Oh fili Zak* [id number] [facility] 2024-03-23 00:00:00 2024-03-23 00:00:00 Azra Wood MD: [address], [place] [address] , Ph. Formerly [facility] - GC_GCBZW_Oh fili Zak* [id number] [facility] 2024-03-22 00:00:00 2024-03-22 00:00:00 Azra Wood MD: [address], [place] [id number] , Ph. Formerly [facility] - GC_GCBZW_Oh fili Zak* [id number] [facility] 2024-03-18 00:00:00 2024-03-18 00:00:00 Azra Wood MD: [address], [place] [id number] , Ph. Formerly [facility] - GC_GCBZW_Ermelinda Crespo* [id number] [facility] 2024-03-14 00:00:00 2024-03-14 00:00:00 SINDI Benoit: [address], [place] [id number] , Ph. Formerly [facility] - GC_GCBZW_Oh fili Zak* [id number] [facility] 2024-03-11 00:00:00 2024-03-11 00:00:00 SMITA Rodríguez: [address], [place] [address] , Ph. Formerly [facility] - GC_GCBZW_[facility]* [id number] [facility] 2024-02-10 00:00:00 2024-02-10 00:00:00 SMITA Rodríguez: [address], [place] [id number] , Ph. Formerly [facility] - GC_GCBZW_[facility]* [id number] [facility] 2024-01-29 00:00:00 2024-01-29 00:00:00 Azra Wood MD: [address], [place] [id number] , Ph. GC_GCBZW_Ka ceasara_S Formerly [facility] - GC_GCBZW_[facility]* [id number] [facility] 2024-01-28 00:00:00 2024-01-28 00:00:00 Azra Wood MD: [address], [address], [place] [address] , Ph. Formerly [facility] - GC_GCBZW_[facility]* [id number] [facility] 2024-01-27 00:00:00 2024-01-27 00:00:00 Azra Wood MD: [address], [place] [id number] , Ph. Formerly [facility] - GC_GCBZW_[facility]* [id number] [facility] 2024-01-26 00:00:00 2024-01-26 00:00:00 Azar Wood MD: [address], [address], [place] [phone] , Ph. Formerly [facility] - GC_GCBZW_[place] fil[place]* [id number] [facility] 2024-01-25 00:00:00 2024-01-25 00:00:00 Thao Purcell, TAX ASSOCIATE ATTORNEY: [address], [place] [phone] , Ph. Formerly [facility] - GC_GCBZW_[place]* [id number] [facility] 2024-01-23 00:00:00 2024-01-23 00:00:00 SMITA Rodríguez: [address], [address], [place] [phone] , Ph. Formerly [facility] - GC_GCBZW_Ermelinda fili [place]* [id number] [facility] 2024-01-22 00:00:00 2024-01-22 00:00:00 SMITA Rodríguez: [address], [place] [phone] , Ph. GC_GCBZW_Ka diyala_S Formerly [facility] - GC_GCBZW_[place]* [id number] [facility] 2024-01-21 00:00:00 2024-01-21 00:00:00 SMITA Rodríguez: [address], [address], [place] [phone] , Ph. GC_GCBZW_Ka diyala_S Formerly [facility] - GC_GCBZW_[place]* [id number] [facility] 2024-01-20 00:00:00 2024-01-20 00:00:00 SMITA Rodríguez: [address], [place] [phone] , Ph. Formerly [facility] - GC_GCBZW_[place]* [id number] [facility] 2024-01-19 00:00:00 2024-01-19 00:00:00 SMITA Rodríguez: [address], [address], [place] [phone] , Ph. Formerly [facility] - GC_GCBZW_Ermelinda penn Zak* [id number] [facility] 2024-01-18 00:00:00 2024-01-18 00:00:00 SMITA Rodríguez: [address], [address], [place] [phone] , Ph. Formerly [facility] - GC_GCBZW_Ermelinda fili Zak* [id number] [facility] 2024-01-17 00:00:00 2024-01-17 00:00:00 Outpatient GC_GCBZW_Ka diyala_S [facility] [id number] [facility] 2024-01-15 00:00:00 2024-01-15 00:00:00 SMITA Rodríguez: [address], [place] [phone] , Ph. GC_GCBZW_Sera mcguireyala_S Formerly [facility] - GC_GCBZW_Ermelinda Crespo* [id number] [facility] 2024-01-08 00:00:00 2024-01-08 00:00:00 Azra Wood MD: [address], [place] [phone] , Ph. Formerly [facility] - GC_GCBZW_Ermelinda penn Zak* [id number] [facility] 2023-12-14 00:00:00 2023-12-14 00:00:00 SINDI Benoit: [address], [place] [phone] , Ph. Formerly [facility] - GC_GCBZW_Ermelinda penn Zak* [id number] [facility] 2023-12-02 15:30:00 2023-12-02 16:30:00 Annual D2Me Janna Morales [id number]. [id number] 2.16.840.1. [id number] CJE [facility] 2023-12-01 00:00:00 2023-12-01 00:00:00 Azra Wood MD: [address], [address], [place] [address] , Ph. Formerly [facility] - GC_GCBZW_[facility]* [id number] [facility] 2023-11-16 00:00:00 2023-11-16 00:00:00 SINDI Benoit: [address], [facility] [address], [place] [address] , Ph. Formerly [facility] - GC_GCBZW_[facility]* [id number] [facility] 2023-02-12 16:00:00 2023-02-12 17:00:00 MARCY Donohue 2.16.840. [id number] 2.16.840.1. [id number] [facility] 2022-08-21 14:30:00 2022-08-21 15:30:00 MARCY Donohue 2.16.840. [id number] 2.16.840.1. [id number] J92 [facility] 2022-03-21 20:00:00 2022-03-21 21:00:00 CAV Brunilda Rucker 2.16.840. [id number] 2.16.840.1. [id number] CLACXRHECG JE2 [facility] Results Test Description Test Time Test Comments Results Result Co mments Source [facility] Medicalinfectious disease [id number] 10:03:00Abnormal StatusPrivia MedicalUrinalysis macro (dipstick) panel - [id number] 09:01:00* Test Item Value Reference Range Interpretation Comme nts Leukocytes (test code = Leukocytes) 3+ Nitrite (test code = Nitrite) negative Urobilinogen (test code = Urobilinogen) Normal Protein (test code = Protein) Trace pH (test code = pH) 5.0 Blood (test code = Blood) Hemolyzed: Trace Specific Mobile (test code = Specific Mobile) 1.020 Ketone (test code = Ketone) Trace Bilirubin (test code = Bilirubin) Negative Glucose (test code = Glucose) Negative Appearance (test code = Appearance) Cloudy Color (test code = Color) Yellow [facility] Medicalurinalysis, [id number] 09:01:00* Test Item Value Reference Range Interpretation Comme nts Leukocytes (test code = Leukocytes) 3+ Nitrite (test code = Nitrite) negative Urobilinogen (test code = Urobilinogen) Normal Protein (test code = Protein) Trace pH (test code = pH) 5.0 Blood (test code = Blood) Hemolyzed: Trace Specific Mobile (test code = Specific Mobile) 1.020 Ketone (test code = Ketone) Trace Bilirubin (test code = Bilirubin) Negative Glucose (test code = Glucose) Negative Appearance (test code = Appearance) Cloudy Color (test code = Color) Yellow [facility] MedicalUrinalysis macro (dipstick) panel - [id number] 14:34:00* Test Item Value Reference Range Interpretation Comme nts Leukocytes (test code = Leukocytes) 3+ Nitrite (test code = Nitrite) negative Urobilinogen (test code = Urobilinogen) Normal Protein (test code = Protein) 2+ pH (test code = pH) 6.0 Blood (test code = Blood) 2+ Specific Mobile (test code = Specific Mobile) 1.020 Ketone (test code = Ketone) Negative Bilirubin (test code = Bilirubin) Negative Glucose (test code = Glucose) Negative Appearance (test code = Appearance) Turbid Color (test code = Color) Yellow [facility] Medicalurinalysis, [id number] 14:34:00* Test Item Value Reference Range Interpretation Comme nts Leukocytes (test code = Leukocytes) 3+ Nitrite (test code = Nitrite) negative Urobilinogen (test code = Urobilinogen) Normal Protein (test code = Protein) 2+ pH (test code = pH) 6.0 Blood (test code = Blood) 2+ Specific Mobile (test code = Specific Mobile) 1.020 Ketone (test code = Ketone) Negative Bilirubin (test code = Bilirubin) Negative Glucose (test code = Glucose) Negative Appearance (test code = Appearance) Turbid Color (test code = Color) Yellow [facility] Medicalmeasurement of post-voiding residual urine and/or bladder capacity (PROC)2024-03-11 11:36:00* Test Item Value Reference Range Interpretation Comme nts (PVR) (test code = (PVR)) 32 [facility] MedicalUrinalysis macro (dipstick) panel - [id number] 08:38:00* Test Item Value Reference Range Interpretation Comme nts Leukocytes (test code = Leukocytes) Negative Nitrite (test code = Nitrite) negative Urobilinogen (test code = Urobilinogen) 0.2 Protein (test code = Protein) 2+ pH (test code = pH) 6.0 Blood (test code = Blood) Negative Specific Mobile (test code = Specific Mobile) 1.015 Ketone (test code = Ketone) Negative Bilirubin (test code = Bilirubin) Negative Glucose (test code = Glucose) Negative Appearance (test code = Appearance) Clear Color (test code = Color) Pale Yellow [facility] MedicalUrinalysis macro (dipstick) panel - [id number] 11:43:00* Test Item Value Reference Range Interpretation Comme nts Leukocytes (test code = Leukocytes) Negative Nitrite (test code = Nitrite) negative Urobilinogen (test code = Urobilinogen) Normal Protein (test code = Protein) 2+ pH (test code = pH) 6.0 Blood (test code = Blood) Negative Specific Mobile (test code = Specific Mobile) 1.015 Ketone (test code = Ketone) Negative Bilirubin (test code = Bilirubin) Negative Glucose (test code = Glucose) Negative Appearance (test code = Appearance) Clear Color (test code = Color) Yellow [facility] MedicalBacteria identified in Urine by [id number] 00:00:00* Test Item Value Reference Range Interpretation Comme nts culture, urine (test code = culture, urine) see below no growth A [facility] MedicalUrinalysis complete W Reflex Culture panel - [id number] 00:00:00* Test Item Value Reference Range Interpretation [...] code = WBC, urine) >100 0-5 H [facility] - [id number] 14:35:13* Test Item Value Reference Range Interpretation Comme nts Leukocytes (test code = Leukocytes) 3+ Nitrite (test code = Nitrite) negative Urobilinogen (test code = Urobilinogen) Normal Protein (test code = Protein) 2+ pH (test code = pH) 6.0 Blood (test code = Blood) Non-Hemolyzed: Moderate Specific Mobile (test code = Specific Mobile) 1.005 Ketone (test code = Ketone) Negative Bilirubin (test code = Bilirubin) Negative Glucose (test code = Glucose) Negative Appearance (test code = Appearance) Cloudy Color (test code = Color) Yellow [facility] MedicalUrinalysis macro (dipstick) panel - [id number] 11:56:56* Test Item Value Reference Range Interpretation Comme nts Leukocytes (test code = Leukocytes) Negative Nitrite (test code = Nitrite) negative Urobilinogen (test code = Urobilinogen) Normal Protein (test code = Protein) 3+ pH (test code = pH) 6.0 Blood (test code = Blood) Negative Specific Mobile (test code = Specific Mobile) 1.020 Ketone (test code = Ketone) Negative Bilirubin (test code = Bilirubin) Negative Glucose (test code = Glucose) Negative Appearance (test code = Appearance) Clear Color (test code = Color) Yellow [facility] MedicalBacteria identified in Urine by [id number] 00:00:00* Test Item Value Reference Range Interpretation Comme nts culture, urine (test code = culture, urine) see below no growth A [facility] MedicalUrinalysis complete W Reflex Culture panel - [id number] 00:00:00* Test Item Value Reference Range Interpretation [...] code = WBC, urine) >100 0-5 H [facility] MedicalUrinalysis macro (dipstick) panel - [id number] 14:58:26* Test Item Value Reference Range Interpretation Comme nts Leukocytes (test code = Leukocytes) 1+ Nitrite (test code = Nitrite) negative Urobilinogen (test code = Urobilinogen) Normal Protein (test code = Protein) 3+ pH (test code = pH) 6.0 Blood (test code = Blood) Non-Hemolyzed: Trace Specific Mobile (test code = Specific Mobile) 1.025 Ketone (test code = Ketone) Negative Bilirubin (test code = Bilirubin) Negative Glucose (test code = Glucose) Negative Appearance (test code = Appearance) Cloudy Color (test code = Color) Yellow [facility] Medical Notes Date/Time Note Provider Source 2025-05-17 13:00:00 Images from the original note were not included. Venipuncture collection performed by clean technique on the left anticubitus. Total of 1 attempts were made. Slight pressure and a bandage/dressing were applied to the site(s). The patient experienced no complications. The following specimens were processed according to instructions and sent to [facility] laboratories per lab order on 05/17/25: LT BLUE 1 SST 9 RED 2 LAV 4 PPT 1 DK GREEN (LiHep) 1 DK GREEN (SodH) PURVIS 1 DK BLUE (K2) DK BLUE (S) ACD 4 Blood Culture NIPT/NTD [facility]24[facility] 17:00:00 Members Preferred Language Malian Encounter Date: 2024-08-26 VITALS ### HISTORY OF PRESENT ILLNESS Patient is a 73 y/o female who is being followed up with by [facility]'s Clinical Pharmacy team. ASSESSMENT PLAN Utilize Assessment/Plan Macros Stephanie CollieDevoted [id number] 15:59:04* Consultation (Routine) - Authorized Specialty Diagnoses / Procedures Referred By Contac t Referred To Contact Diagnoses Systemic lupus erythematosus, unspecified Procedures [place] OFFICE/OUTPATIENT ESTABLISHED MOD MDM 30-39 MIN James Root Jr., MD [address] [place] [address] Phone: tel: fax: [place] [phone] [facility] [address] [place] [address] Phone: tel: fax: Referral ID Status Reason Start Date Expiration Date V isits Requested Visits Authorized [id number] Authorized 05/10/2024 05/10/2025 99 99 [facility]Ywfsgvs4962-89-49 15:59:04* Lavern Fowler MD - 07/18/2024 10:30 [...] has discussed with Dr Tuttle. 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 S/p neurostimulator implantation for bladder emptying 12/2023 [...] Procedure Laterality Date HYSTERECTOMY OTHER SURGICAL HISTORY 2020 PELVIC FLOOR REPAIR X3 OTHER SURGICAL HISTORY 2019 DC OTHER SURGICAL HISTORY 2019 STENT PLACEMENT RENAL [...] unspecified SLE type, unspecified organ involvement status (CMS/[facility]) ([facility]) Neg dsDNA, stable EGFR. Low disease activity. Continue to follow with nephro for lupus nephritis management. 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 Advanced CKD, will defer further management to nephro. Avoid NSAIDs. High risk medication use Continue to monitor with nephro. Follow up: 1 year, lupus nephritis follows nephro Management options were discussed. Answered all questions. Side effects of medications were discussed. Reviewed labs and diagnostics with patient. Pt to continue to follow up with PCP for routine health evaluation [id number] 15:59:04Upcoming Encounters Health Maintenance Due Date Last [...] on patient's age to complete this topic [id number] 15:59:04 Diagnosis Systemic lupus erythematosus , unspecified SLE type, unspecified organ involvement status (CMS/HCC) (HCC) - Primary Lupus nephritis (CMS/HCC) (HCC) Systemic lupus erythematosus High risk medication use [id number] 15:59:04 [place] [address]9424-09-23 15:59:04* Consultation (Routine) - Authorized Specialty Diagnoses / Procedures Referred By Contac t Referred To Contact Diagnoses Systemic lupus erythematosus, unspecified Procedures [place] OFFICE/OUTPATIENT ESTABLISHED MOD MDM 30-39 MIN James Root Jr., MD [address] [place] [address] Phone: tel: fax: [place] [phone] [facility] [address] [place] [address] Phone: tel: fax: Referral ID Status Reason Start Date Expiration Date V isits Requested Visits Authorized [id number] Authorized 05/10/2024 05/10/2025 99 99 [place] 209424-09-23 15:59:04* Lavern Fowler MD - 07/18/2024 10:30 [...] has discussed with Dr Tuttle. 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 S/p neurostimulator implantation for bladder emptying 12/2023 [...] FLOOR REPAIR X3 OTHER SURGICAL HISTORY 2019 DC OTHER SURGICAL HISTORY 2019 STENT PLACEMENT RENAL [...] type, unspecified organ involvement status (CMS/HCC) (HCC) Neg dsDNA, stable EGFR. Low disease activity. Continue to follow with nephro for lupus nephritis management. 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 Lupus nephritis (CMS/HCC) (HCC)Continue to monitor. Advanced CKD, will defer further management to nephro. Avoid NSAIDs. High risk medication use Continue to monitor with nephro. Follow up: 1 year, lupus nephritis follows nephro Management options were discussed. Answered all questions. Side effects of medications were discussed. Reviewed labs and diagnostics with patient. Pt to continue to follow up with PCP for routine health evaluation [facility] RegionalIheatad2857-20-43 15:59:04Upcoming Encounters Health Maintenance Due Date Last [...] on patient's age to complete this topic [facility] RegionalHhkbczb0360-95-28 15:59:04 Diagnosis Systemic lupus erythematosus , unspecified SLE type, unspecified organ involvement status (CMS/HCC) (HCC) - Primary Lupus nephritis (CMS/HCC) ([facility]) Systemic lupus erythematosus High risk medication use [id number] 15:59:04 Blair Henao
[2025-06-05 19:46] LABS: Absolute Lymphocytes (CBC) 0.3 K/uL (0.7-4.9); Hematocrit 20.2 % (36.0-45.0); Hemoglobin 6.8 g/dL (12.0-15.0); MCH 30.5 pg (27.0-35.0); MCHC 33.6 g/dL (32.0-36.0); MCV 90.6 fL (80-100); MPV 8.7 fL (7.6-11.3); Nucleated RBC Absolute Count 0.0 (0-0); Nucleated Red Blood Cells % 0.1 % (0-0); RBC Red Blood Cell Count 2.23 M/uL (3.86-4.86); White Blood Count 3.40 thou/uL (4.3-10.9)
[2025-06-05 19:52] LABS: PT Prothrombin Time 12.3 SECONDS (10-13.0); Protime INR 1.09
[2025-06-05 20:06] LABS: ALT/SGPT 15 U/L (13-56); AST/SGOT 13 U/L (15-37); Albumin 3.8 g/dL (3.4-5.0); Albumin/Globulin Ratio 1.3 (1.1-1.8); Alkaline Phosphatase 73 U/L (45-117); Anion Gap 11.1 mEq/L (5.0-15.0); BUN Blood Urea Nitrogen 50 mg/dL (7-18); Globulin 2.9 g/dL (2.3-3.5); Glucose Level 100 mg/dL (74-106); Magnesium 1.7 mg/dL (1.6-2.4); NT PRO-BNP 3001 pg/mL (<450); Potassium 4.1 mEq/L (3.5-5.1); Troponin High Sensitivity 15.3 pg/mL (<58.9)
[2025-06-05 20:23] LABS: Bilirubin Indirect, Calculated 0.0 mg/dL (0.2-0.8)
[2025-06-05] MEDS ORDERED: NA CHLORIDE 0.9% 0 ML ONE (22:51)
[2025-06-05] MEDS ORDERED: NA CHLORIDE 0.9% 250 ML ONE (22:51)
--- NOTE | 2025-06-05 22:54 | EDPHYS ---
Physician Documentation [facility] Name: Mirtha Edouard Age: 74 yrs Sex: Female : 1950 Arrival Date: 06/05/2025 Time: 17:54 Bed 17 Private MD: ED Physician Frederic Preciado HPI: 06/05 18:40 This 74 yrs old Female presents to ER via Ambulatory with complaints of Abnormal Lab sb4 Results. 19:59 Patient reports fatigue and shortness of breath on exertion. Reports history of acute sb4 on chronic anemia. Had a blood transfusion on 05/25. Had labs done today and was told her hemoglobin was 6.8 and to come to the ER for a blood transfusion. Denies any heavy bleeding or melanotic stools. Does report a history of ESRD but is not on hemodialysis, is being monitored closely by Dr. Tuttle. Historical: - Allergies: 18:36 No Known Allergies; dd2 - PMHx: 18:36 CAD; GERD; Hypertension; Lupus; Myocardial infarction; dd2 18:40 End stage renal disease; sb4 - PSHx: 18:36 Total abdominal hysterectomy; dd2 - Immunization history:: Adult Immunizations up to date. - Infectious Disease History:: Denies. - Social history:: Smoking status: Patient denies any tobacco usage or history of. ROS: 19:59 Constitutional: Negative for fever, chills, and weight loss, sb4 19:59 Constitutional: Positive for fatigue, 19:59 Respiratory: Positive for dyspnea on exertion, 19:59 All other systems are negative, Exam: 19:59 Head/Face: Normocephalic, atraumatic. Eyes: Extra-ocular motions intact. Periorbital sb4 areas with no swelling, redness, or edema. ENT: Mucous membranes moist. Respiratory: No increased work of breathing, no retractions or nasal flaring. Abdomen/GI: Soft, non-tender, no distension. Skin: Warm, dry with normal turgor. Normal color with no rashes, no lesions, and no evidence of cellulitis. 19:59 Constitutional: The patient appears in no acute distress, alert, awake, 06/06 05:08 Constitutional: Ill-appearing female, no distress Head/Face: Normocephalic, sp4 atraumatic. Eyes: Pupils equal round and reactive to light, extra-ocular motions intact. Lids and lashes normal. Conjunctiva and sclera are not injected. Cornea within normal limits. Periorbital areas with no swelling, redness, or edema. ENT: Nares patent. No nasal discharge, no septal abnormalities noted. Tympanic membranes are normal and external auditory canals are clear. Oropharynx with no redness, swelling, or masses, exudates, or evidence of obstruction, uvula midline. Mucous membranes moist. Neck: Trachea midline, no thyromegaly or masses palpated, and no cervical lymphadenopathy. Supple, full range of motion without nuchal rigidity, or vertebral point tenderness. Chest/axilla: Normal chest wall appearance and motion. Nontender with no deformity. No lesions are appreciated. Cardiovascular: Regular rate and rhythm with a normal S1 and S2. No gallops, murmurs, or rubs. No pulse deficits. Respiratory: Lungs have equal breath sounds bilaterally, clear to auscultation and percussion. No rales, rhonchi or wheezes noted. No increased work of breathing, no retractions or nasal flaring. Abdomen/GI: Soft, with normal bowel sounds. No distension or tympany. No guarding or rebound. No evidence of tenderness throughout. Back: No spinal tenderness. No costovertebral tenderness. Skin: Warm, dry with normal turgor. Normal color with no rashes, no lesions, and no evidence of cellulitis. MS/ Extremity: Pulses equal, no cyanosis. Neurovascular intact. Full, normal range of motion. Neuro: Awake and alert, GCS 15, oriented to person, place, time, and situation. Cranial nerves II-XII grossly intact. Motor strength 5/5 in all extremities. Sensory grossly intact. Psych: Awake, alert, with orientation to person, place and time. Behavior, mood, and affect are within normal limits ECG was reviewed by the Attending Physician. EKG 2056 normal sinus rhythm rate 66 normal EKG Vital Signs: 06/05 18:31 BP 144 / 80; Pulse 74; Resp 17; Temp 98.1; Pulse Ox 100% on R/A; Pain 0/10; dd2 19:48 BP 145 / 73; Pulse 66; Resp 18; Temp 97.9(O); Pulse Ox 97% on R/A; Weight 74.39 kg; tb4 Height 5 ft. 3 in. ; Pain 0/10; 20:52 BP 148 / 72; Pulse 66; Resp 18; Temp 98.4(O); Pulse Ox 100% on R/A; Pain 0/10; tb4 21:59 BP 138 / 71; Pulse 69; Resp 20; Pulse Ox 100% on R/A; Pain 0/10; tb4 23:10 BP 146 / 73; Pulse 69; Resp 15; Temp 98.1; Pulse Ox 100% on R/A; Pain 0/10; tb4 19:48 Body Mass Index 29.05 (74.39 kg, 160.02 cm) tb4 18:31 Pain Scale: Adult dd2 19:48 Pain Scale: Adult tb4 20:52 Pain Scale: Adult tb4 21:59 Pain Scale: Adult tb4 23:10 Pain Scale: Adult tb4 [place] Coma Score: 06/06 05:08 Eye Response: spontaneous(4). Motor Response: obeys commands(6). Verbal Response: sp4 oriented(5). Total: 15. MDM: 06/05 18:02 Medical Screening Exam initiated sb4 19:59 Differential diagnosis: anemia, GIB, fatigue, ACS. Data reviewed: vital signs, nurses sb4 notes, lab test result(s). 06/06 19:37 Consideration of Admission/Observation Patient was admitted/placed on observation. sb4 Historians other than the Patient: Spouse/Significant Other: . Care significantly affected by the following chronic conditions: Hypertension, Chronic Kidney Disease. Counseling: I had a detailed discussion with the patient and/or guardian regarding the historical points, exam findings, and any diagnostic results supporting the discharge/admit diagnosis, the presence of at least one elevated blood pressure reading (>120/80) during this emergency department visit, lab results, radiology results, the need for further work-up and treatment in the hospital. 06/05 18:38 Order name: Basic Metabolic Panel; Complete Time: 20:33 sb4 06/05 18:38 Order name: CBC with Diff; Complete Time: 20:33 sb4 06/05 18:38 Order name: LFT's; Complete Time: 20:33 sb4 06/05 18:38 Order name: Magnesium; Complete Time: 20:33 sb4 06/05 18:38 Order name: NT PRO-BNP; Complete Time: 20:33 sb4 06/05 18:38 Order name: PT-INR; Complete Time: 19:56 sb4 06/05 18:38 Order name: Troponin HS; Complete Time: 20:33 sb4 06/05 18:38 Order name: Type And Screen sb4 06/05 18:38 Order name: Abo/rh Typing sb4 06/05 20:51 Order name: Packed RBC Leukored EDNY 06/05 23:26 Order name: CBC with Automated Diff EDNY 06/05 23:26 Order name: CBC with Automated Diff; Complete Time: 08:04 EDMS 06/05 23:26 Order name: Comprehensive Metabolic Panel EDNY 06/05 23:26 Order name: Comprehensive Metabolic Panel; Complete Time: 08:04 EDNY 06/05 18:38 Order name: EKG; Complete Time: 18:38 sb4 06/05 23:32 Order name: CONS Physician Consult EDNY 06/05 23:33 Order name: CONS Physician Consult EDNY 06/05 18:38 Order name: Cardiac monitoring; Complete Time: 23:36 sb4 06/05 18:38 Order name: EKG - Nurse/Tech; Complete Time: 23:29 sb4 06/05 18:38 Order name: IV Saline Lock; Complete Time: 20:35 sb4 06/05 18:38 Order name: Labs collected and sent; Complete Time: 23:36 sb4 06/05 18:38 Order name: O2 Per Protocol; Complete Time: 20:35 sb4 06/05 18:38 Order name: O2 Sat Monitoring; Complete Time: 20:35 sb4 EC/11 20:57 Rate is 66 beats/min. Rhythm is regular, Normal Sinus Rhythm. QRS [place] is Normal. [place] sp4 interval is normal. QRS interval is normal. QT interval is normal. No Q waves. T waves are Normal. No ST changes noted. Clinical impression: Normal ECG. Interpreted by me. Reviewed by me. Administered Medications: No medications were administered Disposition: 22:51 Co-signature as Attending Physician, Frederic Preciado MD I agree with the assessment sp4 and plan of care. I reviewed the patient's care provided by [facility] Provider \T\ agree w/ the diagnosis \T\ care plan. I personally saw the pt \T\ performed a substantive portion of the visit, incldng all aspects of the (History/Exam/Medical Decision Making). 06/06 08:04 Chart complete. sb4 Disposition Summary: 06/05/25 22:53 Hospitalization Ordered Notes: Hospitalization Status: Inpatient Admission sp4 Provider: Adryan Mesa [facility] sp[facility] Condition: Stable sp4 Problem: new sp4 Symptoms: are unchanged sp4 Bed/Room Type: Standard sp4 Room Assignment: 402(06/05/25 23:32) rv1 Diagnosis - Symptomatic anemia, dyspnea on exertion, acute on chronic blood loss anemia sp4 Forms: - Medication Reconciliation Form sp4 - SBAR form sp4 - Leadership Thank You Letter sp4 Critical care time excluding procedures: 08:04 Critical care time: Bedside Care: 20 minutes, Consultation: 10 minutes, Family sb4 Intervention: 5 minutes. Total time: 35 minutes Signatures: Dispatcher [employer] Moraima Lopez PA-C PA-C sb4 Rupal Valiente rv1 Frederic Preciado MD MD sp4 REI MORALES RN RN dd2 Corrections: (The following items were deleted from the chart) 06/05 18:40 18:36 PMHx: CKD stage 3; dd2 sb4 19:43 18:38 Chest Single View+RAD.RAD.BRZ ordered. EDNY EDMS 20:00 19:59 Patient reports fatigue and shortness of breath on exertion. Reports history of sb4 acute on chronic anemia. Had a blood transfusion on 05/25. Had labs done today and was told her hemoglobin was 6.8. sb4 20:51 20:36 PACKED RBC LEUKORED+BB.LAB.BRZ ordered. EDNY EDMS 20:51 20:38 ABO/RH typing ordered. EDMS EDMS 20:51 20:38 Antibody Screen ordered. EDMS EDMS 23:32 22:53 sp4 rv1
--- NOTE | 2025-06-05 22:54 | ER ---
Nurse's Notes [facility] Name: Mirtha Edouard Age: 74 yrs Sex: Female : 1950 Arrival Date: 06/05/2025 Time: 17:54 Bed 17 Private MD: Diagnosis: Symptomatic anemia, dyspnea on exertion, acute on chronic blood loss anemia Presentation: 06/05 18:31 Chief complaint: Patient states: SHE WAS ADVISED TO COME TO THE ER BECAUSE HER HGB IS dd2 6.8. PT REPORTS FEELING WEAK AND SHORT OF BREATH. PT ALSO REPORTS 6.9 HGB AND TRANSFUSION ON 05/25. Coronavirus screen: At this time, the client does not indicate any symptoms associated with coronavirus-19. Ebola Screen: No symptoms or risks identified at this time. Initial Sepsis Screen: Does the patient meet any 2 criteria? No. Patient's initial sepsis screen is negative. Does the patient have a suspected source of infection? No. Patient's initial sepsis screen is negative. Risk Assessment: Do you want to hurt yourself or someone else? Patient reports no desire to harm self or others. Onset of symptoms was June 05, 2025. 18:31 Method Of Arrival: Ambulatory dd2 18:31 Acuity: ADELAIDA 3 dd2 Triage Assessment: 18:36 General: Appears in no apparent distress. Behavior is calm, cooperative, appropriate dd2 for age. Pain: Denies pain. Respiratory: Reports shortness of breath on exertion Airway is patent Respiratory effort is even, unlabored, Respiratory pattern is regular, symmetrical. Historical: - Allergies: 18:36 No Known Allergies; dd2 - PMHx: 18:36 CAD; GERD; Hypertension; Lupus; Myocardial infarction; dd2 18:40 End stage renal disease; sb4 - PSHx: 18:36 Total abdominal hysterectomy; dd2 - Immunization history:: Adult Immunizations up to date. - Infectious Disease History:: Denies. - Social history:: Smoking status: Patient denies any tobacco usage or history of. Screenin:48 [facility] ED Fall Risk Assessment (Adult) History of falling in the last 3 months, tb4 including since admission No falls in past 3 months (0 pts) Confusion or Disorientation No (0 pts) Intoxicated or Sedated No (0 pts) Impaired Gait No (0 pts) Mobility Assist Device Used No (0 pt) Altered Elimination No (0 pt) Score/Fall Risk Level 0 - 2 = Low Risk Oriented to surroundings, Maintained a safe environment. Abuse screen: Denies threats or abuse. Nutritional screening: No deficits noted. Tuberculosis screening: No symptoms or risk factors identified. Assessment: 19:48 Reassessment: See triage note Patient denies pain at this time. General: Appears in no tb4 apparent distress. Behavior is calm, cooperative. Pain: Denies pain. Neuro: No deficits noted. 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 Full function Gait is steady, Speech is normal, Facial symmetry appears normal. Respiratory: No deficits noted. Airway is patent Trachea midline Respiratory effort is even, unlabored, Respiratory pattern is regular, symmetrical. GI: No deficits noted. No signs and/or symptoms were reported involving the gastrointestinal system. : No deficits noted. No signs and/or symptoms were reported regarding the genitourinary system. Musculoskeletal: Circulation, motion, and sensation intact. Capillary refill < 3 seconds, is brisk, in bilateral fingers. Range of motion: intact in all extremities. 23:28 Reassessment: First unit of PRBC began at 2315, infusion running at 125 ml/hr, no s/s tb4 of distress noted, denies pain 0/10. Will continue to monitor. Vital Signs: 18:31 BP 144 / 80; Pulse 74; Resp 17; Temp 98.1; Pulse Ox 100% on R/A; Pain 0/10; dd2 19:48 BP 145 / 73; Pulse 66; Resp 18; Temp 97.9(O); Pulse Ox 97% on R/A; Weight 74.39 kg; tb4 Height 5 ft. 3 in. ; Pain 0/10; 20:52 BP 148 / 72; Pulse 66; Resp 18; Temp 98.4(O); Pulse Ox 100% on R/A; Pain 0/10; tb4 21:59 BP 138 / 71; Pulse 69; Resp 20; Pulse Ox 100% on R/A; Pain 0/10; tb4 23:10 BP 146 / 73; Pulse 69; Resp 15; Temp 98.1; Pulse Ox 100% on R/A; Pain 0/10; tb4 19:48 Body Mass Index 29.05 (74.39 kg, 160.02 cm) tb4 18:31 Pain Scale: Adult dd2 19:48 Pain Scale: Adult tb4 20:52 Pain Scale: Adult tb4 21:59 Pain Scale: Adult tb4 23:10 Pain Scale: Adult tb4 [place] Coma Score: 06/06 05:08 Eye Response: spontaneous(4). Motor Response: obeys commands(6). Verbal Response: sp4 oriented(5). Total: 15. ED Course: 06/05 17:57 Patient arrived in ED. im 18:01 Moraima Lindquist PA-C is PHCP. sb4 18:01 Martin Lindsay MD is Attending Physician. sb4 18:36 Triage completed. dd2 18:36 Arm band placed on right wrist. dd2 19:33 Inserted saline lock: 20 gauge in right wrist, using aseptic technique. Blood oh1 collected. Flushed with 10 mL NS. 19:48 Patient has correct armband on for positive identification. Bed in low position. Call tb4 light in reach. Side rails up X 1. Client placed on continuous cardiac and pulse oximetry monitoring. NIBP monitoring applied. Door closed. Warm blanket given. 19:48 Initial lab(s) drawn, by ED staff, sent to lab. tb4 20:01 Attending Physician role handed off by Martin Lindsay MD sp4 20:01 Frederic Preciado MD is Attending Physician. sp4 20:49 Abo/rh Typing Sent. tb4 22:52 Adryan Mesa MD is Hospitalizing Provider. sp4 23:46 EKG done, by ED staff. tb4 08 00:27 Provided Education on: admission. cp4 00:27 No provider procedures requiring assistance completed. Patient admitted, IV remains in cp4 place. Administered Medications: No medications were administered Medication: 06/05 19:48 VIS not applicable for this client. tb4 23:15 Blood products: PRBCs See transfusion record. tb4 Outcome: 22:53 Decision to Hospitalize by Provider. sp4 08 00:27 Admitted to Med/surg accompanied by tech, room 402, with chart, cp4 Condition: stable Instructed on the need for admit, 00:28 Patient left the ED. cp4 Signatures: Moraima Lindquist PA-C PA-C sb4 Frederic Preciado MD MD sp4 Joan Sarabia Christina cp4 REI MORALES RN RN dd2 Terra Piedra oh1 Pat Lindquist RN RN tb4 Corrections: (The following items were deleted from the chart) 06/05 18:40 18:36 PMHx: CKD stage 3; dd2 sb4
--- NOTE | 2025-06-05 23:17 | P.HP ---
Certification for Inpatient Patient admitted to: Observation With expected LOS: <2 Midnights Practitioner: I am a practitioner with admitting privileges, knowledge of patient current condition, hospital course, and medical plan of care. Services: Services provided to patient in accordance with Admission requirements found in Title 42 Section 412.3 of the Code of Federal Regulations Patient History Date of Service: 06/06/25 Reason for admission: Anemia History of Present Illness: 74 yrs old Female with past medical history of CAD, DC, CKD stage V, GERD, hypertension, lupus, who was brought to ER with anemia. Patient also reported fatigue and shortness of breath on exertion which has been going on for few days. She had blood transfusion on 05/25. She had labs today and was told that her hemoglobin was 6.8 and was asked to come to the ER for blood transfusion. Denies any hematemesis or melena. She has a history of CKD 5. Denies any chest pain. Denies any nausea vomiting or diarrhea Patient was assessed in the ER and is admitted for further management of anemia Allergies No Known Allergies Allergy (Unverified 06/06/25 01:11) Home medications list reviewed: Yes Home Medications: RX: Aspirin [Aspirin EC 81 MG] 81 mg PO BEDTIME 03/11/21 RX: Amlodipine Besylate [Norvasc] 10 mg PO DAILY 02/16/24 RX: Epoetin [Procrit*] 4,000 unit IV SEECOM 02/16/24 RX: Metoprolol Succinate [Toprol Xl*] 50 mg PO DAILY 02/16/24 RX: estradioL [Estradiol] 1 jean claude VAG M,W,F 02/16/24 RX: Benzonatate [Tessalon Perle*] 100 mg PO TID PRN #30 cap 03/08/25 Hydralazine [Apresoline] 25 mg PO TID 06/06/25 Pantoprazole [Protonix Tab] 40 mg PO DAILY 06/06/25 RX: Atorvastatin Calcium [Lipitor] 20 mg PO BEDTIME 06/06/25 RX: Losartan Potassium [Cozaar] 25 mg PO DAILY 06/06/25 mycophenolate mofetiL [Mycophenolate Mofetil] 2 tab PO BID 06/06/25 - Past Medical/Surgical History Diabetic: No Past Medical History: Reviewed- Non-Contributory -: TB at age 18, one year treatment -: ckd stage 4 -: Hypertension -: Lupus -: CAD -: Anemia -: Hyperlipidemia Past Surgical History: Reviewed- Non-Contributory -: surgery for prolapse Oct 2019 -: hysterectomy -: heel spur right foot 2003 -: Stent LAD August 2020 Psychosocial/ Personal History: 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 stomach issues - Social History Smoking Status: Never smoker Alcohol use: No CD- Drugs: No Caffeine use: Yes Review of Systems 10-point ROS is otherwise unremarkable Physical Examination - Vital Signs Temperature: 97.8 F Blood Pressure: 138/76 Pulse: 78 Respirations: 18 Pulse Ox (%): 94 - Physical Exam General: Alert, Oriented x3, Cooperative HEENT: Atraumatic, Normocephalic Neck: Supple, No Thyromegaly Respiratory: Clear to auscultation bilaterally, Normal air movement Cardiovascular: Regular rate/rhythm, Normal S1 S2 Capillary refill: >2 Seconds Gastrointestinal: Soft and benign, W/out hepatosplenomegaly Musculoskeletal: No clubbing Integumentary: No rashes, No tenderness/swelling Neurological: Other (Alert awake nonfocal) Lymphatics: No axilla or inguinal lymphadenopathy - Studies Laboratory Data (last 24 hrs) 06/05/25 06/05/25 06/05/25 19:33 19:33 19:33 WBC 3.40 L Hgb 6.8 L Hct 20.2 L Plt Count 149 L PT 12.3 INR 1.09 Sodium 138 Potassium 4.1 BUN 50 H Creatinine 3.85 H Glucose 100 Magnesium 1.7 Total Bilirubin 0.2 AST 13 L ALT 15 Alkaline Phosphatase 73 Assessment and Plan - Plan Anemia Acute on chronic anemia Possibly due to ESRD Will transfuse 2 units PRBC Monitor H&H closely Hematology consult Hypertension Antihypertensives titrated Continue home medications and titrate as needed Hyperlipidemia Continue statin CKD stage V Monitor renal parameters Electrolytes monitor and replace accordingly Nephrology consulted History of lupus Monitor closely on telemetry Continue home medications Anemia of chronic disease Monitor H&H closely No overt bleeding at this time GI/DVT prophylaxis Advanced directive full code Discharge Plan: Home Plan to discharge in: 48 Hours - Advance Directives Does patient have a Living Will: No Does patient have a Durable POA for Healthcare: No - Code Status/Comfort Care Code Status: Full Code Time Spent Managing Pts Care (In Minutes): 58
[2025-06-05] MEDS ORDERED: ACETAMINOPHEN 325 MG TABLET PO PRN (23:22)
[2025-06-05] MEDS ORDERED: ONDANSETRON 4 MG/2 ML VIAL IV PRN (23:22)
[2025-06-06 00:54] VITALS: BMI 29.0
[2025-06-06] MEDS: NA CHLORIDE 0.9% 250 ML ONE (01:56)
[2025-06-06 06:52] LABS: Absolute Lymphocytes (CBC) 0.3 K/uL (0.7-4.9); Hematocrit 26.3 % (36.0-45.0); Hemoglobin 8.9 g/dL (12.0-15.0); MCH 30.5 pg (27.0-35.0); MCHC 33.8 g/dL (32.0-36.0); MCV 90.4 fL (80-100); MPV 8.5 fL (7.6-11.3); Nucleated RBC Absolute Count 0.0 (0-0); Nucleated Red Blood Cells % 0.0 % (0-0); RBC Red Blood Cell Count 2.91 M/uL (3.86-4.86); White Blood Count 3.10 thou/uL (4.3-10.9)
[2025-06-06 07:10] LABS: AST/SGOT 12 U/L (15-37); Albumin 3.6 g/dL (3.4-5.0); Albumin/Globulin Ratio 1.4 (1.1-1.8); Alkaline Phosphatase 62 U/L (45-117); Anion Gap 11.9 mEq/L (5.0-15.0); BUN Blood Urea Nitrogen 48 mg/dL (7-18); Globulin 2.5 g/dL (2.3-3.5); Glucose Level 91 mg/dL (74-106); Potassium 3.9 mEq/L (3.5-5.1)
[2025-06-06 07:11] LABS: ALT/SGPT < 14 U/L (13-56)
[2025-06-06 07:35] LABS: Ferritin 484.7 ng/mL (8-252); Iron 156.0 ug/dL (50-170); Transferrin 132 mg/dL (200-360)
[2025-06-06] MEDS: POTASSIUM CL SA 10 MEQ TAB PO ONE (08:56)
[2025-06-06] MEDS: EPOETIN ALFA 10,000 UNIT/ML VIAL SQ ONE (10:30)
[2025-06-06 12:15] VITALS: BP 153/76; TEMP 97.5
[2025-06-06 12:20] VITALS: O2SAT 100
--- NOTE | 2025-06-06 12:45 | CON ---
Date of Consultation: 06/06/2025 Reason For Consultation: Elevated BUN and creatinine, fluid management. History Of Present Illness: This is a pleasant 74-year-old female, well known to me from the office with significant past medical history of chronic kidney disease stage 5 secondary to SLE, confirmed w ith biopsy, CAD complicated with cardiorenal syndrome with congestive heart failure, status post non- ST-elevation [place], ejection fraction of 45, status post PTCA, hypertension, hyperlipidemia, chronic kid jerry disease stage 5 secondary to SLE nephritis confirmed with kidney biopsy showing mesangial prolife rative lupus class 2, severe chronicity back in July 2021. Baseline creatinine 3.3-3.5, GFR of 14 -13, patient had chronic anemia secondary to chronic kidney disease. The patient receiving ISIDRO throu [facility] cancer center. Lab showed hemoglobin 6.8. For that reason, referred for transfusion. The devora serra received 2 units of packed RBC. The patient denied any hemoptysis. Denied any melena. No hem atochezia. Past Medical History: Include: 1. SLE complicated with nephritis. 2. Vitamin D deficiency. 3. CAD with cardiorenal ejection fraction of 40%, status post PTCA, status post cardiac cath. [place] rdiogram ejection fraction of 45%. 4. Hypertension. 5. 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 Allergies: TO LEVAQUIN AND MORPHINE. Home Medications: Include: 1. CellCept. 2. Estradiol. 3. Pantoprazole. 4. Losartan. 5. Hydralazine. 6. Atorvastatin. 7. Aspirin. 8. Amlodipine. Current Medication: In the hospital include Zofran. Social History: Denied smoking. Denied drinking. Denied drugs abuse. Past Surgical History: Include kidney biopsy, hysterectomy, prolapse, PTCA. Family History: Positive for hypertension. Review of Systems: Head and Neck: No red eye. No ear pain. GI: No nausea. No vomiting. : No polyuria. No dysuria. No hematuria. 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 Respiratory: No shortness of breath. Cardiovascular: No chest pain. Endocrine: No polydipsia. Skin: No rash. Neuro: Has neuropathy. Musculoskeletal: No joint pain. Physical Examination: General: When I saw the patient, the patient lying in bed, comfortable. Vital Signs: Blood pressure 138/69, pulse of 68, afebrile. Chest: Clear to auscultation. Heart: S1, S2. Systolic murmur. Abdomen: Soft, nontender. Extremities: No edema. Neurologic: Alert. No focality. Laboratory Data: For the patient, upon arrival to the hospital, hemoglobin 6.8, today 8.9. WBC 3.1, hemoglobin 8.9. Sodium 141, potassium 3.9, bicarb 18, BUN 48, creatinine 3.5, GFR of 13, calcium 8. 1. Iron saturation 84. PTH 148. Assessment And Plan: 1. Chronic kidney disease, stable on her baseline. No need for renal replacement therapy. Nonoligur ic. No hyperkalemia. Mild acidosis. 2. Acidosis. Continue oral bicarb. 3. Secondary hyperparathyroidism. Continue calcitriol. 4. Hypertension, controlled, optimal. Continue home medication. 5. Anemia of chronic kidney disease. We will give the patient ISIDRO. The patient is status post trans fusion. 6. Lupus nephritis. Continue CellCept. Thank you, Dr. Gregory, for allowing us to participate in the care of your patient. ANNA Voice ID: [id number] Report ID: [id number]
--- NOTE | 2025-06-06 14:37 | P.DS ---
Admission Date: 06/05/25 Discharge Date: 06/06/25 Disposition: ROUTINE DISCHARGE Discharge Condition: GOOD Reason for Admission: Anemia Brief History of Present Illness: 74 yrs old Female with past medical history of CAD, PR, CKD stage V, GERD, hypertension, lupus, who was brought to ER with anemia. Patient also reported fatigue and shortness of breath on exertion which has been going on for few days. She had blood transfusion on 05/25. She had labs today and was told that her hemoglobin was 6.8 and was asked to come to the ER for blood transfusion. Denies any hematemesis or melena. She has a history of CKD 5. Denies any chest pain. Denies any nausea vomiting or diarrhea Patient was assessed in the ER and is admitted for further management of anemia Hospital Course: Problem list Anemia of chronic disease, CAD, PR, CKD stage V, GERD, hypertension, lupus Patient was admitted to hospital for symptomatic anemia. She was referred here from her florist's decorator as her hemoglobin was 6.9. She received 2 units of packed red blood cells and her hemoglobin this morning is 8.9. She is undergoing evaluation from a florist's decorator to determine the etiology of her anemia, she is receiving Retacrit injections from her florist's decorator as well. She is due to follow-up with her florist's decorator on and she is stable for discharge at this time. We did check some labs this morning but it is after she received 2 units of PRBC and it showed her iron levels 156 TIBC is 185 transferrin 132 transfer and saturation percentage was 84.3 and ferritin was 484.7. LDH is ordered and pending at discharge. Patient was also seen by nephrology who will follow her outpatient, continue home medications as previously prescribed and follow-up with hematology on as scheduled. Vital Signs/Physical Exam: Temp Pulse Resp BP Pulse Ox 97.5 F 73 18 153/76 H 100 06/06/25 12:00 06/06/25 12:00 06/06/25 12:00 06/06/25 12:06/06/25 12:00 General: Alert, In no apparent distress, Oriented x3 HEENT: Atraumatic, PERRLA Neck: Supple, JVD not distended Respiratory: Clear to auscultation bilaterally, Normal air movement Cardiovascular: Regular rate/rhythm, Normal S1 S2 Gastrointestinal: Normal bowel sounds, No tenderness Musculoskeletal: No tenderness Integumentary: No rashes Neurological: Normal speech, Normal affect Laboratory Data at Discharge: WBC 3.10 thou/uL (4.3-10.9) L 06/06/25 06:40 Hgb 8.9 g/dL (12.0-15.0) L D 06/06/25 06:40 Hct 26.3 % (36.0-45.0) L 06/06/25 06:40 Plt Count 129 thou/uL (152-406) L 06/06/25 06:40 PT 12.3 SECONDS (10-13.0) 06/05/25 19:33 INR 1.09 06/05/25 19:33 Sodium 141 mEq/L (136-145) 06/06/25 06:40 Potassium 3.9 mEq/L (3.5-5.1) 06/06/25 06:40 BUN 48 mg/dL (7-18) H 06/06/25 06:40 Creatinine 3.55 mg/dL (0.55-1.02) H 06/06/25 06:40 Glucose 91 mg/dL (74-106) 06/06/25 06:40 Magnesium 1.7 mg/dL (1.6-2.4) 06/05/25 19:33 Total Bilirubin 0.2 mg/dL (0.2-1.0) 06/06/25 06:40 AST 12 U/L (15-37) L 06/06/25 06:40 ALT < 14 U/L (13-56) 06/06/25 06:40 Alkaline Phosphatase 62 U/L (45-117) 06/06/25 06:40 Home Medications: Aspirin [Aspirin EC 81 MG] 81 mg PO BEDTIME 03/11/21 Amlodipine Besylate [Norvasc] 10 mg PO DAILY 02/16/24 Epoetin [Procrit*] 4,000 unit IV SEECOM 02/16/24 Metoprolol Succinate [Toprol Xl*] 50 mg PO DAILY 02/16/24 estradioL [Estradiol] 1 jean claude VAG M,W,F 02/16/24 Benzonatate [Tessalon Perle*] 100 mg PO TID PRN #30 cap 03/08/25 Atorvastatin Calcium [Lipitor] 20 mg PO BEDTIME 06/06/25 Hydralazine [Apresoline] 25 mg PO TID 06/06/25 Losartan Potassium [Cozaar] 25 mg PO DAILY 06/06/25 Pantoprazole [Protonix Tab] 40 mg PO DAILY 06/06/25 mycophenolate mofetiL [Mycophenolate Mofetil] 2 tab PO BID 06/06/25 Physician Discharge Instructions: Patient was admitted to hospital for symptomatic anemia. She was referred here from her florist's decorator as her hemoglobin was 6.9. She received 2 units of packed red blood cells and her hemoglobin this morning is 8.9. She is undergoing evaluation from a florist's decorator to determine the etiology of her anemia, she is receiving Retacrit injections from her florist's decorator as well. She is due to follow-up with her florist's decorator on and she is stable for discharge at this time. We did check some labs this morning but it is after she received 2 units of PRBC and it showed her iron levels 156 TIBC is 185 transferrin 132 transfer and saturation percentage was 84.3 and ferritin was 484.7. LDH is ordered and pending at discharge. Patient was also seen by nephrology who will follow her outpatient, continue home medications as previously prescribed and follow-up with hematology on as scheduled. Diet: Renal Activity: Ad gabriel Followup: Ana Enrique MD [ACTIVE - CAN ADMIT] - 2-3 Days (Follow up on ) Sinai Goncalves MD [Primary Care Provider] - 1 Week Time spent managing pt's care (in minutes): 42
== END 2025-06-06 12:26 | disposition home or self-care (01) ==
LOC: ER 17:54 → ERHOLD 23:22 → 4TH 06-06 00:22
PROVIDERS: ADMIT Family Medicine; ATTEND Hospitalist
DX: D64.9 Anemia, unspecified (principal); I10 Essential (primary) hypertension; E78.5 Hyperlipidemia, unspecified; I12.9 Hypertensive chronic kidney disease with stage 1 through stage 4 chronic kidney disease, or unspecified chronic kidney disease; N18.4 Chronic kidney disease, stage 4 (severe); D63.1 Anemia in chronic kidney disease; I25.2 Old myocardial infarction; I25.10 Atherosclerotic heart disease of native coronary artery without angina pectoris; E87.20 Acidosis, unspecified; N25.81 Secondary hyperparathyroidism of renal origin; M32.14 Glomerular disease in systemic lupus erythematosus
CPT/HCPCS: 93005; 85025 ×2; 80048; 36415; 86900; 83735; 86850; 83615; 85610; 86901; 80076; 86920 ×2; 84484; 82728; 83540; 80053; 83880; 84466; 36430; 99285; Q4081; G0378 ×2; P9016 ×2; J7050 ×2

== ENCOUNTER 2025-07-17 19:54 | Emergency (ER) | payer OTHER ==
--- NOTE | 2025-07-17 21:02 | RAD REPORT ---
EXAMINATION: ONE VIEW CHEST XR CLINICAL INDICATION: Female, 74 years old.,weakness TECHNIQUE: Frontal chest projection is submitted. Examination is limited by patient positioning and t echnique. COMPARISON: 07/11/2025 FINDINGS: Right IJ dialysis catheter unchanged in position. The lungs are well inflated. Perihilar interstitial prominence and hazy opacities, stable. No pneumothorax or sizable effusion. The heart is normal in size. Mediastinal contours are unremarkable. IMPRESSION: Stable findings which may relate to central congestion or mild edema.
[2025-07-17 21:57] LABS: Absolute Lymphocytes (CBC) 0.3 K/uL (0.7-4.9); Hematocrit 19.6 % (36.0-45.0); Hemoglobin 6.3 g/dL (12.0-15.0); MCH 30.6 pg (27.0-35.0); MCHC 32.2 g/dL (32.0-36.0); MCV 95.1 fL (80-100); MPV 7.7 fL (7.6-11.3); Nucleated RBC Absolute Count 0.0 (0-0); Nucleated Red Blood Cells % 0.0 % (0-0); RBC Red Blood Cell Count 2.06 M/uL (3.86-4.86); White Blood Count 6.00 thou/uL (4.3-10.9)
[2025-07-17 22:12] LABS: Anion Gap 8.2 mEq/L (5.0-15.0); BUN Blood Urea Nitrogen 16.0 mg/dL (7-18); Glucose Level 108.0 mg/dL (74-106); Potassium 3.2 mEq/L (3.5-5.1)
[2025-07-17 22:35] LABS: Sqamous Epithelial None Seen /HPF (None Seen); Urine Crystals Unidentified Few /HPF (None Seen); Urine Culture Reflex Order REFLEXED; Urine Microscopic Reflex YN ORDER UMIC; Urine WBC Clump Many /HPF (None Seen)
[2025-07-17] MEDS ORDERED: CEFTRIAXONE 1000 MG/VIAL ONE (22:47)
[2025-07-18] MEDS ORDERED: MORPHINE 4 MG/ML SYR ONE (00:01)
[2025-07-18] MEDS ORDERED: ONDANSETRON 4 MG/2 ML VIAL ONE (00:01)
[2025-07-18] MEDS ORDERED: NA CHLORIDE 0.9% 500 ML ONE (00:03)
--- NOTE | 2025-07-18 01:45 | EDPHYS ---
Physician Documentation [facility] Name: Mirtha Edouard Age: 74 yrs Sex: Female : 1950 Arrival Date: 07/17/2025 Time: 19:54 Bed 7 Private MD: ED Physician Rolf Palumbo HPI: 07/18 00:57 This 74 yrs old Female presents to ER via Wheelchair with complaints of dr5 Anemia, Urinary Problem. 00:57 Onset: The symptoms/episode began/occurred acutely. 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 Patient reports that she was recently hospitalized and now has dialysis Thursday and Thursday. Patient reports completing dialysis this evening, going home and checking her hemoglobin which was low. Patient reports fatigue. Patient denies fever, chest pain, shortness of breath.. Historical: - Allergies: 07/17 20:24 No Known Allergies; ha1 - PMHx: 20:24 CAD; End stage renal disease; GERD; Hypertension; Lupus; Myocardial infarction; ha1 - PSHx: 20:24 Total abdominal hysterectomy; ha1 - Immunization history:: Adult Immunizations up to date. - Infectious Disease History:: Denies. - Social history:: Smoking status: unknown. ROS: 07/18 00:57 Constitutional: as per hpi dr5 Exam: 00:58 Constitutional: This is a well developed, well nourished patient who is awake, alert, dr5 and in no acute distress. Head/Face: Normocephalic, atraumatic. Eyes: Pupils equal round and reactive to light, extra-ocular motions intact. Lids and lashes normal. Conjunctiva and sclera are non-icteric and not injected. Cornea within normal limits. Periorbital areas with no swelling, redness, or edema. ENT: Nares patent. No nasal discharge, no septal abnormalities noted. Tympanic membranes are normal and external auditory canals are clear. Oropharynx with no redness, swelling, or masses, exudates, or evidence of obstruction, uvula midline. Mucous membranes moist. Neck: Trachea midline, no thyromegaly or masses palpated, and no cervical lymphadenopathy. Supple, full range of motion without nuchal rigidity, or vertebral point tenderness. No Meningismus. Chest/axilla: Normal chest wall appearance and motion. Nontender with no deformity. No lesions are appreciated. Cardiovascular: Regular rate and rhythm with a normal S1 and S2. Normal PMI, no JVD. No pulse deficits. Respiratory: Lungs have equal breath sounds bilaterally, clear to auscultation. No rales, rhonchi or wheezes noted. No increased work of breathing, no retractions or nasal flaring. Back: No spinal tenderness. No costovertebral tenderness. Full range of motion. Skin: Warm, dry with normal turgor. Normal color with no rashes, no lesions, and no evidence of cellulitis. Neuro: Awake and alert, GCS 15, oriented to person, place, time, and situation. Cranial nerves II-XII grossly intact. Motor strength 5/5 in all extremities. Sensory grossly intact. Cerebellar exam normal. Normal gait. 00:58 Musculoskeletal/extremity: Extremities: grossly normal except: noted in the right quadriceps: ecchymosis, swelling, There is no evidence of decreased ROM, erythema, ROM: no acute changes, intact in all extremities, Circulation is intact in all extremities. Sensation intact. Vital Signs: 07/17 20:00 BP 88 / 77; Pulse 76; Resp 20 S; Temp 97.7(O); Pulse Ox 100% on R/A; Weight 76 kg; ha1 Height 5 ft. 4 in. ; 21:59 BP 120 / 59; Pulse 78; Resp 16; Pulse Ox 100% on R/A; jb4 22:52 BP 112 / 61; Pulse 80; Resp 16; Pulse Ox 99% ; kt5 07/18 00:29 BP 113 / 63; Pulse 72; Resp 16 S; Temp 98.8; Pulse Ox 94% on R/A; kt5 01:00 BP 103 / 68; Pulse 74; Resp 16 S; Temp 98.2; Pulse Ox 96% on R/A; kt5 02:00 BP 108 / 63; Pulse 74; Resp 16; Pulse Ox 95% ; kt5 02:25 BP 109 / 56; Pulse 67; Resp 18; Temp 98.3; Pulse Ox 94% ; kt5 03:00 BP 110 / 63; Pulse 69; Resp 16; Temp 98.3; Pulse Ox 95% ; kt5 03:34 BP 105 / 63; Pulse 68; Resp 16; Temp 98.2; Pulse Ox 95% ; kt5 04:00 BP 108 / 61; Pulse 70; Resp 16; Temp 98.3; Pulse Ox 96% ; Pain 0/10; kt5 07/17 20:00 Body Mass Index 28.76 (76.00 kg, 162.56 cm) ha1 04:00 Pain Scale: Adult kt5 Procedures: 00:58 Splinting: Splint applied to right upper thigh using fred wrap, applied by nurse. dr5 Examined by me, post splint application: neurovascular intact, 2+ distal pulses palpable, brisk capillary refill noted, Patient tolerated well. MDM: 07/17 19:58 Medical Screening Exam initiated dr5 07/18 00:58 Differential diagnosis: viral Infection, bacterial infection, UTI, Contusion, anemia. dr5 Data reviewed: vital signs, nurses notes, lab test result(s), CBC, white blood cell count, hemoglobin, hematocrit, platelets, electrolytes, sodium, potassium, chloride, serum bicarbonate, BUN, creatinine, serum glucose, urinalysis, bacteruria, EKG, radiologic studies, plain films. Consideration of Admission/Observation Escalation of care including admission/observation considered. Escalation considered if patient had anemia with active signs of bleeding.. Management of patient was discussed with the following: Apparel Designer: Dr. Flynn -he is aware of patient and recommends warm compresses and Fred wrap. He states that he will be in his office on Thursday and wants her to be seen in his office on Thursday. Patient reports that she had CTA of her leg and ultrasound after pulling out her dialysis line but no signs of hematoma or bleeding. Dr. Flynn reports that she has not followed up in office and he would like to see her on Thursday.. I considered the following discharge prescriptions or medication management in the emergency department I discussed and recommended Over The Counter medications, Medications were administered in the Emergency Department. See MAR. Care significantly affected by the following chronic conditions: GERD, end-stage renal disease, CAD, hypertension, lupus, CO. Care significantly affected by the following Social Determinants of Health: Poor access to healthcare and/or lack of insurance, Poor access to transportation, Problems related to employment. [employer]. Counseling: I had a detailed discussion with the patient and/or guardian regarding the historical points, exam findings, and any diagnostic results supporting the discharge/admit diagnosis, the presence of at least one elevated blood pressure reading (>120/80) during this emergency department visit, lab results, radiology results, the need for outpatient follow up, for definitive care, a general surgeon, to return to the emergency department if symptoms worsen or persist or if there are any questions or concerns that arise at home. Medication response: Response to treatment: the patient's symptoms have markedly improved after treatment. Special discussion: I discussed with the patient/guardian in detail that at this point there is no indication for admission to the hospital. It is understood, however, that if the symptoms persist or worsen the patient needs to return immediately for re-evaluation. Based on the history and exam findings, there is no indication for further emergent testing or inpatient evaluation. I discussed with the patient/guardian the need to see the general surgeon for further evaluation of the symptoms. ED course: Dr. Flynn will see her on Thursday. 1 unit of packed red blood cells given for anemia. Patient reports she is going much better after pain medication. All questions answered. Strict ER precautions given. 07/17 20:19 Order name: Basic Metabolic Panel; Complete Time: 22:17 [facility] 07/17 20:19 Order name: CBC with Diff; Complete Time: 22: [facility] 07/17 20:19 Order name: UA Rfx Mike Cult if indicated; Complete Time: 22:40 [facility] 07/17 21:33 Order name: Type And Screen jb4 07/17 22:46 Order name: Urine Culture [facility] 07/17 22:46 Order name: Packed RBC Leukored [facility] 07/17 20:19 Order name: XRAY Chest (1 view); Complete Time: 21:03 [facility] 07/17 20:19 Order name: EKG; Complete Time: 20:19 [facility] 07/17 20:19 Order name: Cardiac monitoring; Complete Time: 21:50 [facility] 07/17 20:19 Order name: EKG - Nurse/Tech; Complete Time: 21:50 [facility] 07/17 20:19 Order name: IV Saline Lock; Complete Time: 21:57 [facility] 07/17 20:19 Order name: Labs collected and sent; Complete Time: :57 [facility] 07/17 20:19 Order name: O2 Per Protocol; Complete Time: 20:20 dr5 07/17 20:19 Order name: O2 Sat Monitoring; Complete Time: 20:20 dr5 07/17 22:39 Order name: Transfuse dr5 EC/22 20:49 Rate is 71 beats/min. Rhythm is regular. QRS Bowie is Normal. MS interval is normal at dr5 160 msec. QRS interval is normal at 94 msec. QT interval is normal at 434 msec. Clinical impression: Normal ECG and No evidence of ischemia. Administered Medications: 22:59 Drug: Rocephin IV 1 grams IV at per protocol once; Given slow IV push per pharmacy jb4 instructions Route: IV; Rate: per protocol; Site: left antecubital; 07/18 04:12 Follow up: Response: No adverse reaction kt5 00:12 Drug: morphine IVP or IV 4 mg IVP once over 4 mins Route: IVP; Infused Over: 4 mins; hm5 Site: left antecubital; 04:11 Follow up: Response: No adverse reaction kt5 00:12 Drug: Ondansetron IVP 4 mg IVP once; over 2 minutes Route: IVP; Site: left antecubital; 5 04:11 Follow up: Response: No adverse reaction kt5 Disposition: 05:23 Co-signature as Attending Physician, Rolf Palumbo DO I agree with the assessment and tt7 plan of care. Disposition Summary: 07/18/25 01:44 Discharge Ordered Notes: Location: Home dr5 Condition: Stable dr5 Diagnosis - UTI/ Urinary tract infection, site not specified dr5 - End stage renal disease dr5 - Anemia, unspecified dr5 Followup: dr5 - With: Emergency Department - When: As needed - Reason: Worsening of condition Followup: dr5 - With: Private Physician - When: 1 - 2 days - Reason: Recheck today's complaints, Continuance of care, Re-evaluation by your physician Discharge Instructions: - Discharge Summary Sheet dr5 - Anemia dr5 - Blood Transfusion, Adult dr5 - Urinary Tract Infection, Adult, [id number] dr5 Forms: - Medication Reconciliation Form dr5 - Antibiotic Education dr5 - Patient Portal Instructions dr5 - Leadership Thank You Letter dr5 Prescriptions: - Cephalexin 250 mg Oral Capsule - take 1 capsule ORAL route every 12 hours for 10 days; 20 capsule; Refills: 0, dr5 Product Selection Permitted Critical care time excluding procedures: 00:58 Critical care time: Bedside Care: 25 minutes, Consultation: 5 minutes, Family dr5 Intervention: 5 minutes. Total time: 35 minutes Signatures: Dispatcher [employer] EDCO Arnaldo Park, RN RN jb4 Paula Baptiste, RN RN ha1 Gideon Bingham, SOFA BACK UPHOLSTERER-C SOFA BACK UPHOLSTERER-Cdr5 Cheryl Soliz, RN RN hm5 Rolf Palumbo, DO DO tt7 Martha Epstein RN kt5 Corrections: (The following items were deleted from the chart) 07/17 22:46 22:39 PACKED RBC LEUKORED+[id number].BRZ ordered. [facility] 07/18 01:46 00:58 ED course: Dr. Flynn will see her on Thursday. 1 unit of packed red blood dr5 cells given for anemia. Patient reports he is going much better after pain medication. All questions answered. Strict ER precautions given. dr5
--- NOTE | 2025-07-18 01:45 | ER ---
Nurse's Notes [facility] Name: Mirtha Edouard Age: 74 yrs Sex: Female : 1950 Arrival Date: 07/17/2025 Time: 19:54 Bed 7 Private MD: Diagnosis: UTI/ Urinary tract infection, site not specified;End stage renal disease;Anemia, unspecified Presentation: 07/17 20:00 Chief complaint: Patient states: CHECKED HEMOGLOBIN LEVEL AT HOME AND IT WAS AT 4.3. ha1 RIGHT LEG SWELLING AFTER HAVING AN INCISION AT THE INGUINAL AREA FOR AN EMERGENCY DIALYSIS. BURNING WITH URINATION, URINE WITH BAD ODOR. HAD DIALYSIS FEW HOURS AGO. 20:00 Coronavirus screen: Client denies travel out of the [place] in the last 14 days. Ebola ha1 Screen: No symptoms or risks identified at this time. Initial Sepsis Screen: Does the patient meet any 2 criteria? No. Patient's initial sepsis screen is negative. Does the patient have a suspected source of infection? No. Patient's initial sepsis screen is negative. Risk Assessment: Do you want to hurt yourself or someone else? Patient reports no desire to harm self or others. Onset of symptoms was July 17, 2025. 20:00 Method Of Arrival: Wheelchair ha1 20:00 Acuity: ADELAIDA 2 ha1 Triage Assessment: 20:24 General: Appears uncomfortable, Behavior is cooperative. Pain: Complains of pain in ha1 right leg Pain currently is 8 out of 10 on a pain scale. Quality of pain is described as aching. Neuro: Level of Consciousness is awake, alert, obeys commands, Oriented to person, place, time, situation. Cardiovascular: Capillary refill < 3 seconds Patient's skin is warm and dry. Respiratory: Airway is patent Respiratory effort is even, unlabored, Respiratory pattern is regular, symmetrical. Historical: - Allergies: 20:24 No Known Allergies; ha1 - PMHx: 20:24 CAD; End stage renal disease; GERD; Hypertension; Lupus; Myocardial infarction; ha1 - PSHx: 20:24 Total abdominal hysterectomy; ha1 - Immunization history:: Adult Immunizations up to date. - Infectious Disease History:: Denies. - Social history:: Smoking status: unknown. Screenin:59 [facility] ED Fall Risk Assessment (Adult) History of falling in the last 3 months, jb4 including since admission No falls in past 3 months (0 pts) Confusion or Disorientation No (0 pts) Intoxicated or Sedated No (0 pts) Impaired Gait No (0 pts) Mobility Assist Device Used No (0 pt) Altered Elimination No (0 pt) Score/Fall Risk Level 0 - 2 = Low Risk Oriented to surroundings, Maintained a safe environment. Abuse screen: Denies threats or abuse. Nutritional screening: No deficits noted. Tuberculosis screening: No symptoms or risk factors identified. Assessment: 21:35 General: Appears in no apparent distress. uncomfortable, Behavior is calm, cooperative, jb4 appropriate for age, Hematoma noted to the right groin, pt reports it is increasing in size. Provider made aware.. Pain: Complains of pain in right inner thigh and right upper thigh Pain does not radiate. Pain currently is 8 out of 10 on a pain scale. Quality of pain is described as pressure. Neuro: Level of Consciousness is awake, alert, obeys commands, Oriented to person, place, time, situation. Cardiovascular: Patient's skin is warm and dry. Respiratory: Airway is patent Respiratory effort is even, unlabored, Respiratory pattern is regular, symmetrical. Derm: Skin is intact, Skin is pink, warm \T\ dry. Bruising that is bright red, dark purple, on right inner thigh, medial aspect of right thigh, right upper thigh and right quadriceps. Musculoskeletal: Circulation, motion, and sensation intact. Range of motion: intact in all extremities. 22:51 General: received report from therapeutic support staff arnaldo, all questions answered. kt5 22:53 Reassessment: Patient appears in no apparent distress at this time. Patient and/or kt5 family updated on plan of care and expected duration. Pain level reassessed. Patient is alert, oriented x 3, equal unlabored respirations, skin warm/dry/pink. Patient denies pain at this time. Patient states feeling better. Patient states symptoms have improved. 07/18 00:30 General: blood transfusion started, will monitor close, pt o all monitors, v/s/s. kt5 01:20 Reassessment: Patient appears in no apparent distress at this time. Patient and/or kt5 family updated on plan of care and expected duration. Pain level reassessed. Patient is alert, oriented x 3, equal unlabored respirations, skin warm/dry/pink. Patient denies pain at this time. Patient states feeling better. Patient states symptoms have improved. 02:25 Reassessment: Patient appears in no apparent distress at this time. Patient and/or kt5 family updated on plan of care and expected duration. Pain level reassessed. Patient is alert, oriented x 3, equal unlabored respirations, skin warm/dry/pink. Patient denies pain at this time. Patient states feeling better. Patient states symptoms have improved. 03:34 Reassessment: Patient appears in no apparent distress at this time. Patient and/or kt5 family updated on plan of care and expected duration. Pain level reassessed. Patient denies pain at this time. Patient states feeling better. Patient states symptoms have improved. 04:00 Reassessment: Patient and/or family updated on plan of care and expected duration. Pain kt5 level reassessed. Patient is alert, oriented x 3, equal unlabored respirations, skin warm/dry/pink. blood transfusion complete, pt tolerated well Patient denies pain at this time. Patient states feeling better. Patient states symptoms have improved. 04:09 General: pt up ambulating to rr w/o complications. kt5 Vital Signs: 07/17 20:00 BP 88 / 77; Pulse 76; Resp 20 S; Temp 97.7(O); Pulse Ox 100% on R/A; Weight 76 kg; ha1 Height 5 ft. 4 in. ; 21:59 BP 120 / 59; Pulse 78; Resp 16; Pulse Ox 100% on R/A; jb4 22:52 BP 112 / 61; Pulse 80; Resp 16; Pulse Ox 99% ; kt5 07/18 00:29 BP 113 / 63; Pulse 72; Resp 16 S; Temp 98.8; Pulse Ox 94% on R/A; kt5 01:00 BP 103 / 68; Pulse 74; Resp 16 S; Temp 98.2; Pulse Ox 96% on R/A; kt5 02:00 BP 108 / 63; Pulse 74; Resp 16; Pulse Ox 95% ; kt5 02:25 BP 109 / 56; Pulse 67; Resp 18; Temp 98.3; Pulse Ox 94% ; kt5 03:00 BP 110 / 63; Pulse 69; Resp 16; Temp 98.3; Pulse Ox 95% ; kt5 03:34 BP 105 / 63; Pulse 68; Resp 16; Temp 98.2; Pulse Ox 95% ; kt5 04:00 BP 108 / 61; Pulse 70; Resp 16; Temp 98.3; Pulse Ox 96% ; Pain 0/10; kt5 07/17 20:00 Body Mass Index 28.76 (76.00 kg, 162.56 cm) ha1 04:00 Pain Scale: Adult kt5 ED Course: 07/17 19:56 Patient arrived in ED. mr 19:58 Gideon Bingham FNP-C is PHCP. dr5 19:58 Rolf Palumbo DO is Attending Physician. dr5 20:24 Triage completed. ha1 20:50 XRAY Chest (1 view) In Process Unspecified. EDMS 21:15 Inserted saline lock: 20 gauge in left antecubital area, using aseptic technique. Blood ha1 collected. Flushed with 10 mL NS Accessed peripheral vein via ultrasound, utilizing dynamic ultrasound technique. 21:57 Arnaldo Park, RN is Primary Nurse. jb4 21:59 Patient has correct armband on for positive identification. Bed in low position. Call jb4 light in reach. Side rails up X 1. Provided Education on: plan of care. 21:59 No provider procedures requiring assistance completed. jb4 22:44 Type And Screen Sent. kt5 23:29 Urine Culture Sent. kt5 07/18 04:14 IV discontinued, intact, bleeding controlled, No redness/swelling at site. Pressure kt5 dressing applied. Administered Medications: 07/17 22:59 Drug: Rocephin IV 1 grams IV at per protocol once; Given slow IV push per pharmacy jb4 instructions Route: IV; Rate: per protocol; Site: left antecubital; 07/18 04:12 Follow up: Response: No adverse reaction kt5 00:12 Drug: morphine IVP or IV 4 mg IVP once over 4 mins Route: IVP; Infused Over: 4 mins; 5 Site: left antecubital; 04:11 Follow up: Response: No adverse reaction kt5 00:12 Drug: Ondansetron IVP 4 mg IVP once; over 2 minutes Route: IVP; Site: left antecubital; 5 04:11 Follow up: Response: No adverse reaction kt5 Medication: 07/17 21:59 VIS not applicable for this client. jb4 Outcome: 07/18 01:44 Discharge ordered by . connor 04:14 Discharged to home ambulatory, with family, kt5 04:14 Condition: improved 04:14 Discharge instructions given to patient, Instructed on discharge instructions, follow up and referral plans. Demonstrated understanding of instructions, follow-up care, medications, Prescriptions given X 1, 04:15 Patient left the ED. kt5 Addendum: 07/21/2025 08:56 Addendum: Culture Results: Positive urine culture. No further action required. Bacteria e b sensitive to prescribed antibiotic. Signatures: Dispatcher [employer] EDGA Rosetta Page, Reg Reg mr XavierArnaldo, RN RN jb4 Cristiana Cavanaugh Heidy, RN RN ha1 Gideon Bingham, PILOT SUBMERSIBLE-C PILOT SUBMERSIBLE-Cdr5 Cheryl Soliz, RN RN hm5 Martha Epstein RN RN kt5 Corrections: (The following items were deleted from the chart) 07/18 02:26 02:25 BP 109 / 56; Pulse 67bpm; Resp 18bpm; Pulse Ox 94%; kt5 kt5 02:30 02:25 BP 109 / 56; Pulse 67bpm; Resp 18bpm; Pulse Ox 94%; Temp 98.3F; kt5 kt5
[2025-07-18 04:35] VITALS: BP 108/61; TEMP 98.3; O2SAT 96
== END 2025-07-18 04:15 | disposition home or self-care (01) ==
LOC: ER 19:54
PROC: 30233N1 Transfusion of Nonautologous Red Blood Cells into Peripheral Vein, Percutaneous Approach (ICD-10-PCS; principal; 2025-07-18)
DX: N39.0 Urinary tract infection, site not specified (principal); D64.9 Anemia, unspecified; I12.0 Hypertensive chronic kidney disease with stage 5 chronic kidney disease or end stage renal disease; N18.6 End stage renal disease; Z99.2 Dependence on renal dialysis
CPT/HCPCS: 93005; 87088; 85025; 81001; 87086; 80048; 36415; 86900; 86850; 86901; 86920; 87077; 87186; 71045; 96375; 96374; 99285; 36430; J2405; P9016; J7040; J0696